=== PATIENT | male | born 1985 | race Two or more races ===

== ENCOUNTER → 2020-03-22 14:13 | Outpatient (BNVA) | payer MEDICAID, SELFPAY | PROVIDERS: PCP Internal Medicine; Referring Provider Internal Medicine; Visit Provider Internal Medicine Cardiovascular Disease | DX: I11.9 Hypertensive heart disease without heart failure (principal); I42.1 Obstructive hypertrophic cardiomyopathy; Z79.899 Other long term (current) drug therapy | CPT/HCPCS: 99212 ==

== ENCOUNTER → 2020-05-08 10:03 | Outpatient (BNVA) | payer MEDICAID, SELFPAY | PROVIDERS: PCP Internal Medicine; Referring Provider Internal Medicine; Visit Provider Nurse Practitioner Family | DX: Z76.89 Persons encountering health services in other specified circumstances (principal) ==

== ENCOUNTER 2020-05-30 12:11 | Outpatient (REF) | payer MEDICAID, SELFPAY ==
[2020-05-30 13:26] LABS: MANUAL DIFF FLAG NO
[2020-05-30 13:30] LABS: Basophils Absolute Auto 0.1 X10*3/uL (0.0-0.2); Basophils Percent Auto 0.8 % (0-2); Eosinophils Absolute Auto 0.2 X10*3/uL (0.0-0.4); Eosinophils Percent Auto 1.8 % (0-4); Hematocrit 49.5 % (42-52); Hemoglobin 16.4 g/dl (14.0-18.0); Imm Gran Abs Auto 0.19 X10*3/uL (0.00-0.03); Imm Gran Pct Auto 1.7 % (0.0-0.4); Lymphocytes Absolute Auto 3.6 X10*3/uL (1.2-4.9); Lymphocytes Percent Auto 31.4 % (20-40); Mean Corpuscular HGB Conc 33.1 g/dl (31.0-36.0); Mean Corpuscular Hemoglobin 29.9 pg (27.0-33.0); Mean Corpuscular Volume 90.2 fL (80-98); Mean Platelet Volume 10.7 fL (9.4-12.4); Monocytes Absolute Auto 0.9 X10*3/uL (0.1-1.2); Monocytes Percent Auto 7.8 % (2-11); Neutrophils Absolute Auto 6.4 X10*3/uL (2.0-8.3); Neutrophils Percent Auto 56.5 % (45-73); Platelet Count 257 X10*3/uL (160-400); Red Blood Count 5.49 X10*6/uL (4.60-5.80); Red Cell Distribution Width 12.1 % (11.0-16.0); White Blood Count 11.3 X10*3/uL (4.8-10.8)
[2020-05-30 13:56] LABS: Estimated Average Glucose 131 mg/dL; Hemoglobin A1c % 6.2 %
[2020-05-30 13:58] LABS: Alanine Aminotransferase 77 U/L (0-40); Albumin Level 4.9 g/dL (3.5-5.0); Alkaline Phosphatase 91 U/L (39-117); Anion Gap 14 (12-20); Aspartate Amino Transferase 39 U/L (5-37); Bilirubin Total 0.8 mg/dL (0.0-1.0); Blood Urea Nitrogen 18 mg/dL (9-16); Calcium 9.8 mg/dL (8.4-10.2); Carbon Dioxide 26 mmol/L (22-29); Chloride 104 mmol/L (96-108); Cholesterol 166 mg/dL; Estimated Glomerular Filt Rate > 60; Glucose Random 111 mg/dL (60-115); HDL Cholesterol 49 mg/dL; LDL Cholesterol Calculated 90 mg/dl; Potassium 4.4 mmol/l (3.3-5.1); Sodium 140 mmol/L (135-145); Total Protein 7.5 g/dL (6.5-8.0); Triglycerides 138 mg/dL
[2020-05-30 14:20] LABS: Thyroid Stimulating Hormone 1.89 uIU/mL (0.32-4.0)
[2020-05-30 14:21] LABS: Glucose Urine UA NEG (NEG); Leukocyte Esterase Urine NEG (NEG); Nitrite Urine NEG (NEG); PH 5.5 (5.0-8.0); Specific Gravity - Urine >= 1.030 (1.005-1.025); Urine Blood TRACE (NEG); Urine Ketones NEG (NEG); Urine Protein NEG (NEG-TRACE)
[2020-05-30 14:23] LABS: Appearance Urine CLEAR; Color Urine YELLOW
[2020-05-30 14:43] LABS: Bacteria Urine TRACE /LPF; Mucus Urine TRACE /LPF; RBC Urine 0-2 /HPF (0); Squamous Epithelial Cell Urine 1+ /LPF; WBC Urine 0-2 /HPF (0-4)
[2020-05-30 14:53] LABS: Creatinine Urine 248.37 mg/dL; Microalbum/Creatinine Ratio Ur 7.2 ug/mg cr
== END 2020-05-30 12:12 | disposition home or self-care (01) ==
LOC: HO.LAB 12:11
PROVIDERS: PCP Internal Medicine; Visit Provider Internal Medicine
DX: E11.9 Type 2 diabetes mellitus without complications (principal); I10 Essential (primary) hypertension; Z72.0 Tobacco use
CPT/HCPCS: 36415; 80053; 80061; 81001; 81003; 82043; 83036; 84443; 85025

== ENCOUNTER → 2020-08-07 10:24 | Outpatient (BNVA) | payer MEDICAID, SELFPAY | PROVIDERS: PCP Internal Medicine; Visit Provider Nurse Practitioner Family ==

== ENCOUNTER → 2020-08-09 14:16 | Outpatient (BNVA) | payer MEDICAID, SELFPAY | PROVIDERS: PCP Internal Medicine; Visit Provider Student in an Organized Health Care Education/Training Program | DX: M25.521 Pain in right elbow (principal) | CPT/HCPCS: 99212 ==

== ENCOUNTER 2020-09-11 07:38 | Outpatient (REF) | payer MEDICAID, SELFPAY ==
[2020-09-11 09:06] LABS: Alanine Aminotransferase 76 U/L (0-40); Albumin Level 4.8 g/dL (3.5-5.0); Alkaline Phosphatase 107 U/L (39-117); Anion Gap 14 (12-20); Aspartate Amino Transferase 34 U/L (5-37); Bilirubin Total 0.4 mg/dL (0.0-1.0); Blood Urea Nitrogen 17 mg/dL (9-16); Calcium 9.8 mg/dL (8.4-10.2); Carbon Dioxide 27 mmol/L (22-29); Chloride 104 mmol/L (96-108); Cholesterol 210 mg/dL; Estimated Glomerular Filt Rate > 60; Glucose Fasting 171 mg/dL (60-99); HDL Cholesterol 36 mg/dL; LDL Cholesterol Calculated 120 mg/dl; Potassium 4.6 mmol/L (3.3-5.1); Sodium 140 mmol/L (135-145); Total Protein 7.2 g/dL (6.5-8.0); Triglycerides 270 mg/dL
[2020-09-11 09:20] LABS: Estimated Average Glucose 146 mg/dL; Hemoglobin A1c % 6.7 %
== END 2020-09-11 07:39 | disposition home or self-care (01) ==
LOC: HO.LAB 07:38
PROVIDERS: PCP Internal Medicine; Visit Provider Internal Medicine
DX: E11.9 Type 2 diabetes mellitus without complications (principal); E78.00 Pure hypercholesterolemia, unspecified; G47.33 Obstructive sleep apnea (adult) (pediatric); I10 Essential (primary) hypertension; M25.521 Pain in right elbow
CPT/HCPCS: 36415; 80053; 80061; 83036

== ENCOUNTER → 2020-10-23 08:26 | Outpatient (BNVA) | payer MEDICAID, SELFPAY | PROVIDERS: PCP Internal Medicine; Visit Provider Nurse Practitioner Family ==

== ENCOUNTER → 2021-01-22 10:54 | Outpatient (BNVA) | payer MEDICAID, SELFPAY | PROVIDERS: PCP Internal Medicine; Visit Provider Nurse Practitioner Family ==

== ENCOUNTER 2021-03-13 10:55 | Outpatient (REF) | payer OTHER, SELFPAY ==
[2021-03-13 14:52] LABS: Anion Gap 18 (12-20); Blood Urea Nitrogen 15 mg/dL (9-16); Carbon Dioxide 26 mmol/L (22-29); Chloride 96 mmol/L (96-108); Estimated Glomerular Filt Rate > 60; Glucose Fasting 424 mg/dL (60-99); Potassium 4.6 mmol/L (3.3-5.1); Sodium 135 mmol/L (135-145)
== END 2021-03-13 10:56 | disposition home or self-care (01) ==
LOC: HO.WFDLDS 10:55
PROVIDERS: PCP Hospitalist; Visit Provider Hospitalist
DX: M54.41 Lumbago with sciatica, right side (principal); M54.42 Lumbago with sciatica, left side
CPT/HCPCS: 36415; 80048

== ENCOUNTER 2021-03-26 11:23 | Outpatient (REF) | payer OTHER, SELFPAY ==
[2021-03-26 14:35] LABS: Estimated Average Glucose 275 mg/dL; Hemoglobin A1c % 11.2 %
== END 2021-03-26 11:24 | disposition home or self-care (01) ==
LOC: HO.WFDLDS 11:23
PROVIDERS: Visit Provider Hospitalist
DX: R73.9 Hyperglycemia, unspecified (principal)
CPT/HCPCS: 36415; 83036

== ENCOUNTER → 2021-04-02 13:51 | Outpatient (BNVA) | payer OTHER, SELFPAY | PROVIDERS: PCP Hospitalist; Referring Provider Hospitalist; Visit Provider Internal Medicine ==

== ENCOUNTER 2021-05-07 12:50 | Outpatient (REF) | payer OTHER, SELFPAY ==
[2021-05-07 14:28] LABS: Estimated Average Glucose 189 mg/dL; Hemoglobin A1c % 8.2 %
== END 2021-05-07 12:51 | disposition home or self-care (01) ==
LOC: HO.WFDLDS 12:50
PROVIDERS: Visit Provider Hospitalist
DX: E11.65 Type 2 diabetes mellitus with hyperglycemia (principal)
CPT/HCPCS: 36415; 83036

== ENCOUNTER → 2021-05-20 09:12 | Outpatient (REF) | payer OTHER, SELFPAY ==
--- NOTE | 2021-05-20 09:17 | CA_ITS ---
Transthoracic Echocardiogram Patient (Last, First, Middle): Tej Proctor, Gender: Male Date of : 1985 Age: 35 Procedure Date: 05/20/2021 Procedure Type: Transthoracic Echocardiogram Location: OP Height: 182.88 cm Weight: 112.49 kg BSA: 2.33 m2 Heart Rate: bpm BP: 130 / 85 mmHg Investment Broker: JAQUELIN Referring MD: Tip Crow MD Health Aide: Tip Crow MD Symptoms: I11.9 - Hypertensive heart disease without heart failure Study Quality: Fair ECG Rhythm: Sinus Conclusions: - 1. Normal LV systolic function with severe LVH with pseudonormal filling pattern 2. Mild left atrial enlargement 3. Normal cardial valvular Dopplers 4. Normal RVSP 5. No gross pericardial effusion Findings Left Ventricle Normal left ventricular size and systolic function. There is severely increased left ventricular wall thickness. The visually estimated ejection fraction is between 60-65%. Spectral Doppler is indicative of a pseudonormal filling pattern. E/E prime ratio is between 8 and 15 consistent with indeterminate filling pressures. Right Ventricle Normal right ventricular cavity size and systolic function. Atria The left atrium is mildly dilated. There is no evidence of interatrial shunt. The right atrium is normal in size. Aortic Valve Normal aortic valve structure and function. There is no aortic valve stenosis. There is no aortic valve regurgitation. Mitral Valve There is mild anterior and posterior mitral leaflet thickening. There is trace mitral valve regurgitation. There is no mitral valve stenosis. Pulmonic Valve The pulmonic valve was not well visualized. Tricuspid Valve Likely normal tricuspid valve structure and function. There is trace tricuspid valve regurgitation. The right ventricular systolic pressure is normal. There is no evidence of pulmonary hypertension. Great Vessels All visible segments of the aorta are normal in size. The pulmonary artery was not well visualized. Venous The inferior vena cava is normal in size and collapses greater than 50% with inspiration. Pericardium/Pleural There is no evidence of pericardial effusion. Prior Study Comparison Changes noted compared to prior study dated: 11/21/2019. Obstructive physiology at LVOT is not noted on this study Measurements 2D Linear Measurements IVSd: 2.66 0.6-0.9/0.6-1.0 cm LVIDd: 3.84 3.9-5.3/4.2-5.9 cm LVIDd Index: 1.65 2.4-3.2/2.2-3.1 cm/m2 LVIDs: 2.30 2.0-3.6 cm LVPWd: 2.21 0.7-1.1 cm Ao Root: 3.40 2.1-3.5 cm LA Diam: 4.20 2.7-3.8/3.0-4.0 cm LAIDs Index: 1.80 1.5-2.3 cm/m2 LV Mass: 628.32 67-162/88-224 g LV Mass Index: 269.66 43-95/49-115 g/m2 LVOT Diam: 2.70 3.0+(-)1.3 cm Mitral Valve MV Pk E: 0.80 MV PK A: 0.68 MV Decel Time: 252.00 E/A: 1.20 E'Lateral: 5.98 E'Medial: 6.09 E/E' Med: 13.20 E/E' Lat: 13.40 PHT: 74.00 MVA PHT: 2.97 Decel Bradley: 3.18 Aortic Valve AoV Pk Emerson: 1.40 AoV Mn Emerson: 1.03 AoV VTI: 0.30 AoV Pk Grad: 8.00 Aov Mn Grad: 5.00 LEVI Cont.VTI: 5.60 LVOT LVOT Pk Emerson: 1.34 LVOT Mn Emerson: 0.92 LVOT VTI: 0.30 LVOT Pk Grad: 7.00 LVOT Mn Grad: 4.00 LVOT Diam: 2.70 LVOT Area: 5.73 Diastolic Function MV Pk E: 0.80 MV Pk A: 0.68 E/A: 1.20 E'Medial: 6.09 E/E' Med: 13.20 E' Laterial: 5.98 E/E' Lat: 13.40 Right Ventricle TAPSE (mm): 18.90 TVS' Emerson: 12.20 Tricuspid Valve TR Pk Emerson: 1.51 TR Pk Grad: 9.00 RA Press: 3.00 RVSP: 12.00 Great Vessels Aorta Ao Root-2D: 3.40 2.0-3.7 cm Ao Asc: 2.90 2.1-3.4 cm Ao Arch: 2.90 Updated in Other Vendor System with Status of Final Tip Crow MD electronically signed on 05/20/2021 6:06:21 PM with status of Final
== END ==
LOC: HO.CARD 09:12
PROVIDERS: PCP Hospitalist; Visit Provider Internal Medicine Cardiovascular Disease
DX: I11.9 Hypertensive heart disease without heart failure (principal)
CPT/HCPCS: 93306

== ENCOUNTER → 2021-06-28 09:09 | Outpatient (BNVA) | payer OTHER, SELFPAY | PROVIDERS: PCP Hospitalist; Referring Provider Hospitalist; Visit Provider Internal Medicine Cardiovascular Disease | DX: Z01.810 Encounter for preprocedural cardiovascular examination (principal); I11.9 Hypertensive heart disease without heart failure; R07.2 Precordial pain | CPT/HCPCS: 99212 ==

== ENCOUNTER 2021-08-06 11:49 | Outpatient (REF) | payer OTHER, SELFPAY ==
--- NOTE | ~2021-08-06 | XR_ITS ---
EXAMINATION: XR LUMBOSACRAL SPINE CLINICAL INFORMATION: Low back pain with radiculopathy. COMPARISON: None TECHNIQUE: Three views of the lumbosacral spine. FINDINGS: There is mild straightening of the lumbar lordosis. The vertebral heights, alignment and disc heights are normal. No visible acute fracture or dislocation seen. No lytic process. There is minimal ventral spondylosis at the L3-L4, L4-L5 and L5-S1 disc levels. No lytic or sclerotic process seen. The SI joints are symmetrical. The soft tissues are normal. XR/XR lumbar spine 2-3V IMPRESSION: Minimal ventral spondylosis L3-L4, L4-L5 and L5-S1 disc levels. Otherwise unremarkable lumbar spine exam.
== END 2021-08-06 11:50 | disposition home or self-care (01) ==
LOC: HO.XRAY 11:49
PROVIDERS: PCP Hospitalist; Visit Provider Chiropractor
DX: M54.16 Radiculopathy, lumbar region (principal); M99.13 Subluxation complex (vertebral) of lumbar region
CPT/HCPCS: 72100

== ENCOUNTER 2021-08-19 12:10 | Outpatient (REF) | payer OTHER, SELFPAY ==
--- NOTE | ~2021-08-19 | XR_ITS ---
EXAMINATION: XR KNEE, RIGHT CLINICAL INFORMATION: Right knee pain COMPARISON: 12/22/2019 TECHNIQUE: Four views of the right knee. FINDINGS: No fracture or subluxation. Compartmental joint spaces are maintained. Mild marginal osteophytes of the lateral compartment. Small osteophytes of the patellofemoral compartment. No joint effusion. Mild anterior soft tissue swelling. XR/XR knee RT 4V IMPRESSION: Mild degenerative change at the lateral and patellofemoral compartments with small osteophytes present.
[2021-08-19 14:06] LABS: Anion Gap 14 (12-20); Blood Urea Nitrogen 19 mg/dL (9-16); Calcium 10.4 mg/dL (8.4-10.2); Carbon Dioxide 28 mmol/L (22-29); Chloride 100 mmol/L (96-108); Estimated Glomerular Filt Rate > 60; Glucose Random 245 mg/dL (60-115); Potassium 4.2 mmol/L (3.3-5.1); Sodium 138 mmol/L (135-145)
[2021-08-19 14:16] LABS: Erythrocyte Sedimentation Rate 16 MM/HR (0-15)
[2021-08-22 19:38] LABS: CRP High Sensitivity >10.0 mg/L
== END 2021-08-19 12:11 | disposition home or self-care (01) ==
LOC: HO.XRAY 12:10
PROVIDERS: Absent Provider Hospitalist; PCP Hospitalist; Visit Provider Internal Medicine Cardiovascular Disease
DX: M25.561 Pain in right knee (principal); I11.9 Hypertensive heart disease without heart failure; I42.1 Obstructive hypertrophic cardiomyopathy; M06.9 Rheumatoid arthritis, unspecified; M25.521 Pain in right elbow; M77.8 Other enthesopathies, not elsewhere classified; M25.571 Pain in right ankle and joints of right foot; M54.41 Lumbago with sciatica, right side; M54.42 Lumbago with sciatica, left side
CPT/HCPCS: 36415; 73564; 80048; 85652; 86141

== ENCOUNTER 2021-10-24 11:27 | Outpatient (REF) | payer OTHER, SELFPAY ==
[2021-10-24 12:25] LABS: C Reactive Protein 0.46 mg/dL (< or = 0.50)
[2021-10-24 13:00] LABS: Erythrocyte Sedimentation Rate 3 MM/HR (0-15)
== END 2021-10-24 11:28 | disposition home or self-care (01) ==
LOC: HO.LAB 11:27
PROVIDERS: PCP Hospitalist; Visit Provider Internal Medicine Rheumatology
DX: M25.50 Pain in unspecified joint (principal); R70.0 Elevated erythrocyte sedimentation rate; M47.816 Spondylosis without myelopathy or radiculopathy, lumbar region; M17.11 Unilateral primary osteoarthritis, right knee
CPT/HCPCS: 36415; 85652; 86140; 99202

== ENCOUNTER 2021-11-28 09:52 | Outpatient (REF) | payer OTHER, SELFPAY ==
--- NOTE | ~2021-11-28 | XR_ITS ---
EXAMINATION: XR lumbar spine 6V w bending CLINICAL INFORMATION: Reason for Exam M54.16 - Radiculopathy, lumbar region COMPARISON: Lumbar spine radiographs 08/06/2021 TECHNIQUE: 6 views of the lumbar spine FINDINGS: 5 nonrib-bearing lumbar-type vertebral bodies. Vertebral body heights are maintained. Grade retrolisthesis of L3 on L4 and L4 on L5 not significant changed in flexion extension views. No pars defects. Mild degenerative disc disease at L4-L5 and L5-S1 with degenerative endplate spurring and facet arthropathy. Paravertebral soft tissues are unremarkable. XR/XR lumbar spine 6V w bending IMPRESSION: * Mild spondylosis of the lumbar spine, as above detailed. * Grade 1 retrolisthesis of L3 on L4 and L4 on L5 not significantly changed in flexion extension views.
[2021-11-28 10:33] LABS: Estimated Average Glucose 206 mg/dL; Hemoglobin A1c % 8.8 %
== END 2021-11-28 09:53 | disposition home or self-care (01) ==
LOC: HO.XRAY 09:52
PROVIDERS: PCP Hospitalist; Visit Provider Nurse Practitioner Family
DX: M47.816 Spondylosis without myelopathy or radiculopathy, lumbar region (principal); M54.16 Radiculopathy, lumbar region; M17.11 Unilateral primary osteoarthritis, right knee; M62.830 Muscle spasm of back; E11.65 Type 2 diabetes mellitus with hyperglycemia
CPT/HCPCS: 36415; 72114; 83036; 99202

== ENCOUNTER 2021-12-09 14:50 | Inpatient (IN) | payer OTHER, SELFPAY ==
--- NOTE | ~2021-12-09 | XR_ITS ---
EXAMINATION: XR FOOT, RIGHT CLINICAL INFORMATION: Right foot swelling and pain COMPARISON: MRI 01/24/2020 TECHNIQUE: AP, lateral, and oblique views of the right foot. FINDINGS: Normal alignment with no fracture. Tibiotalar arthrosis. Posterior calcaneal enthesophyte. Dorsal soft tissue swelling. XR/XR foot RT min 3V IMPRESSION: Dorsal soft tissue swelling. No acute osseous abnormality.
--- NOTE | ~2021-12-09 | CT_ITS ---
EXAMINATION: CT FOOT WITH CONTRAST, RIGHT CLINICAL INFORMATION: Puncture wound, rule out drainable collection COMPARISON: None TECHNIQUE: Axial imaging. Sagittal and coronal reconstructions. Intravenous contrast used. 85 mL Omnipaque 350. This CT examination was performed using dose optimization techniques as appropriate, variously including the following: *Automated exposure control *Adjustment of mA and/or kV according to patient size (this includes techniques or standardized protocols for targeted exams where dose is matched to indication/reason for exam; i.e. extremities or head) *Use of iterative reconstruction technique DLP: 196 mGy-cm FINDINGS: There is a hypodense collection in the plantar subcutaneous tissues of the medial aspect of the forefoot, underlying the distal first metatarsal. This measures 1.7 x 1.8 x 1.6 cm (AP, transverse, length). Internal Hounsfield measurements 38-43, greater than simple fluid. Inferiorly, this extends to the skin. Findings are concerning for a complex collection, differential consideration include abscess. No radiodense foreign bodies or air is identified in this region. There is haziness in the plantar subcutaneous soft tissue overlying in the region of the distal fifth metatarsal, and the distal first toe, nonspecific. There is otherwise scattered areas as subcutaneous stranding present. No additional organized fluid collections identified. Postsurgical changes in the distal fibula with metallic anchors. Talocrural joint arthritis. There is an area of sclerosis with irregular margins in the talus, the talar body/neck, with irregular margins. This of indeterminate etiology, could be related to an area of bone infarction. No acute fractures identified. CT/CT foot RT w con IMPRESSION: Complex fluid collection in the plantar soft tissues/subcutaneous tissues in the region of the distal first metatarsal measuring 1.7 x 1.8 x 1.6 cm. No radiodense foreign bodies or air is identified in this region. Differential consideration include infectious etiology/abscess, inflammatory etiologies. Clinically correlate. Areas of haziness in the plantar subcutaneous soft tissues tissue in the region of the distal fifth metatarsal and the distal first toe, nonspecific. This clinically correlate. Prominent area of sclerosis with irregular margins in the talar body/neck, of indeterminate etiology. Differential consideration include sequela of trauma, bone infarction. Clinically correlate. Additional findings and details as above.
[2021-12-09 15:08] VITALS: BP 159/82; PULSE 85; RESP 18; TEMP 36.1; O2SAT 98; BMI 33.0
[2021-12-09 15:48] LABS: Basophils Absolute Auto 0.1 X10*3/uL (0.0-0.2); Basophils Percent Auto 0.4 % (0-2); Eosinophils Absolute Auto 0.1 X10*3/uL (0.0-0.4); Eosinophils Percent Auto 0.7 % (0-4); Hematocrit 47.8 % (42.0-52.0); Hemoglobin 16.3 g/dl (14.0-18.0); Imm Gran Abs Auto 0.16 X10*3/uL (0.00-0.03); Imm Gran Pct Auto 0.9 % (0.0-0.4); Lymphocytes Absolute Auto 3.3 X10*3/uL (1.2-4.9); Lymphocytes Percent Auto 17.5 % (20-40); MANUAL DIFF FLAG SCAN; Mean Corpuscular HGB Conc 34.1 g/dl (31.0-36.0); Mean Corpuscular Volume 87.9 fL (80.0-98.0); Mean Platelet Volume 10.6 fL (9.4-12.4); Monocytes Absolute Auto 1.8 X10*3/uL (0.1-1.2); Monocytes Percent Auto 9.8 % (2-11); Neutrophils Absolute Auto 13.2 x10*3/uL (2.0-8.3); Neutrophils Percent Auto 70.7 % (45-73); Platelet Count 242 X10*3/uL (160-400); Red Blood Count 5.44 X10*6/uL (4.60-5.80); Red Cell Distribution Width 11.9 % (11.0-16.0); SCAN SMEAR FLAG 1; White Blood Count 18.6 X10*3/uL (4.8-10.8)
[2021-12-09 16:00] LABS: C Reactive Protein 8.34 mg/dL (< or = 0.50)
[2021-12-09 16:02] LABS: Alanine Aminotransferase 91 U/L (0-40); Alkaline Phosphatase 123 U/L (39-117); Anion Gap 15 (12-20); Aspartate Amino Transferase 22 U/L (5-37); Bilirubin Total 1.1 mg/dL (0.0-1.0); Blood Urea Nitrogen 14 mg/dL (9-16); Carbon Dioxide 24 mmol/L (22-29); Chloride 101 mmol/L (96-108); Creatinine Clr Calc Pharmacy 141.4; Estimated Glomerular Filt Rate > 60; Glucose Random 309 mg/dL (60-115); Potassium 3.9 mmol/L (3.3-5.1); Sodium 136 mmol/L (135-145); Total Protein 7.8 g/dL (6.5-8.0)
[2021-12-09 16:04] LABS: Lactic Acid 2.9 mmol/L (0.5-2.0)
[2021-12-09 16:09] LABS: SLIDE REVIEW VERIFIED
[2021-12-09 16:33] LABS: Erythrocyte Sedimentation Rate 11 MM/HR (0-15)
[2021-12-09] MEDS: 0.9 % Sodium Chloride 1,000 ML 999 ML IV ×2 (17:11→18:46)
[2021-12-09] MEDS: Ketorolac Tromethamine 15 MG/ML VIAL IVPUSH ×2 (17:12→23:18)
--- NOTE | 2021-12-09 17:16 | ED.SKABFB ---
HPI - Skin/Abscess/Foreign Bdy General Chief complaint: Skin/Abscess/Foreign Body Stated complaint: swollen foot Time Seen by Provider: 12/09/21 16:55 Source: patient Mode of arrival: ambulatory History of Present Illness HPI narrative: 36-year-old male with past medical history of hypertension, MARA, diabetes, presenting to the ED complaining of puncture wound to right foot s/p stepping on dirty marie nail in [place] 2-3 weeks ago. Reports nail went through shoe into foot. Reports increasing right foot pain, swelling, erythema and warmth. Denies drainage from area, fever, chills. Tetanus is up-to-date MD complaint: abscess/boil Onset (ago): week(s) Related Data Previous Rx's Medication Instructions Recorded albuterol sulfate 90 mcg/actuation 2 puff inhalation Q4-6H PRN 03/06/21 aerosol inhaler (ProAir HFA) shortness of breath or wheezing 1 month #8.5 grams fluticasone propionate 110 1 puff inhalation BID 1 month #12 03/06/21 mcg/actuation HFA aerosol inhaler grams (Flovent HFA) blood-glucose meter (FreeStyle #1 ea 04/16/21 Lite Meter kit) Januvia 25 mg tablet (sitagliptin) 25 mg PO DAILY #90 tabs 05/07/21 back brace #1 ea 05/07/21 blood sugar diagnostic (FreeStyle #100 strips 09/02/21 Lite Strips) gabapentin 600 mg tablet 600 mg PO QID 1 month #120 tabs 09/18/21 amlodipine 5 mg tablet 5 mg PO DAILY #90 tabs 10/17/21 atorvastatin 40 mg tablet 40 mg PO BEDTIME 3 months #90 tabs 10/17/21 hydrochlorothiazide 25 mg tablet 25 mg PO DAILY #90 tabs 10/17/21 metoprolol tartrate 50 mg tablet 50 mg PO BID 3 months #180 tabs 10/17/21 sulindac 200 mg tablet 200 mg PO BID PRN pain 30 days #60 11/28/21 tabs tizanidine 4 mg tablet 4 mg PO Q8H PRN muscle spasticity 11/28/21 30 days #90 tabs irbesartan 300 mg tablet 300 mg PO DAILY #90 tabs 12/04/21 glipizide 5 mg tablet 5 mg PO TID #270 tabs 12/05/21 Allergies Allergy/AdvReac Type Severity Reaction Status Date / Time Penicillins [PENICILLINS] Allergy Intermediate RASH Verified 12/09/21 16:03 metformin AdvReac Intermediate Diarrhea Verified 12/09/21 16:03 Review of Systems Review of Systems: Constitutional: No Fever, No Chills ENT/Mouth: No Ear Pain, No Nasal Congestion, No sore throat, No Rhinorrhea, No Swallowing Difficulty Cardiovascular: No Chest Pain, No SOB Respiratory: No Cough, No Sputum, No Wheezing Gastrointestinal: No Nausea, No Vomiting, No Diarrhea, No Constipation, No Abdominal pain Genitourinary: No Dysuria, No Urinary Frequency, No Flank Pain Musculoskeletal: + joint pain, No Myalgias, No Joint Swelling Skin: + Skin Lesions, No rash Neuro: No Weakness, No Numbness, No Paresthesias Yes all other systems are reviewed and are negative Constitutional: Constitutional: Reports as per [facility] Past Medical History Attestation statement: The following information was validated with the patient. Medical History HTN (hypertension) Hypertensive heart disease Hypertrophic obstructive cardiomyopathy MARA (obstructive sleep apnea) Osteoarthritis of lumbar spine Osteoarthritis of right knee Surgical History History of ankle surgery History of elbow surgery History of hand surgery Family History Family History Father PVD (peripheral vascular disease) Mother No problems noted. Social History Social History Housing: Apartment Alcohol intake: current Patient Tobacco Use Status: Current everyday Tobacco user Tobacco use type: Cigarette Cigarettes Per Day: 7 Years Smoked: 20 e-Cigarette/Vaping Use: Never Used Current occupational status: unemployed Cognitive needs: No Hearing needs: No Vision needs: Yes (Glasses) Physical Exam Vital Signs: Vital Signs: Last Vital Signs Temp 96.9 F 12/09/21 15:08 Pulse 85 12/09/21 15:08 Resp 18 12/09/21 15:08 BP 159/82 H 12/09/21 15:08 Pulse Ox 98 12/09/21 15:08 BMI result Body Mass Index 33.0 Const: General: cooperative, healthy appearing and no acute distress Orientation/consciousness: patient oriented x3 Limitations: no limitations HEENT: Head: Yes normal to inspection and Yes atraumatic Ears: hearing grossly normal bilaterally General nose exam: Normal external nose present Face and sinus: Yes normal facial exam Eyes: General: appearance normal, both eyes and all related structures EOM: EOMs intact bilaterally Neck: Neck: Yes normal visual inspection and Yes no meningeal signs Resp: Effort & Inspection: normal respiratory effort and no respiratory distress Auscultation: clear to auscultation bilaterally Cardio: Rate: regular rate Heart sounds: S1 normal heart sound present and S2 normal heart sound present Peripheral pulses: dorsalis pedis present Skin: Rashes: no rashes Neuro: General: patient oriented x3, tone normal and no meningeal signs Gait exam (Neuro): Normal gait present Extrem: Other: please refer to images above of right foot, puncture wound noted to plantar aspect with surrounding swelling / erythema and warmth. Pointing appreciated with fluctuance. No drainage. Very tender to palpation. Neurovascular intact. Course Course Course Narrative: -1720-- noted leukocytosis of 18.6. Lactic acid elevated to 2.9 >> 2 L IVF ordered as well as empiric IV cefepime and vancomycin. patient does not meet severe sepsis criteria - ESR WNL, CRP mildly elevated to 8.34 - ALT chronically elevated XR foot RT min 3V IMPRESSION: Dorsal soft tissue swelling. No acute osseous abnormality. > case discussed with general surgery, Dr. Kennedy who evaluated patient in the ED and recommended CT scan with IV contrast. Recommended admission to hospitalist & will consult. If patient needs I & D will happen in the OR > patient admitted to hospitalist service for further management MDM - Skin/Abscess/Foreign Bdy MDM Narrative Medical decision making narrative: 36-year-old male with past medical history of hypertension, MARA, diabetes, presenting to the ED complaining of puncture wound to right foot s/p stepping on dirty marie nail in [place] 2-3 weeks ago. on exam vital signs stable, NAD, physical exam as above. Please refer to images. Concern for cellulitis vs abscess/drainable collection vs osteomyelitis. low concern for septic joint plan: Labs, lactic/ blood cultures, x-ray all ordered in triage Differential Diagnosis Differential diagnosis: Likely abscess of skin or subcutaneous tissue and cellulitis Medical Records Attestation: I reviewed the patient's medical records. Lab Data Attestation: I reviewed the patient's lab results. Result diagrams: 12/09/21 15:35 12/09/21 15:35 Labs: Lab Results 12/09/21 12/09/21 12/09/21 Range/Units 15:35 15:35 15:35 WBC 18.6 H (4.8-10.8) X10*3/uL RBC 5.44 (4.60-5.80) X10*6/uL Hgb 16.3 (14.0-18.0) g/dl Hct 47.8 (42.0-52.0) % MCV 87.9 (80.0-98.0) fL MCH 30.0 (27.0-33.0) pg MCHC 34.1 (31.0-36.0) g/dl RDW 11.9 (11.0-16.0) % Plt Count 242 (160-400) X10*3/uL MPV 10.6 (9.4-12.4) fL Immature Gran % (Auto) 0.9 H (0.0-0.4) % Neut % (Auto) 70.7 (45-73) % Lymph % (Auto) 17.5 L (20-40) % [place] % (Auto) 9.8 (2-11) % Eos % (Auto) 0.7 (0-4) % Baso % (Auto) 0.4 (0-2) % Lymph # (Auto) 3.3 (1.2-4.9) X10*3/uL [place] # (Auto) 1.8 H (0.1-1.2) X10*3/uL Eos # (Auto) 0.1 (0.0-0.4) X10*3/uL Baso # (Auto) 0.1 (0.0-0.2) X10*3/uL Abs Immat Gran (auto) 0.16 H (0.00-0.03) X10*3/uL Absolute Neuts (auto) 13.2 H (2.0-8.3) x10*3/uL Absolute Nucleated RBC 0.000 (0.0-0.012) X10*3/uL Nucleated RBC % (auto) 0.0 (0.0-0.2) /100WBC Smear Tech's Comments VERIFIED ESR 11 (0-15) MM/HR Sodium 136 (135-145) mmol/L Potassium 3.9 (3.3-5.1) mmol/L Chloride 101 (96-108) mmol/L Carbon Dioxide 24 (22-29) mmol/L Anion Gap 15 (12-20) BUN 14 (9-16) mg/dL Creatinine 0.91 (0.5-1.4) mg/dL Estim Creat Clear Calc 141.4 Estimated GFR > 60 Random Glucose 309 H (60-115) mg/dL Lactic Acid (0.5-2.0) mmol/L Calcium 10.0 (8.4-10.2) mg/dL Total Bilirubin 1.1 H (0.0-1.0) mg/dL AST 22 (5-37) U/L ALT 91 H (0-40) U/L Alkaline Phosphatase 123 H (39-117) U/L C-Reactive Protein (< or = 0.50) mg/dL Total Protein 7.8 (6.5-8.0) g/dL Albumin 5.0 (3.5-5.0) g/dL 12/09/21 12/09/21 Range/Units 15:35 15:35 WBC (4.8-10.8) X10*3/uL RBC (4.60-5.80) X10*6/uL Hgb (14.0-18.0) g/dl Hct (42.0-52.0) % MCV (80.0-98.0) fL MCH (27.0-33.0) pg MCHC (31.0-36.0) g/dl RDW (11.0-16.0) % Plt Count (160-400) X10*3/uL MPV (9.4-12.4) fL Immature Gran % (Auto) (0.0-0.4) % Neut % (Auto) (45-73) % Lymph % (Auto) (20-40) % [place] % (Auto) (2-11) % Eos % (Auto) (0-4) % Baso % (Auto) (0-2) % Lymph # (Auto) (1.2-4.9) X10*3/uL [place] # (Auto) (0.1-1.2) X10*3/uL Eos # (Auto) (0.0-0.4) X10*3/uL Baso # (Auto) (0.0-0.2) X10*3/uL Abs Immat Gran (auto) (0.00-0.03) X10*3/uL Absolute Neuts (auto) (2.0-8.3) x10*3/uL Absolute Nucleated RBC (0.0-0.012) X10*3/uL Nucleated RBC % (auto) (0.0-0.2) /100WBC Smear Tech's Comments ESR (0-15) MM/HR Sodium (135-145) mmol/L Potassium (3.3-5.1) mmol/L Chloride (96-108) mmol/L Carbon Dioxide (22-29) mmol/L Anion Gap (12-20) BUN (9-16) mg/dL Creatinine (0.5-1.4) mg/dL Estim Creat Clear Calc Estimated GFR Random Glucose (60-115) mg/dL Lactic Acid 2.9 H* (0.5-2.0) mmol/L Calcium (8.4-10.2) mg/dL Total Bilirubin (0.0-1.0) mg/dL AST (5-37) U/L ALT (0-40) U/L Alkaline Phosphatase (39-117) U/L C-Reactive Protein 8.34 H (< or = 0.50) mg/dL Total Protein (6.5-8.0) g/dL Albumin (3.5-5.0) g/dL Discharge Plan Discharge Clinical Impression: Infected puncture wound of plantar aspect of foot Patient Disposition: Admitted As Inpatient Prescriptions: No Action (DME) FreeStyle Lite Strips Strip See Rx Instructions .ROUTE .COMPLEX Qty: 100 7RF Dose Instruction: USE TO TEST BLOOD SUGAR 2-3 TIMES DAILY Rx Instructions: USE TO TEST BLOOD SUGAR 2-3 TIMES DAILY amlodipine 5 mg tablet 5 mg PO DAILY Qty: 90 3RF atorvastatin 40 mg tablet 40 mg PO BEDTIME 90 Days Qty: 90 3RF hydrochlorothiazide 25 mg tablet 25 mg PO DAILY Qty: 90 3RF metoprolol tartrate 50 mg tablet 50 mg PO BID 90 Days Qty: 180 3RF glipizide 5 mg tablet 5 mg PO TID Qty: 270 1RF albuterol sulfate [ProAir HFA] 90 mcg/actuation HFA aerosol inhaler 2 puff inhalation Q4-6H PRN (Reason: shortness of breath or wheezing) 30 Days Qty: 8.5 3RF Flovent HFA 110 mcg/actuation HFA aerosol inhaler 1 puff inhalation BID 30 Days Qty: 12 2RF gabapentin 600 mg tablet 600 mg PO QID 30 Days Qty: 120 1RF Rx Instructions: after one week may increase to one twice a day irbesartan 300 mg tablet 300 mg PO DAILY Qty: 90 3RF (DME) blood-glucose meter [FreeStyle Lite Meter] Kit See Rx Instructions .Route Qty: 1 0RF Rx Instructions: monitor glucose 1-2 times per day Januvia 25 mg tablet 25 mg PO DAILY Qty: 90 1RF (DME) back brace Misc See Rx Instructions .Route Qty: 1 0RF Rx Instructions: As directed sulindac 200 mg tablet 200 mg PO BID PRN (Reason: pain) 30 Days Qty: 60 0RF Rx Instructions: Take it with food. Avoid other NSAIDs. tizanidine 4 mg tablet 4 mg PO Q8H PRN (Reason: muscle spasticity) 30 Days Qty: 90 0RF
--- NOTE | 2021-12-09 17:20 | PM.CNGS ---
History of Present Illness Consult details Consult date: 12/09/21 Narrative: 36M here in the ED for pain and swelling of his right foot. He is a known diabetic. He says he was in [place] when he stepped on a nail 3 weeks ago. He says he had a small open wound on the right foot then but he says this did not really give him problems and seemed to have healed. However, about 3 days ago, he had noticed swelling and worsening pain. He says he went to [facility] ED then but was waiting for hours in the ED so he decided to leave. The pain and swelling persisted so he went to the ED here today. He denies fever or chills. Review of Systems Constitutional: Constitutional: Denies chills and Denies fever(s) Cardiovascular: Cardiovascular: Denies chest pain, Denies dyspnea and Denies dyspnea on exertion Respiratory: Respiratory: Denies cough, Denies dyspnea and Denies dyspnea on exertion Gastrointestinal: Gastrointestinal: Denies hematochezia and Denies change in bowel habits Genitourinary: Genitourinary: Denies hematuria and Denies difficulty urinating Musculoskeletal: Musculoskeletal: Denies back pain and Denies limited range of motion Neurologic: Denies focal weakness and Denies convulsions Psychiatric: Psychiatric: Denies depression and Denies mood swings PMFSH Past Medical History Medical History Diabetes HTN (hypertension) Hypertensive heart disease Hypertrophic obstructive cardiomyopathy MARA (obstructive sleep apnea) Osteoarthritis of lumbar spine Osteoarthritis of right knee Family History Family History Father PVD (peripheral vascular disease) Mother No problems noted. Surgical History Surgical History History of ankle surgery History of elbow surgery History of hand surgery Social History Social History Household Members: Family Housing: Apartment Do you presently have visiting nurse or other home services: No Alcohol intake: current Patient Tobacco Use Status: Current everyday Tobacco user Tobacco use type: Cigarette Cigarette Packs Per Day: 0.25 Cigarettes Per Day: 5.0 Years Smoked: 20 e-Cigarette/Vaping Use: Never Used Second Hand Smoke Exposure: No service: No Current occupational status: unemployed Cognitive needs: No Hearing needs: No Vision needs: Yes (Glasses) Meds Allergies Allergy/AdvReac Type Severity Reaction Status Date / Time Penicillins [PENICILLINS] Allergy Intermediate RASH Verified 12/09/21 16:03 metformin AdvReac Intermediate Diarrhea Verified 12/09/21 16:03 Active Medications: Current Medications Sodium Chloride (Ns) 1,000 mls @ 999 mls/hr IV .Q1H1M POLINA Stop: 12/09/21 18:00 Last Admin: 12/09/21 17:11 Dose: 999 mls/hr Sodium Chloride (Ns) 1,000 mls @ 999 mls/hr IV .Q1H1M POLINA Stop: 12/09/21 18:15 Levofloxacin (Levaquin) 750 mg in 150 mls @ 100 mls/hr IV ONCE ONE Stop: 12/09/21 18:40 Pharmacy Consult (Consult Rx Perform Med Rec) 1 each MISCELLANE ONCE PRN PRN Reason: Consult order Physical Exam Vital Signs: Vital Signs: Last Vital Signs Temp 96.9 F 12/09/21 15:08 Pulse 85 12/09/21 15:08 Resp 18 12/09/21 15:08 BP 159/82 H 12/09/21 15:08 Pulse Ox 98 12/09/21 15:08 BMI result Body Mass Index 33.0 Const: Other: not septic looking General: comfortable and no acute distress Orientation/consciousness: patient oriented x3 Neck: Neck: Yes no lymphadenopathy Resp: Auscultation: clear to auscultation bilaterally Cardio: Rhythm: regular rhythm GI: Palpation (GI): Soft to palpation, nontender and no guarding Neuro: General: patient oriented x3 Extrem: Other: right foot plantar aspect near base of big toe - pucnture wound with redness, swelling, tenderness Results Labs Result diagrams: 12/12/21 05:10 12/12/21 05:10 Labs: Abnormal lab results 12/09/21 12/09/21 12/09/21 Range/Units 15:35 15:35 15:35 WBC 18.6 H (4.8-10.8) X10*3/uL Immature Gran % (Auto) 0.9 H (0.0-0.4) % Lymph % (Auto) 17.5 L (20-40) % [place] # (Auto) 1.8 H (0.1-1.2) X10*3/uL Abs Immat Gran (auto) 0.16 H (0.00-0.03) X10*3/uL Absolute Neuts (auto) 13.2 H (2.0-8.3) x10*3/uL Random Glucose 309 H (60-115) mg/dL Lactic Acid 2.9 H* (0.5-2.0) mmol/L Total Bilirubin 1.1 H (0.0-1.0) mg/dL ALT 91 H (0-40) U/L Alkaline Phosphatase 123 H (39-117) U/L C-Reactive Protein (< or = 0.50) mg/dL 12/09/21 Range/Units 15:35 WBC (4.8-10.8) X10*3/uL Immature Gran % (Auto) (0.0-0.4) % Lymph % (Auto) (20-40) % [place] # (Auto) (0.1-1.2) X10*3/uL Abs Immat Gran (auto) (0.00-0.03) X10*3/uL Absolute Neuts (auto) (2.0-8.3) x10*3/uL Random Glucose (60-115) mg/dL Lactic Acid (0.5-2.0) mmol/L Total Bilirubin (0.0-1.0) mg/dL ALT (0-40) U/L Alkaline Phosphatase (39-117) U/L C-Reactive Protein 8.34 H (< or = 0.50) mg/dL Short CBC 12/09/21 Range/Units 15:35 WBC 18.6 H (4.8-10.8) X10*3/uL Hgb 16.3 (14.0-18.0) g/dl Hct 47.8 (42.0-52.0) % Plt Count 242 (160-400) X10*3/uL BMP 12/09/21 15:35 Sodium 136 Potassium 3.9 Chloride 101 Carbon Dioxide 24 BUN 14 Creatinine 0.91 Calcium 10.0 Liver Function 12/09/21 Range/Units 15:35 Total Bilirubin 1.1 H (0.0-1.0) mg/dL AST 22 (5-37) U/L ALT 91 H (0-40) U/L Alkaline Phosphatase 123 H (39-117) U/L Albumin 5.0 (3.5-5.0) g/dL All other labs normal. Assessment and Plan (1) Puncture wound of foot: Status: Acute It appears that he may have a delayed infection of the puncture wound on his right foot. I would recommend admission for IV abx. A CT scan will be good to rule out any abscess collection. He will benefit from I and D, this may be done in the OR under anesthesia in view of his pain. His foot should be elevated for now. He seems to be updated with his tetanus shots. Procedures Date of Service Date of Service: 12/09/21
[2021-12-09] MEDS: cefEPime HCl 2 GM in 0.9 % Sodium Chloride 50 ML IV (17:38)
[2021-12-09 17:42] LABS: Reflex Lactate? Lactic Acid Added
--- NOTE | 2021-12-09 17:50 | PHA.MEDREC ---
Pharmacy Consult ? Medication Reconciliation Pharmacy has completed the medication reconciliation. Learning Support Services Director was in the room with me. Patient has scripts for sulindac and tizanidine, both he has not been able to pick remover from pharmacy so they have not been started yet.
[2021-12-09 18:39] LABS: COVID-19 Test Negative (Negative)
[2021-12-09 18:42] VITALS: BP 144/76; PULSE 76; RESP 16; O2SAT 96
--- NOTE | 2021-12-09 19:01 | PC.NURSE ---
Pt pending admit for R foot infection. Report to BRYAN mcneil. Pt has abx hanging, CT scan and surgical consult. Pt has DM. Pt VS WNL at this time, pt aox4
[2021-12-09] MEDS: iohexoL 350 MG/ML 100 ML INFUS..BTL IV (19:30)
[2021-12-09 20:27] VITALS: BP 158/84; PULSE 86; RESP 24; TEMP 36.6; O2SAT 98
--- NOTE | 2021-12-09 20:29 | PM.IMHP ---
History of Present Illness Date of Service: 12/09/21 Chief Complaint: foot wound This is a 36-year-old Wallisian-speaking male with past medical history of hypertension, hypertrophic obstructive cardiomyopathy, hypertensive heart disease, MARA, diabetes presents to the hospital with complaints of a puncture wound on his right foot. Patient's at bedside gives me the history. She reports that about 2 weeks ago he stepped on a nail, about 3 days ago the wound site became swollen, and started causing him significant pain. They went to [facility] [place] multiple times but the wait was too long therefore they went home. They went to PCP today, after examination the PCP asked the patient to go to the ED for further evaluation. Patient reports pain 10/10, no drainage. Patient denies any fever or chills, no chest pain, no shortness of breath, no abdominal pain nausea or vomiting, no diarrhea constipation, no urinary symptoms and no lower extremity edema. On arrival to the ED patient hemodynamically stable with no significant abnormal vitals Labs are significant for WBC count of 18.6, lactic acid of 2.9, CRP of 8.34, ESR of 11, Foot CT showed complex fluid collection in the plantar soft tissue/subcutaneous tissue in the region of the distal 1st metatarsal measuring 1.7 x 1.8 x 1.6 possible differentials include infectious versus abscess. Patient started on IV antibiotics and will be admitted for further management Review of Systems Review of Systems: Yes all other systems are reviewed and are negative [facility] Medical History HTN (hypertension) Hypertensive heart disease Hypertrophic obstructive cardiomyopathy MARA (obstructive sleep apnea) Osteoarthritis of lumbar spine Osteoarthritis of right knee Family History Father PVD (peripheral vascular disease) Mother No problems noted. Surgical History History of ankle surgery History of elbow surgery History of hand surgery Social History Housing: Apartment Alcohol intake: current Patient Tobacco Use Status: Never used Tobacco Tobacco use type: Cigarette Cigarettes Per Day: 7 Years Smoked: 20 e-Cigarette/Vaping Use: Never Used Use of substances other than those prescribed or required for medical reasons: No Advance Directives: No Advance Directives Information Provided: Yes Current occupational status: unemployed Cognitive needs: No Hearing needs: No Vision needs: Yes (Glasses) Meds Allergies Allergy/AdvReac Type Severity Reaction Status Date / Time Penicillins [PENICILLINS] Allergy Intermediate RASH Verified 12/09/21 16:03 metformin AdvReac Intermediate Diarrhea Verified 12/09/21 16:03 Active Medications: Current Medications Pharmacy Consult (Consult Rx Perform Med Rec) 1 each MISCELLANE ONCE PRN PRN Reason: Consult order Physical Exam Vital Signs and Narrative: Vital Signs: Last Vital Signs Temp 97.9 F 12/09/21 20:27 Pulse 86 12/09/21 20:27 Resp 24 H 12/09/21 20:27 BP 158/84 H 12/09/21 20:27 Pulse Ox 98 12/09/21 20:27 O2 Del Method 12/09/21 20:27 BMI result Body Mass Index 33.0 Const: General: cooperative and no acute distress Orientation/consciousness: patient oriented x3 Eyes: General: appearance normal, both eyes and all related structures Resp: Effort & Inspection: normal respiratory effort Auscultation: clear to auscultation bilaterally Cardio: Rate: regular rate Rhythm: regular rhythm GI: Palpation (GI): Soft to palpation Auscultation: normal bowel sounds Neuro: General: patient oriented x3 Cognition (Neuro): normal cognition Extrem: Other: Of right foot ulcer, with clear margins, no erythema. tender to palpation Results Labs CBC and Chem 7: 12/09/21 15:35 12/09/21 15:35 Labs: Laboratory Results - last 24 hr 12/09/21 12/09/21 12/09/21 15:35 15:35 15:35 MCV 87.9 MCH 30.0 MCHC 34.1 RDW 11.9 Plt Count 242 MPV 10.6 Immature Gran % (Auto) 0.9 H Neut % (Auto) 70.7 Lymph % (Auto) 17.5 L [place] % (Auto) 9.8 Eos % (Auto) 0.7 Baso % (Auto) 0.4 Lymph # (Auto) 3.3 [place] # (Auto) 1.8 H Eos # (Auto) 0.1 Baso # (Auto) 0.1 Abs Immat Gran (auto) 0.16 H Absolute Neuts (auto) 13.2 H Absolute Nucleated RBC 0.000 Nucleated RBC % (auto) 0.0 Smear Tech's Comments VERIFIED ESR 11 Anion Gap 15 Estim Creat Clear Calc 141.4 Estimated GFR > 60 Random Glucose 309 H Lactic Acid Calcium 10.0 Total Bilirubin 1.1 H AST 22 ALT 91 H Alkaline Phosphatase 123 H C-Reactive Protein Total Protein 7.8 Albumin 5.0 COVID-19 (EVELIO) COVID-19 Clin Com 12/09/21 12/09/21 12/09/21 15:35 15:35 18:13 MCV MCH MCHC RDW Plt Count MPV Immature Gran % (Auto) Neut % (Auto) Lymph % (Auto) [place] % (Auto) Eos % (Auto) Baso % (Auto) Lymph # (Auto) [place] # (Auto) Eos # (Auto) Baso # (Auto) Abs Immat Gran (auto) Absolute Neuts (auto) Absolute Nucleated RBC Nucleated RBC % (auto) Smear Tech's Comments ESR Anion Gap Estim Creat Clear Calc Estimated GFR Random Glucose Lactic Acid 2.9 H* Calcium Total Bilirubin AST ALT Alkaline Phosphatase C-Reactive Protein 8.34 H Total Protein Albumin COVID-19 (EVELIO) Negative COVID-19 Clin Com See Note Imaging Radiologist's Impressions: Impressions Foot X-Ray 12/09/21 15:20 IMPRESSION: Dorsal soft tissue swelling. No acute osseous abnormality. Foot CT 12/09/21 19:28 IMPRESSION: Complex fluid collection in the plantar soft tissues/subcutaneous tissues in the region of the distal first metatarsal measuring 1.7 x 1.8 x 1.6 cm. No radiodense foreign bodies or air is identified in this region. Differential consideration include infectious etiology/abscess, inflammatory etiologies. Clinically correlate. Areas of haziness in the plantar subcutaneous soft tissues tissue in the region of the distal fifth metatarsal and the distal first toe, nonspecific. This clinically correlate. Prominent area of sclerosis with irregular margins in the talar body/neck, of indeterminate etiology. Differential consideration include sequela of trauma, bone infarction. Clinically correlate. Additional findings and details as above. Assessment and Plan (1) Infected puncture wound of plantar aspect of foot: Status: Acute Plan 36-year-old male with past medical history of diabetes presents with a wound puncture after stepping on a nail of his right foot with evidence of infection # right foot infected puncture wound - elevated CRP, has leukocytosis, evidence of abscess/infection and CT of the foot - started on broad-spectrum IV antibiotics given his history of diabetes - general surgery consulted - no evidence of osteomyelitis at this time, but will consult Infectious Disease for further recommendation in regards to MRI - follow cultures # diabetes - low-dose sliding scale insulin - diabetic diet # hypertension - continue home medication DVT prophylaxis: Lovenox Given his history of diabetes, infected right foot infected puncture wound/abscess a need for further surgical intervention patient will require minimal 2 night hospital stay for further management and evaluation. This cannot be done in any other acute setting Quality Stroke Does the patient have a stroke diagnosis?: No VTE Prior VTE?: No VTE Risk Level:: Medical - moderate - high VTE Device Contraindication: Treatment Not Indicated VTE Drug Contraindication: N/A - Med Ordered
--- NOTE | 2021-12-09 20:47 | PHA.PROG ---
Admission Date/Time: December 09, 2021 20:25 Indication: SKIN /SKIN STRUCTURE INF Weight in k.677 kg Adjusted body weight in K.6 KG [place] body weight in K.6 Obesity Dosing Indication % IBW: Serum Creatinine - Last 168 Hours 12/09/21 15:35 Creatinine 0.91 Estimated CrCl and GFR - Last 168 Hours 12/09/21 15:35 Estim Creat Clear Calc 141.4 Estimated GFR > 60 Vancomycin Loading Dose: 2000 MG Current Vancomycin Dosing Regimen: 1250 Q12H Vancomycin Monitoring using AUC goal of 400 - 600 range with trough as surrogate marker: PREDICTED AUC 555 Date and Time for next Vancomycin Level to be drawn: 12/11/21 @0500 Pharmacist Comments on Vancomycin Plan: OBESE MODEL USED Vancomycin dosing will take advantage of Sentiment as a clinical decision support tool that uses Bayesian modeling to calculate individual patient's pharmacokinetic parameters and forecast the patient's drug concentration time course with the target goal AUC 24 range of 400 - 600 mg/L/hr.
[2021-12-09] MEDS: Enoxaparin Sodium 40 MG/0.4 ML SYRINGE SUBCUT (21:35)
[2021-12-09] MEDS: Morphine Sulfate 4 MG/ML CARTRIDGE IVPUSH (21:35)
[2021-12-09] MEDS: oxyCODONE HCl Immed Release 5 MG TABLET PO (23:14)
[2021-12-09] MEDS: Lactated Ringers 1,000 ML 80 ML IVCONT (23:15)
[2021-12-10] VITALS (15 sets, daily range): BP systolic 125–207; BP diastolic 66–108; PULSE 63–85; RESP 16–30; TEMP 36–36.7; O2SAT 90–98
[2021-12-10] MEDS: cefEPime HCl 2 GM in 0.9 % Sodium Chloride 50 ML IV ×2 (02:42→17:15)
[2021-12-10] MEDS: Acetaminophen 325 MG TABLET 650 MG PO ×2 (04:00→17:41)
[2021-12-10] MEDS: HYDROmorphone HCl 0.5 MG/0.5 ML SYRINGE IVPUSH ×2 (04:01→07:43)
[2021-12-10 04:17] LABS: Basophils Absolute Auto 0.1 X10*3/uL (0.0-0.2); Basophils Percent Auto 0.5 % (0-2); Eosinophils Absolute Auto 0.2 X10*3/uL (0.0-0.4); Eosinophils Percent Auto 1.3 % (0-4); Hematocrit 42.1 % (42.0-52.0); Hemoglobin 14.4 g/dl (14.0-18.0); Imm Gran Abs Auto 0.11 X10*3/uL (0.00-0.03); Imm Gran Pct Auto 0.7 % (0.0-0.4); Lymphocytes Absolute Auto 4.5 X10*3/uL (1.2-4.9); MANUAL DIFF FLAG SCAN; Mean Corpuscular HGB Conc 34.2 g/dl (31.0-36.0); Mean Corpuscular Hemoglobin 30.3 pg (27.0-33.0); Mean Corpuscular Volume 88.4 fL (80.0-98.0); Mean Platelet Volume 10.5 fL (9.4-12.4); Monocytes Absolute Auto 1.7 X10*3/uL (0.1-1.2); Monocytes Percent Auto 10.9 % (2-11); Neutrophils Percent Auto 57.6 % (45-73); Platelet Count 181 X10*3/uL (160-400); Red Blood Count 4.76 X10*6/uL (4.60-5.80); Red Cell Distribution Width 11.9 % (11.0-16.0); SCAN SMEAR FLAG 1; White Blood Count 15.6 X10*3/uL (4.8-10.8)
[2021-12-10 04:37] LABS: SLIDE REVIEW VERIFIED
[2021-12-10 04:38] LABS: Anion Gap 12 (12-20); Blood Urea Nitrogen 12 mg/dL (9-16); Calcium 8.5 mg/dL (8.4-10.2); Carbon Dioxide 21 mmol/L (22-29); Chloride 107 mmol/L (96-108); Creatinine Clr Calc Pharmacy 176.2; Estimated Glomerular Filt Rate > 60; Glucose Random 214 mg/dL (60-115); Potassium 3.9 mmol/L (3.3-5.1); Sodium 136 mmol/L (135-145)
--- NOTE | 2021-12-10 06:09 | PC.NURSE ---
I assumed nursing care of Alysa at 1900. Alysa is being admitted for a puncture wound to the bottom of his R foot. Alysa is alert, oriented x 3, calm and cooperative. he is primarily romansh speaking but his girlfriend has been at the bedside throughout to assist with translation. he has slept a lot of the night but wakes to verbal stimuli. He makes eye contact with staff and is able to adequately verbalize his needs. Respirations are spontaneous and non-labored, RR WNL, room air sat's WNL, he speaks in full sentences. Alysa has periodically complaind of moderate as well as severe pain to his R foot, primarily after he gets OOB and ambulates to bathroom (despite being encouraged not to). Initially I administered Morphine per PRN order (4mg IVp) but the pt did not like the way the Morphine felt. He informed me that the Toradol he was administered worked really well, therefore I notified Noah LEIGH and she ordered additional Toradol. This was given with good effect, until he got OOB and ambulated to the bathroom again. At that time, upon returning from bathroom, his pain was 10/10. I spoke with Noah LEIGH and she ordered PRN Dilaudid (for which I gave 0.5mg) and PO Tylenol. pt is now asleep, presumably with good pain relief. We will continue to monitor Alysa.
--- NOTE | 2021-12-10 07:17 | HE.PHANOTE ---
LUKASZ PAULA CONTINUE CURRENT DOSE, NEXT TROUGH DUE 12/11 @0500 Thanks Dread
[2021-12-10 07:39] LABS: Glucose, Whole Blood 211 mg/dL (60-115)
[2021-12-10] MEDS: vancomycin HCL 1,250 MG in 0.9 % Sodium Chloride 250 ML 166.67 MG IV ×2 (07:41→18:46)
[2021-12-10] MEDS: Ketorolac Tromethamine 15 MG/ML VIAL IVPUSH (08:17)
[2021-12-10] MEDS: amLODIPine Besylate 5 MG TABLET PO (09:13)
[2021-12-10] MEDS: hydroCHLOROthiazide 25 MG TABLET PO (09:14)
[2021-12-10] MEDS: Valsartan 160 MG TABLET PO (09:14)
[2021-12-10] MEDS: Metoprolol Tartrate 50 MG TABLET PO ×2 (09:14→21:03)
[2021-12-10 10:29] LABS: Glucose, Whole Blood 225 mg/dL (60-115)
--- NOTE | 2021-12-10 10:43 | P.CONAN_ITS ---
HPI - Anesthesia Eval Consult details Narrative: Abscess of right foot PMFSH Active Problems Active Problems: All Active Problems (Updated 12/10/21 @ 10:13 by Christin Swain RN) Smoker (Acute) Low back pain with bilateral sciatica (Acute) Poorly controlled type 2 diabetes mellitus (Acute) Arthralgia of multiple joints (Acute) Elevated C-reactive protein (Acute) Elevated sed rate (Acute) Lumbar spondylosis (Acute) Lumbar radiculopathy (Acute) Muscle spasm of back (Acute) Puncture wound of foot (Acute) Infected puncture wound of plantar aspect of foot (Acute) Osteoarthritis of right knee (Acute) Osteoarthritis of lumbar spine (Acute) MARA (obstructive sleep apnea) (Acute) Hypertensive heart disease (Acute) HTN (hypertension) (Acute) Past Medical History Medical History Diabetes HTN (hypertension) Hypertensive heart disease Hypertrophic obstructive cardiomyopathy MARA (obstructive sleep apnea) Osteoarthritis of lumbar spine Osteoarthritis of right knee Family History Family History Father PVD (peripheral vascular disease) Mother No problems noted. Family history of problems with anesthesia: No Surgical History Surgical History History of ankle surgery History of elbow surgery History of hand surgery History of Problems with Anesthesia: No Social History Social History Housing: Apartment Alcohol intake: current Patient Tobacco Use Status: Current everyday Tobacco user Tobacco use type: Cigarette Cigarettes Per Day: 8 Years Smoked: 20 e-Cigarette/Vaping Use: Never Used Current occupational status: unemployed Cognitive needs: No Hearing needs: No Vision needs: Yes (Glasses) Meds Allergies Allergy/AdvReac Type Severity Reaction Status Date / Time Penicillins [PENICILLINS] Allergy Intermediate RASH Verified 12/09/21 16:03 metformin AdvReac Intermediate Diarrhea Verified 12/09/21 16:03 Active Medications: Current Medications Acetaminophen (Acetaminophen 325 Mg Tablet) 650 mg PO Q6H PRN PRN Reason: Pain, Mild (Pain Scale 1-3) Last Admin: 12/10/21 04:00 Dose: 650 mg Albuterol Sulfate (Albuterol Sulfate 90 Mcg 8 Gm Inhaler) 2 puff INHALE Q4H PRN PRN Reason: shortness of breath or wheezing Amlodipine Besylate (Amlodipine Besylate 5 Mg Tablet) 5 mg PO DAILY [facility]; Protocol Last Admin: 12/10/21 09:13 Dose: 5 mg Atorvastatin Calcium (Atorvastatin Calcium 40 Mg Tablet) 40 mg PO BEDTIME [place] Dextrose (Dextrose 50 % 25 Gm/50 Ml Syringe) 25 gm IVPUSH Q15M PRN; Protocol PRN Reason: per Hypoglycemia Standing Ord. Docusate Sodium (Docusate Sodium 100 Mg Capsule) 100 mg PO DAILY PRN PRN Reason: Constipation Enoxaparin Sodium (Enoxaparin Sodium 40 Mg/0.4 Ml Syringe) 40 mg SUBCUT Q24H [facility] Last Admin: 12/09/21 21:35 Dose: 40 mg Fentanyl (Fentanyl Citrate/Pf 100 Mcg/2 Ml Vial) 25 mcg IVPUSH Q5M PRN; Protocol PRN Reason: Pain, Moderate (Pain Scale 4-6 Glucose (Glucose Gel 15 Gm Gel..Gram.) 15 gm PO Q15M PRN; Protocol PRN Reason: per Hypoglycemia Standing Ord. Hydrochlorothiazide (Hydrochlorothiazide 25 Mg Tablet) 25 mg PO DAILY [facility]; Protocol Last Admin: 12/10/21 09:14 Dose: 25 mg Hydromorphone HCl (Hydromorphone Hcl 0.5 Mg/0.5 Ml Syringe) 0.5 mg IVPUSH Q4H PRN; Protocol PRN Reason: Pain, Severe (Pain Scale 7-10) Last Admin: 12/10/21 07:43 Dose: 0.5 mg Vancomycin HCl 1,250 mg/ (Sodium Chloride) 250 mls @ 166.667 mls/hr IV Q12H [facility] Last Admin: 12/10/21 07:41 Dose: 166.67 mls/hr Cefepime HCl 2 gm/ Sodium (Chloride) 50 mls @ 100 mls/hr IV Q8H [facility] Last Infusion: 12/10/21 04:12 Dose: Infused Lactated Ringer's (Lr) 1,000 mls @ 80 mls/hr IVCONT .[id number] [facility] Last Admin: 12/09/21 23:15 Dose: 80 mls/hr Insulin Human Lispro (Insulin Lispro 100 Unit/Ml 3 Ml Vial) 0 unit SUBCUT QIDACHS [facility]; Protocol Last Admin: 12/10/21 09:12 Dose: Not Given Ketorolac Tromethamine (Ketorolac Tromethamine 15 Mg/Ml Vial) 15 mg IVPUSH Q6H PRN PRN Reason: Pain, Severe (Pain Scale 7-10) Last Admin: 12/10/21 08:17 Dose: 15 mg Metoprolol Tartrate (Metoprolol Tartrate 50 Mg Tablet) 50 mg PO BID [facility]; Protocol Last Admin: 12/10/21 09:14 Dose: 50 mg Ondansetron HCl (Ondansetron Hcl 4 Mg/2 Ml Vial) 4 mg IVPUSH Q8H PRN PRN Reason: Nausea and Vomiting Ondansetron HCl (Ondansetron Hcl 4 Mg/2 Ml Vial) 4 mg IVPUSH ONCE PRN PRN Reason: Nausea and Vomiting Oxycodone HCl (Oxycodone Hcl Immed Release 5 Mg Tablet) 5 mg PO Q6H PRN PRN Reason: Pain, Severe (Pain Scale 7-10) Last Admin: 12/09/21 23:14 Dose: 5 mg Oxycodone HCl (Oxycodone Hcl Immed Release 5 Mg Tablet) 5 mg PO ONCE PRN PRN Reason: Pain, Severe (Pain Scale 7-10) Pharmacy Consult (Consult Rx Perform Med Rec) 1 each MISCELLANE ONCE PRN PRN Reason: Consult order Pharmacy Consult (Consult Rx Vancomycin Dosing) 1 each MISCELLANE DAILY PRN PRN Reason: Consult order Sodium Chloride (0.9 % Sodium Chloride Flush 3 Ml Syringe) [facility] Last Admin: 12/10/21 00:28 Dose: Not Given Tizanidine HCl (Tizanidine Hcl 4 Mg Tablet) 4 mg PO Q8H PRN PRN Reason: muscle spasticity Valsartan (Valsartan 160 Mg Tablet) 160 mg PO DAILY [facility] Last Admin: 12/10/21 09:14 Dose: 160 mg Exam Exam Date and Time: December 10, 2021 1043 Height,Weight and Vital Signs: Height 6 ft Weight 110.677 kg Last Vital Signs Temp 98.0 F 12/10/21 10:20 Pulse 67 12/10/21 10:20 Resp 16 12/10/21 10:20 BP 154/86 H 12/10/21 10:20 Pulse Ox 97 12/10/21 10:20 O2 Del Method 12/10/21 08:00 Pertinent Lab Results Pertinent Lab Results: Laboratory Tests 12/09/21 12/09/21 12/09/21 15:35 15:35 15:35 WBC 18.6 H RBC 5.44 Hgb 16.3 Hct 47.8 MCV 87.9 MCH 30.0 MCHC 34.1 RDW 11.9 Plt Count 242 MPV 10.6 Immature Gran % (Auto) 0.9 H Neut % (Auto) 70.7 Lymph % (Auto) 17.5 L [place] % (Auto) 9.8 Eos % (Auto) 0.7 Baso % (Auto) 0.4 Lymph # (Auto) 3.3 [place] # (Auto) 1.8 H Eos # (Auto) 0.1 Baso # (Auto) 0.1 Abs Immat Gran (auto) 0.16 H Absolute Neuts (auto) 13.2 H Absolute Nucleated RBC 0.000 Nucleated RBC % (auto) 0.0 Smear Tech's Comments VERIFIED ESR 11 Sodium 136 Potassium 3.9 Chloride 101 Carbon Dioxide 24 Anion Gap 15 BUN 14 Creatinine 0.91 Estim Creat Clear Calc 141.4 Estimated GFR > 60 POC Glucose Random Glucose 309 H Lactic Acid Lactic Acid F/U @ 2Hr Calcium 10.0 Total Bilirubin 1.1 H AST 22 ALT 91 H Alkaline Phosphatase 123 H C-Reactive Protein Total Protein 7.8 Albumin 5.0 COVID-19 (EVELIO) COVID-[employer] 12/09/21 12/09/21 12/09/21 15:35 15:35 18:13 WBC RBC Hgb Hct MCV MCH MCHC RDW Plt Count MPV Immature Gran % (Auto) Neut % (Auto) Lymph % (Auto) [place] % (Auto) Eos % (Auto) Baso % (Auto) Lymph # (Auto) [place] # (Auto) Eos # (Auto) Baso # (Auto) Abs Immat Gran (auto) Absolute Neuts (auto) Absolute Nucleated RBC Nucleated RBC % (auto) Smear Tech's Comments ESR Sodium Potassium Chloride Carbon Dioxide Anion Gap BUN Creatinine Estim Creat Clear Calc Estimated GFR POC Glucose Random Glucose Lactic Acid 2.9 H* Lactic Acid F/U @ 2Hr Calcium Total Bilirubin AST ALT Alkaline Phosphatase C-Reactive Protein 8.34 H Total Protein Albumin COVID-19 (EVELIO) Negative COVID-Client24 Clin Com See Note 12/09/21 12/10/21 12/10/21 21:30 04:08 04:08 WBC 15.6 H RBC 4.76 Hgb 14.4 Hct 42.1 MCV 88.4 MCH 30.3 MCHC 34.2 RDW 11.9 Plt Count 181 D MPV 10.5 Immature Gran % (Auto) 0.7 H Neut % (Auto) 57.6 Lymph % (Auto) 29.0 [place] % (Auto) 10.9 Eos % (Auto) 1.3 Baso % (Auto) 0.5 Lymph # (Auto) 4.5 [place] # (Auto) 1.7 H Eos # (Auto) 0.2 Baso # (Auto) 0.1 Abs Immat Gran (auto) 0.11 H Absolute Neuts (auto) 9.0 H Absolute Nucleated RBC 0.000 Nucleated RBC % (auto) 0.0 Smear Tech's Comments VERIFIED ESR Sodium 136 Potassium 3.9 Chloride 107 Carbon Dioxide 21 L Anion Gap 12 BUN 12 Creatinine 0.73 Estim Creat Clear Calc 176.2 Estimated GFR > 60 POC Glucose Random Glucose 214 H Lactic Acid Lactic Acid F/U @ 2Hr 2.0 Calcium 8.5 D Total Bilirubin AST ALT Alkaline Phosphatase C-Reactive Protein Total Protein Albumin COVID-19 (EVELIO) [employer] 12/10/21 12/10/21 07:34 10:23 WBC RBC Hgb Hct MCV MCH MCHC RDW Plt Count MPV Immature Gran % (Auto) Neut % (Auto) Lymph % (Auto) [place] % (Auto) Eos % (Auto) Baso % (Auto) Lymph # (Auto) [place] # (Auto) Eos # (Auto) Baso # (Auto) Abs Immat Gran (auto) Absolute Neuts (auto) Absolute Nucleated RBC Nucleated RBC % (auto) Smear Tech's Comments ESR Sodium Potassium Chloride Carbon Dioxide Anion Gap BUN Creatinine Estim Creat Clear Calc Estimated GFR POC Glucose 211 H 225 H Random Glucose Lactic Acid Lactic Acid F/U @ 2Hr Calcium Total Bilirubin AST ALT Alkaline Phosphatase C-Reactive Protein Total Protein Albumin COVID-19 (EVELIO) COVIDMecox Lane Com Airway Mallampati Class: II TM Dist: >3cm Neck ROM: Full Loose/Missing/Broken Teeth: Yes (no loose, missing multiple upper aand lower back teeth on both sides) Heart: [id number] Lungs: cta b/l Assessment and Plan Assessment Anesthesia Assessment: Anesthesia Plan Discussed and Chart Reviewed Final Anesthetic Review Family History of Problems with Anesthesia: No History of Problems with Anesthesia: No NPO: Yes ASA Class: III Final Preanesthetic Review: No Changes in Pt Med Stat, Meds/Allgs Chart Reviewed, Consent Obtained/Reviewed and Anes Risks/Benef Reviewed Patient Risk: Intermediate Procedure Risk: Intermediate Assessment/Block/Sedation in SS: Assess/Block/Sedation-SS Anesthetic Plan Anesthetic Plan: GA, MAC: and Agree w/ Assess. and Plan Disposition: Standard PACU
--- NOTE | 2021-12-10 11:32 | W.PM.OPN ---
Operative Note Operative Note Date of Service: 12/10/21 Narrative: Preop diagnosis: Right foot abscess, plantar area Postop diagnosis: The same Procedure: Incision and drainage, sharp debridement of right foot plantar abscess Surgeon: Vidal Kennedy MD The the patient is a 36-year-old male who has an abscess on the plantar aspect of right foot near the base of the big toe. He understood the technique of I and D under anesthesia. He did not want this done under local anesthesia because of severe pain and tenderness. He was aware of the risks, benefits, and alternatives . He was brought to the operating room. Was placed supine. He was receiving scheduled antibiotics . The right foot was prepped and draped in the usual sterile fashion. A surgical time-out had been done. I made a cruciate incision on the skin overlying the abscess using blade 15. immediately, large amounts of pus were evacuated. Cultures were taken. I sharply debrided the abscess cavity because of the presence of hypergranulation tissue. I copies irrigated the cavity. I examined for any signs of any foreign body. I repeated irrigation. Once hemostasis was ensured, applied a light packing. Dressings were applied and the foot was wrapped in Kerlix roll. The procedure was completed . The patient tolerated well. There were no complication noted. Estimated blood loss about 5 cc The patient was extubated without difficulty and transferred to the recovery room with stable vital signs.
--- NOTE | 2021-12-10 11:47 | HO.PM.IMPN ---
Subjective Subjective Date of Service: 12/10/21 Interval History: Complaining of right foot pain 6/ denies fever chills, no nausea, no vomiting is NPO for I&D, at bedside provided history. Review of Systems Review of Systems: Yes all other systems are reviewed and are negative Physical Exam Vital Signs: Vital Signs: Last Vital Signs Temp 98.0 F 12/10/21 10:20 Pulse 67 12/10/21 10:20 Resp 16 12/10/21 10:20 BP 154/86 H 12/10/21 10:20 Pulse Ox 97 12/10/21 10:20 O2 Del Method 12/10/21 08:00 BMI result Body Mass Index 33.0 Const: Other: General awake alert, no acute distress. Neck supple no JVD. CVS regular rate rhythm, Respiratory lungs clear to auscultation, no respiratory distress, no wheeze, no rhonchi. Gastrointestinal abdomen soft, nontender, bowel sounds audible, no guarding , no rigidity. Extremities . Right foot plantar surface at base of right big toe significant swelling redness tenderness to palpation Neuro nonfocal Skin no rash Psych appropriate affect Objective Data Active Medications Acetaminophen (Acetaminophen 325 Mg Tablet) 650 mg PO Q6H PRN PRN Reason: Pain, Mild (Pain Scale 1-3) Last Admin: 12/10/21 04:00 Dose: 650 mg Documented By: MARJAN Albuterol Sulfate (Albuterol Sulfate 90 Mcg 8 Gm Inhaler) 2 puff INHALE Q4H PRN PRN Reason: shortness of breath or wheezing Amlodipine Besylate (Amlodipine Besylate 5 Mg Tablet) 5 mg PO DAILY [facility]; Protocol Last Admin: 12/10/21 09:13 Dose: 5 mg Documented By: ELYSE Atorvastatin Calcium (Atorvastatin Calcium 40 Mg Tablet) 40 mg PO BEDTIME [facility] Dextrose (Dextrose 50 % 25 Gm/50 Ml Syringe) 25 gm IVPUSH Q15M PRN; Protocol PRN Reason: per Hypoglycemia Standing Ord. Docusate Sodium (Docusate Sodium 100 Mg Capsule) 100 mg PO DAILY PRN PRN Reason: Constipation Enoxaparin Sodium (Enoxaparin Sodium 40 Mg/0.4 Ml Syringe) 40 mg SUBCUT Q24H [place] Last Admin: 12/09/21 21:35 Dose: 40 mg Documented By: MARJAN Fentanyl (Fentanyl Citrate/Pf 100 Mcg/2 Ml Vial) 25 mcg IVPUSH Q5M PRN; Protocol PRN Reason: Pain, Moderate (Pain Scale 4-6 Fentanyl (Fentanyl Citrate/Pf 100 Mcg/2 Ml Vial) 25 mcg IVPUSH Q5M PRN; Protocol PRN Reason: Pain, Moderate (Pain Scale 4-6 Glucose (Glucose Gel 15 Gm Gel..Gram.) 15 gm PO Q15M PRN; Protocol PRN Reason: per Hypoglycemia Standing Ord. Hydrochlorothiazide (Hydrochlorothiazide 25 Mg Tablet) 25 mg PO DAILY [facility]; Protocol Last Admin: 12/10/21 09:14 Dose: 25 mg Documented By: ELYSE Hydromorphone HCl (Hydromorphone Hcl 0.5 Mg/0.5 Ml Syringe) 0.5 mg IVPUSH Q4H PRN; Protocol PRN Reason: Pain, Severe (Pain Scale 7-10) Last Admin: 12/10/21 07:43 Dose: 0.5 mg Documented By: ELYSE Vancomycin HCl 1,250 mg/ (Sodium Chloride) 250 mls @ 166.667 mls/hr IV Q12H [facility] Last Admin: 12/10/21 07:41 Dose: 166.67 mls/hr Documented By: ELYSE Cefepime HCl 2 gm/ Sodium (Chloride) 50 mls @ 100 mls/hr IV Q8H [facility] Last Infusion: 12/10/21 04:12 Dose: 0 mls/hr Documented By: MARJAN Lactated Ringer's (Lr) 1,000 mls @ 80 mls/hr IVCONT .[id number] [facility] Last Admin: 12/09/21 23:15 Dose: 80 mls/hr Documented By: MARJAN Insulin Human Lispro (Insulin Lispro 100 Unit/Ml 3 Ml Vial) 0 unit SUBCUT QIDACHS [facility]; Protocol Last Admin: 12/10/21 09:12 Dose: Not Given Documented By: ELYSE Non-Admin Reason: NPO Ketorolac Tromethamine (Ketorolac Tromethamine 15 Mg/Ml Vial) 15 mg IVPUSH Q6H PRN PRN Reason: Pain, Severe (Pain Scale 7-10) Last Admin: 12/10/21 08:17 Dose: 15 mg Documented By: ELYSE Metoprolol Tartrate (Metoprolol Tartrate 50 Mg Tablet) 50 mg PO BID [facility]; Protocol Last Admin: 12/10/21 09:14 Dose: 50 mg Documented By: ELYSE Ondansetron HCl (Ondansetron Hcl 4 Mg/2 Ml Vial) 4 mg IVPUSH Q8H PRN PRN Reason: Nausea and Vomiting Ondansetron HCl (Ondansetron Hcl 4 Mg/2 Ml Vial) 4 mg IVPUSH ONCE PRN PRN Reason: Nausea and Vomiting Ondansetron HCl (Ondansetron Hcl 4 Mg/2 Ml Vial) 4 mg IVPUSH ONCE PRN PRN Reason: Nausea and Vomiting Oxycodone HCl (Oxycodone Hcl Immed Release 5 Mg Tablet) 5 mg PO Q6H PRN PRN Reason: Pain, Severe (Pain Scale 7-10) Last Admin: 12/09/21 23:14 Dose: 5 mg Documented By: MARJAN Oxycodone HCl (Oxycodone Hcl Immed Release 5 Mg Tablet) 5 mg PO ONCE PRN PRN Reason: Pain, Severe (Pain Scale 7-10) Oxycodone HCl (Oxycodone Hcl Immed Release 5 Mg Tablet) 10 mg PO ONCE PRN PRN Reason: Pain, Mild (Pain Scale 1-3) Pharmacy Consult (Consult Rx Perform Med Rec) 1 each MISCELLANE ONCE PRN PRN Reason: Consult order Pharmacy Consult (Consult Rx Vancomycin Dosing) 1 each MISCELLANE DAILY PRN PRN Reason: Consult order Sodium Chloride (0.9 % Sodium Chloride Flush 3 Ml Syringe) 3 ml IVFLUSH [facility] Last Admin: 12/10/21 00:28 Dose: Not Given Documented By: MARJAN Non-Admin Reason: Previously Administered Tizanidine HCl (Tizanidine Hcl 4 Mg Tablet) 4 mg PO Q8H PRN PRN Reason: muscle spasticity Valsartan (Valsartan 160 Mg Tablet) 160 mg PO DAILY [facility] Last Admin: 12/10/21 09:14 Dose: 160 mg Documented By: ELYSE Labs CBC & Chem 7: 12/10/21 04:08 12/10/21 04:08 Labs: Laboratory Results - last 24 hr 12/09/21 12/09/21 12/09/21 15:35 15:35 15:35 MCV 87.9 MCH 30.0 MCHC 34.1 RDW 11.9 Plt Count 242 MPV 10.6 Immature Gran % (Auto) 0.9 H Neut % (Auto) 70.7 Lymph % (Auto) 17.5 L [place] % (Auto) 9.8 Eos % (Auto) 0.7 Baso % (Auto) 0.4 Lymph # (Auto) 3.3 [place] # (Auto) 1.8 H Eos # (Auto) 0.1 Baso # (Auto) 0.1 Abs Immat Gran (auto) 0.16 H Absolute Neuts (auto) 13.2 H Absolute Nucleated RBC 0.000 Nucleated RBC % (auto) 0.0 Smear Tech's Comments VERIFIED ESR 11 Anion Gap 15 Estim Creat Clear Calc 141.4 Estimated GFR > 60 POC Glucose Random Glucose 309 H Lactic Acid Lactic Acid F/U @ 2Hr Calcium 10.0 Total Bilirubin 1.1 H AST 22 ALT 91 H Alkaline Phosphatase 123 H C-Reactive Protein Total Protein 7.8 Albumin 5.0 COVID-19 ([facility]) [facility] 12/09/21 12/09/21 12/09/21 15:35 15:35 18:13 MCV MCH MCHC RDW Plt Count MPV Immature Gran % (Auto) Neut % (Auto) Lymph % (Auto) [place] % (Auto) Eos % (Auto) Baso % (Auto) Lymph # (Auto) [place] # (Auto) Eos # (Auto) Baso # (Auto) Abs Immat Gran (auto) Absolute Neuts (auto) Absolute Nucleated RBC Nucleated RBC % (auto) Smear Tech's Comments ESR Anion Gap Estim Creat Clear Calc Estimated GFR POC Glucose Random Glucose Lactic Acid 2.9 H* Lactic Acid F/U @ 2Hr Calcium Total Bilirubin AST ALT Alkaline Phosphatase C-Reactive Protein 8.34 H Total Protein Albumin COVID-19 ([facility]IO) Negative [facility] See Note 12/09/21 12/10/21 12/10/21 21:30 04:08 04:08 MCV 88.4 MCH 30.3 MCHC 34.2 RDW 11.9 Plt Count 181 D MPV 10.5 Immature Gran % (Auto) 0.7 H Neut % (Auto) 57.6 Lymph % (Auto) 29.0 [place] % (Auto) 10.9 Eos % (Auto) 1.3 Baso % (Auto) 0.5 Lymph # (Auto) 4.5 [place] # (Auto) 1.7 H Eos # (Auto) 0.2 Baso # (Auto) 0.1 Abs Immat Gran (auto) 0.11 H Absolute Neuts (auto) 9.0 H Absolute Nucleated RBC 0.000 Nucleated RBC % (auto) 0.0 Smear Tech's Comments VERIFIED ESR Anion Gap 12 Estim Creat Clear Calc 176.2 Estimated GFR > 60 POC Glucose Random Glucose 214 H Lactic Acid Lactic Acid F/U @ 2Hr 2.0 Calcium 8.5 D Total Bilirubin AST ALT Alkaline Phosphatase C-Reactive Protein Total Protein Albumin COVID-19 ([facility]) COVID-19 Clin Com 12/10/21 12/10/21 07:34 10:23 MCV MCH MCHC RDW Plt Count MPV Immature Gran % (Auto) Neut % (Auto) Lymph % (Auto) [place] % (Auto) Eos % (Auto) Baso % (Auto) Lymph # (Auto) [place] # (Auto) Eos # (Auto) Baso # (Auto) Abs Immat Gran (auto) Absolute Neuts (auto) Absolute Nucleated RBC Nucleated RBC % (auto) Smear Tech's Comments ESR Anion Gap Estim Creat Clear Calc Estimated GFR POC Glucose 211 H 225 H Random Glucose Lactic Acid Lactic Acid F/U @ 2Hr Calcium Total Bilirubin AST ALT Alkaline Phosphatase C-Reactive Protein Total Protein Albumin COVID-19 ([facility]) COVID-19 Clin Com Assessment and Plan (1) HTN (hypertension): Status: Acute (2) Foot abscess, right: Status: Acute (3) Puncture wound of foot: Status: Acute Plan 36-year-old male with past medical history of diabetes presents with a wound puncture after stepping on a nail of his right foot with evidence of infection # Right foot infected puncture wound/abscess - right foot pain no fevers no chills, status post I&D this a.m. large amount of pus was evacuated cultures are sent WBC trending down, continue IV cefepime and vancomycin day 1 follow elevated CRP - follow blood and foot cultures # diabetes type 2 poorly controlled hemoglobin A1c 8.8 - elevated blood sugars in 200s, likely related to IV fluid, infection, continue sliding scale insulin and diabetic diet, take glipizide and Januvia at home # hypertension - elevated blood pressure likely due to pain continue home medication and follow BP # obstructive sleep apnea not using CPAP at home # obesity recommended low-calorie diet and exercise DVT prophylaxis:? Lovenox Patient need continued inpatient hospitalization giving history of diabetes, infected right foot puncture wound/abscess status post I&D need continued IV antibiotic and monitoring and follow-up on blood cultures. Quality Stroke Does the patient have a stroke diagnosis?: No VTE Prior VTE?: No VTE Risk Level:: Medical - moderate - high VTE Device Contraindication: Treatment Not Indicated VTE Drug Contraindication: N/A - Med Ordered
[2021-12-10] MEDS: oxyCODONE HCl Immed Release 5 MG TABLET 10 MG PO (11:50)
--- NOTE | 2021-12-10 11:50 | MHC.CM.PN ---
Pt primarily [place] speaking Patient lives with spouse. He is independent at home/community, uses crutches as needed, no home services, no HCP, PCP: Elie Toney'brigido x2 (pfizer), spouse will transport home. D/C plan: Home (self-care) vs Home New [facility]NA
[2021-12-10] MEDS: fentaNYL citrate/PF 100 MCG/2 ML VIAL 25 MCG IVPUSH ×3 (11:55→12:05)
[2021-12-10] MEDS: Lactated Ringers 1,000 ML 80 ML IVCONT (12:43)
[2021-12-10 12:48] LABS: Glucose, Whole Blood 232 mg/dL (60-115)
[2021-12-10 16:16] LABS: Glucose, Whole Blood 312 mg/dL (60-115)
[2021-12-10] MEDS: Insulin Lispro 100 UNIT/ML 3 ML VIAL SUBCUT ×2 (16:22→21:03)
[2021-12-10] MEDS: 0.9 % Sodium Chloride Flush 3 ML SYRINGE IVFLUSH (16:24)
[2021-12-10 20:45] LABS: Glucose, Whole Blood 351 mg/dL (60-115)
[2021-12-10] MEDS: Atorvastatin Calcium 40 MG TABLET PO (21:03)
[2021-12-10] MEDS: Enoxaparin Sodium 40 MG/0.4 ML SYRINGE SUBCUT (21:03)
[2021-12-11] MEDS: Lactated Ringers 1,000 ML 80 ML IVCONT (01:12)
[2021-12-11] MEDS: cefEPime HCl 2 GM in 0.9 % Sodium Chloride 50 ML IV ×3 (01:12→18:55)
[2021-12-11 03:44] VITALS: BP 128/68; PULSE 61; RESP 18; TEMP 36.3; O2SAT 96
[2021-12-11 07:07] LABS: Vancomycin Trough 4.4 mcg/mL (10.0-20.0)
[2021-12-11 07:17] VITALS: BP 146/73; PULSE 66; RESP 16; TEMP 36.8; O2SAT 95
--- NOTE | 2021-12-11 07:18 | HE.PHANOTE ---
RE VANCO TROUGH RETURNED AT 4.4; BASED ON AUC/JESSICA VANCO DOSING MODEL, PATIENT IS AT GOAL WITH AN AUC OF 464. WILL INCREASE THE DOSE TO 1250MG Q8H; SUSPECTED TROUGH 8.9, AUC 502. WILL EVALUATE TROUGH TOMORROW (DUE @0500 ON 12/12)
[2021-12-11 07:34] LABS: Glucose, Whole Blood 254 mg/dL (60-115)
[2021-12-11] MEDS: Metoprolol Tartrate 50 MG TABLET PO ×2 (07:57→21:16)
[2021-12-11] MEDS: amLODIPine Besylate 5 MG TABLET PO (07:58)
[2021-12-11] MEDS: oxyCODONE HCl Immed Release 5 MG TABLET PO ×2 (07:58→21:16)
[2021-12-11] MEDS: Valsartan 160 MG TABLET PO (07:58)
[2021-12-11] MEDS: hydroCHLOROthiazide 25 MG TABLET PO (07:58)
[2021-12-11] MEDS: vancomycin HCL 1,250 MG in 0.9 % Sodium Chloride 250 ML 166.67 MG IV ×3 (07:59→23:22)
[2021-12-11] MEDS: Insulin Lispro 100 UNIT/ML 3 ML VIAL SUBCUT ×4 (07:59→21:15)
[2021-12-11] MEDS: 0.9 % Sodium Chloride Flush 3 ML SYRINGE IVFLUSH ×2 (07:59→23:29)
[2021-12-11 08:11] LABS: Anion Gap 14 (12-20); Blood Urea Nitrogen 13 mg/dL (9-16); Calcium 9.3 mg/dL (8.4-10.2); Carbon Dioxide 27 mmol/L (22-29); Chloride 101 mmol/L (96-108); Creatinine Clr Calc Pharmacy 156.9; Estimated Glomerular Filt Rate > 60; Glucose Random 247 mg/dL (60-115); Potassium 4.2 mmol/L (3.3-5.1); Sodium 138 mmol/L (135-145)
--- NOTE | 2021-12-11 09:11 | P.CDIC_ITS ---
CDI Concurrent Query Documentation Clarification: PHYSICIAN'S DOCUMENTATION REQUEST Date of Query: 12/11/21911 Patient Name: Tej Back Admit Date: 12/09/21 Dear Doctor, A review of the medical record indicates additional documentation may be needed. Please review below and update the documentation accordingly. Clinical Indicators: Risk Factors/Clinical Indicators/Treatments Puncture wound from stepping on a nail two weeks ago, swollen, right foot infected/puncture wound, right foot/abscess. WBC 18.6 LA 2.9 RR 24/30 BP 158/84 H IV antibiotics, Vancomycin/Cefepime. Differentials include infection vs. abscess. Please clarify which of the following most accurately describes the above abnormalities: * Sepsis * Systemic manifestations of infection, with 2 or more SIRS criteria which include: -Fever > 100.4F or hypothermia < 96.8 F -Leukocytosis - WBC > 12,000 or leukopenia, WBC < 4,000 or > 10% bands -Tachycardia > 90 beats/minute -Tachypnea - RR > 20 breaths/minute or PaCO2 < 32mmHg * Indicate the knows or suspected organism * Indicate the known or suspected underlying infection, such as UTI, pneumonia, or cellulitis * Indicate if a suspected bacteria infection of unknown source * Indicate if there is associated organ dysfunction, such as renal or respiratory failure * SIRS due to a non-infectious source * SIRS due to infectious source * Indicate the known or suspected etiology * Other * Unable to determine Use of terms such as suspected, likely, concern for, or probable (associated with a specific diagnosis that is being evaluated, monitored, or treated as if it exists) are acceptable and can be coded in the inpatient setting, when documented at the time of discharge. Thank you, Danitza Omalley [facility], CDIS Extension: [phone] Please use your independent medical judgment in providing your response. THIS QUERY IS PART OF THE PERMANENT MEDICAL RECORD Provider Response: Other Other Diagnosis: Sepsis due to foot infection
--- NOTE | 2021-12-11 10:00 | HO.POSTANES ---
Post Anesthesia Evaluation Post Anesthesia Evaluation Vital Signs: Vital Signs Temp Pulse Resp BP Pulse Ox O2 Del Method 12/11/21 07:17 98.3 F 66 16 146/73 H 95 Room Air 12/11/21 03:44 97.4 F 61 18 128/68 96 Room Air 12/10/21 23:48 97.5 F 72 18 125/66 94 Room Air Anesthesia: General Mental Status: Awake Pain Control: Satisfactory Nausea/Vomiting: None Hydration: Adequate Anesthesia-Related Issues: No Anes. Related Issues
--- NOTE | 2021-12-11 10:33 | PM.PNGS ---
Subjective Subjective Date of Service: 12/11/21 Interval history: Complaints of pain on the I&D site on the right foot No fever overnight Physical Exam Vital Signs: Vital Signs: Last Vital Signs Temp 98.3 F 12/11/21 07:17 Pulse 66 12/11/21 07:17 Resp 16 12/11/21 07:17 BP 146/73 H 12/11/21 07:17 Pulse Ox 95 12/11/21 07:17 O2 Del Method 12/11/21 07:17 O2 Flow Rate 4.0 12/10/21 19:24 BMI result Body Mass Index 33.0 Const: General: comfortable and no acute distress Resp: Effort & Inspection: normal respiratory effort Extrem: Other: Right foot I&D site clean, still with some residual swelling and redness, no new induration Objective Data Active Medications Acetaminophen (Acetaminophen 325 Mg Tablet) 650 mg PO Q6H PRN PRN Reason: Pain, Mild (Pain Scale 1-3) Last Admin: 12/10/21 17:41 Dose: 650 mg Documented By: CORBIN Albuterol Sulfate (Albuterol Sulfate 90 Mcg 8 Gm Inhaler) 2 puff INHALE Q4H PRN PRN Reason: shortness of breath or wheezing Amlodipine Besylate (Amlodipine Besylate 5 Mg Tablet) 5 mg PO DAILY [facility]; Protocol Last Admin: 12/11/21 07:58 Dose: 5 mg Documented By: DEEPALI Atorvastatin Calcium (Atorvastatin Calcium 40 Mg Tablet) 40 mg PO BEDTIME [facility] Last Admin: 12/10/21 21:03 Dose: 40 mg Documented By: ISAEBL Dextrose (Dextrose 50 % 25 Gm/50 Ml Syringe) 25 gm IVPUSH Q15M PRN; Protocol PRN Reason: per Hypoglycemia Standing Ord. Docusate Sodium (Docusate Sodium 100 Mg Capsule) 100 mg PO DAILY PRN PRN Reason: Constipation Enoxaparin Sodium (Enoxaparin Sodium 40 Mg/0.4 Ml Syringe) 40 mg SUBCUT Q24H [facility] Last Admin: 12/10/21 21:03 Dose: 40 mg Documented By: ISABEL Fentanyl (Fentanyl Citrate/Pf 100 Mcg/2 Ml Vial) 25 mcg IVPUSH Q5M PRN; Protocol PRN Reason: Pain, Moderate (Pain Scale 4-6 Fentanyl (Fentanyl Citrate/Pf 100 Mcg/2 Ml Vial) 25 mcg IVPUSH Q5M PRN; Protocol PRN Reason: Pain, Moderate (Pain Scale 4-6 Last Admin: 12/10/21 12:05 Dose: 25 mcg Documented By: ESTHER Glucose (Glucose Gel 15 Gm Gel..Gram.) 15 gm PO Q15M PRN; Protocol PRN Reason: per Hypoglycemia Standing Ord. Hydrochlorothiazide (Hydrochlorothiazide 25 Mg Tablet) 25 mg PO DAILY [facility]; Protocol Last Admin: 12/11/21 07:58 Dose: 25 mg Documented By: DEEPALI Hydromorphone HCl (Hydromorphone Hcl 0.5 Mg/0.5 Ml Syringe) 0.5 mg IVPUSH Q4H PRN; Protocol PRN Reason: Pain, Severe (Pain Scale 7-10) Last Admin: 12/10/21 07:43 Dose: 0.5 mg Documented By: ELYSE Cefepime HCl 2 gm/ Sodium (Chloride) 50 mls @ 100 mls/hr IV Q8H [facility] Last Infusion: 12/11/21 01:46 Dose: 0 mls/hr Documented By: ISABEL Vancomycin HCl 1,250 mg/ (Sodium Chloride) 250 mls @ 166.667 mls/hr IV Q8H [facility] Last Infusion: 12/11/21 09:40 Dose: 0 mls/hr Documented By: DEEPALI Insulin Human Lispro (Insulin Lispro 100 Unit/Ml 3 Ml Vial) 0 unit SUBCUT QIDACHS [facility]; Protocol Last Admin: 12/11/21 07:59 Dose: 6 unit Documented By: DEEPALI Ketorolac Tromethamine (Ketorolac Tromethamine 15 Mg/Ml Vial) 15 mg IVPUSH Q6H PRN PRN Reason: Pain, Severe (Pain Scale 7-10) Last Admin: 12/10/21 08:17 Dose: 15 mg Documented By: ELYSE Metoprolol Tartrate (Metoprolol Tartrate 50 Mg Tablet) 50 mg PO BID [facility]; Protocol Last Admin: 12/11/21 07:57 Dose: 50 mg Documented By: DEEPALI Ondansetron HCl (Ondansetron Hcl 4 Mg/2 Ml Vial) 4 mg IVPUSH Q8H PRN PRN Reason: Nausea and Vomiting Ondansetron HCl (Ondansetron Hcl 4 Mg/2 Ml Vial) 4 mg IVPUSH ONCE PRN PRN Reason: Nausea and Vomiting Ondansetron HCl (Ondansetron Hcl 4 Mg/2 Ml Vial) 4 mg IVPUSH ONCE PRN PRN Reason: Nausea and Vomiting Oxycodone HCl (Oxycodone Hcl Immed Release 5 Mg Tablet) 5 mg PO Q6H PRN PRN Reason: Pain, Severe (Pain Scale 7-10) Last Admin: 12/11/21 07:58 Dose: 5 mg Documented By: DEEPALI Oxycodone HCl (Oxycodone Hcl Immed Release 5 Mg Tablet) 5 mg PO ONCE PRN PRN Reason: Pain, Severe (Pain Scale 7-10) Pharmacy Consult (Consult Rx Perform Med Rec) 1 each MISCELLANE ONCE PRN PRN Reason: Consult order Pharmacy Consult (Consult Rx Vancomycin Dosing) 1 each MISCELLANE DAILY PRN PRN Reason: Consult order Sodium Chloride (0.9 % Sodium Chloride Flush 3 Ml Syringe) 3 ml IVFLUSH [facility] Last Admin: 12/11/21 07:59 Dose: 3 ml Documented By: DEEPALI Tizanidine HCl (Tizanidine Hcl 4 Mg Tablet) 4 mg PO Q8H PRN PRN Reason: muscle spasticity Valsartan (Valsartan 160 Mg Tablet) 160 mg PO DAILY [facility] Last Admin: 12/11/21 07:58 Dose: 160 mg Documented By: DEEPALI Labs CBC & Chem 7: 12/10/21 04:08 12/11/21 07:47 Labs: Laboratory Results - last 24 hr 12/10/21 12/10/21 12/10/21 12:43 16:00 20:41 Anion Gap Estim Creat Clear Calc Estimated GFR POC Glucose 232 H 312 H 351 H* Random Glucose Calcium Vancomycin Trough 12/11/21 12/11/21 12/11/21 05:34 07:20 07:47 Anion Gap 14 Estim Creat Clear Calc 156.9 Estimated GFR > 60 POC Glucose 254 H Random Glucose 247 H Calcium 9.3 D Vancomycin Trough 4.4 L Microbiology Microbiology Results: Microbiology 12/10/21 Unknown Gram Stain - Final Foot Right Routine Culture - Preliminary Culture in progress. 12/09/21 15:35 Blood Culture - Preliminary Blood - Venous No growth after 24 hours. 12/09/21 15:35 Blood Culture - Preliminary Blood - Venous No growth after 24 hours. Procedures Date of Service Date of Service: 12/11/21 Progress Note: A&P Assessment and plan (1) Foot abscess, right: Status: Acute Assessment and Plan: I and D done in the OR yesterday I changed his dressings Removed all the packing, applied light packing and fresh dressings including Reina roll Continue antibiotics Follow up on cultures Okay to [place] home surgical standpoint with good wound care - dry dressings daily Time Spent With Patient Time: Total time spent is greater than 50% in coordination of care (as documented) at patient's floor/unit and/or counseling patient: Quality Stroke Does the patient have a stroke diagnosis?: No VTE Prior VTE?: No VTE Risk Level:: Medical - moderate - high VTE Device Contraindication: Treatment Not Indicated VTE Drug Contraindication: N/A - Med Ordered
[2021-12-11 11:44] VITALS: BP 124/66; PULSE 63; RESP 18; TEMP 36.4; O2SAT 96
[2021-12-11 11:55] LABS: Glucose, Whole Blood 236 mg/dL (60-115)
--- NOTE | 2021-12-11 14:37 | HO.PM.IMPN ---
Subjective Subjective Date of Service: 12/11/21 Interval History: resting comfortably offers no acute complaints of fever chills, no nausea vomiting tolerating diet, good pain control right foot , dressing change this morning by General surgery. Review of Systems Review of Systems: Yes all other systems are reviewed and are negative Physical Exam Vital Signs: Vital Signs: Last Vital Signs Temp 97.5 F 12/11/21 11:44 Pulse 63 12/11/21 11:44 Resp 18 12/11/21 11:44 BP 124/66 12/11/21 11:44 Pulse Ox 96 12/11/21 11:44 O2 Del Method 12/11/21 11:44 O2 Flow Rate 4.0 12/10/21 19:24 BMI result Body Mass Index 33.0 Const: Other: General awake alert, no acute distress.? Neck? supple no JVD. CVS? regular rate rhythm, Respiratory lungs clear to auscultation, no respiratory distress, no wheeze, no rhonchi. Gastrointestinal abdomen soft, nontender, bowel sounds audible, no guarding , no rigidity. Extremities .? Right foot Dressing in place (as per surgery right foot I&D site clean with some residual swelling and redness no new injury) Neuro nonfocal Skin no rash Psych appropriate affect Objective Data Active Medications Acetaminophen (Acetaminophen 325 Mg Tablet) 650 mg PO Q6H PRN PRN Reason: Pain, Mild (Pain Scale 1-3) Last Admin: 12/10/21 17:41 Dose: 650 mg Documented By: CORBIN Albuterol Sulfate (Albuterol Sulfate 90 Mcg 8 Gm Inhaler) 2 puff INHALE Q4H PRN PRN Reason: shortness of breath or wheezing Amlodipine Besylate (Amlodipine Besylate 5 Mg Tablet) 5 mg PO DAILY [facility]; Protocol Last Admin: 12/11/21 07:58 Dose: 5 mg Documented By: DEEPALI Atorvastatin Calcium (Atorvastatin Calcium 40 Mg Tablet) 40 mg PO BEDTIME [facility] Last Admin: 12/10/21 21:03 Dose: 40 mg Documented By: ISABEL Dextrose (Dextrose 50 % 25 Gm/50 Ml Syringe) 25 gm IVPUSH Q15M PRN; Protocol PRN Reason: per Hypoglycemia Standing Ord. Docusate Sodium (Docusate Sodium 100 Mg Capsule) 100 mg PO DAILY PRN PRN Reason: Constipation Enoxaparin Sodium (Enoxaparin Sodium 40 Mg/0.4 Ml Syringe) 40 mg SUBCUT Q24H [facility] Last Admin: 12/10/21 21:03 Dose: 40 mg Documented By: ISABEL Fentanyl (Fentanyl Citrate/Pf 100 Mcg/2 Ml Vial) 25 mcg IVPUSH Q5M PRN; Protocol PRN Reason: Pain, Moderate (Pain Scale 4-6 Fentanyl (Fentanyl Citrate/Pf 100 Mcg/2 Ml Vial) 25 mcg IVPUSH Q5M PRN; Protocol PRN Reason: Pain, Moderate (Pain Scale 4-6 Last Admin: 12/10/21 12:05 Dose: 25 mcg Documented By: ESTHER Glucose (Glucose Gel 15 Gm Gel..Gram.) 15 gm PO Q15M PRN; Protocol PRN Reason: per Hypoglycemia Standing Ord. Hydrochlorothiazide (Hydrochlorothiazide 25 Mg Tablet) 25 mg PO DAILY [facility]; Protocol Last Admin: 12/11/21 07:58 Dose: 25 mg Documented By: DEEPALI Hydromorphone HCl (Hydromorphone Hcl 0.5 Mg/0.5 Ml Syringe) 0.5 mg IVPUSH Q4H PRN; Protocol PRN Reason: Pain, Severe (Pain Scale 7-10) Last Admin: 12/10/21 07:43 Dose: 0.5 mg Documented By: ELYSE Cefepime HCl 2 gm/ Sodium (Chloride) 50 mls @ 100 mls/hr IV Q8H [facility] Last Infusion: 12/11/21 11:35 Dose: 0 mls/hr Documented By: DEEPALI Vancomycin HCl 1,250 mg/ (Sodium Chloride) 250 mls @ 166.667 mls/hr IV Q8H [facility] Last Infusion: 12/11/21 09:40 Dose: 0 mls/hr Documented By: DEEPALI Insulin Human Lispro (Insulin Lispro 100 Unit/Ml 3 Ml Vial) 0 unit SUBCUT QIDACHS [facility]; Protocol Last Admin: 12/11/21 12:14 Dose: 4 unit Documented By: DEEPALI Ketorolac Tromethamine (Ketorolac Tromethamine 15 Mg/Ml Vial) 15 mg IVPUSH Q6H PRN PRN Reason: Pain, Severe (Pain Scale 7-10) Last Admin: 12/10/21 08:17 Dose: 15 mg Documented By: ELYSE Metoprolol Tartrate (Metoprolol Tartrate 50 Mg Tablet) 50 mg PO BID [facility]; Protocol Last Admin: 12/11/21 07:57 Dose: 50 mg Documented By: DEEPALI Ondansetron HCl (Ondansetron Hcl 4 Mg/2 Ml Vial) 4 mg IVPUSH Q8H PRN PRN Reason: Nausea and Vomiting Ondansetron HCl (Ondansetron Hcl 4 Mg/2 Ml Vial) 4 mg IVPUSH ONCE PRN PRN Reason: Nausea and Vomiting Ondansetron HCl (Ondansetron Hcl 4 Mg/2 Ml Vial) 4 mg IVPUSH ONCE PRN PRN Reason: Nausea and Vomiting Oxycodone HCl (Oxycodone Hcl Immed Release 5 Mg Tablet) 5 mg PO Q6H PRN PRN Reason: Pain, Severe (Pain Scale 7-10) Last Admin: 12/11/21 07:58 Dose: 5 mg Documented By: DEEPALI Oxycodone HCl (Oxycodone Hcl Immed Release 5 Mg Tablet) 5 mg PO ONCE PRN PRN Reason: Pain, Severe (Pain Scale 7-10) Pharmacy Consult (Consult Rx Perform Med Rec) 1 each MISCELLANE ONCE PRN PRN Reason: Consult order Pharmacy Consult (Consult Rx Vancomycin Dosing) 1 each MISCELLANE DAILY PRN PRN Reason: Consult order Sodium Chloride (0.9 % Sodium Chloride Flush 3 Ml Syringe) [facility] Last Admin: 12/11/21 07:59 Dose: 3 ml Documented By: DEEPALI Tizanidine HCl (Tizanidine Hcl 4 Mg Tablet) 4 mg PO Q8H PRN PRN Reason: muscle spasticity Valsartan (Valsartan 160 Mg Tablet) 160 mg PO DAILY [facility] Last Admin: 12/11/21 07:58 Dose: 160 mg Documented By: DEEPALI Labs CBC & Chem 7: 12/10/21 04:08 12/11/21 07:47 Labs: Laboratory Results - last 24 hr 12/10/21 12/10/21 12/11/21 16:00 20:41 05:34 Anion Gap Estim Creat Clear Calc Estimated GFR POC Glucose 312 H 351 H* Random Glucose Calcium Vancomycin Trough 4.4 L 12/11/21 12/11/2122 07:20 07:47 11:45 Anion Gap 14 Estim Creat Clear Calc 156.9 Estimated GFR > 60 POC Glucose 254 H 236 H Random Glucose 247 H Calcium 9.3 D Vancomycin Trough Microbiology Microbiology Results: Microbiology 12/10/21 Unknown Gram Stain - Final Foot Right Routine Culture - Preliminary Strep agalactiae (Grp B) 12/09/21 15:35 Blood Culture - Preliminary Blood - Venous No growth after 24 hours. 12/09/21 15:35 Blood Culture - Preliminary Blood - Venous No growth after 24 hours. Assessment and Plan (1) HTN (hypertension): Status: Acute (2) Foot abscess, right: Status: Acute (3) Puncture wound of foot: Status: Acute Plan 36-year-old male with past medical history of diabetes presents with a wound puncture after stepping on a nail of his right foot with evidence of infection # Sepsis due to Right foot infection/abscess due to puncture wound met sepsis criteria due to leukocytosis and tachypnea - no fevers no chills, status post I&D in OR. large amount of pus was evacuated wound cultures growing strep agielactie, blood cultures x2 negative times 24 WBC trending down, continue IV cefepime and vancomycin day 2, follow elevated CRP seen by General surgery they recommend dry dressing daily with good wound care. will discharge home on by mouth antibiotic Keflex/doxy x total 7 days , if blood cultures remain negative, and WBC improves. # diabetes type 2 poorly controlled hemoglobin A1c 8.8 - elevated blood sugars in 200s, likely due to infection, noncompliance with diet ,continue sliding scale insulin and diabetic diet, take glipizide and Januvia at home, resume home meds # hypertension - blood pressure stable continue home medication and follow BP # obstructive sleep apnea not using CPAP at home # obesity recommended low-calorie diet and exercise DVT prophylaxis:? Lovenox Patient need continued inpatient hospitalization giving history of diabetes, infected right foot puncture wound/abscess status post I&D need continued IV antibiotic and monitoring and follow-up on blood cultures. Quality Stroke Does the patient have a stroke diagnosis?: No VTE Prior VTE?: No VTE Risk Level:: Medical - moderate - high VTE Device Contraindication: Treatment Not Indicated VTE Drug Contraindication: N/A - Med Ordered
[2021-12-11 15:14] VITALS: BP 137/70; PULSE 71; RESP 20; TEMP 36.6; O2SAT 93
[2021-12-11 15:44] LABS: Glucose, Whole Blood 288 mg/dL (60-115)
[2021-12-11] MEDS: glipiZIDE 5 MG TABLET PO (16:43)
[2021-12-11 19:13] VITALS: BP 147/76; PULSE 67; RESP 20; TEMP 36.4; O2SAT 94
[2021-12-11 21:11] LABS: Glucose, Whole Blood 309 mg/dL (60-115)
[2021-12-11] MEDS: Atorvastatin Calcium 40 MG TABLET PO (21:15)
[2021-12-11] MEDS: Enoxaparin Sodium 40 MG/0.4 ML SYRINGE SUBCUT (21:17)
[2021-12-12] VITALS: BP 158/78; PULSE 52; RESP 17; TEMP 36; O2SAT 94
[2021-12-12] MEDS: cefEPime HCl 2 GM in 0.9 % Sodium Chloride 50 ML IV ×2 (02:04→11:05)
[2021-12-12 03:52] VITALS: BP 148/85; PULSE 55; RESP 17; TEMP 35.9; O2SAT 95
[2021-12-12 05:38] LABS: Hemoglobin 15.3 g/dl (14.0-18.0); Mean Corpuscular HGB Conc 33.3 g/dl (31.0-36.0); Mean Corpuscular Hemoglobin 30.6 pg (27.0-33.0); Mean Platelet Volume 11.6 fL (9.4-12.4); Platelet Count 184 X10*3/uL (160-400); Red Cell Distribution Width 11.9 % (11.0-16.0); White Blood Count 11.5 X10*3/uL (4.8-10.8)
[2021-12-12 06:05] LABS: Anion Gap 12 (12-20); Blood Urea Nitrogen 18 mg/dL (9-16); Calcium 9.3 mg/dL (8.4-10.2); Carbon Dioxide 29 mmol/L (22-29); Chloride 101 mmol/L (96-108); Creatinine Clr Calc Pharmacy 141.4; Estimated Glomerular Filt Rate > 60; Glucose Random 208 mg/dL (60-115); Potassium 4.2 mmol/L (3.3-5.1); Sodium 138 mmol/L (135-145)
[2021-12-12 06:08] LABS: Vancomycin Trough 12.5 mcg/mL (10.0-20.0)
--- NOTE | 2021-12-12 06:45 | HE.PHANOTE ---
Patient trough 12.5 this morning, predicted auc 429, trough 8.3, will add lab for another trough tomorrow, if low or drops increase dose to 1500 mg q8h
[2021-12-12 07:03] VITALS: BP 145/84; PULSE 60; RESP 18; TEMP 36.4; O2SAT 96
[2021-12-12 07:12] LABS: Glucose, Whole Blood 193 mg/dL (60-115)
--- NOTE | 2021-12-12 08:19 | P.PNGS_ITS ---
Subjective Subjective Date of Service: 12/12/21 Interval history: Has pain on I and D site No other events reported Physical Exam Vital Signs: Vital Signs: Last Vital Signs Temp 97.6 F 12/12/21 07:03 Pulse 60 12/12/21 07:03 Resp 18 12/12/21 07:03 BP 145/84 H 12/12/21 07:03 Pulse Ox 96 12/12/21 07:03 O2 Del Method 12/12/21 07:03 O2 Flow Rate 4.0 12/10/21 19:24 BMI result Body Mass Index 33.0 Const: General: comfortable and no acute distress Resp: Effort & Inspection: normal respiratory effort Extrem: Other: Right foot I&D site - much less induration, some scanty residual drainage, foot edema and cellulitis much improved Objective Data Active Medications Acetaminophen (Acetaminophen 325 Mg Tablet) 650 mg PO Q6H PRN PRN Reason: Pain, Mild (Pain Scale 1-3) Last Admin: 12/10/21 17:41 Dose: 650 mg Documented By: CORBIN Albuterol Sulfate (Albuterol Sulfate 90 Mcg 8 Gm Inhaler) 2 puff INHALE Q4H PRN PRN Reason: shortness of breath or wheezing Amlodipine Besylate (Amlodipine Besylate 5 Mg Tablet) 5 mg PO DAILY [facility]; Protocol Last Admin: 12/11/21 07:58 Dose: 5 mg Documented By: DEEPALI Atorvastatin Calcium (Atorvastatin Calcium 40 Mg Tablet) 40 mg PO BEDTIME [facility] Last Admin: 12/11/21 21:15 Dose: 40 mg Documented By: MAK Dextrose (Dextrose 50 % 25 Gm/50 Ml Syringe) 25 gm IVPUSH Q15M PRN; Protocol PRN Reason: per Hypoglycemia Standing Ord. Docusate Sodium (Docusate Sodium 100 Mg Capsule) 100 mg PO DAILY PRN PRN Reason: Constipation Enoxaparin Sodium (Enoxaparin Sodium 40 Mg/0.4 Ml Syringe) 40 mg SUBCUT Q24H [facility] Last Admin: 12/11/21 21:17 Dose: 40 mg Documented By: MAK Fentanyl (Fentanyl Citrate/Pf 100 Mcg/2 Ml Vial) 25 mcg IVPUSH Q5M PRN; Protocol PRN Reason: Pain, Moderate (Pain Scale 4-6 Fentanyl (Fentanyl Citrate/Pf 100 Mcg/2 Ml Vial) 25 mcg IVPUSH Q5M PRN; Protocol PRN Reason: Pain, Moderate (Pain Scale 4-6 Last Admin: 12/10/21 12:05 Dose: 25 mcg Documented By: ESTHER Glipizide (Glipizide 5 Mg Tablet) 5 mg PO BIDWM [facility] Last Admin: 12/11/21 16:43 Dose: 5 mg Documented By: DEEPALI Glucose (Glucose Gel 15 Gm Gel..Gram.) 15 gm PO Q15M PRN; Protocol PRN Reason: per Hypoglycemia Standing Ord. Hydrochlorothiazide (Hydrochlorothiazide 25 Mg Tablet) 25 mg PO DAILY [facility]; Protocol Last Admin: 12/11/21 07:58 Dose: 25 mg Documented By: DEEPALI Hydromorphone HCl (Hydromorphone Hcl 0.5 Mg/0.5 Ml Syringe) 0.5 mg IVPUSH Q4H PRN; Protocol PRN Reason: Pain, Severe (Pain Scale 7-10) Last Admin: 12/10/21 07:43 Dose: 0.5 mg Documented By: ELYSE Cefepime HCl 2 gm/ Sodium (Chloride) 50 mls @ 100 mls/hr IV Q8H [facility] Last Infusion: 12/12/21 02:45 Dose: 0 mls/hr Documented By: MAK Vancomycin HCl 1,250 mg/ (Sodium Chloride) 250 mls @ 166.667 mls/hr IV Q8H [facility] Last Infusion: 12/12/21 01:01 Dose: 0 mls/hr Documented By: MAK Insulin Human Lispro (Insulin Lispro 100 Unit/Ml 3 Ml Vial) 0 unit SUBCUT QIDACHS [facility]; Protocol Last Admin: 12/11/21 21:15 Dose: 8 unit Documented By: MAK Ketorolac Tromethamine (Ketorolac Tromethamine 15 Mg/Ml Vial) 15 mg IVPUSH Q6H PRN PRN Reason: Pain, Severe (Pain Scale 7-10) Last Admin: 12/10/21 08:17 Dose: 15 mg Documented By: ELYSE Metoprolol Tartrate (Metoprolol Tartrate 50 Mg Tablet) 50 mg PO BID [facility]; Protocol Last Admin: 12/11/21 21:16 Dose: 50 mg Documented By: MAK Ondansetron HCl (Ondansetron Hcl 4 Mg/2 Ml Vial) 4 mg IVPUSH Q8H PRN PRN Reason: Nausea and Vomiting Ondansetron HCl (Ondansetron Hcl 4 Mg/2 Ml Vial) 4 mg IVPUSH ONCE PRN PRN Reason: Nausea and Vomiting Ondansetron HCl (Ondansetron Hcl 4 Mg/2 Ml Vial) 4 mg IVPUSH ONCE PRN PRN Reason: Nausea and Vomiting Oxycodone HCl (Oxycodone Hcl Immed Release 5 Mg Tablet) 5 mg PO Q6H PRN PRN Reason: Pain, Severe (Pain Scale 7-10) Last Admin: 12/11/21 21:16 Dose: 5 mg Documented By: MAK Oxycodone HCl (Oxycodone Hcl Immed Release 5 Mg Tablet) 5 mg PO ONCE PRN PRN Reason: Pain, Severe (Pain Scale 7-10) Pharmacy Consult (Consult Rx Perform Med Rec) 1 each MISCELLANE ONCE PRN PRN Reason: Consult order Pharmacy Consult (Consult Rx Vancomycin Dosing) 1 each MISCELLANE DAILY PRN PRN Reason: Consult order Sitagliptin Phosphate (Sitagliptin Phosphate 25 Mg Tablet) 25 mg PO DAILY [facility] Sodium Chloride (0.9 % Sodium Chloride Flush 3 Ml Syringe) 3 ml IVFLUSH QSHIFT [facility] Last Admin: 12/11/21 23:29 Dose: 3 ml Documented By: MAK Tizanidine HCl (Tizanidine Hcl 4 Mg Tablet) 4 mg PO Q8H PRN PRN Reason: muscle spasticity Valsartan (Valsartan 160 Mg Tablet) 160 mg PO DAILY [facility] Last Admin: 12/11/21 07:58 Dose: 160 mg Documented By: DEEPALI Labs CBC & Chem 7: 12/12/21 05:10 12/12/21 05:10 Labs: Laboratory Results - last 24 hr 12/11/21 12/11/21 12/11/21 11:45 15:40 19:18 MCV MCH MCHC RDW Plt Count MPV Absolute Nucleated RBC Nucleated RBC % (auto) Anion Gap Estim Creat Clear Calc Estimated GFR POC Glucose 236 H 288 H 309 H Random Glucose Calcium Vancomycin Trough 12/12/21 12/12/21 12/12/21 05:10 05:10 05:10 MCV 92.0 MCH 30.6 MCHC 33.3 RDW 11.9 Plt Count 184 MPV 11.6 Absolute Nucleated RBC 0.000 Nucleated RBC % (auto) 0.0 Anion Gap 12 Estim Creat Clear Calc 141.4 Estimated GFR > 60 POC Glucose Random Glucose 208 H Calcium 9.3 Vancomycin Trough 12.5 12/12/21 07:07 MCV MCH MCHC RDW Plt Count MPV Absolute Nucleated RBC Nucleated RBC % (auto) Anion Gap Estim Creat Clear Calc Estimated GFR POC Glucose 193 H Random Glucose Calcium Vancomycin Trough Microbiology Microbiology Results: Microbiology 12/09/21 15:35 Blood Culture - Preliminary Blood - Venous No growth after 48 hours. 12/09/21 15:35 Blood Culture - Preliminary Blood - Venous No growth after 48 hours. 12/10/21 Unknown Gram Stain - Final Foot Right Routine Culture - Preliminary Strep agalactiae (Grp B) Procedures Date of Service Date of Service: 12/12/21 Progress Note: A&P Assessment and plan (1) Foot abscess, right: Status: Acute Assessment and Plan: Status post I&D Much improved Dressings changed Abscess culture shows strep agalactiae Wound care at home Okay to follow up with me in the office after discharge Time Spent With Patient Time: Total time spent is greater than 50% in coordination of care (as documented) at patient's floor/unit and/or counseling patient: Quality Stroke Does the patient have a stroke diagnosis?: No VTE Prior VTE?: No VTE Risk Level:: Medical - moderate - high VTE Device Contraindication: Treatment Not Indicated VTE Drug Contraindication: N/A - Med Ordered
[2021-12-12] MEDS: vancomycin HCL 1,250 MG in 0.9 % Sodium Chloride 250 ML 166.67 MG IV (09:04)
[2021-12-12] MEDS: Insulin Lispro 100 UNIT/ML 3 ML VIAL SUBCUT ×2 (09:08→11:50)
[2021-12-12] MEDS: SITagliptin Phosphate 25 MG TABLET PO (09:09)
[2021-12-12] MEDS: glipiZIDE 5 MG TABLET PO (09:09)
[2021-12-12] MEDS: 0.9 % Sodium Chloride Flush 3 ML SYRINGE IVFLUSH (09:10)
[2021-12-12] MEDS: Valsartan 160 MG TABLET PO (09:10)
[2021-12-12] MEDS: hydroCHLOROthiazide 25 MG TABLET PO (09:10)
[2021-12-12] MEDS: amLODIPine Besylate 5 MG TABLET PO (09:10)
--- NOTE | 2021-12-12 11:00 | P.DS_ITS ---
DS: Providers Provider Date of Service: 12/12/21 Date of admission: 12/09/21 20:25 Date of discharge: 12/12/21 Primary care physician: [facility] Consults: 12/09/21 20:27 Consult to General Surgery Routine Consulting Provider: Vidal Kennedy Reason for consultation: Foot wound/abscess Has provider been notified: Yes Attending physician on discharge: Gilmar Wright Discharging clinician: Yin Reis DS: Diagnosis Discharge Diagnosis (1) Foot abscess, right: Status: Acute DS: Summary Hospital Course Hospital Course: From H&P on day of admission This is a 36-year-old Italian-speaking male with past medical history of hypertension, hypertrophic obstructive cardiomyopathy, hypertensive heart disease, MARA, diabetes presents to the hospital with complaints of a puncture wound on his right foot.? Patient's at bedside gives me the history.? She reports that about 2 weeks ago he stepped on a nail, about 3 days ago the wound site became swollen, and started causing him significant pain.? They went to [facility] multiple times but the wait was too long therefore they went home.? They went to PCP today, after examination the PCP asked the patient to go to the ED for further evaluation.? Patient reports pain 10/10, no drainage. Patient denies any fever or chills, no chest pain, no shortness of breath, no abdominal pain nausea or vomiting, no diarrhea constipation, no urinary symptoms and no lower extremity edema.? On arrival to the ED patient hemodynamically stable with no significant abnormal vitals Labs are significant for WBC count of 18.6, lactic acid of 2.9, CRP of 8.34, ESR of 11, Foot CT showed complex fluid collection in the plantar soft tissue/subcutaneous tissue in the region of the distal 1st metatarsal measuring 1.7 x 1.8 x 1.6 possible differentials include infectious versus abscess. Patient started on IV antibiotics and will be admitted for further management right foot cellulitis/ abscess. He was started on IV cefepime, vancomycin. He was seen in consultation by surgery and underwent I&D on 12/10. his erythema and edema have improved. Leukocytosis has trended down, he has remained afebrile. Blood cultures have remained negative for 48 hours. Right foot culture growing strep agalactiae and staph species. He will be discharged home to complete course of Keflex and doxycycline. He should change dressings daily. He can call to schedule follow-up appointment with Dr. Kennedy. Time Spent with Patient Time attestation: Total time spent providing and/or coordinating discharge services: Discharge coordination time: Greater than 30 minutes Quality: Safe Use of Opioids Does Pt have an Active Cancer Diagnosis on the Problem List?: No Quality: Stroke Does the patient have a stroke diagnosis?: No Physical Exam Vital Signs: Vital Signs: Last Vital Signs Temp 97.6 F 12/12/21 07:03 Pulse 60 12/12/21 07:03 Resp 18 12/12/21 07:03 BP 145/84 H 12/12/21 07:03 Pulse Ox 96 12/12/21 07:03 O2 Del Method 12/12/21 07:03 O2 Flow Rate 4.0 12/10/21 19:24 BMI result Body Mass Index 33.0 DS: Data Data Completed and Pending Labs on day of discharge: Laboratory Results - last 24 hr 12/11/21 12/11/21 12/11/21 11:45 15:40 19:18 WBC RBC Hgb Hct MCV MCH MCHC RDW Plt Count MPV Absolute Nucleated RBC Nucleated RBC % (auto) Sodium Potassium Chloride Carbon Dioxide Anion Gap BUN Creatinine Estim Creat Clear Calc Estimated GFR POC Glucose 236 H 288 H 309 H Random Glucose Calcium Vancomycin Trough 12/12/21 12/12/21 12/12/21 05:10 05:10 05:10 WBC 11.5 H RBC 5.00 Hgb 15.3 Hct 46.0 MCV 92.0 MCH 30.6 MCHC 33.3 RDW 11.9 Plt Count 184 MPV 11.6 Absolute Nucleated RBC 0.000 Nucleated RBC % (auto) 0.0 Sodium 138 Potassium 4.2 Chloride 101 Carbon Dioxide 29 Anion Gap 12 BUN 18 H Creatinine 0.91 Estim Creat Clear Calc 141.4 Estimated GFR > 60 POC Glucose Random Glucose 208 H Calcium 9.3 Vancomycin Trough 12.5 12/12/21 07:07 WBC RBC Hgb Hct MCV MCH MCHC RDW Plt Count MPV Absolute Nucleated RBC Nucleated RBC % (auto) Sodium Potassium Chloride Carbon Dioxide Anion Gap BUN Creatinine Estim Creat Clear Calc Estimated GFR POC Glucose 193 H Random Glucose Calcium Vancomycin Trough Preliminary micro results at discharge 12/10/21 Unknown Routine Culture - Preliminary Foot Right Strep agalactiae (Grp B) Staphylococcus species 12/09/21 15:35 Blood Culture - Preliminary Blood - Venous No growth after 48 hours. 12/09/21 15:35 Blood Culture - Preliminary Blood - Venous No growth after 48 hours. Discharge Plan Discharge Patient Disposition: Home, Self-Care Discharge Diagnosis: Puncture wound/abscess of right foot Referrals: [facility] [Primary Care Provider] - 1 Week Vidal Kennedy MD [Physician] - 1 Week Discharge Medications: New doxycycline hyclate 100 mg tablet 100 mg PO BID 10 Days Qty: 20 0RF cephalexin 500 mg capsule 500 mg PO QID 10 Days Qty: 40 0RF Continued (DME) FreeStyle Lite Strips Strip See Rx Instructions .ROUTE .COMPLEX Qty: 100 7RF Dose Instruction: USE TO TEST BLOOD SUGAR 2-3 TIMES DAILY Rx Instructions: USE TO TEST BLOOD SUGAR 2-3 TIMES DAILY amlodipine 5 mg tablet 5 mg PO DAILY Qty: 90 3RF atorvastatin 40 mg tablet 40 mg PO BEDTIME 90 Days Qty: 90 3RF hydrochlorothiazide 25 mg tablet 25 mg PO DAILY Qty: 90 3RF metoprolol tartrate 50 mg tablet 50 mg PO BID 90 Days Qty: 180 3RF glipizide 5 mg tablet 5 mg PO TID Qty: 270 1RF albuterol sulfate [ProAir HFA] 90 mcg/actuation HFA aerosol inhaler 2 puff inhalation Q4-6H PRN (Reason: shortness of breath or wheezing) 30 Days Qty: 8.5 3RF irbesartan 300 mg tablet 300 mg PO DAILY Qty: 90 3RF (DME) blood-glucose meter [FreeStyle Lite Meter] Kit See Rx Instructions .Route Qty: 1 0RF Rx Instructions: monitor glucose 1-2 times per day Januvia 25 mg tablet 25 mg PO DAILY Qty: 90 1RF (DME) back brace Misc See Rx Instructions .Route Qty: 1 0RF Rx Instructions: As directed sulindac 200 mg tablet 200 mg PO BID PRN (Reason: pain) 30 Days Qty: 60 0RF Rx Instructions: Take it with food. Avoid other NSAIDs. tizanidine 4 mg tablet 4 mg PO Q8H PRN (Reason: muscle spasticity) 30 Days Qty: 90 0RF Discharge Orders: Discharge Order (Routine); Ordered 12/12/21 Ordered By: Yin Reis Activity on Discharge: As tolerated Stand Alone Forms: Patient Portal Discharge page Care Plan Goals: see below Health Concerns: Right foot abscess/cellulitis Diabetes Plan of Treatment: take entire course of antibiotics as prescribed call to schedule follow-up appointment with Dr. Kennedy of surgery call to schedule follow-up appointment with PCP as needed daily dressing changes Assessment: see discharge summary Discharge Date/Time: 12/12/21 15:50
--- NOTE | 2021-12-12 11:16 | MHC.CM.PN ---
PATIENT IS DC HOME - SELF CARE RN AWARE OF PLAN.
[2021-12-12 11:27] VITALS: BP 142/76; PULSE 60; RESP 18; TEMP 36.4; O2SAT 95
[2021-12-12 11:34] LABS: Glucose, Whole Blood 271 mg/dL (60-115)
== END 2021-12-12 15:50 | disposition home or self-care (01) | DRG 710 ==
LOC: HO.ED 17:43 → HO.EDOVER 20:34 → HO.S3 12-10 07:31
PROVIDERS: Emergency Medicine; Hospitalist; Physician Assistant; Surgery; Admitting Provider Internal Medicine; Emergency Provider Emergency Medicine; Visit Provider Physician Assistant Medical
PROC: 0J9Q0ZZ Drainage of Right Foot Subcutaneous Tissue and Fascia, Open Approach (ICD-10-PCS; CPT 10061; principal; 2021-12-10 11:30)
DX: A41.9 Sepsis, unspecified organism (principal); S91.331A Puncture wound without foreign body, right foot, initial encounter; L02.611 Cutaneous abscess of right foot; E11.65 Type 2 diabetes mellitus with hyperglycemia; E66.9 Obesity, unspecified; F17.210 Nicotine dependence, cigarettes, uncomplicated; W45.0XXA Nail entering through skin, initial encounter; I10 Essential (primary) hypertension; Z71.3 Dietary counseling and surveillance; Z68.33 Body mass index [BMI] 33.0-33.9, adult; G47.33 Obstructive sleep apnea (adult) (pediatric); Z20.822 Contact with and (suspected) exposure to COVID-19; Z71.6 Tobacco abuse counseling; Z88.0 Allergy status to penicillin; Z88.8 Allergy status to other drugs, medicaments and biological substances; Z79.84 Long term (current) use of oral hypoglycemic drugs; Z79.899 Other long term (current) drug therapy
CPT/HCPCS: 10061; 36415; 73630; 73701; 80048; 80053; 80202; 82947; 83605; 85025; 85027; 85652; 86140; 87040; 87071; 87147; 87186; 87205; 87635; 96361; 96365; 96375; 99218; 99285; J0692; J1100; J1170; J1650; J1885; J2250; J2270; J2795; J3010; J3370; Q9967

== ENCOUNTER → 2022-01-30 14:10 | Outpatient (BNVA) | payer OTHER, SELFPAY | PROVIDERS: PCP Hospitalist; Visit Provider Internal Medicine Cardiovascular Disease | DX: R07.9 Chest pain, unspecified (principal); I10 Essential (primary) hypertension; Z79.899 Other long term (current) drug therapy | CPT/HCPCS: 93005; 99212 ==

== ENCOUNTER → 2022-02-07 10:20 | Outpatient (REF) | payer OTHER, SELFPAY ==
--- NOTE | 2022-02-07 10:23 | CA_ITS ---
Transthoracic Echocardiogram Patient (Last, First, Middle): Tej Proctor, Gender: Male Date of : 1985 Age: 36 Procedure Date: 02/07/2022 Procedure Type: Transthoracic Echocardiogram Location: OP Height: 182. 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 The visually estimated ejection fraction is between 60-65%. - There is severely increased left ventricular wall thickness. - Peak gradient across the LVOT-rest- 15 mm Hg; during Valsalva 30 mmHg. - E/E prime ratio is >15, consistent with elevated filling pressures. Evidence suggests grade I (mild) diastolic dysfunction. - No obvious valvular pathology seen on this study. Findings Left Ventricle Normal left ventricular cavity size. There is severely increased left ventricular wall thickness. The left ventricular systolic function is normal. The visually estimated ejection fraction is between 60-65%. E/E prime ratio is >15, consistent with elevated filling pressures. Evidence suggests grade I (mild) diastolic dysfunction. Peak gradient across the LVOT rest- 15 mm Hg; during Valsalva -30 mmHg. Right Ventricle Normal right ventricular cavity size and systolic function. Atria Both atria are normal in size. Aortic Valve The aortic valve was not well visualized. The aortic valve structure and function is likely normal. There is no aortic valve stenosis. There is no aortic valve regurgitation. Mitral Valve The mitral valve appears normal. There is no mitral valve regurgitation. There is no mitral valve stenosis. Pulmonic Valve The pulmonic valve is likely normal. Tricuspid Valve Normal tricuspid valve structure. There is trace tricuspid valve regurgitation. There is no evidence of pulmonary hypertension. Great Vessels The aortic annulus, sinuses of valsalva, and asc aorta are normal in size. Venous The inferior vena cava is normal in size and collapses greater than 50% with inspiration. Pericardium/Pleural There is no evidence of pericardial effusion. Prior Study Comparison No significant change compared to prior study dated: 05/20/2021. Recommendations, Care & Conclusions No obvious valvular pathology seen on this study. Measurements 2D Linear Measurements IVSd: 2.11 0.6-0.9/0.6-1.0 cm LVIDd: 3.84 3.9-5.3/4.2-5.9 cm LVIDd Index: 1.66 2.4-3.2/2.2-3.1 cm/m2 LVIDs: 2.41 2.0-3.6 cm LVPWd: 2.48 0.7-1.1 cm LA Diam: 4.00 2.7-3.8/3.0-4.0 cm LAIDs Index: 1.73 1.5-2.3 cm/m2 LV Mass: 564.15 67-162/88-224 g LV Mass Index: 244.22 43-95/49-115 g/m2 LVOT Diam: 2.50 3.0+(-)1.3 cm 2D Systolic Function EF 4C: 64.70 >55% EF 2C: 56.10 >55% EF BiP: 60.50 >55% Mitral Valve MV Pk E: 0.74 MV PK A: 0.78 MV Decel Time: 289.00 E/A: 0.90 E'Lateral: 4.24 E'Medial: 3.37 E/E' Med: 21.80 E/E' Lat: 17.30 PHT: 85.00 MVA PHT: 2.59 Decel [place]: 2.54 Aortic Valve AoV Pk Emerson: 2.05 AoV Mn Emerson: 1.40 AoV VTI: 0.34 AoV Pk Grad: 17.00 Aov Mn Grad: 9.00 LEVI Cont.VTI: 5.20 LVOT LVOT Pk Emerson: 1.96 LVOT Mn Emerson: 1.40 LVOT VTI: 0.36 LVOT Pk Grad: 15.00 LVOT Mn Grad: 9.00 LVOT Diam: 2.50 LVOT Area: 4.91 Diastolic Function MV Pk E: 0.74 MV Pk A: 0.78 E/A: 0.90 E'Medial: 3.37 E/E' Med: 21.80 E' Laterial: 4.24 E/E' Lat: 17.30 Right Ventricle TAPSE (mm): 21.40 TVS' Emerson: 15.60 Tricuspid Valve RA Press: 3.00 Great Vessels Aorta Sinus of Valsalva: 3.30 2.0-3.5 cm Ao Asc: 3.00 2.1-3.4 cm Pulmonary Valve PV Pk Emerson: 1.10 Peak PV Grad: 5.00 Updated in Other Vendor System with Status of Final Garry Prajapati MD electronically signed on 02/08/2022 1:03:32 PM with status of Final
== END ==
LOC: HO.CARD 10:20
PROVIDERS: PCP Hospitalist; Visit Provider Internal Medicine Cardiovascular Disease
DX: R07.9 Chest pain, unspecified (principal)
CPT/HCPCS: 93306

== ENCOUNTER → 2022-02-27 11:00 | Outpatient (BNVA) | payer OTHER, SELFPAY | PROVIDERS: PCP Hospitalist; Visit Provider Nurse Practitioner Family | DX: M54.42 Lumbago with sciatica, left side (principal); M54.41 Lumbago with sciatica, right side; M62.830 Muscle spasm of back; M47.816 Spondylosis without myelopathy or radiculopathy, lumbar region; M43.16 Spondylolisthesis, lumbar region | CPT/HCPCS: 99212 ==

== ENCOUNTER → 2022-03-12 13:14 | Outpatient (BNVA) | payer OTHER, SELFPAY | PROVIDERS: PCP Hospitalist; Referring Provider Hospitalist; Visit Provider Internal Medicine Cardiovascular Disease | DX: I42.1 Obstructive hypertrophic cardiomyopathy (principal); Z79.899 Other long term (current) drug therapy | CPT/HCPCS: 99212 ==

== ENCOUNTER 2022-03-25 19:32 | Outpatient (REF) | payer OTHER, SELFPAY ==
--- NOTE | ~2022-03-25 | MR_ITS ---
EXAMINATION: MR LUMBAR SPINE WITHOUT CONTRAST CLINICAL INFORMATION: Spondylosis without myelopathy or radiculopathy. COMPARISON: Plain films of the lumbar spine 11/28/2021. TECHNIQUE: MRI of the lumbar spine was obtained using routine sequences without contrast. FINDINGS: VERTEBRAL BODIES AND PARASPINAL STRUCTURES: There is slight reversal of the normal lumbar lordosis. There is loss of signal from the discs at L2-L3 through L5-S1 consistent with disc desiccation. There is mild narrowing of intervertebral disc height at L3-L4. There are degenerative endplate contour changes at L4-L5 with Schmorl's nodes and fatty endplate signal changes. There are mild edematous endplate signal changes at L3-L4 and L5-S1. Vertebral body heights are maintained and no fractures are demonstrated. Overall, marrow signal is homogenous. The visualized retroperitoneal and pelvic structures are unremarkable. There are degenerative changes at the right sacroiliac joint with sclerosis. CONUS MEDULLARIS AND CAUDA EQUINA: Normal, terminating at the level of L1-L2. The lower thoracic spinal cord appears normal. The cauda equina nerve roots appear normal. There is a minimal amount of fat in the non-thickened filum terminale at the level of L4-L5. SPINAL LEVELS: L1-L2: The facet joints appear normal bilaterally. Disc contour is normal. There is no central stenosis or foraminal narrowing. L2-L3: There is mild bilateral facet arthropathy with ligamenta flava hypertrophy. There is a central and left-sided posterior disc protrusion with an annular fissure which mildly distorts the ventral thecal sac but there is no central stenosis. The neural foramina are patent bilaterally. L3-L4: There is mild bilateral facet arthropathy. There is a diffuse disc bulge with a small annular fissure posteriorly with minimal flattening of the ventral thecal sac. There is no central stenosis. The neural foramina are patent bilaterally. L4-L5: There is mild bilateral facet arthropathy. There is a posterior disc protrusion with an annular fissure which is most prominent just to the left of midline and there is distortion of the ventral thecal sac. There is no central stenosis, and the neural foramina are patent bilaterally. L5-S1: There is moderate bilateral facet arthropathy with facet joint effusions. There is a posterior disc protrusion which is most prominent in the midline with distortion of the ventral thecal sac but there is no central stenosis. There are bilateral foraminal disc protrusions with mild impingement on the exiting L5 nerve roots. MR/MR lumbar spine wo con IMPRESSION: 1. At L5-S1 there is a posterior disc protrusion, extending into the neural foramina bilaterally with impingement on the exiting L5 nerve roots. There is no central stenosis. 2. There is spondylosis with facet arthropathic changes at other levels as described above, without central stenosis or foraminal nerve root impingement.
== END 2022-03-25 19:33 | disposition home or self-care (01) ==
LOC: HO.MRI 19:32
PROVIDERS: Visit Provider Nurse Practitioner Family
DX: M47.816 Spondylosis without myelopathy or radiculopathy, lumbar region (principal)
CPT/HCPCS: 72148

== ENCOUNTER 2022-04-22 13:25 | Outpatient (REF) | payer OTHER, SELFPAY ==
[2022-04-22 14:53] LABS: Cholesterol 228 mg/dL; HDL Cholesterol 39 mg/dL; Triglycerides 434 mg/dL
[2022-04-22 16:28] LABS: Creatinine Urine 104.29 mg/dL; Microalbum/Creatinine Ratio Ur 14.3 ug/mg cr
== END 2022-04-22 13:26 | disposition home or self-care (01) ==
LOC: HO.LAB 13:25
PROVIDERS: PCP Hospitalist; Visit Provider Internal Medicine Endocrinology, Diabetes & Metabolism
DX: E11.65 Type 2 diabetes mellitus with hyperglycemia (principal)
CPT/HCPCS: 36415; 80061; 82043

== ENCOUNTER → 2022-04-23 09:48 | Outpatient (BNVA) | payer OTHER, SELFPAY | PROVIDERS: PCP Hospitalist; Visit Provider Internal Medicine Endocrinology, Diabetes & Metabolism | DX: E11.65 Type 2 diabetes mellitus with hyperglycemia (principal) | CPT/HCPCS: 82947; 99202 ==

== ENCOUNTER → 2022-04-28 08:25 | Outpatient (BNVA) | payer OTHER, SELFPAY | PROVIDERS: PCP Hospitalist; Visit Provider Nurse Practitioner Family | DX: M62.830 Muscle spasm of back (principal); M47.26 Other spondylosis with radiculopathy, lumbar region; M51.36 Other intervertebral disc degeneration, lumbar region | CPT/HCPCS: 99212 ==

== ENCOUNTER 2022-06-17 06:12 | Outpatient (REF) | payer OTHER, SELFPAY ==
--- NOTE | ~2022-06-17 | FL_ITS ---
EXAMINATION: XR FLUOROSCOPY WITH IMAGES CLINICAL INFORMATION: Bilateral lumbar injections. COMPARISON: None. TECHNIQUE: Fluoroscopy Supervised By: Tammy. Fluoroscopy Time: 0.6 minutes. Cumulative Dose: 31.5 mGy. DAP: 8.6 Gycm2. Images: 7. FINDINGS: There are needles positioned adjacent to the bilateral pedicles of L5, L4 and L3 vertebra for pain management. Visualized bones are grossly unremarkable. There is loss of L5-S1 disc height with periarticular spurring. No aggressive lytic or sclerotic process seen. FL/FL guidance in treatment room IMPRESSION: 1. Fluoroscopy was provided to referring physician for pain management. 2. Degenerative disc changes L5-S1 disc level with periarticular spurring.
== END 2022-06-17 06:13 | disposition home or self-care (01) ==
LOC: CF 06:12
PROVIDERS: Visit Provider Anesthesiology
DX: M47.816 Spondylosis without myelopathy or radiculopathy, lumbar region (principal); M62.830 Muscle spasm of back; M54.16 Radiculopathy, lumbar region; M51.36 Other intervertebral disc degeneration, lumbar region
CPT/HCPCS: 64493

== ENCOUNTER → 2022-06-24 08:52 | Outpatient (BNVA) | payer OTHER, SELFPAY | PROVIDERS: PCP Hospitalist; Visit Provider Nurse Practitioner Family | DX: Z13.89 Encounter for screening for other disorder (principal) ==

== ENCOUNTER 2022-08-12 06:15 | Outpatient (REF) | payer OTHER, SELFPAY ==
--- NOTE | ~2022-08-12 | FL_ITS ---
EXAMINATION: XR FLUOROSCOPY WITH IMAGES CLINICAL INFORMATION: M54.16 - Radiculopathy, lumbar region COMPARISON: MR lumbar spine 03/25/2022 TECHNIQUE: Fluoroscopy Supervised By: Dr. Bakari Moseley. Fluoroscopy Time: 0.3 minutes. Cumulative Dose: 18.5 mGy. DAP: 5.06 Gycm2. Images: 1. FINDINGS: There there is a spinal needle overlying the outer left L5 neural foramen. There is contrast seen in the respective nerve sheaths along with transforaminal epidural extension. No visible vascular communication. FL/FL guidance in treatment room IMPRESSION: Fluoroscopy for pain management procedure.
== END 2022-08-12 06:16 | disposition home or self-care (01) ==
LOC: CF 06:15
PROVIDERS: Visit Provider Anesthesiology
DX: M47.26 Other spondylosis with radiculopathy, lumbar region (principal); M51.36 Other intervertebral disc degeneration, lumbar region; M62.830 Muscle spasm of back; Z79.899 Other long term (current) drug therapy
CPT/HCPCS: 64483; J3301

== ENCOUNTER → 2022-09-09 13:32 | Outpatient (BNVA) | payer OTHER, SELFPAY | PROVIDERS: PCP Hospitalist; Visit Provider Nurse Practitioner Family | DX: M51.36 Other intervertebral disc degeneration, lumbar region (principal); M43.16 Spondylolisthesis, lumbar region; M47.816 Spondylosis without myelopathy or radiculopathy, lumbar region; M54.16 Radiculopathy, lumbar region; M62.830 Muscle spasm of back | CPT/HCPCS: 99212 ==

== ENCOUNTER → 2022-09-16 14:17 | Outpatient (BNVA) | payer OTHER, SELFPAY | PROVIDERS: PCP Hospitalist; Visit Provider Internal Medicine Endocrinology, Diabetes & Metabolism | DX: E11.65 Type 2 diabetes mellitus with hyperglycemia (principal); Z83.3 Family history of diabetes mellitus; Z79.84 Long term (current) use of oral hypoglycemic drugs | CPT/HCPCS: 82947; 99212 ==

== ENCOUNTER → 2022-10-07 10:05 | Outpatient (BNVA) | payer OTHER, SELFPAY | PROVIDERS: PCP Hospitalist; Visit Provider Physician Assistant | DX: M51.36 Other intervertebral disc degeneration, lumbar region (principal) | CPT/HCPCS: 99202 ==

== ENCOUNTER 2022-11-25 14:01 | Outpatient (AMB) | payer OTHER, SELFPAY ==
--- NOTE | 2022-11-25 14:39 | A.OFFVIS_ITS ---
Intake Intake Visit Reasons: Type 2 DM Mortgage Field Inspector Required: Yes Mortgage Field Inspector Language: Groundskeeping Maintenance Name: Pt's Information Interpreted: non-clinical & clinical Accompanied by: Spouse Allergies Penicillins [PENICILLINS] Allergy (Intermediate, Verified 09/09/22 13:41) RASH metformin Adverse Reaction (Intermediate, Verified 09/09/22 13:41) Diarrhea HPI Comprehensive Diabetes Asmnt Most Recent Diabetes Results: No Data to Display [facility] Medical History Diabetes HTN (hypertension) Hypertensive heart disease Hypertrophic obstructive cardiomyopathy MARA (obstructive sleep apnea) Osteoarthritis of lumbar spine Osteoarthritis of right knee Surgical History History of ankle surgery History of elbow surgery History of hand surgery Family History Father PVD (peripheral vascular disease) Mother No problems noted. Social History Household Members: Family Housing: Apartment Do you presently have visiting nurse or other home services: No Alcohol intake: current Patient Tobacco Use Status: Current everyday Tobacco user Tobacco use type: Cigarette Cigarette Packs Per Day: 0.25 Cigarettes Per Day: 5.0 Years Smoked: 20 e-Cigarette/Vaping Use: Never Used Second Hand Smoke Exposure: No service: No Current occupational status: unemployed Cognitive needs: No Hearing needs: No Vision needs: Yes (Glasses) Assessment & Plan Assessment & Plan (1) Poorly controlled type 2 diabetes mellitus: Code(s): E11.65 - Type 2 diabetes mellitus with hyperglycemia Plan: Learning objectives: The patient was provided with verbal and written education on the following topics as outlined below. The patient met all learning objectives and was able to verbalize understanding and provide teach back of education topics discussed . The patient was provided with the opportunity to ask questions and all questions were answered. 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 Reviewed patient's Jai information although there is limited to 5 days worth of data patient is having multiple low blood sugars daily. Discussed with patient the importance of checking fingerstick when getting the low alert. Reviewed target goals of glucose Patient is taking Trulicity 0.75 mg weekly What is Diabetes? Pathophysiology How the body produces and uses insulin Identify type of DM Risk factors Signs of Diabetes Brief overview of Diabetes Management Monitoring blood sugar Following a meal plan Regular exercise Maintaining a healthy weight Taking medication as needed Members of the care team (PCP, RN, MA, RD, CDE, athletic trainer) Blood glucose monitoring When/how often to test Target blood sugar ranges Patient using freestyle Jai 2 Above target 4% At target 93% Below target 3 % Average glucose for the past 2 weeks 104 mg/dL Patient only has 5 days worth of glucose data on today's report Introduction to Nutrition Importance of healthy diet in managing DM Diet is personalized to individual preference Review patient?s regular diet/food preferences Who prepares meals/does food shopping/ Dining out?/ Barriers? How diet effects glucose Eating 3 balanced meals a day with small, healthy snacks between meals Review food groups Carbohydrates: What is a carbohydrate/Which food/food groups are considered carbohydrates Effect of carbohydrates on blood glucose Portion sizes Reading food labels Basic carb counting (if applicable per nursing assessment) Plate method Meal planning Recommendations: Follow plate method, consistent carbs and read nutritional labels. Smart Goal: Patient will test glucose when he receives low alert on freestyle Jai 2 Educational Materials: The patient was provided with the following written educational materials: Planning Healthy Meals Handout Patient Response to instructions: Comprehension of Instructions: Fair Readiness to make changes: Contemplation How confident they feel about making changes: Positive Patient Instructions: Incluir actividad diaria regular. ADA recomienda 30 minutos de ejercicio 5 d?as a la semana. P?rdida de peso, hable con el PCP o el cardi?logo antes de comenzar un nuevo plan. Mida el nivel de az?car en la candida seg?n las indicaciones; Ayuno y comida m?s madelin de 2hpp. Observe las tendencias en los resultados. Utilice los resultados y eval?e c?mo los alimentos, la actividad f?brian y los medicamentos afectan los resultados de az?car en la candida. Lleve el gluc?metro o CGM a la pr?xima visita. Conocer los medicamentos para la diabetes, malik acci?n, los efectos secundarios, la eficacia, la toxicidad, la dosis prescrita, el momento y la frecuencia de administraci?n apropiados, el efecto de las dosis olvidadas y retrasadas y las instrucciones de almacenamiento, viaje y seguridad. Coding Level of Care Code Est Pt Level 1 (57071) Diagnoses Poorly controlled type 2 diabetes mellitus E11.65
== END 2022-11-25 14:40 | disposition home or self-care (01) ==
PROVIDERS: PCP Hospitalist; Visit Provider Registered Nurse Diabetes Educator
DX: E11.65 Type 2 diabetes mellitus with hyperglycemia (principal)

== ENCOUNTER → 2022-11-25 14:01 | Outpatient (BNVA) | payer OTHER, SELFPAY | PROVIDERS: Visit Provider Registered Nurse Diabetes Educator | DX: E11.65 Type 2 diabetes mellitus with hyperglycemia (principal); I10 Essential (primary) hypertension | CPT/HCPCS: 99211 ==

== ENCOUNTER 2023-01-27 13:11 | Outpatient (AMB) | payer OTHER, SELFPAY ==
--- NOTE | 2023-01-27 13:43 | MHC.AMNUTRGE ---
Intake VS Expanded 01/27/23 13:44 Height 6 ft Weight 232 lb 5.875 oz BMI 31.5 Intake Visit Reasons: T2DM Allergies Penicillins [PENICILLINS] Allergy (Intermediate, Verified 02/03/23 08:22) RASH metformin Adverse Reaction (Intermediate, Verified 02/03/23 08:22) Diarrhea HPI Nutrition Presentation Details Pt presents for MNT for T2DM. Pt was referred by Dr. Cary, bagger and stock handler helper Food frequency questionnaire fruits: 0-1/d vegetables : 0-2/serving/wk dairy 2-3 serving/d protein foods : 12 oz/d starches > 20 serving/d ETOH/smoking denies physical activity active at work ETOH/Smoking denies MGZ-Emdpfml-Yo.Jeor Equation Height 6 ft Weight 232 lb Resting Metabolic Rate 2007.40 Calculated Activity Level Mild Activity Calories Needed to Maintain Weight 2760.18 Diagnosis Nutrition problem #1 food nutri know defi As related to (etiology) #1 diagnosis As evidenced by (sign/symptom) #1 knowledge deficit of diet Most Recent Diabetes Results: No Data to Display [facility] Medical History Diabetes Osteoarthritis of right knee 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 Social History Household Members: Family Housing: Apartment Do you presently have visiting nurse or other home services: No Alcohol intake: current Patient Tobacco Use Status: Current everyday Tobacco user Tobacco use type: Cigarette Cigarette Packs Per Day: 0.25 Cigarettes Per Day: 5.0 Years Smoked: 20 e-Cigarette/Vaping Use: Never Used Second Hand Smoke Exposure: No service: No Current occupational status: unemployed Cognitive needs: No Hearing needs: No Vision needs: Yes (Glasses) Assessment & Plan Assessment & Plan (1) Poorly controlled type 2 diabetes mellitus: Code(s): E11.65 - Type 2 diabetes mellitus with hyperglycemia Plan: wt: 105 kg Est kcal needs as per MSJ: 2700 (40% carb, 30% protein/fat) Est fluid needs as per 25-30 ml/d: 2600 Est prot per day as per 1 g/kg bw: 105 Recommend fiber intake : 8-10 g per day and gradually increase to 25-28 g per day for women and 35-38 g for men or as tolerated Recommend sodium intake per day : less than 2000 mg Educated patient on: ( R = reviewed V = verbalizes understanding N/R = needs review N/A = not applicable Food sources of carbohydrate, adequate serving sizes and its role in various health conditions: R,V Differences between complex carbohydrates a simple carbohydrates, role of fiber in diet: R ,V Differences between types of fats and role in diet (mono on saturated fat fatty acids, saturated fatty acids, trans fats): R V Food sources of sodium in salt and healthy modifications for heart health in kidney health: R V Healthy plate method concept: R V Physical activity: Benefits a precaution: R V Hypoglycemia protocol (rule of 15): R V Dietary prevention of Hyperglycemia: R V Patient Instructions: Follow healthy plate method Choose foods with fiber in your meals and snacks keep hydrated by having water, diluted juices with water take DM meds as prescribed by your your doctor Coding Level of Care Code Nutr Indiv Intake (04675) Diagnoses Poorly controlled type 2 diabetes mellitus E11.65 Time Spent (min) 30
[2023-01-27 13:44] VITALS: BMI 31.5
[2023-02-03 23:13] VITALS: BMI 31.5
== END 2023-01-27 14:19 | disposition home or self-care (01) ==
PROVIDERS: PCP Hospitalist; Visit Provider Dietitian, Registered
DX: E11.65 Type 2 diabetes mellitus with hyperglycemia (principal)

== ENCOUNTER → 2023-01-27 13:11 | Outpatient (BNVA) | payer OTHER, SELFPAY | PROVIDERS: Visit Provider Dietitian, Registered | DX: E11.65 Type 2 diabetes mellitus with hyperglycemia (principal); Z71.3 Dietary counseling and surveillance | CPT/HCPCS: 97802 ==

== ENCOUNTER 2023-02-02 09:59 | Outpatient (AMB) | payer OTHER, SELFPAY ==
--- NOTE | 2023-02-02 10:01 | MHC.OFFVIS ---
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 He completed neurosurgical evaluation by Dr. Crystal' office back in September 2022 and was deemed non surgical at that time and recommended for neuromodulation with SCS trial. Patient reports his back pain is axial and also radiates into left buttock and left lateral hip without groin pain. Patient also reports his low back pain also radiates upward into his lower thoracic region with muscle spasms and throbbing. Luis's test reproduces back pain and hip pain. He presents with localized tenderness in the projection of left sacroiliac joint. Bending and lumbar extension reproduces his mid to low back pain as well as daily general activities. Patient is interested to undergo diagnostic left SIJ injection prior to proceeding with Behavioral Evaluation for SCS trial. Denies any fever, weight loss, bladder or bowel dysfunction or saddle anesthesia. PRIOR: Patient presents today for follow up and to assess response to Left L5-S1 TFESI injection on 08/12/[address] Moseley. Patient reports 0% pain relief and significant aggravation of his lower back pain with sciatica after procedure. He reports not able to go to work last week due to pain exacerbation but did seek medical evaluation in ER, Urgent clinic, PCP or our office. Patient previously has partial pain relief with diagnostic lumbar medical branch blocks as well. Patient continues to report significant and debilitating left sided radicular pain that radiates from his low back into his left buttock and hip posteriorly and below knee level pain is presented as posterior and anterior including in his left sole of the foot and toes with numbness and tingling. Pain increased with walking, bending, standing, prolonged sitting or weather changes. Patient denies any groin pain, bladder or bowel incontinence or saddle anesthesia. Past Procedures: 08/12/22: Left L5-S1 TFESI -0% pain relief, reports worsening of pain after injection 06/17/22: Diagnostic Bilateral L3-L4 DR L5 MBB-50% pain relief for 6 hours PRIOR: Patient is a pleasant 36 years old Syriac speaking male who presents for evaluation of worsening of chronic lower back pain with radiculopathy to left lower extremity and right knee pain. He is being treated at [facility] for right knee pain, had previously done cortisone injections, fluid aspiration, x rays and recently had obtained right knee MRI with pending results. He believes he might need surgery. His last imaging showed mild degenerative change at the lateral and patellofemoral compartments with small osteophytes present. [place] [facility] [place] for multiple arthralgias and has mildly elevated ESR. Patient reports his back pain originates in his lower back and spreads across his left side into his left thigh anteriorly and laterally and into left lower leg anteriorly and medially in the projection of L4/L5 dermatome with significant pain in his left big toe and numbness and tingling in the whole left foot. 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 Patient also noticed worsening of back pain about 1.5 years ago while he was standing bending forward to wash dishes and felt exacerbation of pain. Pain is described as constant aching, hot, burning, tingling, pins and needles and numbness sensations. He states the pain is interfering with sleep, daily activities, mood, quality of life and he cannot function normally. Patient denies any fever, chills, abdominal or groin pain, weakness, weight loss, bowel/bladder incontinence or saddle anesthesia. He has poorly controlled diabetes with recent random glucose 245 on 08/19/21, his recent A1C-8.2 on 05/07/21 and A1C-11.2 on 03/26/21. We rechecked his A1C today and it was 8.8 with average blood sugars 206. Patient reports he has not been checking his blood sugars at home for a few weeks due to traveling for a family emergency in [place]. Patient has previously tried chiropractic manipulation (Dr. Dodge, [facility]), TENS unit, ice and heat therapy and massages with no improvement in his symptoms. He is starting formal PT on 12/11/21. Patient has been taking Tylenol, gabapentin, meloxicam, and also tried Ibuprofen and Naproxen in the past without pain relief. We discussed the importance of getting his blood sugars under better control as high A1C levels will limit treatment modalities that we can offer him as well long-term complications from diabetes that can affects multiple systems of his body. We briefly discussed neuromodulation for his right knee pain after his clearance with [facility]. For his back pain, we will start with PT and will proceed with MRI if no improvement in his symptoms. 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 Social History Household Members: Family Housing: Apartment Do you presently have visiting nurse or other home services: No Alcohol intake: current Patient Tobacco Use Status: Current everyday Tobacco user Tobacco use type: Cigarette Cigarette Packs Per Day: 0.25 Cigarettes Per Day: 5.0 Years Smoked: 20 e-Cigarette/Vaping Use: Never Used Second Hand Smoke Exposure: No service: No Current occupational status: unemployed Cognitive needs: No Hearing needs: No Vision needs: Yes (Glasses) Review of Systems Const All systems reviewed & are unremarkable except as noted in HPI and below Physical Exam Vital Signs: Last Vital Signs Pulse 74 02/02/23 10:06 BP 170/104 H 02/02/23 10:06 Pulse Ox 97 02/02/23 10:06 Oxygen Delivery Method Room Air 02/02/23 10:06 BMI result Body Mass Index 31.9 General: Appears afebrile. Alert and oriented. Mood and affect appropriate. Follows and participates in conversation appropriately. Respiratory effort is unlabored. No cough. Able to transition from sit to stand unassisted. Ambulates with bilaterally normal heel strike and toe off. Back/Spine/Pelvis Other: Patient is able to walk and stand on heels and tip toes with mild difficulty on the left, otherwise demonstrates good motor tone. Can flex forward to 75-80 degrees and extend to 10-15 degrees before experiencing lumbar pain, worse pain with lumbar extension. Demonstrates 5/5 strength of quadriceps bilaterally as well as flexion/dorsiflexion of bilateral feet against resistance. 2+ pedal pulses bilaterally. Straight leg rise with dorsiflexion negative bilaterally. +2 patellar and achilles reflexes bilaterally. Facet loading test positive bilaterally. Yajaira sign positive bilaterally, Luis?s, Gaenslen, Pelvic compression and Stinchfield tests are positive on the left. No groin pain with I/E hip rotations. Valsalva maneuver negative. Back: back tenderness Cervical Spine: cervical ROM normal and No Cervical spine tenderness Thoracic/Lumbar Spine: thoracic and lumbar spine normal to inspection, No Thoracic/lumbar spine scar(s), Lasegue's sign negative, straight leg raise negative bilaterally, pain with thoraco-lumbar ROM, paraspinal muscle tenderness, No thoracic spinal tenderness and lumbar spinal tenderness Pelvis: buttock tenderness on the left and no sciatic notch tenderness Sacroiliac joints: bilaterally tender to palpation Results Reviewed Results Reviewed: MR LUMBAR SPINE WITHOUT CONTRAST 03/25/22 FINDINGS: VERTEBRAL BODIES AND PARASPINAL STRUCTURES: There is slight reversal of the normal lumbar lordosis. There is loss of signal from the discs at L2-L3 through L5-S1 consistent with disc desiccation. There is mild narrowing of intervertebral disc height at L3-L4. There are degenerative endplate contour changes at L4-L5 with Schmorl's nodes and fatty endplate signal changes. There are mild edematous endplate signal changes at L3-L4 and L5-S1. Vertebral body heights are maintained and no fractures are demonstrated. Overall, marrow signal is homogenous. The visualized retroperitoneal and pelvic structures are unremarkable. There are degenerative changes at the right sacroiliac joint with sclerosis. CONUS MEDULLARIS AND CAUDA EQUINA: Normal, terminating at the level of L1-L2. The lower thoracic spinal cord appears normal. The cauda equina nerve roots appear normal. There is a minimal amount of fat in the non-thickened filum terminale at the level of L4-L5. SPINAL LEVELS: L1-L2: The facet joints appear normal bilaterally. Disc contour is normal. There is no central stenosis or foraminal narrowing. L2-L3: There is mild bilateral facet arthropathy with ligamenta flava hypertrophy. There is a central and left-sided posterior disc protrusion with an annular fissure which mildly distorts the ventral thecal sac but there is no central stenosis. The neural foramina are patent bilaterally. L3-L4: There is mild bilateral facet arthropathy. There is a diffuse disc bulge with a small annular fissure posteriorly with minimal flattening of the ventral thecal sac. There is no central stenosis. The neural foramina are patent bilaterally. L4-L5: There is mild bilateral facet arthropathy. There is a posterior disc protrusion with an annular fissure which is most prominent just to the left of midline and there is distortion of the ventral thecal sac. There is no central stenosis, and the neural foramina are patent bilaterally. L5-S1: There is moderate bilateral facet arthropathy with facet joint effusions. There is a posterior disc protrusion which is most prominent in the midline with distortion of the ventral thecal sac but there is no central stenosis. There are bilateral foraminal disc protrusions with mild impingement on the exiting L5 nerve roots. IMPRESSION: 1. At L5-S1 there is a posterior disc protrusion, extending into the neural foramina bilaterally with impingement on the exiting L5 nerve roots. There is no central stenosis. 2. There is spondylosis with facet arthropathic changes at other levels as described above, without central stenosis or foraminal nerve root impingement. Assessment & Plan Assessment & Plan (1) Lumbar degenerative disc disease: Code(s): M51.36 - Other intervertebral disc degeneration, lumbar region (2) Sacroiliac joint dysfunction of left side: Code(s): M53.3 - Sacrococcygeal disorders, not elsewhere classified (3) Lumbar spondylosis: Code(s): M47.816 - Spondylosis without myelopathy or radiculopathy, lumbar region (4) Lumbar radiculopathy: Code(s): M54.16 - Radiculopathy, lumbar region Plan 1. Sacroiliac joint imaging to review degree of arthritis. 2. Schedule for Diagnostic Left SIJ injection with local and fluoroscopy. Discussed therapeutic SIJ injection, RFA and Curonix PNS trial if positive response. Most recent A1C=6.9. If no relief, will proceed with Behavioral evaluation for potential SCS trial. Patient underwent neurosurgical evaluation in September and was deemed non surgical at that time. Expectations, risks and benefits were reviewed. Patient is aware he will be contacted to schedule this procedure. All questions were answered and the patient is in agreement of plan. Follow-up after injections and sooner as needed. Orders: Orders XR sacroiliac joint min 3V Today M51.36 - Other intervertebral disc degeneration, lumbar region, M53.3 - Sacrococcygeal disorders, not elsewhere classified Coding Level of Care Code Est Pt Level 4 (04928) Diagnoses Lumbar degenerative disc disease M51.36 Sacroiliac joint dysfunction of left side M53.3 Lumbar spondylosis M47.816 Lumbar radiculopathy M54.16
[2023-02-02 10:06] VITALS: BP 170/104; PULSE 74; O2SAT 97; BMI 31.9
== END 2023-02-02 10:38 | disposition home or self-care (01) ==
PROVIDERS: PCP Hospitalist; Visit Provider Nurse Practitioner Family
DX: M51.36 Other intervertebral disc degeneration, lumbar region (principal); M53.3 Sacrococcygeal disorders, not elsewhere classified; M47.26 Other spondylosis with radiculopathy, lumbar region
CPT/HCPCS: 99214

== ENCOUNTER 2023-02-02 09:59 | Outpatient (REF) | payer OTHER, SELFPAY ==
--- NOTE | ~2023-02-02 | XR_ITS ---
EXAMINATION: XR SACROILIAC JOINTS CLINICAL INFORMATION: Interval vertebral disc degeneration lumbar region, pain COMPARISON: MR lumbar spine 03/25/2022, x-ray lumbar spine 11/28/2021 TECHNIQUE: 3 views of the sacroiliac joints FINDINGS: Degenerative changes on limited views of the lower lumbar spine. Moderate degenerative changes in the bilateral sacroiliac joints with sclerosis and narrowing. XR/XR sacroiliac joint min 3V IMPRESSION: Moderate degenerative changes in the bilateral sacroiliac joints.
[2023-02-02 11:17] LABS: Estimated Average Glucose 111 mg/dL; Hemoglobin A1c % 5.5 % (<6.0)
== END 2023-02-02 10:00 | disposition home or self-care (01) ==
LOC: HO.XRAY 09:59
PROVIDERS: PCP Hospitalist; Visit Provider Nurse Practitioner Family
DX: M51.36 Other intervertebral disc degeneration, lumbar region (principal); M53.3 Sacrococcygeal disorders, not elsewhere classified; M47.816 Spondylosis without myelopathy or radiculopathy, lumbar region; M54.16 Radiculopathy, lumbar region; E11.65 Type 2 diabetes mellitus with hyperglycemia
CPT/HCPCS: 36415; 72202; 83036; 99212

== ENCOUNTER 2023-02-03 08:05 | Outpatient (AMB) | payer OTHER, SELFPAY ==
[2023-02-03 08:17] VITALS: BP 162/104; PULSE 80; BMI 31.3
--- NOTE | 2023-02-03 08:17 | A.OFFVIS_ITS ---
Intake Vital Signs 02/03/23 08:17 Height 6 ft Weight 231 lb 0.711 oz BMI 31.3 BP 162/104 H Blood Pressure Location Lt brachial Position Sitting Pulse 80 Intake Visit Reasons: Overdue follow-up Intake Note: overdue f/u Testing And Regulating Chief Required: Yes Testing And Regulating Chief Name: sheldon escobar [id number] Allergies Penicillins [PENICILLINS] Allergy (Intermediate, Verified 02/03/23 08:22) RASH metformin Adverse Reaction (Intermediate, Verified 02/03/23 08:22) Diarrhea HPI Overdue follow-up HPI Details Tej is a 37-year-old male past medical history diabetes, hypertension, hypertensive heart disease, HOCM, obstructive sleep apnea with CPAP use who presents for follow-up. Today he reports that he has not taken any medications in use day and just returned to [place] 1 week ago. He does not have any medications or refills that he is aware of. He says he had an argument with his sister over a month ago. Since that time he has noticed some intermittent tightness in his chest. He denies any exertional symptoms of chest tightness, discomfort. He denies presyncope, syncope, falls. He has some shortness of breath with physical activity like climbing stairs. No PND, orthopnea or edema. 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 Social History Household Members: Family Housing: Apartment Do you presently have visiting nurse or other home services: No Alcohol intake: current Patient Tobacco Use Status: Current everyday Tobacco user Tobacco use type: Cigarette Cigarette Packs Per Day: 0.25 Cigarettes Per Day: 5.0 Years Smoked: 20 e-Cigarette/Vaping Use: Never Used Second Hand Smoke Exposure: No service: No Current occupational status: unemployed Cognitive needs: No Hearing needs: No Vision needs: Yes (Glasses) Review of Systems ENT Denies dizziness Card Details: tight in chest Denies chest pain, Denies chest pain at rest, Denies chest pain with activity, Denies rapid heart rate, Denies pedal edema, Denies edema, Denies leg edema, Denies lightheadedness, Denies palpitations, Denies dyspnea, Reports dyspnea on exertion and Denies orthopnea Resp Denies cough, Denies dyspnea and Reports dyspnea on exertion GI Denies hematochezia and Denies change in stool character Musc Denies abnormal gait, Reports limited range of motion, Reports muscle cramps, Denies muscle weakness, Denies numbness, Denies radiating pain into limb, Denies stiffness and Denies tingling Neuro Denies abnormal gait, Denies dizziness, Denies numbness and Denies tingling Endo Denies palpitations Physical Exam Vital Signs: Last Vital Signs Pulse 80 02/03/23 08:17 BP 162/104 H 02/03/23 08:17 BMI result Body Mass Index 31.3 Const General: cooperative, healthy appearing, comfortable and no acute distress Orientation/consciousness: patient oriented x3 Neck Neck: Yes normal visual inspection Chest Chest palpation & inspection: normal inspection of the chest Resp Effort & Inspection: normal respiratory effort Auscultation: clear to auscultation bilaterally, no crackles, no rales, no rhonchi and no wheezes Cardio Jugular venous distension: no JVD Rate: regular rate Rhythm: regular rhythm Heart sounds: S1 normal heart sound present, S2 normal heart sound present and no rubs Neuro General: patient oriented x3 Extrem General: Yes normal to inspection Psych Appearance: grossly normal Mental Status: mental status grossly normal Speech and movement: Normal speech and movement present Office Procedures EKG Details: Today, read by me, normal sinus rhythm, right axis, LVH with repolarization abnormality, QTC 496 milliseconds, rate 80, ST and T-waves no significant change compared to last EKG 01/30/2022 [id number], Complete Assessment & Plan Assessment & Plan (1) Hypertrophic obstructive cardiomyopathy: Code(s): I42.1 - Obstructive hypertrophic cardiomyopathy Plan: History of hypertrophic obstructive cardiomyopathy. Last echocardiogram done 02/07/2022 showing EF 60-65%, severe increase in the LV wall thickness, LVOT gradient 15 mmHg, with valsalva 30 mmHg, grade 1 diastolic dysfunction. He had been on metoprolol 100 mg b.i.d. and verapamil 120 mg b.i.d.. His pulse rate goal was 50-60. Today he presents for follow-up stating he has not taken any medications since 11/01/2022. He has been experiencing some tightness in his chest and shortness of breath with exertion. He denies presyncope, syncope, falls. His blood pressure is elevated today at 162/104, EKG is showing sinus rhythm, right axis, LVH with repolarization abnormality, no significant change from prior EKG, heart rate 80. At this time will need to restart his medications however at a lower dose initially. Will start metoprolol tartrate 50 mg b.i.d. as well as verapamil 40 mg b.i.d.. Will have him return to the office in 6 days for a blood pressure and pulse check. The strict importance of medication compliance reviewed with him. Discussed his diagnosis and that it can lead to arrhythmia and potentially sudden . He states understanding. Will plan to further titrate medications as able. Will update echocardiogram after a few weeks and cardiology follow-up in 1 month, sooner if needed (2) Hypertensive heart disease: Code(s): I11.9 - Hypertensive heart disease without heart failure Qualifiers: Heart failure presence: without heart failure Qualified Code(s): I11.9 - Hypertensive heart disease without heart failure (3) HTN (hypertension): Code(s): I10 - Essential (primary) hypertension Qualifiers: Hypertension type: primary hypertension Qualified Code(s): I10 - Essential (primary) hypertension Plan: Uncontrolled at present. Not taking his medications. Restarting meds as above (4) MARA (obstructive sleep apnea): Code(s): G47.33 - Obstructive sleep apnea (adult) (pediatric) Plan: He tells me he is not wearing CPAP mask. (5) Noncompliance: Code(s): Z91.199 - Patient's noncompliance with other medical treatment and regimen due to unspecified reason Orders: Orders CA echo transthoracic complete 2 Weeks I11.9 - Hypertensive heart disease without heart failure, I42.1 - Obstructive hypertrophic cardiomyopathy Medications: New metoprolol tartrate 50 mg PO BID 60 tabs 1RF verapamil 40 mg PO BID 60 tabs 1RF Coding Level of Care Code Est Pt Level 4 (71448) Diagnoses Hypertrophic obstructive cardiomyopathy I42.1 Hypertensive heart disease without heart failure I11.9 Heart failure presence: without heart failure Primary hypertension I10 Hypertension type: primary hypertension MARA (obstructive sleep apnea) G47.33 Noncompliance Z91.199 CPT Codes EKG - CPT: 79858-[id number], Complete ([id number])
== END 2023-02-03 09:17 | disposition home or self-care (01) ==
PROVIDERS: PCP Hospitalist; Visit Provider Nurse Practitioner Family
DX: I42.1 Obstructive hypertrophic cardiomyopathy (principal); I11.9 Hypertensive heart disease without heart failure; I10 Essential (primary) hypertension; G47.33 Obstructive sleep apnea (adult) (pediatric); Z91.199 Patient's noncompliance with other medical treatment and regimen due to unspecified reason
CPT/HCPCS: 93010; 99214

== ENCOUNTER → 2023-02-03 08:05 | Outpatient (BNVA) | payer OTHER, SELFPAY | PROVIDERS: PCP Hospitalist; Visit Provider Nurse Practitioner Family | DX: I11.9 Hypertensive heart disease without heart failure (principal); I42.1 Obstructive hypertrophic cardiomyopathy; G47.33 Obstructive sleep apnea (adult) (pediatric); Z91.199 Patient's noncompliance with other medical treatment and regimen due to unspecified reason | CPT/HCPCS: 93005; 99212 ==

== ENCOUNTER → 2023-02-09 09:08 | Outpatient (BNVA) | payer OTHER, SELFPAY | PROVIDERS: PCP Hospitalist; Visit Provider Nurse Practitioner Family ==

== ENCOUNTER 2023-02-17 06:19 | Outpatient (REF) | payer OTHER, SELFPAY | END 2023-02-17 06:20 | disposition home or self-care (01) | LOC: CF 06:19 | PROVIDERS: Visit Provider Anesthesiology | DX: Z13.89 Encounter for screening for other disorder (principal) ==

== ENCOUNTER → 2023-03-03 13:04 | Outpatient (REF) | payer OTHER, SELFPAY ==
--- NOTE | 2023-03-03 13:07 | CA_ITS ---
Transthoracic Echocardiogram Patient (Last, First, Middle): Tej Proctor, Gender: Male Date of : 1985 Age: 37 Procedure Date: 03/03/2023 Procedure Type: Transthoracic Echocardiogram Location: OP Height: 182.88 cm Weight: 104.33 kg BSA: 2.26 m2 Heart Rate: bpm BP: 140 / 78 mmHg Fabricator Special Items: JAQUELIN Referring MD: Dory Breaux PRACTICE NURSEClaudia Symptoms: I42.1 - Obstructive hypertrophic cardiomyopathy Study Quality: Adequate with contrast Conclusions: - The left ventricular systolic function is normal. The calculated ejection fraction is 69% by biplane method. - There is severely increased left ventricular wall thickness (septal thickness 2.3cm; posterior wall 2.2cm). - No obvious valvular pathology seen on this study. Findings Procedure Information Contrast agent, definity, is being given per protocol without apparent complications. Left Ventricle Normal left ventricular cavity size. There is severely increased left ventricular wall thickness. The left ventricular systolic function is normal. The calculated ejection fraction is 69% by biplane method. There is no evidence of regional wall motion abnormalities. Evidence suggests grade I (mild) diastolic dysfunction. Small resting gradients noted in LV cavity/LVOT; peak LVOT gradient during valsalva 40mmHg. Right Ventricle Normal right ventricular cavity size and systolic function. Atria Both atria are normal in size. Aortic Valve There is a normal trileaflet aortic valve. There is no aortic valve stenosis. There is no aortic valve regurgitation. Mitral Valve There is mild mitral annular calcification. There is trace mitral valve regurgitation. There is no mitral valve stenosis. Pulmonic Valve The pulmonic valve is likely normal. Tricuspid Valve There is trace tricuspid valve regurgitation. There is no evidence of pulmonary hypertension. Great Vessels The asc aorta is normal in size. Venous The inferior vena cava is normal in size and collapses greater than 50% with inspiration. Pericardium/Pleural There is no evidence of pericardial effusion. Prior Study Comparison No significant change compared to prior study dated: 02/07/2022. Recommendations, Care & Conclusions No obvious valvular pathology seen on this study. Measurements 2D Linear Measurements IVSd: 2.34 0.6-0.9/0.6-1.0 cm LVIDd: 3.60 3.9-5.3/4.2-5.9 cm LVIDd Index: 1.59 2.4-3.2/2.2-3.1 cm/m2 LVIDs: 2.07 2.0-3.6 cm LVPWd: 2.23 0.7-1.1 cm LA Diam: 4.10 2.7-3.8/3.0-4.0 cm LAIDs Index: 1.81 1.5-2.3 cm/m2 LV Mass: 518.63 67-162/88-224 g LV Mass Index: 229.48 43-95/49-115 g/m2 LVOT Diam: 2.60 3.0+(-)1.3 cm 2D Systolic Function EF 4C: 67.20 >55% EF 2C: 70.30 >55% EF BiP: 69.00 >55% Mitral Valve MV Pk E: 0.94 MV PK A: 0.87 MV Decel Time: 193.00 E/A: 1.10 E'Lateral: 5.98 E'Medial: 4.46 E/E' Med: 21.00 E/E' Lat: 15.70 PHT: 56.00 MVA PHT: 3.93 Decel Saline: 4.87 Aortic Valve AoV Pk Emerson: 1.97 AoV Mn Emerson: 1.41 AoV VTI: 0.37 AoV Pk Grad: 16.00 Aov Mn Grad: 9.00 LEVI Cont.VTI: 4.69 LVOT LVOT Pk Emerson: 1.76 LVOT Mn Emerson: 1.30 LVOT VTI: 0.33 LVOT Pk Grad: 12.00 LVOT Mn Grad: 8.00 LVOT Diam: 2.60 LVOT Area: 5.31 Diastolic Function MV Pk E: 0.94 MV Pk A: 0.87 E/A: 1.10 E'Medial: 4.46 E/E' Med: 21.00 E' Laterial: 5.98 E/E' Lat: 15.70 Right Ventricle TAPSE (mm): 18.30 TVS' Emerson: 13.10 Tricuspid Valve RA Press: 3.00 Great Vessels Aorta Sinus of Valsalva: 3.67 2.0-3.[address] Ridge: 2.60 1.7-3.4 cm Ao Asc: 3.00 2.1-3.4 cm Updated in Other Vendor System with Status of Final Garry Prajapati MD electronically signed on 03/04/2023 4:12:39 PM with status of Final
== END ==
LOC: HO.CARD 13:04
PROVIDERS: PCP Hospitalist; Visit Provider Nurse Practitioner Family
DX: I42.1 Obstructive hypertrophic cardiomyopathy (principal); I11.9 Hypertensive heart disease without heart failure
CPT/HCPCS: 93306; Q9957

== ENCOUNTER → 2023-03-03 13:07 | Outpatient (BNV) | payer OTHER, SELFPAY | PROVIDERS: PCP Hospitalist; Visit Provider Internal Medicine | DX: I42.1 Obstructive hypertrophic cardiomyopathy (principal); I34.81 Nonrheumatic mitral (valve) annulus calcification | CPT/HCPCS: 93306 ==

== ENCOUNTER 2023-03-09 08:49 | Outpatient (AMB) | payer OTHER, SELFPAY ==
[2023-03-09 09:01] VITALS: BP 140/82; PULSE 88; BMI 31.3
--- NOTE | 2023-03-09 09:01 | A.OFFVIS_ITS ---
Intake Vital Signs 03/09/23 09:01 Height 6 ft Weight 231 lb 0.711 oz BMI 31.3 BP 140/82 H Blood Pressure Location Lt brachial Position Sitting Pulse 88 Pulse Source Pulse Oximeter Intake Visit Reasons: 1 month follow-up after echo Intake Note: 1 month f/u Digital Camera Technician Required: Yes Digital Camera Technician Language: Browning Processor Name: sheldon girard [id number] Allergies Penicillins [PENICILLINS] Allergy (Intermediate, Verified 03/09/23 09:02) RASH metformin Adverse Reaction (Intermediate, Verified 03/09/23 09:02) Diarrhea Medication List - Last Reconciled 03/09/23 by Dory Breaux NP-C dulaglutide (Trulicity) 0.75 mg subcut QWEEK metoprolol tartrate 50 mg PO BID verapamil 40 mg PO BID HPI 1 month follow-up after echo HPI Details Tej is a 37-year-old male past medical history diabetes, hypertension, hypertensive heart disease, HOCM, obstructive sleep apnea with CPAP use who presents for follow-up. Today he reports that he has been feeling better in the last month. He says he has been taking his medications as directed. He will get some tightness in his chest if he over exerts himself. 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 He tells me he lifts boxes but they are less than 50 lb each. No shortness of breath, presyncope, syncope, falls. He will notice some heart palpitations at night however not during the daytime. No PND, orthopnea or edema. [facility] Medical History Diabetes Osteoarthritis of right knee 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 Social History Household Members: Family Housing: Apartment Do you presently have visiting nurse or other home services: No Alcohol intake: current Patient Tobacco Use Status: Current everyday Tobacco user Tobacco use type: Cigarette Cigarette Packs Per Day: 0.25 Cigarettes Per Day: 5.0 Years Smoked: 20 e-Cigarette/Vaping Use: Never Used Second Hand Smoke Exposure: No service: No Current occupational status: unemployed Cognitive needs: No Hearing needs: No Vision needs: Yes (Glasses) Review of Systems Const All systems reviewed & are unremarkable except as noted in HPI and below ENT Denies dizziness Card Denies chest pain, Denies chest pain at rest, Reports chest pain with activity, Denies rapid heart rate, Denies pedal edema, Denies edema, Denies leg edema, Denies lightheadedness, Denies palpitations, Denies dyspnea, Denies dyspnea on exertion and Denies orthopnea Resp Denies cough, Denies dyspnea and Denies dyspnea on exertion GI Denies hematochezia and Denies change in stool character Musc Denies abnormal gait, Denies limited range of motion, Denies muscle cramps, Denies muscle weakness, Denies numbness, Denies radiating pain into limb, Denies stiffness and Denies tingling Neuro Denies abnormal gait, Denies dizziness, Denies numbness and Denies tingling Endo Denies palpitations Physical Exam Vital Signs: Last Vital Signs Pulse 88 03/09/23 09:01 BP 140/82 H 03/09/23 09:01 BMI result Body Mass Index 31.3 Const General: cooperative, healthy appearing, comfortable and no acute distress Orientation/consciousness: patient oriented x3 Neck Neck: Yes normal visual inspection Chest Chest palpation & inspection: normal inspection of the chest Resp Effort & Inspection: normal respiratory effort Auscultation: clear to auscultation bilaterally, no crackles, no rales, no rhonchi and no wheezes Cardio Jugular venous distension: no JVD Rate: regular rate Rhythm: regular rhythm Heart sounds: S1 normal heart sound present, S2 normal heart sound present and no rubs Neuro General: patient oriented x3 Extrem General: Yes normal to inspection Psych Appearance: grossly normal Mental Status: mental status grossly normal Speech and movement: Normal speech and movement present Assessment & Plan Assessment & Plan (1) Hypertrophic obstructive cardiomyopathy: Code(s): I42.1 - Obstructive hypertrophic cardiomyopathy Plan: History of hypertrophic obstructive cardiomyopathy. Echocardiogram done 02/07/2022 showing EF 60-65%, severe increase in the LV wall thickness, LVOT gradient 15 mmHg, with valsalva 30 mmHg, grade 1 diastolic dysfunction. He had been on metoprolol 100 mg b.i.d. and verapamil 120 mg b.i.d.. His pulse rate goal was 50-60. On last visit, 02/03/2023, he stated he had not taken any medications since 11/01/2022. He has been experiencing some tightness in his chest and shortness of breath with exertion. EKG showed sinus rhythm, right axis, LVH with repolarization abnormality, no significant change from prior EKG, heart rate 80. Restarted metoprolol tartrate 50 mg b.i.d. as well as verapamil 40 mg b.i.d. He was supposed to return to the office after 6 days for blood pressure check and further med titration and he did not. Echocardiogram was done on 03/03/2023 showing EF 69%, severe LVH, septum 2.3 cm, small resting gradient, peak gradient 40 mmHg, no regional wall motion abnormalities. Today he reports he has been feeling better overall and has been taking the meds that I prescribed. He will get some chest tightness if he over exerts himself. Will continue to titrate his medications by increasing metoprolol back to 100 mg b.i.d.. Continue verapamil at same dose presently. Will arrange for office blood pressure check in 2 weeks. Plan to further titrate verapamil at that time if able. Cardiology office visit in 4 weeks. The strict importance of medication compliance reviewed with him. Discussed his diagnosis and that it can lead to arrhythmia and potentially sudden . He states understanding. (2) Hypertensive heart disease: Code(s): I11.9 - Hypertensive heart disease without heart failure Qualifiers: Heart failure presence: without heart failure Qualified Code(s): I11.9 - Hypertensive heart disease without heart failure (3) HTN (hypertension): Code(s): I10 - Essential (primary) hypertension Qualifiers: Hypertension type: primary hypertension Qualified Code(s): I10 - Essential (primary) hypertension Plan: Mild elevation. Increasing metoprolol (4) MARA (obstructive sleep apnea): Code(s): G47.33 - Obstructive sleep apnea (adult) (pediatric) Plan: He tells me he is not wearing CPAP mask. (5) Noncompliance: Code(s): Z91.199 - Patient's noncompliance with other medical treatment and regimen due to unspecified reason Medications: New metoprolol tartrate 100 mg PO BID 180 tabs 3RF 90 days Discontinued metoprolol tartrate Discontinued Reason: Doctor's Order 50 mg PO BID 60 tabs 1RF Coding Level of Care Code Est Pt Level 4 (27275) Diagnoses Hypertrophic obstructive cardiomyopathy I42.1 Hypertensive heart disease without heart failure I11.9 Heart failure presence: without heart failure Primary hypertension I10 Hypertension type: primary hypertension MARA (obstructive sleep apnea) G47.33 Noncompliance Z91.199 Time Spent (min) 28
== END 2023-03-09 09:28 | disposition home or self-care (01) ==
PROVIDERS: PCP Hospitalist; Visit Provider Nurse Practitioner Family
DX: I42.1 Obstructive hypertrophic cardiomyopathy (principal); I11.9 Hypertensive heart disease without heart failure; I10 Essential (primary) hypertension; G47.33 Obstructive sleep apnea (adult) (pediatric); Z91.199 Patient's noncompliance with other medical treatment and regimen due to unspecified reason
CPT/HCPCS: 99214

== ENCOUNTER → 2023-03-09 08:49 | Outpatient (BNVA) | payer OTHER, SELFPAY | PROVIDERS: PCP Hospitalist; Visit Provider Nurse Practitioner Family | DX: I42.1 Obstructive hypertrophic cardiomyopathy (principal); I11.9 Hypertensive heart disease without heart failure; G47.33 Obstructive sleep apnea (adult) (pediatric); Z91.199 Patient's noncompliance with other medical treatment and regimen due to unspecified reason | CPT/HCPCS: 99212 ==

== ENCOUNTER 2023-03-10 06:11 | Outpatient (REF) | payer OTHER, SELFPAY | END 2023-03-10 06:12 | disposition home or self-care (01) | LOC: CF 06:11 | PROVIDERS: Visit Provider Anesthesiology | DX: Z13.89 Encounter for screening for other disorder (principal) ==

== ENCOUNTER → 2023-03-23 09:05 | Outpatient (BNVA) | payer OTHER, SELFPAY | PROVIDERS: PCP Hospitalist; Visit Provider Nurse Practitioner Family | DX: Z01.89 Encounter for other specified special examinations (principal) | CPT/HCPCS: 99211 ==

== ENCOUNTER → 2023-06-16 11:20 | Outpatient (BNVA) | payer OTHER, SELFPAY | PROVIDERS: PCP Hospitalist; Visit Provider Dietitian, Registered ==

== ENCOUNTER 2023-07-20 14:11 | Outpatient (AMB) | payer OTHER, SELFPAY ==
--- NOTE | 2023-07-20 14:22 | A.OFFVIS_ITS ---
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 He was scheduled to undergo left sacroiliac joint injection last Fall 2022 but had to hold off on injections due to take care of his father in [place] due to significant father's illness. Patient presents today with bilateral sacroiliac joint pain with positive provocative testing for both sides, left worse than right. His imaging on 02/02/23 showed moderate degenerative changes in the bilateral sacroiliac joints. He requests to proceed with SIJ injections for both sides. Denies any recent cough, cold, infection, fever, bladder or bowel dysfunction, saddle anesthesia any significant changes in her medical history, medications or recent hospitalizations. Past Procedures: 08/12/22: Left L5-S1 TFESI -0% pain reli ef, reports worsening of pain after injection 06/17/22: Diagnostic Bilateral L3-L4 DR L5 MBB-50% pain relief for 6 hours PRIOR: Patient is a pleasant 36 years old Vietnamese speaking male who presents for evaluation of worsening of chronic lower back pain with radiculopathy to left lower extremity and right knee pain. He is being treated at [facility] for right knee pain, had previously done cortisone injections, fluid aspiration, x rays and rec ently had obtained right knee MRI with pending results. He believes he might need surgery. His last imaging showed mild degenerative change at the lateral and patellofemoral compartments with small osteophytes present. Patient also follows [facility] rheumatology services for multiple arthralgias and has mildly elevated ESR. Patient reports his back pain originates in his lower back and spreads across his left side into his left thigh anteriorly and laterally and into left lower leg anteriorly and medially in the projection of L4/L5 dermatome with significant pain in his left big toe and numbness and tingling in the whole left foot. 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 Patient also noticed worsening of back pain about 1.5 years ago while he was standing bending forward to wash dishes and felt exacerbation of pain. Pain is described as constant aching, hot, burning, tingling, pins and needles and numbness sensations. He states the pain is interfering with sleep, daily activities, mood, quality of life and he cannot function normally. Patient denies any fever, chills, abdominal or groin pain, weakness, weight loss, bowel/bladder incontinence or saddle anesthesia. He has poorly controlled diabetes with recent random glucose 245 on 08/19/21, his recent A1C-8.2 on 05/07/21 and A1C-11.2 on 03/26/21. We rechecked his A1C today and it was 8.8 with average blood sugars 206. Patient reports he has not been checking his blood sugars at home for a few weeks due to traveling for a family emergency in [place]. Patient has previously tried chiropractic manipulation (Dr. Dodge, [facility]), TENS unit, ice and heat therapy and massages with no improvement in his symptoms. He is starting formal PT on 12/11/21. Patient has been taking Tylenol, gabapentin, meloxicam, and also tried Ibuprofen and Naproxen in the past without pain relief. We discussed the importance of getting his blood sugars under better control as high A1C levels will limit treatment modalities that we can offer him as well shelter complications from diabetes that can affects multiple systems of his body. We briefly discussed neuromodulation for his right knee pain after his clearance with [facility]. For his back pain, we will start with PT and will proceed with MRI if no improvement in his symptoms. [facility] Medical History Diabetes Osteoarthritis of right knee 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 Social History Household Members: Family Housing: Apartment Do you presently have visiting nurse or other home services: No Alcohol intake: current Patient Tobacco Use Status: Current everyday Tobacco user Tobacco use type: Cigarette Cigarette Packs Per Day: 0.25 Cigarettes Per Day: 5.0 Years Smoked: 20 e-Cigarette/Vaping Use: Never Used Second Hand Smoke Exposure: No service: No Current occupational status: unemployed Cognitive needs: No Hearing needs: No Vision needs: Yes (Glasses) Review of Systems Const All systems reviewed & are unremarkable except as noted in HPI and below Physical Exam Vital Signs: Last Vital Signs Pulse 104 H 07/20/23 14:25 BP 122/79 07/20/23 14:25 Pulse Ox 100 07/20/23 14:25 Oxygen Delivery Method Room Air 07/20/23 14:25 BMI result Body Mass Index 31.1 General: Appears afebrile. Alert and oriented. Mood and affect appropriate. Follows and participates in conversation appropriately. Respiratory effort is unlabored. No cough. Able to transition from sit to stand unassisted. Ambulates with bilaterally normal heel strike and toe off. General: Yes no CVA tenderness Back/Spine/Pelvis Other: Limited lumbar ROM with extension reproducing mild to moderate pain. Lumbar flexion does not reproduce pain. Demonstrates 5/5 strength of quadriceps bilaterally as well as flexion/dorsiflexion of bilateral feet against resistance. 2+ pedal pulses bilaterally. Straight leg rise with dorsiflexion negative bilaterally. +2 patellar and achilles reflexes bilaterally. Facet loading test positive bilaterally. Yajaira sign positive bilaterally, Luis?s, Gaenslen, Pelvic compression and Stinchfield tests are positive bilaterally, worse on the left. No groin pain with I/E hip rotations. Valsalva maneuver negative. Back: no CVA tenderness Cervical Spine: cervical ROM normal and No Cervical spine tenderness Thoracic/Lumbar Spine: thoracic and lumbar spine normal to inspection, No Thoracic/lumbar spine scar(s), Lasegue's sign negative, straight leg raise negative bilaterally, pain with thoraco-lumbar ROM, paraspinal muscle tenderness, No thoracic spinal tenderness and lumbar spinal tenderness Pelvis: buttock tenderness bilaterally and no sciatic notch tenderness Sacroiliac joints: bilaterally tender to palpation Results Reviewed Results Reviewed: MR LUMBAR SPINE WITHOUT CONTRAST 03/25/22 FINDINGS: VERTEBRAL BODIES AND PARASPINAL STRUCTURES: There is slight reversal of the normal lumbar lordosis. There is loss of signal from the discs at L2-L3 through L5-S1 consistent with disc desiccation. There is mild narrowing of intervertebral disc height at L3-L4. There are degenerative endplate contour changes at L4-L5 with Schmorl's nodes and fatty endplate signal changes. There are mild edematous endplate signal changes at L3-L4 and L5-S1. Vertebral body heights are maintained and no fractures are demonstrated. Overall, marrow signal is homogenous. The visualized retroperitoneal and pelvic structures are unremarkable. There are degenerative changes at the right sacroiliac joint with sclerosis. CONUS MEDULLARIS AND CAUDA EQUINA: Normal, terminating at the level of L1-L2. The lower thoracic spinal cord appears normal. The cauda equina nerve roots appear normal. There is a minimal amount of fat in the non-thickened filum terminale at the level of L4-L5. SPINAL LEVELS: L1-L2: The facet joints appear normal bilaterally. Disc contour is normal. There is no central stenosis or foraminal narrowing. L2-L3: There is mild bilateral facet arthropathy with ligamenta flava hypertrophy. There is a central and left-sided posterior disc protrusion with an annular fissure which mildly distorts the ventral thecal sac but there is no central stenosis. The neural foramina are patent bilaterally. L3-L4: There is mild bilateral facet arthropathy. There is a diffuse disc bulge with a small annular fissure posteriorly with minimal flattening of the ventral thecal sac. There is no central stenosis. The neural foramina are patent bilaterally. L4-L5: There is mild bilateral facet arthropathy. There is a posterior disc protrusion with an annular fissure which is most prominent just to the left of midline and there is distortion of the ventral thecal sac. There is no central stenosis, and the neural foramina are patent bilaterally. L5-S1: There is moderate bilateral facet arthropathy with facet joint effusions. There is a posterior disc protrusion which is most prominent in the midline with distortion of the ventral thecal sac but there is no central stenosis. There are bilateral foraminal disc protrusions with mild impingement on the exiting L5 nerve roots. IMPRESSION: 1. At L5-S1 there is a posterior disc protrusion, extending into the neural foramina bilaterally with impingement on the exiting L5 nerve roots. There is no central stenosis. 2. There is spondylosis with facet arthropathic changes at other levels as described above, without central stenosis or foraminal nerve root impingement. XR SACROILIAC JOINTS 02/02/23 CLINICAL INFORMATION: Interval vertebral disc degeneration lumbar region, pain COMPARISON: MR lumbar spine 03/25/2022, x-ray lumbar spine 11/28/2021 FINDINGS: Degenerative changes on limited views of the lower lumbar spine. Moderate degenerative changes in the bilateral sacroiliac joints with sclerosis and narrowing. IMPRESSION: Moderate degenerative changes in the bilateral sacroiliac joints. Assessment & Plan Assessment & Plan (1) Sacroiliac joint pain: Code(s): M53.3 - Sacrococcygeal disorders, not elsewhere classified (2) Lumbar spondylosis: Code(s): M47.816 - Spondylosis without myelopathy or radiculopathy, lumbar region (3) Lumbar degenerative disc disease: Code(s): M51.36 - Other intervertebral disc degeneration, lumbar region Plan Schedule for Diagnostic Bilateral SIJ injections with local and fluoroscopy. Discussed therapeutic SIJ injection, RFA, SI joint fusion and Curonix PNS trial if positive responses. Most recent A1C=5.5. If no relief, will proceed with Behavioral evaluation for potential SCS trial. Patient underwent neurosurgical evaluation in September 2022 and was deemed non surgical at that time. Expectations, risks and benefits were reviewed. Patient is aware he will be contacted to schedule this procedure. Patient will stop Ibuprofen and trial diclofenac potassium for bilateral SIJ and low back pain. Side effects, precautions and administration reviewed with patient and his family. All questions were answered and the patient is in agreement of plan. Follow-up after injections and sooner as needed. Justification for interventional therapy: ? Patient with average pain > 6/10 ? Patient has exhausted conservative therapy, HEP, PT, NSAIDs, heat/ice therapy The risks, consequences, alternatives, and benefits of various treatment options were discussed with the patient in great detail, including conservative management, injections and procedures. Medications: New diclofenac potassium Take it with food and full glass of water. 50 mg PO BID PRN 60 tabs 0RF pain (scale score 7-10) M47.816 - Spondylosis without myelopathy or radiculopathy, lumbar region, M53.3 - Sacrococcygeal disorders, not elsewhere classified Coding Level of Care Code Est Pt Level 4 (19556) Diagnoses Sacroiliac joint pain M53.3 Lumbar spondylosis M47.816 Lumbar degenerative disc disease M51.36
[2023-07-20 14:25] VITALS: BP 122/79; PULSE 104; O2SAT 100; BMI 31.1
== END 2023-07-20 14:38 | disposition home or self-care (01) ==
PROVIDERS: PCP Hospitalist; Visit Provider Nurse Practitioner Family
DX: M53.3 Sacrococcygeal disorders, not elsewhere classified (principal); M47.816 Spondylosis without myelopathy or radiculopathy, lumbar region; M51.36 Other intervertebral disc degeneration, lumbar region
CPT/HCPCS: 99214

== ENCOUNTER → 2023-07-20 14:11 | Outpatient (BNVA) | payer OTHER, SELFPAY | PROVIDERS: PCP Hospitalist; Visit Provider Nurse Practitioner Family | DX: M53.3 Sacrococcygeal disorders, not elsewhere classified (principal); M47.816 Spondylosis without myelopathy or radiculopathy, lumbar region; M51.36 Other intervertebral disc degeneration, lumbar region | CPT/HCPCS: 99212 ==

== ENCOUNTER 2023-08-03 08:54 | Outpatient (AMB) | payer OTHER, SELFPAY ==
[2023-08-03 09:06] VITALS: BP 142/90; PULSE 73; BMI 31.6
--- NOTE | 2023-08-03 09:06 | A.OFFVIS_ITS ---
Intake Vital Signs 08/03/23 09:06 Height 6 ft Weight 233 lb 3.985 oz BMI 31.6 BP 142/90 H Blood Pressure Location Lt brachial Position Sitting Pulse 73 Pulse Source Pulse Oximeter Intake Visit Reasons: r/s 1 mo followup [employer] Superintendent Required: No Treasury Analyst: Treasury Analyst Present Allergies Penicillins [PENICILLINS] Allergy (Intermediate, Verified 08/03/23 09:08) RASH metformin Adverse Reaction (Intermediate, Verified 08/03/23 09:08) Diarrhea Medication List - Last Reconciled 08/03/23 by Dory Breaux NP-C dulaglutide (Trulicity) 0.75 mg (0.5 mL) subcut QWEEK metoprolol tartrate 100 mg PO BID 90 days verapamil 40 mg PO BID 90 days HPI r/s 1 mo followup HPI Details Tej is a 37-year-old male past medical history diabetes, hypertension, hypertensive heart disease, HOCM, obstructive sleep apnea, hx noncompliance who presents for follow-up. Today he reports that he has been taking his medications as directed. He says he has not been wearing his CPAP mask as he can not sleep with it. He sleeps on his stomach and it falls off. 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 Does not lift greater than 50 lb. No chest discomfort, shortness of breath, lightheadedness, palpitations. Tells me he feels normal. Significant other is present and assisting with Macedonian translation at their request. [facility] Medical History Diabetes Osteoarthritis of right knee 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 Social History Household Members: Family Housing: Apartment Do you presently have visiting nurse or other home services: No Alcohol intake: current Patient Tobacco Use Status: Current everyday Tobacco user Tobacco use type: Cigarette Cigarette Packs Per Day: 0.25 Cigarettes Per Day: 5.0 Years Smoked: 20 e-Cigarette/Vaping Use: Never Used Second Hand Smoke Exposure: No service: No Current occupational status: unemployed Cognitive needs: No Hearing needs: No Vision needs: Yes (Glasses) Review of Systems Const All systems reviewed & are unremarkable except as noted in HPI and below ENT Denies dizziness Card Denies chest pain, Denies chest pain at rest, Denies chest pain with activity, Denies rapid heart rate, Denies pedal edema, Denies edema, Denies leg edema, Denies lightheadedness, Denies palpitations, Denies dyspnea, Denies dyspnea on exertion and Denies orthopnea Resp Denies cough, Denies dyspnea and Denies dyspnea on exertion GI Denies hematochezia and Denies change in stool character Musc Denies abnormal gait, Denies limited range of motion, Denies muscle cramps, Denies muscle weakness, Denies numbness, Denies radiating pain into limb, Denies stiffness and Denies tingling Neuro Denies abnormal gait, Denies dizziness, Denies numbness and Denies tingling Endo Denies palpitations Physical Exam Vital Signs: Last Vital Signs Pulse 73 08/03/23 09:06 BP 142/90 H 08/03/23 09:06 BMI result Body Mass Index 31.6 Const General: cooperative, healthy appearing, comfortable and no acute distress Orientation/consciousness: patient oriented x3 Neck Neck: Yes normal visual inspection and Yes no JVD Resp Effort & Inspection: normal respiratory effort Auscultation: clear to auscultation bilaterally, no rales, no rhonchi and no wheezes Cardio Jugular venous distension: no JVD Rate: regular rate Rhythm: regular rhythm Heart sounds: S1 normal heart sound present, S2 normal heart sound present, no murmurs and no rubs Neuro General: patient oriented x3 Extrem General: Yes normal to inspection, No no pedal edema and No calf tenderness Psych Appearance: grossly normal Mental Status: mental status grossly normal Speech and movement: Normal speech and movement present Assessment & Plan Assessment & Plan (1) Hypertrophic obstructive cardiomyopathy: Code(s): I42.1 - Obstructive hypertrophic cardiomyopathy Plan: History of hypertrophic obstructive cardiomyopathy. Echocardiogram done 02/07/2022 showing EF 60-65%, severe increase in the LV wall thickness, LVOT gradient 15 mmHg, with valsalva 30 mmHg, grade 1 diastolic dysfunction. He had been on metoprolol 100 mg b.i.d. and verapamil 120 mg b.i.d.. His pulse rate goal was 50-60. On last visit, 02/03/2023, he stated he had not taken any medications since 11/01/2022. He had been experiencing some tightness in his chest and shortness of breath with exertion. At that time in January he was restarted on metoprolol, 1st at 50 mg b.i.d. then titrated up to 100 mg b.i.d.. His verapamil was also restarted, initially at 40 mg b.i.d. then he was suppo sed to come for a blood pressure check after last visit for further titration and he did not. At this time his blood pressure is 142/90, pulse 73. I will further titrate nifedipine up to 80 mg b.i.d.. Will arrange for office blood pressure and pulse check in 1-2 weeks. Plan to then increase verapamil up to 160 mg b.i.d. if vital signs allow. He currently has no concerning symptoms. His last echo was on 03/03/2023 showing EF 69%, severe LVH, septum 2.3 cm, small resting gradient, peak gradient 40 mmHg, no regional wall motion abnormalities. Will check a Holter monitor to assess for any arrhythmias. He needs treatment for his sleep apnea. Says he is not able to wear the mask that he has. Will refer to sleep Medicine to see if there are other options to help correct his condition. Instructed on no lifting greater than 40-50 lb. Cardiology office visit in 3 months. The strict importance of medication compliance reviewed with him. Discussed his diagnosis and that it can lead to arrhythmia and potentially sudden . He states understanding. (2) Hypertensive heart disease: Code(s): I11.9 - Hypertensive heart disease without heart failure Qualifiers: Heart failure presence: without heart failure Qualified Code(s): I11.9 - Hypertensive heart disease without heart failure Plan: As above (3) HTN (hypertension): Code(s): I10 - Essential (primary) hypertension Qualifiers: Hypertension type: primary hypertension Qualified Code(s): I10 - Essential (primary) hypertension Plan: Mild elevation. Increasing verapamil (4) MARA (obstructive sleep apnea): Code(s): G47.33 - Obstructive sleep apnea (adult) (pediatric) Plan: He tells me he is not wearing CPAP mask. Referring to sleep medicine for mask options and to help ensure treatment (5) Noncompliance: Code(s): Z91.199 - Patient's noncompliance with other medical treatment and regimen due to unspecified reason Plan: He has had intermittent noncompliance with medications and currently is noncompliant with CPAP Plan Time spent on chart review, documentation, interview and assessment Orders: Orders ECG 3 day holter monitor Today I42.1 - Obstructive hypertrophic cardiomyopathy Referrals Sleep Medicine Referral G47.33 - Obstructive sleep apnea (adult) (pediatric), I42.1 - Obstructive hypertrophic cardiomyopathy Medications: New verapamil 80 mg PO BID 60 tabs 5RF Discontinued verapamil Discontinued Reason: Doctor's Order 40 mg PO BID 90 days 180 tabs 3RF Coding Level of Care Code Est Pt Level 4 (62296) Diagnoses Hypertrophic obstructive cardiomyopathy I42.1 Hypertensive heart disease without heart failure I11.9 Heart failure presence: without heart failure Primary hypertension I10 Hypertension type: primary hypertension MARA (obstructive sleep apnea) G47.33 Noncompliance Z91.199 Time Spent (min) 30
== END 2023-08-03 09:42 | disposition home or self-care (01) ==
PROVIDERS: PCP Hospitalist; Visit Provider Nurse Practitioner Family
DX: I42.1 Obstructive hypertrophic cardiomyopathy (principal); I11.9 Hypertensive heart disease without heart failure; I10 Essential (primary) hypertension; G47.33 Obstructive sleep apnea (adult) (pediatric); Z91.199 Patient's noncompliance with other medical treatment and regimen due to unspecified reason
CPT/HCPCS: 99214

== ENCOUNTER → 2023-08-03 08:54 | Outpatient (BNVA) | payer OTHER, SELFPAY | PROVIDERS: PCP Hospitalist; Visit Provider Nurse Practitioner Family | DX: I42.1 Obstructive hypertrophic cardiomyopathy (principal); I10 Essential (primary) hypertension | CPT/HCPCS: 99212 ==

== ENCOUNTER 2023-08-04 11:03 | Outpatient (AMB) | payer OTHER, SELFPAY ==
[2023-08-04 11:13] VITALS: BMI 32.0
--- NOTE | 2023-08-04 11:13 | A.OFFVIS_ITS ---
Intake VS Expanded 08/04/23 11:13 Height 6 ft Weight 236 lb 1.841 oz BMI 32.0 Intake Visit Reasons: DM Allergies Penicillins [PENICILLINS] Allergy (Intermediate, Verified 08/03/23 09:08) RASH metformin Adverse Reaction (Intermediate, Verified 08/03/23 09:08) Diarrhea HPI Nutrition Presentation Details Pt presents for MNT f/u for T2DM. last visit in 01/2023 Pt did not bring sensor reader/phone to appt Pt reports he is very picky with foods (fruits/veg in particular) Reports typically having 2 meals per day and snacking on chips and similar food in between smokes +++ since age 11, smokes more when stressed Most Recent Diabetes Results: No Data to Display [facility] Medical History Diabetes Osteoarthritis of right knee 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 Social History Household Members: Family Housing: Apartment Do you presently have visiting nurse or other home services: No Alcohol intake: current Patient Tobacco Use Status: Current everyday Tobacco user Tobacco use type: Cigarette Cigarette Packs Per Day: 0.25 Cigarettes Per Day: 5.0 Years Smoked: 20 e-Cigarette/Vaping Use: Never Used Second Hand Smoke Exposure: No service: No Current occupational status: unemployed Cognitive needs: No Hearing needs: No Vision needs: Yes (Glasses) Assessment & Plan Assessment & Plan (1) Poorly controlled type 2 diabetes mellitus: Code(s): E11.65 - Type 2 diabetes mellitus with hyperglycemia Plan: wt: 105 kg (01/2023), 107 kg (07/2023) Est kcal needs as per MSJ: 2700 (40% carb, 30% protein/fat) Est fluid needs as per 25-30 ml/d: 2600 Est prot per day as per 1 g/kg bw: 105 Recommend fiber intake : 8-10 g per day and gradually increase to 25-28 g per day for women and 35-38 g for men or as tolerated Recommend sodium intake per day : less than 2000 mg Educated patient on: ( R = reviewed V = verbalizes understanding N/R = needs review N/A = not applicable * Healthy plate method concept: R V * Dietary prevention of Hyperglycemia: R V * Foods and its antiinflammatories properties: R * Acute and chronic complications of elevated blood glucose level: R Patient Instructions: Include 1-2 fruits a day in your diet - replacing pastries - try in shakes - see ideas to try Choose nuts and fruit or 1/2 peanut butter sandwich or glucerna shake instead of skipping lunch monitor your blood sugar for self assessment, communicate with your doctor if blood sugar are above 180 , 2 hours after the meals or below 70 at any given time for further assessment follow rule of 15 if blood sugar below 70 (have 3-4 glucose tables = 15 g of carb, wait 15 minutes and recheck your blood sugar, repeat treatment if blood s ugar continue below 70 Coding Level of Care Code Nutr Indiv Subseq (74139) Diagnoses Poorly controlled type 2 diabetes mellitus E11.65 Time Spent (min) 30
== END 2023-08-04 11:41 | disposition home or self-care (01) ==
PROVIDERS: PCP Hospitalist; Visit Provider Dietitian, Registered
DX: E11.65 Type 2 diabetes mellitus with hyperglycemia (principal)

== ENCOUNTER → 2023-08-04 11:03 | Outpatient (BNVA) | payer OTHER, SELFPAY | PROVIDERS: PCP Hospitalist; Visit Provider Dietitian, Registered | DX: E11.65 Type 2 diabetes mellitus with hyperglycemia (principal) | CPT/HCPCS: 97803 ==

== ENCOUNTER 2023-08-11 06:09 | Outpatient (REF) | payer OTHER, SELFPAY ==
--- NOTE | ~2023-08-11 | FL_ITS ---
EXAMINATION: XR FLUOROSCOPY WITH IMAGES CLINICAL INFORMATION: Bilateral sacroiliac pain COMPARISON: None available. TECHNIQUE: Fluoroscopy Supervised By: Dr. Bakari Moseley. Fluoroscopy Time: 0.4 minutes. Cumulative Dose: 15.0 mGy. DAP: 0.26 Gycm2. Images: 2. FINDINGS: Spinal needle cyst seen in the spinal needles within the bilateral sacroiliac joints with contrast injection FL/FL guidance in treatment room IMPRESSION: Bilateral sacroiliac joint injection
== END 2023-08-11 06:10 | disposition home or self-care (01) ==
LOC: CF 06:09
PROVIDERS: Visit Provider Anesthesiology
DX: M53.3 Sacrococcygeal disorders, not elsewhere classified (principal); M47.816 Spondylosis without myelopathy or radiculopathy, lumbar region; M51.36 Other intervertebral disc degeneration, lumbar region
CPT/HCPCS: 27096; J2795; Q9967

== ENCOUNTER 2023-08-11 08:57 | Outpatient (AMB) | payer OTHER, SELFPAY ==
[2023-08-11 09:10] VITALS: BP 154/80; PULSE 86; RESP 16; O2SAT 100; BMI 32.0
--- NOTE | 2023-08-11 09:10 | A.OFFVIS_ITS ---
Intake Vital Signs 08/11/23 09:10 08/11/23 10:01 Height 6 ft Weight 236 lb BMI 32.0 BP 154/80 H 160/84 H Blood Pressure Location Lt brachial Lt brachial Position Sitting Sitting Respiration 16 20 Pulse 86 88 Pulse Source Pulse Oximeter Pulse Oximeter Pulse Oximetry (%) 100 97 Oxygen Delivery Method Room Air Room Air Comment Pre-Op Post-Op Intake Visit Reasons: BILATERAL DIAGNOSTIC SIJ INJECTIONS Allergies Penicillins [PENICILLINS] Allergy (Intermediate, Verified 08/03/23 09:08) RASH metformin Adverse Reaction (Intermediate, Verified 08/03/23 09:08) Diarrhea [facility] Medical History Diabetes Osteoarthritis of right knee 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 Social History Household Members: Family Housing: Apartment Do you presently have visiting nurse or other home services: No Alcohol intake: current Patient Tobacco Use Status: Current everyday Tobacco user Tobacco use type: Cigarette Cigarette Packs Per Day: 0.25 Cigarettes Per Day: 5.0 Years Smoked: 20 e-Cigarette/Vaping Use: Never Used Second Hand Smoke Exposure: No service: No Current occupational status: unemployed Cognitive needs: No Hearing needs: No Vision needs: Yes (Glasses) Physical Exam Vital Signs: Last Vital Signs Pulse 88 08/11/23 10:01 Resp 20 08/11/23 10:01 BP 160/84 H 08/11/23 10:01 Pulse Ox 97 08/11/23 10:01 Oxygen Delivery Method Room Air 08/11/23 10:01 BMI result Body Mass Index 32.0 Assessment & Plan Assessment & Plan (1) Sacroiliac joint pain: Code(s): M53.3 - Sacrococcygeal disorders, not elsewhere classified (2) Lumbar spondylosis: Code(s): M47.816 - Spondylosis without myelopathy or radiculopathy, lumbar region (3) Lumbar degenerative disc disease: Code(s): M51.36 - Other intervertebral disc degeneration, lumbar region Plan: Bilateral diagnostic sacroiliac joint injection. Informed consent was explained thoroughly to the patient. All questions about benefits and risks for the procedure were answered. Patient came to the operating room and was positioned prone on the operating table with the pillow under the pelvis. Time out was performed delineating name and of the patient, allergies and the nature of the procedure. The lower back and buttocks of the patient were prepped with ChloraPrep prepped and draped with sterile utility towels. C-arm was brought over the operating field and sq picture of patient's pelvis was demonstrated on the screen. Silhouette of the bilateral joints appear to be very narrow. The access to the bilateral joints was very difficult. For the right and the left joint tilting C-arm contralateral to the site of the joint the most posterior portion of the joints was superimposed with anterior silhouette of the joint. Skin was injected in the projection of the joint slightly medial to the location of the joint with 25 gauge 1/2 inch needle using local lidocaine 2% .After that 22 gauge 3 and 1/2 inch needle was driven to the bilateral joints in tunnel vision fashion. When needle entered the joint capsule injection of the contrast was performed demonstrating partially intra-articular and minimally periarticular spread of the contrast. After that 4 cc. of ropivacaine 0.5% was injected into the joint. Upon completion of the injections the needle was removed Sterile dressing was applied. Upon completion of the injection patient was taken outside of the operating room to the recovery room where he recovered uneventfully. Plan Schedule for Diagnostic Bilateral SIJ injections with local and fluoroscopy. Discussed therapeutic SIJ injection, RFA, SI joint fusion and Curonix PNS trial if positive responses. Most recent A1C=5.5. If no relief, will proceed with Behavioral evaluation for potential SCS trial. Patient underwent neurosurgical evaluation in September 2022 and was deemed non surgical at that time. Expectations, risks and benefits were reviewed. Patient is aware he will be contacted to schedule this procedure. Patient will stop Ibuprofen and trial diclofenac potassium for bilateral SIJ and low back pain. Side effects, precautions and administration reviewed with patient and his family. All questions were answered and the patient is in agreement of plan. Follow-up after injections and sooner as needed. Justification for interventional therapy: ? Patient with average pain > 6/10 ? Patient has exhausted conservative therapy, HEP, PT, NSAIDs, heat/ice therapy The risks, consequences, alternatives, and benefits of various treatment options were discussed with the patient in great detail, including conservative management, injections and procedures. Orders: Orders FL guidance in treatment room Today M53.3 - Sacrococcygeal disorders, not elsewhere classified Coding Level of Care Code Procedure Only Diagnoses Sacroiliac joint pain M53.3 Lumbar spondylosis M47.816 Lumbar degenerative disc disease M51.36
[2023-08-11 10:01] VITALS: BP 160/84; PULSE 88; RESP 20; O2SAT 97
== END 2023-08-11 10:03 | disposition home or self-care (01) ==
LOC: HO.PMCPRC 08:57
PROVIDERS: PCP Hospitalist; Visit Provider Anesthesiology
DX: M53.3 Sacrococcygeal disorders, not elsewhere classified (principal); M47.816 Spondylosis without myelopathy or radiculopathy, lumbar region; M51.36 Other intervertebral disc degeneration, lumbar region
CPT/HCPCS: 27096

== ENCOUNTER 2023-08-13 07:16 | Outpatient (AMB) | payer OTHER, SELFPAY ==
[2023-08-13 07:35] VITALS: BP 130/90; BMI 31.5
--- NOTE | 2023-08-13 07:35 | A.OFFPC_ITS ---
Vital Signs 08/13/23 07:35 Height 6 ft Weight 232 lb BMI 31.5 BP 130/90 H Blood Pressure Location Lt brachial Position Sitting Intake Visit Reasons: Transfer of care Brandi Wilhelm Intake Note: Patient here transferring of care Petrography Teacher Required: No Accompanied by: Spouse Allergies Penicillins [PENICILLINS] Allergy (Intermediate, Verified 08/13/23 07:59) RASH metformin Adverse Reaction (Intermediate, Verified 08/13/23 07:59) Diarrhea Medication List - Last Reconciled 08/13/23 by Ninoska Meeks MD dulaglutide (Trulicity) 0.75 mg (0.5 mL) subcut QWEEK metoprolol tartrate 100 mg PO BID 90 days verapamil 80 mg PO BID Tobacco use date assessed: 08/13/23 Dental Screening Dental Screen Date: 08/13/23 Did you have a dental visit in the last 12 months?: No Did you have a dental problem in the last 6 months where you did not have access to dental care?: No Was dental information given to patient?: Patient has dentist HPI HPI Comments History of Present Illness Details This is a 37-year-old male with diabetes mellitus type 2 without long- term current use of insulin, hypertension, hypertrophic obstructive cardiomyopathy and lumbar degenerative disc disease that comes accompanied by to establish care. A1c within goal. Blood pressure borderline normal to elevated and he has not take medications yet today. Last echocardiogram was February 2023 showing ejection fraction of 69% with severe LVH. The goal is to not gain 5 lb in a week. He follows with Cardiology for his cardiomyopathy. Has lumbar degenerative disc disease with chronic low back pain radiating to both legs. MRI of lumbar spine was done. He follows with pain management which did a local injection recently but he still have pain. No fever, bowel or bladder incontinence. [facility] Medical History (Updated 08/13/23 @ 09:17 by Ninoska Meeks MD) Poorly controlled type 2 diabetes mellitus Diabetes Osteoarthritis of right knee Osteoarthritis of lumbar spine Hypertrophic obstructive cardiomyopathy MARA (obstructive sleep apnea) Hypertensive heart disease HTN (hypertension) Surgical History History of hand surgery History of elbow surgery History of ankle surgery Family History (Updated 08/13/23 @ 08:04 by Ninoska Meeks MD) Father PVD (peripheral vascular disease) Mother No problems noted. Social History Household Members: Family Housing: Apartment Do you presently have visiting nurse or other home services: No Alcohol intake: current Alcohol intake frequency: a few times a month Alcohol type: beer Patient Tobacco Use Status: Current everyday Tobacco user Tobacco use type: Cigarette Cigarettes Per Day: 10 Years Smoked: 20 e-Cigarette/Vaping Use: Never Used Second Hand Smoke Exposure: No service: No Current occupational status: employed Current occupational exposures/hazards: No Cognitive needs: No Hearing needs: No Vision needs: Yes (Glasses) Questionnaire Thrive Questionnaire Date Thrive assessed: 07/21/22 MARTIN-7 AMB Questionnaire MARTIN-7 Date MARTIN - 7 assessed: 08/13/23 Feeling nervous, anxious, or on edge: 1 = Several days Not being able to stop or control worryin = Not at all Worrying too much about different things: 1 = Several days Trouble relaxin = Not at all Being so restless that it is hard to sit still: 0 = Not at all Becoming easily annoyed or irritable: 1 = Several days Feeling afraid as if something awful might happen: 0 = Not at all Total MARTIN-7 score (0-4 normal; 5-9 mild; 10-14 moderate; 15-21 severe): 3 Source: Developed by Drs. Sinan Ledesma, Ruth Ann Verdugo, Ej Hamilton and colleagues, with an educational am[place] from [employer]. MARTIN-7 Assessment Billing MARTIN-7 Assessment Tool: MARTIN-7 Assessment 84294 Review of Systems Const All systems reviewed & are unremarkable except as noted in HPI and below Eyes Reports no additional complaints, Denies change in vision and Denies other visual disturbances Card Denies chest pain at rest, Denies chest pain with activity, Denies edema, Denies irregular heart rhythm, Denies claudication, Denies dyspnea, Denies dyspnea on exertion, Denies orthopnea, Denies paroxysmal nocturnal dyspnea and Denies slow heart rate Resp Denies cough, Denies dyspnea and Denies dyspnea on exertion GI Denies abdominal pain, Denies change in bowel habits, Denies excessive flatus, Denies nausea and Denies vomiting Denies urinary hesitancy, Denies urinary incontinence and Denies urinary urgency Physical exam (Primary Care) Vital Signs: Last Vital Signs BP 130/90 H 08/13/23 07:35 BMI result Body Mass Index 31.5 Tobacco/Smoking Status: Tobacco use Status Tobacco use date assessed 08/13/23 08/13/23 07:46 Patient Tobacco Use Status Current everyday Tobacco 08/13/23 07:43 Tobacco use type Cigarette 08/13/23 07:43 e-Cigarette/Vaping Use Never Used 08/13/23 07:43 Thrive Assessment: Date of Thrive Assessment Date Thrive assessed 07/21/22 08/13/23 07:39 Resp Effort & Inspection: normal respiratory effort Auscultation: clear to auscultation bilaterally Cardio Jugular venous distension: no JVD Rate: regular rate Rhythm: regular rhythm Heart sounds: S1 normal heart sound present and S2 normal heart sound present Extrem General: Yes full ROM Results AMB Hemoglobin A1c AMB Hemoglobin A1c 5.8 % Last Edit by MOOKIE Goldsmith on 08/13/23 07:5 4 Results Reviewed Results Reviewed: Laboratory Last Values Hgb A1c (Clinic) 5.8 % (4.0-6.0) 08/13/23 07:48 Assessment and Plan Assessment & Plan (1) Hypertrophic obstructive cardiomyopathy: Code(s): I42.1 - Obstructive hypertrophic cardiomyopathy Plan: Continue verapamil. The goal is to not gain 5 lb in a week. Follow-up with Cardiology. (2) Diabetes mellitus without complication, with long-term current use of insulin: Code(s): E11.9 - Type 2 diabetes mellitus without complications; Z79.4 - long term care administrator (current) use of insulin Qualifiers: Diabetes mellitus type: type 2 Qualified Code(s): E11.9 - Type 2 diabetes mellitus without complications; Z79.4 - long term care administrator (current) use of insulin Plan: Continue Trulicity. A1c goal is equal or less than 7%. (3) Lumbar degenerative disc disease: Code(s): M51.36 - Other intervertebral disc degeneration, lumbar region Plan: Follow-up with pain management. (4) HTN (hypertension): Code(s): I10 - Essential (primary) hypertension Qualifiers: Hypertension type: primary hypertension Qualified Code(s): I10 - Essential (primary) hypertension Plan: Continue verapamil and metoprolol. Blood pressure goal is equal or less than 130/80. Orders: Orders NT-proBNP Today I42.1 - Obstructive hypertrophic cardiomyopathy AMB Hemoglobin A1c Today E11.65 - Type 2 diabetes mellitus with hyperglycemia Lipid Panel Today E78.5 - Hyperlipidemia, unspecified Microalbumin, Random (w Creat) Today E11.9 - Type 2 diabetes mellitus without complications Comprehensive Garrett. Panel Fast Today I42.1 - Obstructive hypertrophic cardiomyopathy Coding Level of Care Code Est Pt Level 4 (77247) Diagnoses Hypertrophic obstructive cardiomyopathy I42.1 Type 2 diabetes mellitus without complication, with long-term current use of insulin E11.9; Z79.4 Diabetes mellitus type: type 2 Lumbar degenerative disc disease M51.36 Primary hypertension I10 Hypertension type: primary hypertension Additional Codes MARTIN-7 Assessment Billing - MARTIN-7 Assessment Tool: MARTIN-7 Assessment 30733 ([id number]) Time Spent (min) 24
== END 2023-08-13 08:10 | disposition home or self-care (01) ==
PROVIDERS: PCP Hospitalist; Visit Provider Internal Medicine
DX: I42.1 Obstructive hypertrophic cardiomyopathy (principal); Z79.4 Long term (current) use of insulin; E11.65 Type 2 diabetes mellitus with hyperglycemia; M51.36 Other intervertebral disc degeneration, lumbar region; I10 Essential (primary) hypertension
CPT/HCPCS: 83036; 99214

== ENCOUNTER 2023-08-13 08:18 | Outpatient (REF) | payer OTHER, SELFPAY ==
[2023-08-13 09:12] LABS: Alanine Aminotransferase 45 U/L (0-40); Albumin Level 4.8 g/dL (3.5-5.0); Alkaline Phosphatase 87 U/L (39-117); Anion Gap 15 (12-20); Aspartate Amino Transferase 29 U/L (5-37); Bilirubin Total 0.6 mg/dL (0.0-1.0); Blood Urea Nitrogen 19 mg/dL (9-16); Calcium 9.7 mg/dL (8.4-10.2); Carbon Dioxide 25 mmol/L (22-29); Chloride 106 mmol/L (96-108); Cholesterol 165 mg/dL (<200); Estimated Glomerular Filt Rate > 60; Glucose Fasting 118 mg/dL (60-99); HDL Cholesterol 44 mg/dL (>40); LDL Cholesterol Calculated 105 mg/dL (<100); Potassium 4.2 mmol/L (3.3-5.1); Sodium 142 mmol/L (135-145); Total Protein 7.7 g/dL (6.5-8.0); Triglycerides 82 mg/dL (<150)
[2023-08-13 09:56] LABS: Creatinine Urine 194.14 mg/dL; Microalbum/Creatinine Ratio Ur 8.2 ug/mg cr (<30)
[2023-08-18 21:29] LABS: NT-proBNP 1014 pg/mL (<125)
== END 2023-08-13 08:19 | disposition home or self-care (01) ==
LOC: HO.LAB 08:18
PROVIDERS: PCP Internal Medicine; Visit Provider Internal Medicine
DX: E78.5 Hyperlipidemia, unspecified (principal); E11.9 Type 2 diabetes mellitus without complications; I42.1 Obstructive hypertrophic cardiomyopathy
CPT/HCPCS: 36415; 80053; 80061; 82043; 82570; 83880

== ENCOUNTER 2023-08-18 08:30 | Outpatient (AMB) | payer OTHER, SELFPAY ==
[2023-08-18 08:35] VITALS: BP 154/98; PULSE 85; O2SAT 96; BMI 31.6
--- NOTE | 2023-08-18 08:35 | MHC.OFFVIS ---
Intake Vital Signs 08/18/23 08:35 Height 6 ft Weight 233 lb BMI 31.6 BP 154/98 H Blood Pressure Location Rt brachial Position Sitting Pulse 85 Pulse Source Pulse Oximeter Pulse Oximetry (%) 96 Oxygen Delivery Method Room Air Intake Visit Reasons: INP-MARA - COn[place] w/ [place] address Intake Note: Patient presents for MARA. Patient has a machine but doesn't use it. Allergies Penicillins [PENICILLINS] Allergy (Intermediate, Verified 08/18/23 10:02) RASH metformin Adverse Reaction (Intermediate, Verified 08/18/23 10:02) Diarrhea HPI HPI Comments History of Present Illness Details 37 y/o male patient presents for new in-person visit for sleep consultation. Pt reports he was diagnosed with MARA 3-4 years ago. He tried CPAP, but he stopped using it. He sleeps on his stomach, and it is very uncomfortable to use CPAP, and he stopped using it. He tried different mask, but not worked. He lost 20 lb since the last sleep study. He continues to endorse snoring, witnessed apnea spells, and daytime sleepiness. Sleep questionnaire: Have you ever been diagnosed with a sleep disorder? Yes, MARA, Have you ever had a sleep study in the past? Yes. Have you ever been treated for a sleep disorder? Yes, CPAP. Do you take medications for a sleep disorder? No. Do you snore? Yes. Do you wake up gasping at night? No. Do you have episodes of apneas? Yes. If yes, are they witnessed? Yes. Do you have episodes of nocturnal chest pain or dyspnea? Yes, chest pain. Do you have difficulty initiating sleep? No. Do you have difficulty maintaining sleep? Yes. Do you wake up tired? Yes. Do you have headaches upon awakening? No. Do you wake up with dry mouth or throat? Yes. Do you have GERD? Yes. Do you have nocturia? Yes. Do you have nocturnal leg cramps? No. Do you have symptoms of restless legs? No. Do you act out your dreams? No. Sleep hygiene questionnaire: What is your usual sleep routine? Usual bedtime is at 10-11 pm; Usual wake up time is at 8 am. Do you take naps? No. Is your sleep environment cool, dark, and quiet? Yes. Do you exercise? No. Do you take caffeine or other stimulants? Yes, sometimes. Do you use electronics in bed? Yes. What is your work schedule? 9 am to 7:30 pm. Hypersomnolence questionnaire: Do you have daytime tiredness or fatigue? Yes. Do you easily fall asleep when inactive? Yes. Have you ever had episodes of sudden weakness? No. Have you ever had episodes of sudden weakness associated with strong emotions? No. [facility] Medical History (Updated 08/13/23 @ 09:17 by Ninoska Meeks MD) Poorly controlled type 2 diabetes mellitus Diabetes Osteoarthritis of right knee 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 Social History Household Members: Family Housing: Apartment Do you presently have visiting nurse or other home services: No Alcohol intake: current Alcohol intake frequency: a few times a month Alcohol type: beer Patient Tobacco Use Status: Current everyday Tobacco user Tobacco use type: Cigarette Cigarettes Per Day: 10 Years Smoked: 20 e-Cigarette/Vaping Use: Never Used Second Hand Smoke Exposure: No service: No Current occupational status: employed Current occupational exposures/hazards: No Cognitive needs: No Hearing needs: No Vision needs: Yes (Glasses) Review of Systems Const All systems reviewed & are unremarkable except as noted in HPI and below Physical Exam Vital Signs: Last Vital Signs Pulse 85 08/18/23 08:35 BP 154/98 H 08/18/23 08:35 Pulse Ox 96 08/18/23 08:35 Oxygen Delivery Method Room Air 08/18/23 08:35 BMI result Body Mass Index 31.6 Const General: cooperative and tired appearing Nutritional Appearance: obese Orientation/consciousness: patient oriented x3 Limitations: language barrier Neuro General: patient oriented x3, gait normal and moves all extremities Cranial nerves: Yes CN's II-XII intact bilaterally Cognition (Neuro): normal cognition Gait exam (Neuro): Normal gait present Motor exam (neuro): 5/5 motor strength present throughout Psych Appearance: grossly normal Mental Status: mental status grossly normal Speech and movement: Normal speech and movement present Affect: normal affect Attitude: cooperative Assessment & Plan Assessment & Plan (1) MARA (obstructive sleep apnea): Code(s): G47.33 - Obstructive sleep apnea (adult) (pediatric) Plan Pt is advised to undergo home sleep study to assess for sleep apnea. Will f/u with pt after study to discuss results and appropriate treatment options. Will consider mandibular device or Inpire after sleep study. Sleep hygiene education provided. Pt to call with any worsening concerns or questions. Coding Level of Care Code New Pt Level 3 (62690) Diagnoses MARA (obstructive sleep apnea) G47.33
== END 2023-08-18 08:55 | disposition home or self-care (01) ==
PROVIDERS: PCP Hospitalist; Visit Provider Nurse Practitioner Family
DX: G47.33 Obstructive sleep apnea (adult) (pediatric) (principal)
CPT/HCPCS: 99203

== ENCOUNTER → 2023-08-18 08:30 | Outpatient (BNVA) | payer OTHER, SELFPAY | PROVIDERS: PCP Hospitalist; Visit Provider Nurse Practitioner Family | DX: M53.3 Sacrococcygeal disorders, not elsewhere classified (principal); M51.36 Other intervertebral disc degeneration, lumbar region; M25.50 Pain in unspecified joint; M47.816 Spondylosis without myelopathy or radiculopathy, lumbar region; M46.1 Sacroiliitis, not elsewhere classified; G47.33 Obstructive sleep apnea (adult) (pediatric) | CPT/HCPCS: 99202; 99212 ==

== ENCOUNTER 2023-08-18 09:55 | Outpatient (AMB) | payer OTHER, SELFPAY ==
--- NOTE | 2023-08-18 09:58 | A.OFFVIS_ITS ---
Intake Vital Signs 08/18/23 10:02 Height 6 ft Weight 233 lb BMI 31.6 BP 152/79 H Blood Pressure Location Lt brachial Position Sitting Pulse 83 Pulse Source Pulse Oximeter Pulse Oximetry (%) 97 Oxygen Delivery Method Room Air Intake Visit Reasons: BILATERAL DIAGNOSTIC SIJ INJECTIONS Intake Note: Pain today 11/24 Executive Assistant To President Required: No Accompanied by: Spouse Allergies Penicillins [PENICILLINS] Allergy (Intermediate, Verified 08/18/23 10:02) RASH metformin Adverse Reaction (Intermediate, Verified 08/18/23 10:02) Diarrhea HPI HPI Comments History of Present Illness Details Patient presents today to assess response to Bilateral Diagnostic SIJ injections on 08/12/[address] Moseley. Patient reports 50% pain relief for 5 hours since procedure with minimal improvement in his daily activities, functioning, sleep and social interactions. He is interested in undergoing diagnostic sacroiliac joint innervation in order to establish reproducible response to the treatment for potential Curonix PNS trial. His imaging on 02/02/23 showed moderate degenerative changes in the bilateral sacroiliac joints. Patient also reports arthralgia in multiple joints and last followed by Rheumatology in [id number]. Denies any recent cough, cold, infection, fever, bladder or bowel dysfunction, saddle anesthesia any significant changes in her medical history, medications or recent hospitalizations. Past Procedures: 08/12/23: Bilateral Diagnostic SIJ injec tions-50% pain relief for 5 hours 08/12/22: Left L5-S1 TFESI -0% pain reli ef, reports worsening of pain after injection 06/17/22: Diagnostic Bilateral L3-L4 DR L5 MBB-50% pain relief for 6 hours PRIOR: Patient is a pleasant 36 years old Nepali speaking male who presents for evaluation of worsening of chronic lower back pain with radiculopathy to left lower extremity and right knee pain. He is being treated at [facility] for right knee pain, had previously done cortisone injections, fluid aspiration, x rays and recently had obtained right knee MRI with pending results. He believes he might need surgery. His last imaging showed mild degenerative change at the lateral and patellofemoral compartments with small osteophytes present. Patient also follows [facility] [place] for multiple arthralgias and has mildly elevated ESR. Patient reports his back pain originates in his lower back and spreads across his left side into his left thigh anteriorly and laterally and into left lower leg anteriorly and medially in the projection of L4/L5 dermatome with significant pain in his left big toe and numbness and tingling in the whole left foot. 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 Patient also noticed worsening of back pain about 1.5 years ago while he was standing bending forward to wash dishes and felt exacerbation of pain. Pain is described as constant aching, hot, burning, tingling, pins and needles and numbness sensations. He states the pain is interfering with sleep, daily activities, mood, quality of life and he cannot function normally. Patient denies any fever, chills, abdominal or groin pain, weakness, weight loss, bowel/bladder incontinence or saddle anesthesia. He has poorly controlled diabetes with recent random glucose 245 on 08/19/21, his recent A1C-8.2 on 05/07/21 and A1C-11.2 on 03/26/21. We rechecked his A1C today and it was 8.8 with average blood sugars 206. Patient reports he has not been checking his blood sugars at home for a few weeks due to traveling for a family emergency in [place]. Patient has previously tried chiropractic manipulation (Dr. Dodge, [facility]), TENS unit, ice and heat therapy and massages with no improvement in his symptoms. He is starting formal PT on 12/11/21. Patient has been taking Tylenol, gabapentin, meloxicam, and also tried Ibuprofen and Naproxen in the past without pain relief. We discussed the importance of getting his blood sugars under better control as high A1C levels will limit treatment modalities that we can offer him as well correction complications from diabetes that can affects multiple systems of his body. We briefly discussed neuromodulation for his right knee pain after his clearance with [facility]. For his back pain, we will start with PT and will proceed with MRI if no improvement in his symptoms. [facility] Medical History Poorly controlled type 2 diabetes mellitus Diabetes Osteoarthritis of right knee 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 Social History Household Members: Family Housing: Apartment Do you presently have visiting nurse or other home services: No Alcohol intake: current Alcohol intake frequency: a few times a month Alcohol type: beer Patient Tobacco Use Status: Current everyday Tobacco user Tobacco use type: Cigarette Cigarettes Per Day: 10 Years Smoked: 20 e-Cigarette/Vaping Use: Never Used Second Hand Smoke Exposure: No service: No Current occupational status: employed Current occupational exposures/hazards: No Cognitive needs: No Hearing needs: No Vision needs: Yes (Glasses) Review of Systems Const All systems reviewed & are unremarkable except as noted in HPI and below Physical Exam Vital Signs: Last Vital Signs Pulse 83 08/18/23 10:02 BP 152/79 H 08/18/23 10:02 Pulse Ox 97 08/18/23 10:02 Oxygen Delivery Method Room Air 08/18/23 10:02 BMI result Body Mass Index 31.6 General: Appears afebrile. Alert and oriented. Mood and affect appropriate. Follows and participates in conversation appropriately. Respiratory effort is unlabored. No cough. Able to transition from sit to stand unassisted. Ambulates with bilaterally normal heel strike and toe off. General: Yes no CVA tenderness Back/Spine/Pelvis Other: Limited lumbar ROM with extension reproducing mild to moderate pain. Lumbar flexion reproduces minimal pain. Demonstrates 5/5 strength of quadriceps bilaterally as well as flexion/dorsiflexion of bilateral feet against resistance. 2+ pedal pulses bilaterally. Straight leg rise with dorsiflexion negative bilaterally. +2 patellar and achilles reflexes bilaterally. Facet loading test positive bilaterally. Yajaira sign, Luis?s, Gaenslen, Pelvic compression and Stinchfield tests are positive bilaterally, worse on the left. N o groin pain with I/E hip rotations. Minimal TTP to bilateral GTB. Valsalva maneuver negative. Back: no CVA tenderness Cervical Spine: cervical ROM normal, cervical muscular tenderness, pain with cervical ROM and No Cervical spine tenderness Thoracic/Lumbar Spine: thoracic and lumbar spine normal to inspection, No Thoracic/lumbar spine scar(s), Lasegue's sign negative, straight leg raise negative bilaterally, pain with thoraco-lumbar ROM, paraspinal muscle tenderness, thoraco-lumbar ROM limited, No thoracic spinal tenderness and lumbar spinal tenderness at L4 and at L5 Sacroiliac joints: bilaterally tender to palpation Results Reviewed Results Reviewed: MR LUMBAR SPINE WITHOUT CONTRAST 03/25/22 FINDINGS: VERTEBRAL BODIES AND PARASPINAL STRUCTURES: There is slight reversal of the normal lumbar lordosis. There is loss of signal from the discs at L2-L3 through L5-S1 consistent with disc desiccation. There is mild narrowing of intervertebral disc height at L3-L4. There are degenerative endplate contour changes at L4-L5 with Schmorl's nodes and fatty endplate signal changes. There are mild edematous endplate signal changes at L3-L4 and L5-S1. Vertebral body heights are maintained and no fractures are demonstrated. Overall, marrow signal is homogenous. The visualized retroperitoneal and pelvic structures are unremarkable. There are degenerative changes at the right sacroiliac joint with sclerosis. CONUS MEDULLARIS AND CAUDA EQUINA: Normal, terminating at the level of L1-L2. The lower thoracic spinal cord appears normal. The cauda equina nerve roots appear normal. There is a minimal amount of fat in the non-thickened filum terminale at the level of L4-L5. SPINAL LEVELS: L1-L2: The facet joints appear normal bilaterally. Disc contour is normal. There is no central stenosis or foraminal narrowing. L2-L3: There is mild bilateral facet arthropathy with ligamenta flava hypertrophy. There is a central and left-sided posterior disc protrusion with an annular fissure which mildly distorts the ventral thecal sac but there is no central stenosis. The neural foramina are patent bilaterally. L3-L4: There is mild bilateral facet arthropathy. There is a diffuse disc bulge with a small annular fissure posteriorly with minimal flattening of the ventral thecal sac. There is no central stenosis. The neural foramina are patent bilaterally. L4-L5: There is mild bilateral facet arthropathy. There is a posterior disc protrusion with an annular fissure which is most prominent just to the left of midline and there is distortion of the ventral thecal sac. There is no central stenosis, and the neural foramina are patent bilaterally. L5-S1: There is moderate bilateral facet arthropathy with facet joint effusions. There is a posterior disc protrusion which is most prominent in the midline with distortion of the ventral thecal sac but there is no central stenosis. There are bilateral foraminal disc protrusions with mild impingement on the exiting L5 nerve roots. IMPRESSION: 1. At L5-S1 there is a posterior disc protrusion, extending into the neural foramina bilaterally with impingement on the exiting L5 nerve roots. There is no central stenosis. 2. There is spondylosis with facet arthropathic changes at other levels as described above, without central stenosis or foraminal nerve root impingement. XR SACROILIAC JOINTS 02/02/23 CLINICAL INFORMATION: Interval vertebral disc degeneration lumbar region, pain COMPARISON: MR lumbar spine 03/25/2022, x-ray lumbar spine 11/28/2021 FINDINGS: Degenerative changes on limited views of the lower lumbar spine. Moderate degenerative changes in the bilateral sacroiliac joints with sclerosis and narrowing. IMPRESSION: Moderate degenerative changes in the bilateral sacroiliac joints. Assessment & Plan Assessment & Plan (1) Sacroiliac joint pain: Code(s): M53.3 - Sacrococcygeal disorders, not elsewhere classified (2) Lumbar degenerative disc disease: Code(s): M51.36 - Other intervertebral disc degeneration, lumbar region (3) Arthralgia of multiple joints: Code(s): M25.50 - Pain in unspecified joint (4) Lumbar spondylosis: Code(s): M47.816 - Spondylosis without myelopathy or radiculopathy, lumbar region (5) Sacroiliitis: Code(s): M46.1 - Sacroiliitis, not elsewhere classified Plan Patient is status post bilateral diagnostic SIJ injections with partial pain relief. He is interested in undergoing diagnostic sacroiliac joint innervation in order to establish reproducible response to the treatment for potential Curonix PNS trial. His imaging on 02/02/23 showed moderate degenerative changes in the bilateral sacroiliac joints. Schedule Bilateral Diagnostic Sacroiliac Joint Innervation injections with sedation and fluoroscopy. Expectations, risks and benefits were reviewed. Patient is aware he will be contacted to schedule this procedure. Short script provided for Tramadol for moderate to severe pain only. Side effects, medication safety and precautions discussed with patient and his family. Labs ordered for Rheumatology testing, encouraged patient to follow up with [facility] to further evaluate chronic polyarthralgia symptoms. All questions were answered and the patient is in agreement of plan. Follow-up after injections and sooner as needed. Orders: Orders CRP High Sensitivity Today M25.50 - Pain in unspecified joint, M51.36 - Other intervertebral disc degeneration, lumbar region, M53.3 - Sacrococcygeal disorders, not elsewhere classified DALTON Reflex Titer and Pattern Today M25.50 - Pain in unspecified joint, M51.36 - Other intervertebral disc degeneration, lumbar region Erythrocyte Sedimentation Rate Today M25.50 - Pain in unspecified joint, M51.36 - Other intervertebral disc degeneration, lumbar region, M53.3 - Sacrococcygeal disorders, not elsewhere classified Cyclic Citrullinated Peptide Today M25.50 - Pain in unspecified joint, M51.36 - Other intervertebral disc degeneration, lumbar region, M53.3 - Sacrococcygeal disorders, not elsewhere classified Rheumatoid Factor Today M25.50 - Pain in unspecified joint, M51.36 - Other intervertebral disc degeneration, lumbar region, M53.3 - Sacrococcygeal disorders, not elsewhere classified Medications: New tramadol Partial Fill upon patient request. 50 mg PO BID 15 days PRN 30 tabs 0RF pain (scale score 7-10) M25.50 - Pain in unspecified joint, M51.36 - Other intervertebral disc degeneration, lumbar region, M53.3 - Sacrococcygeal disorders, not elsewhere classified tramadol 50 mg PO BID 15 days PRN 30 tabs 0RF pain M25.50 - Pain in unspecified joint, M51.36 - Other intervertebral disc degeneration, lumbar region, M53.3 - Sacrococcygeal disorders, not elsewhere classified Coding Level of Care Code Est Pt Level 4 (65147) Diagnoses Sacroiliac joint pain M53.3 Lumbar degenerative disc disease M51.36 Arthralgia of multiple joints M25.50 Lumbar spondylosis M47.816 Sacroiliitis M46.1
[2023-08-18 10:02] VITALS: BP 152/79; PULSE 83; O2SAT 97; BMI 31.6
== END 2023-08-18 10:41 | disposition home or self-care (01) ==
PROVIDERS: PCP Hospitalist; Visit Provider Nurse Practitioner Family
DX: M53.3 Sacrococcygeal disorders, not elsewhere classified (principal); M51.36 Other intervertebral disc degeneration, lumbar region; M25.50 Pain in unspecified joint; M47.816 Spondylosis without myelopathy or radiculopathy, lumbar region; M46.1 Sacroiliitis, not elsewhere classified
CPT/HCPCS: 99214

== ENCOUNTER 2023-10-19 10:22 | Outpatient (AMB) | payer OTHER, SELFPAY ==
[2023-10-19 10:25] VITALS: BP 170/90; BMI 31.5
--- NOTE | 2023-10-19 10:25 | MHC.PC.OV ---
Vital Signs 10/19/23 10:25 10/19/23 12:07 Height 6 ft Weight 232 lb BMI 31.5 BP 170/90 H 160/90 H Blood Pressure Location Lt brachial Lt brachial Position Sitting Sitting Intake Visit Reasons: Has a mass under his feet Intake Note: Patient here for lumps under right foot/pain, would like to start chantix, seen at [facility] 10/05/23 Program Host Required: No Accompanied by: Self / Same As Patient Allergies Penicillins [PENICILLINS] Allergy (Intermediate, Verified 10/19/23 10:41) RASH metformin Adverse Reaction (Intermediate, Verified 10/19/23 10:41) Diarrhea Medication List - Last Reconciled 10/19/23 by Ninoska Meeks MD atorvastatin 20 mg PO BEDTIME 90 days diclofenac potassium 50 mg PO BID PRN dulaglutide (Trulicity) 0.75 mg (0.5 mL) subcut QWEEK metoprolol tartrate 100 mg PO BID 90 days tramadol 50 mg PO BID PRN 15 days verapamil 80 mg PO BID Tobacco use date assessed: 08/13/23 Dental Screening Dental Screen Date: 08/13/23 HPI HPI Comments History of Present Illness Details This is a 38-year-old male with hypertrophic obstructive cardiomyopathy, diabetes mellitus type 2, sacroiliitis, hypertension and pure hypercholesterolemia that comes today accompanied by complaining of right foot lump that is painful that he noticed. Has history of right foot abscess in the past. CT scan of the foot was ordered. Denies any fever or any redness around the lump. Cardiomyopathy is follow by cardiology and has not gain 5 lb in a week. A1c within goal. LDL not on goal and this will be repeated. Sacroiliitis is follow by pain management and still complains of back pain. Blood pressure elevated but has not take his verapamil yet. Blood pressure will be recheck in 3 weeks by nurse navigator. [facility] Medical History (Updated 10/19/23 @ 12:10 by Ninoska Meeks MD) Poorly controlled type 2 diabetes mellitus Diabetes Osteoarthritis of right knee 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 Social History Household Members: Family Housing: Apartment Do you presently have visiting nurse or other home services: No Alcohol intake: current Alcohol intake frequency: a few times a month Alcohol type: beer Patient Tobacco Use Status: Current everyday Tobacco user Tobacco use type: Cigarette Cigarettes Per Day: 10 Years Smoked: 20 e-Cigarette/Vaping Use: Never Used Second Hand Smoke Exposure: No service: No Current occupational status: employed Current occupational exposures/hazards: No Cognitive needs: No Hearing needs: No Vision needs: Yes (Glasses) Questionnaire Thrive Questionnaire Date Thrive assessed: 07/21/22 MARTIN-7 AMB Questionnaire MARTIN-7 Date MARTIN - 7 assessed: 08/13/23 Source: Developed by Drs. Sinan Ledesma, Ruth Ann Verdugo, Ej Hamilton and colleagues, with an educational america from [employer]. Review of Systems Const All systems reviewed & are unremarkable except as noted in HPI and below Card Denies chest pain at rest, Denies chest pain with activity, Denies edema, Denies irregular heart rhythm, Denies claudication, Denies dyspnea, Denies dyspnea on exertion, Denies orthopnea, Denies paroxysmal nocturnal dyspnea and Denies slow heart rate Resp Denies cough, Denies dyspnea and Denies dyspnea on exertion Skin/Breast Reports lesions Neuro Denies lack of coordination Physical exam (Primary Care) Vital Signs: Last Vital Signs BP 170/90 H 10/19/23 10:25 Care Plan Goal for BP management: Recheck blood pressure with nurse navigator in 3 weeks. Next steps: Encouraged to be compliant with verapamil. BMI result Body Mass Index 31.5 Tobacco/Smoking Status: Tobacco use Status Tobacco use date assessed 08/13/23 10/19/23 10:25 Patient Tobacco Use Status Current everyday Tobacco 10/19/23 10:25 Tobacco use type Cigarette 10/19/23 10:25 e-Cigarette/Vaping Use Never Used 10/19/23 10:25 Thrive Assessment: Date of Thrive Assessment Date Thrive assessed 07/21/22 10/19/23 10:25 Const General: cooperative Neck Neck: Yes normal visual inspection and Yes supple Resp Effort & Inspection: normal respiratory effort Auscultation: clear to auscultation bilaterally Cardio Jugular venous distension: no JVD Rate: regular rate Rhythm: regular rhythm Heart sounds: Murmur heart sound present Extrem General: Yes full ROM Assessment and Plan Assessment & Plan (1) Hypertrophic obstructive cardiomyopathy: Code(s): I42.1 - Obstructive hypertrophic cardiomyopathy Plan: Continue verapamil. Follow-up with Cardiology. The goal is not gaining 5 lb in a week. (2) Diabetes mellitus, without long-term current use of insulin: Code(s): E11.9 - Type 2 diabetes mellitus without complications Plan: Continue Trulicity. A1c goal is equal or less than 7%. (3) Sacroiliitis: Code(s): M46.1 - Sacroiliitis, not elsewhere classified Plan: Continue diclofenac as needed. Follow-up with pain management. (4) HTN (hypertension): Code(s): I10 - Essential (primary) hypertension Qualifiers: Hypertension type: primary hypertension Qualified Code(s): I10 - Essential (primary) hypertension Plan: Continue verapamil. Blood pressure goal is equal or less than 130/80. Recheck blood pressure with nurse navigator in 3 weeks. (5) Pure hypercholesterolemia: Code(s): E78.00 - Pure hypercholesterolemia, unspecified Plan: Continue statins. LDL goal is less than 70. Orders: Orders CT foot RT wo IV con Today L02.611 - Cutaneous abscess of right foot Coding Level of Care Code Est Pt Level 4 (90603) Complex EM visit Add On G2211 Diagnoses Hypertrophic obstructive cardiomyopathy I42.1 Diabetes mellitus, without long-term current use of insulin E11.9 Sacroiliitis M46.1 Primary hypertension I10 Hypertension type: primary hypertension Pure hypercholesterolemia E78.00 Time Spent (min) 24
[2023-10-19 12:07] VITALS: BP 160/90
== END 2023-10-19 10:50 | disposition home or self-care (01) ==
PROVIDERS: PCP Internal Medicine; Visit Provider Internal Medicine
DX: I42.1 Obstructive hypertrophic cardiomyopathy (principal); E11.9 Type 2 diabetes mellitus without complications; M46.1 Sacroiliitis, not elsewhere classified; I10 Essential (primary) hypertension; E78.00 Pure hypercholesterolemia, unspecified
CPT/HCPCS: 99214; G2211

== ENCOUNTER 2023-11-04 08:38 | Outpatient (AMB) | payer OTHER, SELFPAY ==
--- NOTE | 2023-11-04 08:43 | MHC.PC.OV ---
Vital Signs 11/04/23 08:46 Height 6 ft Weight 232 lb BMI 31.5 BP 154/102 H Blood Pressure Location Lt brachial Position Sitting Pulse 85 Pulse Source Pulse Oximeter Pulse Oximetry (%) 97 Oxygen Delivery Method Room Air Intake Visit Reasons: Lump in neck Pharmaceutical Assistant Required: No Accompanied by: Spouse Allergies Penicillins [PENICILLINS] Allergy (Intermediate, Verified 11/04/23 09:15) RASH metformin Adverse Reaction (Intermediate, Verified 11/04/23 09:15) Diarrhea Medication List - Last Reconciled 11/04/23 by Ninoska Meeks MD atorvastatin 20 mg PO BEDTIME 90 days diclofenac potassium 50 mg PO BID PRN dulaglutide (Trulicity) 0.75 mg (0.5 mL) subcut QWEEK metoprolol tartrate 100 mg PO BID 90 days oxycodone mg PO tramadol 50 mg PO BID PRN 15 days verapamil 80 mg PO BID Tobacco use date assessed: 08/13/23 Dental Screening Dental Screen Date: 08/13/23 HPI HPI Comments History of Present Illness Details This is a 38-year-old male with diabetes mellitus type 2, hypertension, pure hypercholesterolemia and hypertrophic obstructive cardiomyopathy that comes today accompanied by complaining of right submandibular lymphadenopathy that he noticed yesterday. Denies any fever, night sweats or weight loss. No sore throat. Has a smoker's cough that has been chronic. Last A1c was within goal. LDL not on goal and was advised to be compliant with atorvastatin and low-cholesterol diet. Hypertrophic obstructive cardiomyopathy is follow by cardiology and has not gain 5 lb in a week. Blood pressure elevated today because he has not taken his medications yet and will be recheck for next office visit. [facility] Medical History (Updated 11/04/23 @ 09:23 by Ninoska Meeks MD) Sacroiliitis Diabetes mellitus, without long-term current use of insulin Diabetes mellitus without complication, with long-term current use of insulin Foot abscess, right Poorly controlled type 2 diabetes mellitus Diabetes Osteoarthritis of right knee 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 Social History Household Members: Family Housing: Apartment Do you presently have visiting nurse or other home services: No Alcohol intake: current Alcohol intake frequency: a few times a month Alcohol type: beer Patient Tobacco Use Status: Current everyday Tobacco user Tobacco use type: Cigarette Cigarettes Per Day: 10 Years Smoked: 20 e-Cigarette/Vaping Use: Never Used Second Hand Smoke Exposure: No service: No Current occupational status: employed Current occupational exposures/hazards: No Cognitive needs: No Hearing needs: No Vision needs: Yes (Glasses) Questionnaire PHQ-9 Over the last 2 weeks, how often have you been bothered by any of the following problems? 1. Little interest or pleasure in doing things: not at all 2. Feeling down, depressed, or hopeless: not at all 3. Trouble falling or staying asleep, or sleeping too much: not at all 4. Feeling tired or having little energy: not at all 5. Poor appetite or overeating: not at all 6. Feeling bad about yourself - or that you are a failure or have let yourself or your family down: not at all 7. Trouble concentrating on things, such as reading the newspaper or watching television: not at all 8. Moving or speaking so slowly that other people could have noticed. Or the opposite - being so fidgety or restless that you have been moving around a lot more than usual: not at all 9. Thoughts that you would be better off or of hurting yourself in some way: not at all Total score: 0 Depression Screening Interpretation: Negative Depression Screening Done: Yes 52350 - PHQ-9 Billing: Yes Source: Developed by Drs. Sinan Ledesma, Ruth Ann Verdugo, Ej Hamilton and colleagues, with an educational america from [employer]. Thrive Questionnaire Date Thrive assessed: 11/04/23 I am a: Patient What is your living situation today?: I have a steady place to live Within the past 12 months, did the food you bought not last and you didn't have the money to get more?: Never true Within the past 12 months, did you worry whether your food would run out before you got money to buy more?: Never true Do you have trouble paying for medicines?: No Do you have trouble getting transportation to medical appointments?: No Do you have trouble paying your heating and electricity bill?: No Do you have trouble taking care of your child, family member or friend?: No Do you have trouble with day-to-day activities such as bathing, preparing meals, shopping, managing finances, etc.?: No Are you currently unemployed and looking for a job?: No Are you interested in more education?: No Please select the resources that you would like help with: None Currently or been in a relationship where the following occur: no concerns reported THRIVE Score: 0 AUDIT C Alcohol Use Questionnaire (AUDIT-C) 1. How often do you have a drink containing alcohol?: 2-4 times a month 2. How many drinks containing alcohol do you have on a typical day when you are drinking?: 1 or 2 3. How often do you have six or more drinks on one occasion?: Never Total Score: 2 Score Reviewed/Action Taken: No MARTIN-7 AMB Questionnaire MARTIN-7 Date MARTIN - 7 assessed: 11/04/23 Feeling nervous, anxious, or on edge: 1 = Several days Not being able to stop or control worryin = Not at all Worrying too much about different things: 1 = Several days Trouble relaxin = Not at all Being so restless that it is hard to sit still: 0 = Not at all Becoming easily annoyed or irritable: 1 = Several days Feeling afraid as if something awful might happen: 0 = Not at all Total MARTIN-7 score (0-4 normal; 5-9 mild; 10-14 moderate; 15-21 severe): 3 Source: Developed by Drs. Sinan Ledesma, Ruth Ann Verdugo, Ej Hamilton and colleagues, with an educational america from [employer]. MARTIN-7 Assessment Billing MARTIN-7 Assessment Tool: MARTIN-7 Assessment 72834 Review of Systems Const All systems reviewed & are unremarkable except as noted in HPI and below ENT Reports neck mass Card Denies chest pain at rest, Denies chest pain with activity, Denies edema, Denies irregular heart rhythm, Denies claudication, Denies dyspnea, Denies dyspnea on exertion, Denies orthopnea, Denies paroxysmal nocturnal dyspnea and Denies slow heart rate Resp Denies cough, Denies dyspnea and Denies dyspnea on exertion Physical exam (Primary Care) Vital Signs: Last Vital Signs Pulse 85 11/04/23 08:46 BP 154/102 H 11/04/23 08:46 Pulse Ox 97 11/04/23 08:46 Oxygen Delivery Method Room Air 11/04/23 08:46 Care Plan Goal for BP management: Be compliant with your medications. Next steps: Blood pressure will be recheck next month BMI result Body Mass Index 31.5 BMI Assessment/Plan discussion: High BMI High, discussed plan: lifestyle, weight reduction, dietary, physical activity and alcohol moderation Tobacco/Smoking Status: Tobacco use Status Tobacco use date assessed 08/13/23 11/04/23 08:46 Patient Tobacco Use Status Current everyday Tobacco 11/04/23 08:46 Tobacco use type Cigarette 11/04/23 08:46 e-Cigarette/Vaping Use Never Used 11/04/23 08:46 Are you ready to quit: Yes Tobacco cessation counseling provided: Yes Items discussed: [employer] and Other (Chantix) Relapse Prevention: discussed the importance of a supportive environment, discussed negative mood or depression after quitting, weight gain after smoking is common and discussed dietary, exercise and/or lifestyle changes Number of minutes spent counselin CPT code: 20952 - 4-10 Minutes PHQ-9: PHQ-9 Score PHQ-9: Total score 0 11/04/23 08:46 Depression Screening Interpretation: Negative Thrive Assessment: Date of Thrive Assessment Date Thrive assessed 11/04/23 11/04/23 08:46 Currently or been in a relationship where the following occur: no concerns reported Neck Neck: Yes full ROM and Yes trachea midline Lymphatic: lymphadenopathy (right submandibular lymphadenopathy 2 x 2 cm) Resp Effort & Inspection: normal respiratory effort Auscultation: clear to auscultation bilaterally Cardio Jugular venous distension: no JVD Rate: regular rate Rhythm: regular rhythm Heart sounds: S1 normal heart sound present and S2 normal heart sound present Assessment and Plan Assessment & Plan (1) Type 2 diabetes mellitus without complication, without long-term current use of insulin: Code(s): E11.9 - Type 2 diabetes mellitus without complications Plan: Continue Trulicity. A1c goal is equal or less than 7%. (2) Pure hypercholesterolemia: Code(s): E78.00 - Pure hypercholesterolemia, unspecified Plan: Continue statins. LDL goal is less than 70. Advised to follow a low-cholesterol diet. (3) Hypertrophic obstructive cardiomyopathy: Code(s): I42.1 - Obstructive hypertrophic cardiomyopathy Plan: Continue verapamil. The goal is to not gain 5 lb in a week. Follow-up with Cardiology. (4) Essential hypertension: Code(s): I10 - Essential (primary) hypertension Plan: Continue verapamil. Blood pressure goal is equal or less than 130/80. Continue a low-salt diet. (5) Submandibular lymphadenopathy: Code(s): R59.0 - Localized enlarged lymph nodes Plan: Start antibiotics. Coding Level of Care Code Est Pt Level 4 (93755) Complex EM visit Add On G2211 Diagnoses Type 2 diabetes mellitus without complication, without long-term current use of insulin E11.9 Pure hypercholesterolemia E78.00 Hypertrophic obstructive cardiomyopathy I42.1 Essential hypertension I10 Submandibular lymphadenopathy R59.0 Additional Codes MARTIN-7 Assessment Billing - MARTIN-7 Assessment Tool: MARTIN-7 Assessment 80777 ([id number]) Vital Signs *Quality* - CPT code: 54953 - 4-10 Minutes ([id number]) Time Spent (min) 25
[2023-11-04 08:46] VITALS: BP 154/102; PULSE 85; O2SAT 97; BMI 31.5
== END 2023-11-04 10:29 | disposition home or self-care (01) ==
LOC: HO.HMGH 08:38
PROVIDERS: PCP Internal Medicine; Visit Provider Internal Medicine
DX: E11.9 Type 2 diabetes mellitus without complications (principal); I42.1 Obstructive hypertrophic cardiomyopathy; F17.210 Nicotine dependence, cigarettes, uncomplicated; E78.00 Pure hypercholesterolemia, unspecified; I10 Essential (primary) hypertension; R59.0 Localized enlarged lymph nodes
CPT/HCPCS: 99214; 99406; G2211

== ENCOUNTER 2023-11-09 11:00 | Outpatient (AMB) | payer OTHER, SELFPAY ==
--- NOTE | 2023-11-09 11:03 | A.OFFVIS_ITS ---
Vital Signs 11/09/23 11:05 Height 6 ft Weight 238 lb 8.642 oz BMI 32.3 BP 150/76 H Blood Pressure Location Lt brachial Position Sitting Pulse 92 Pulse Source Pulse Oximeter Intake Visit Reasons: T2DM/CONFIRMED Intake Note: Patient present today to follow up on Type Diabetes Mellitus. Last seen by Dr. Cary on 09/16/2022. Last Diabetic Eye exam: November 2022 Last Podiatry Visit: Doesn't have one. Random Glucose: 108 mg/dl HgA1C: 6.4% Natural Resources Manager Required: Yes Natural Resources Manager Language: Butcher Apprentice Name: Jesenia Information Interpreted: non-clinical & clinical Accompanied by: Self / Same As Patient Allergies Penicillins [PENICILLINS] Allergy (Intermediate, Verified 11/09/23 11:08) RASH metformin Adverse Reaction (Intermediate, Verified 11/09/23 11:08) Diarrhea HPI HPI T2DM/CONFIRMED: Details: Patient is a 38-year-old male with a significant past medical history hypertension, hypertrophic cardiomyopathy, hyperlipidemia, type 2 diabetes, MARA and arthritis presenting today for a follow-up regarding his diabetes. Endo: He was seen last year by Dr. Cary and started on Trulicity 0.75 mg. He is no longer taking glipizide. Did not tolerate metformin. His A1c today is 6.4. He does not have any testing supplies at home. States in the past he used the [employer] Jai and would like to use this again because it is hard for him to check his blood sugars due to his peripheral neuropathy from his carpal tunnel. He has an eye exam coming up. Not on an ANTONETTE-inhibitor. Cholesterol controlled with a statin. -he does not see a circus roustabout at baseline but would like to see someone because for the last few months he has had pain in the plantar aspect of his right foot. He states that he went to the ER for this and they told him that his tendon was inflamed. There was no trauma. He states he had a normal x-ray. The pain is worse when he 1st gets up in the morning, palpation and after walking. He denies any swelling or bruising. No numbness, tingling or weakness. CV: Blood pressure is usually controlled with verapamil 80 mg, metoprolol 100 mg twice a day. Blood pressure today in the office is elevated at 150/76. He is currently up 6 lb from his last office visit. He denies any lower leg edema. He states that he did not take his verapamil and metoprolol yet today. It was elevated and his PCPs office last week. Lipids controlled with atorvastatin 20 mg. No myalgias. [facility] Medical History (Updated 11/09/23 @ 11:37 by Manda Chino PA-C) Sacroiliitis Diabetes mellitus, without long-term current use of insulin Diabetes mellitus without complication, with long-term current use of insulin Foot abscess, right Poorly controlled type 2 diabetes mellitus Diabetes Osteoarthritis of right knee 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 Social History Household Members: Family Housing: Apartment Do you presently have visiting nurse or other home services: No Alcohol intake: current Alcohol intake frequency: a few times a month Alcohol type: beer Patient Tobacco Use Status: Current everyday Tobacco user Tobacco use type: Cigarette Cigarettes Per Day: 10 Years Smoked: 20 e-Cigarette/Vaping Use: Never Used Second Hand Smoke Exposure: No service: No Current occupational status: employed Current occupational exposures/hazards: No Cognitive needs: No Hearing needs: No Vision needs: Yes (Glasses) Physical Exam Vital Signs: Last Vital Signs Pulse 92 11/09/23 11:05 BP 150/76 H 11/09/23 11:05 BMI result Body Mass Index 32.3 Const Orientation/consciousness: patient oriented x3 Neck Neck: Yes no lymphadenopathy Thyroid: Thyroid normal Carotids: no bruits Resp Auscultation: clear to auscultation bilaterally Cardio Rate: regular rate Rhythm: regular rhythm Heart sounds: S1 normal heart sound present and S2 normal heart sound present Peripheral pulses: dorsalis pedis present Neuro General: patient oriented x3, gait normal and no focal motor deficits Extrem Other: Monofilament sensation intact bilaterally. Vibratory sensation intact bilaterally. Skin intact. General: Yes normal to inspection Results AMB Hemoglobin A1c AMB Hemoglobin A1c 6.4 % Last Edit by MOOKIE Gonzalez on 11/09/23 11:23 Results Reviewed Results Reviewed: Laboratory Last Values Glucose (Clinic) 108 mg/dL (60-115) 11/09/23 11:12 Hgb A1c (Clinic) 6.4 % (4.0-6.0) H 11/09/23 11:20 Laboratory Tests 08/13/23 08/13/23 08/13/23 07:48 08:27 08:33 Sodium 142 Potassium 4.2 Chloride 106 Carbon Dioxide 25 Anion Gap 15 BUN 19 H Creatinine 0.77 Estimated GFR > 60 Fasting Glucose 118 H Hgb A1c (Clinic) 5.8 Calcium 9.7 Total Bilirubin 0.6 AST 29 ALT 45 H Alkaline Phosphatase 87 NT-Pro-B Natriuret Pep 1014 H Total Protein 7.7 Albumin 4.8 Triglycerides 82 Cholesterol 165 LDL Cholesterol, Calc 105 H HDL Cholesterol 44 Urine Creatinine 194.14 Urine Microalbumin 16.0 Microalb/Creat Ratio 8.2 Assessment & Plan Assessment & Plan (1) Type 2 diabetes mellitus without complication, without long-term current use of insulin: Code(s): E11.9 - Type 2 diabetes mellitus without complications Category: Medical Plan: Continue current regimen. Testing supplies ordered. Will follow up in 3 months. Sooner if needed. (2) HTN (hypertension): Code(s): I10 - Essential (primary) hypertension Category: Medical Qualifiers: Hypertension type: primary hypertension Qualified Code(s): I10 - Essential (primary) hypertension Plan: Reminded him the importance of compliance with this medication. He does not appear to be fluid overloaded. He is asymptomatic. Continue current regimen and short-term follow-up with PCP. (3) Pure hypercholesterolemia: Code(s): E78.00 - Pure hypercholesterolemia, unspecified Category: Medical Plan: Continue current regimen (4) Right foot pain: Code(s): M79.671 - Pain in right foot Category: Medical Plan: referral to podiatry Orders: Orders AMB Hemoglobin A1c Today E11.9 - Type 2 diabetes mellitus without complications, Z13.9 - Encounter for screening, unspecified Hemoglobin A1c 2 Months E11.9 - Type 2 diabetes mellitus without complications Referrals Podiatry Referral E11.9 - Type 2 diabetes mellitus without complications, M79.671 - Pain in right foot Medications: New blood-glucose sensor ([employer] Jai 3 Sensor device) Apply every 14 days As d irected 2 ea 11RF E11.9 - Type 2 diabetes mellitus without complications, G62.9 - Polyneuropathy, unspecified blood sugar diagnostic (FreeStyle Lite Strips) Use daily As directed to check blood glucose 100 ea 3RF E11.9 - Type 2 diabetes mellitus without complications lancets (FreeStyle Lancets) Use daily As directed to check blood glucose 100 ea 3RF E11.9 - Type 2 diabetes mellitus without complications blood-glucose meter (FreeStyle Lite Meter kit) Use daily As directed to check blood glucose 1 ea 0RF E11.9 - Type 2 diabetes mellitus without complications Coding Level of Care Code Est Pt Level 4 (98559) Complex EM visit Add On G2211 Diagnoses Type 2 diabetes mellitus without complication, without long-term current use of insulin E11.9 Primary hypertension I10 Hypertension type: primary hypertension Pure hypercholesterolemia E78.00 Right foot pain M79.671
[2023-11-09 11:05] VITALS: BP 150/76; PULSE 92; BMI 32.3
[2023-11-09 11:16] LABS: Glucose, Whole Blood 108 mg/dL (60-115)
== END 2023-11-09 11:35 | disposition home or self-care (01) ==
PROVIDERS: PCP Internal Medicine; Visit Provider Physician Assistant
DX: E11.9 Type 2 diabetes mellitus without complications (principal); I10 Essential (primary) hypertension; E78.00 Pure hypercholesterolemia, unspecified; M79.671 Pain in right foot; Z13.9 Encounter for screening, unspecified
CPT/HCPCS: 99214; G2211

== ENCOUNTER → 2023-11-09 11:00 | Outpatient (BNVA) | payer OTHER, SELFPAY | PROVIDERS: PCP Internal Medicine; Visit Provider Physician Assistant | DX: E11.9 Type 2 diabetes mellitus without complications (principal); I10 Essential (primary) hypertension; E78.00 Pure hypercholesterolemia, unspecified; M79.671 Pain in right foot | CPT/HCPCS: 82947; 83036; 99212 ==

== ENCOUNTER 2024-01-11 15:09 | Outpatient (REF) | payer OTHER, SELFPAY ==
--- NOTE | ~2024-01-11 | MR_ITS ---
EXAMINATION: MR FOOT WITHOUT AND WITH CONTRAST, RIGHT CLINICAL INFORMATION: Plantar surface painful, burning lumps. Puncture wound with subsequent surgery one year ago. COMPARISON: Most recent right foot CT dated 12/09/2021 and MRI dated 01/24/2020. TECHNIQUE: MRI of the right foot was performed before and after the intravenous administration of 10 mL Gadavist on a high-field scanner. FINDINGS: BONE: No marrow edema or evidence of acute osseous injury. No metatarsal stress reaction or fracture. No concerning lytic or blastic osseous lesion. No postcontrast enhancement. MUSCLES/TENDONS: Small amount of fluid within the partially visualized distal posterior tibialis tendon sheath consistent with mild tenosynovitis. No transverse tendon tear or tendon retraction. LIGAMENTS: Intact Lisfranc ligament. The plantar plates are intact. SOFT TISSUES: In the region of the overlying skin marker along the distal aspect of the medial plantar fascial band, there is a lobulated focus of isointense T1 and T2 signal with prominent postcontrast enhancement measuring up to 2.1 cm in ML dimension. Additional, similar-appearing foci more medially within the subcutaneous tissues and adjacent to the additional soft tissue marker measuring up to 1.0 cm. More distally along the plantar aspect of the flexor hallucis longus tendon, there is a similar soft tissue focus measuring up to 2.3 cm. Distal and medial subcutaneous focus measuring up to 0.5 cm (series 8 image 33/45). Findings are new when compared to the prior MRI and appear more prominent when compared to the prior CT. These findings likely represent fibromas. MR/MR foot RT wo/w con IMPRESSION: 1. Multiple soft tissue nodules with prominent postcontrast enhancement along the plantar aspect of the distal medial plantar fascial band as well as more distally along the plantar aspect of the flexor hallucis longus tendon. Findings are new when compared to the prior MRI and appear more prominent when compared to the prior CT. These findings likely represent fibromas. 2. No acute osseous abnormality. No metatarsal stress reaction or fracture. 3. Mild posterior tibialis tenosynovitis without a measurable tendon tear. Electronically signed by: Shar Araiza MD 01/13/2024 08:53 AM EDT
[2024-01-11] MEDS: gadobutroL 7.5 ML VIAL IVPUSH ×2 (16:08→16:09)
== END 2024-01-11 15:10 | disposition home or self-care (01) ==
LOC: HO.MRI 15:09
PROVIDERS: PCP Internal Medicine; Visit Provider Internal Medicine
DX: L02.611 Cutaneous abscess of right foot (principal)
CPT/HCPCS: 73720; A9585

== ENCOUNTER 2024-02-08 09:46 | Outpatient (AMB) | payer OTHER, SELFPAY ==
--- NOTE | 2024-02-08 09:49 | MHC.OFFVIS ---
Vital Signs 02/08/24 09:50 Height 6 ft Weight 245 lb 9.519 oz BMI 33.3 BP 138/106 H Blood Pressure Location Lt brachial Position Sitting Pulse 87 Pulse Source Pulse Oximeter Intake Visit Reasons: DM/CONFIRMED Intake Note: Patient presents today for D2MT follow up visit. Last Diabetic Eye exam: 12/2023 Last Podiatry Visit: 01/2024 Random Glucose: 116 mg/dl HgA1c: 7.0% Disaster Recovery Consultant Required: Yes Disaster Recovery Consultant Language: Underwriting Consultant Services: Disaster Recovery Consultant Present Disaster Recovery Consultant Name: Jesenia Information Interpreted: non-clinical & clinical Accompanied by: Self / Same As Patient Allergies Penicillins [PENICILLINS] Allergy (Intermediate, Verified 02/08/24 10:00) RASH metformin Adverse Reaction (Intermediate, Verified 02/08/24 10:00) Diarrhea Medication List - Last Reconciled 02/08/24 by Manda Chino PA-C atorvastatin 20 mg PO BEDTIME 90 days blood sugar diagnostic (FreeStyle Lite Strips) Use daily As directed to check blood glucose blood-glucose meter (FreeStyle Lite Meter kit) Use daily As directed to check blood glucose blood-glucose sensor (FreeStyle Jai 3 Sensor device) Apply every 14 days As directed dulaglutide (Trulicity) 0.75 mg (0.5 mL) subcut QWEEK 90 days lancets (FreeStyle Lancets) Use daily As directed to check blood glucose metoprolol tartrate 100 mg PO BID 90 days verapamil 80 mg PO BID HPI HPI DM/CONFIRMED: Details: Patient is a 38-year-old male with a significant past medical history hypertension, hypertrophic cardiomyopathy, hyperlipidemia, type 2 diabetes, MARA and arthritis presenting today for a follow-up regarding his diabetes. Disaster Recovery Consultant: #[id number] Charan Rodriguez: He was diagnosed with diabetes he thinks about 5 years ago. He states his mother has type 2 diabetes but his father has type 1. His previous A1c was 6.4. Today his A1c is7. He is currently on Trulicity 0.75 mg. He did not tolerate metformin or glipizide. He does not have any testing supplies at home, he never picked them up. He has had diabetic Education. does not wish to go back right now Not on an ANTONETTE-inhibitor. Cholesterol controlled with a statin. CV: Blood pressure is usually controlled with verapamil 80 mg, metoprolol 100 mg twice a day. Blood pressure today in the office is elevated at 138/106. He is currently up 7 lb from his last office visit. He denies any lower leg edema. He states that he did not take his verapamil and metoprolol yet today. Lipids controlled with atorvastatin 20 mg. No myalgias. 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 Social History Household Members: Family Housing: Apartment Do you presently have visiting nurse or other home services: No Alcohol intake: current Alcohol intake frequency: a few times a month Alcohol type: beer Patient Tobacco Use Status: Current everyday Tobacco user Tobacco use type: Cigarette Cigarettes Per Day: 10 Years Smoked: 20 e-Cigarette/Vaping Use: Never Used Second Hand Smoke Exposure: No service: No Current occupational status: employed Current occupational exposures/hazards: No Cognitive needs: No Hearing needs: No Vision needs: Yes (Glasses) Physical Exam Vital Signs: Last Vital Signs Pulse 87 02/08/24 09:50 BP 138/106 H 02/08/24 09:50 BMI result Body Mass Index 33.3 Const Orientation/consciousness: patient oriented x3 Neck Neck: Yes no lymphadenopathy Thyroid: Thyroid normal Carotids: no bruits Resp Auscultation: clear to auscultation bilaterally Cardio Rate: regular rate Rhythm: regular rhythm Heart sounds: S1 normal heart sound present and S2 normal heart sound present Peripheral pulses: dorsalis pedis present Neuro General: patient oriented x3, gait normal and no focal motor deficits Extrem Other: Monofilament sensation intact bilaterally. Vibratory sensation intact bilaterally. Skin intact. General: Yes normal to inspection Results AMB Hemoglobin A1c AMB Hemoglobin A1c 7.0 % Last Edit by MOOKIE Gonzalez on 02/08/24 10:21 Results Reviewed Results Reviewed: Laboratory Last Values Glucose (Clinic) 116 mg/dL (60-115) H 02/08/24 10:03 Hgb A1c (Clinic) 7.0 % (4.0-6.0) H 02/08/24 10:20 Laboratory Tests 08/13/23 11/09/23 08:33 11:20 Creatinine 0.77 Estimated GFR > 60 Fasting Glucose 118 H Hgb A1c (Clinic) 6.4 H Triglycerides 82 Cholesterol 165 LDL Cholesterol, Calc 105 H HDL Cholesterol 44 Assessment & Plan Assessment & Plan (1) Type 2 diabetes, controlled, with peripheral neuropathy: Code(s): E11.42 - Type 2 diabetes mellitus with diabetic polyneuropathy Category: Medical Plan: A1c did increase today from 6.4 to 7. I will increase trulicity. I reordered testing supplies which he states he never picked up. He will let me know if there are any issues with this. I have strongly encouraged diet changes. (2) Essential hypertension: Code(s): I10 - Essential (primary) hypertension Category: Medical Plan: Did not take his medication today. Advised him to go home and take his medicine as directed by Cardiology. We reviewed associated with noncompliance. (3) Pure hypercholesterolemia: Code(s): E78.00 - Pure hypercholesterolemia, unspecified Category: Medical Plan: We did discuss that his cholesterol should be a little lower. He is going to work on some diet changes. He is continue on the atorvastatin. We will recheck in 3 months. Orders: Orders Lipid Panel 3 Months E11.42 - Type 2 diabetes mellitus with diabetic polyneuropathy, E78.00 - Pure hypercholesterolemia, unspecified, I10 - Essential (primary) hypertension Hemoglobin A1c 3 Months E11.42 - Type 2 diabetes mellitus with diabetic polyneuropathy, E78.00 - Pure hypercholesterolemia, unspecified, I10 - Essential (primary) hypertension Microalbumin, Random (w Creat) 3 Months E11.42 - Type 2 diabetes mellitus with diabetic polyneuropathy, E78.00 - Pure hypercholesterolemia, unspecified, I10 - Essential (primary) hypertension Glutamic acid decarboxylase Ab 3 Months E11.42 - Type 2 diabetes mellitus with diabetic polyneuropathy, E78.00 - Pure hypercholesterolemia, unspecified, I10 - Essential (primary) hypertension Islet Cell Antibody Scrn/Titer 3 Months E11.42 - Type 2 diabetes mellitus with diabetic polyneuropathy, E78.00 - Pure hypercholesterolemia, unspecified, I10 - Essential (primary) hypertension C Peptide 3 Months E11.42 - Type 2 diabetes mellitus with diabetic polyneuropathy, E78.00 - Pure hypercholesterolemia, unspecified, I10 - Essential (primary) hypertension AMB Hemoglobin A1c Today E11.42 - Type 2 diabetes mellitus with diabetic polyneuropathy, Z13.9 - Encounter for screening, unspecified Comprehensive [place]. Panel Fast 3 Months E11.42 - Type 2 diabetes mellitus with diabetic polyneuropathy, E78.00 - Pure hypercholesterolemia, unspecified, I10 - Essential (primary) hypertension Medications: New dulaglutide (Trulicity) 1.5 mg (0.5 mL) subcut QWEEK 2 mL 5RF Refilled lancets (FreeStyle Lancets) Use daily As directed to check blood glucose 100 ea 3RF E11.9 - Type 2 diabetes mellitus without complications blood sugar diagnostic (FreeStyle Lite Strips) Use daily As directed to check blood glucose 100 ea 3RF E11.9 - Type 2 diabetes mellitus without complications blood-glucose meter (FreeStyle Lite Meter kit) Use daily As directed to check blood glucose 1 ea 0RF E11.9 - Type 2 diabetes mellitus without complications Discontinued dulaglutide (Trulicity) Discontinued Reason: Doctor's Order 0.75 mg (0.5 mL) subcut QWEEK 90 days 6.5 mL 2RF E11.9 - Type 2 diabetes mellitus without complications Coding Level of Care Code Est Pt Level 4 (95186) Complex EM visit Add On G2211 Diagnoses Type 2 diabetes, controlled, with peripheral neuropathy E11.42 Essential hypertension I10 Pure hypercholesterolemia E78.00
[2024-02-08 09:50] VITALS: BP 138/106; PULSE 87; BMI 33.3
[2024-02-08 10:08] LABS: Glucose, Whole Blood 116 mg/dL (60-115)
== END 2024-02-08 10:30 | disposition home or self-care (01) ==
PROVIDERS: PCP Internal Medicine; Visit Provider Physician Assistant
DX: E11.42 Type 2 diabetes mellitus with diabetic polyneuropathy (principal); I10 Essential (primary) hypertension; E78.00 Pure hypercholesterolemia, unspecified; Z13.9 Encounter for screening, unspecified

== ENCOUNTER → 2024-02-08 09:46 | Outpatient (BNVA) | payer OTHER, SELFPAY | PROVIDERS: PCP Internal Medicine; Visit Provider Physician Assistant | DX: E11.42 Type 2 diabetes mellitus with diabetic polyneuropathy (principal); E78.00 Pure hypercholesterolemia, unspecified; I10 Essential (primary) hypertension | CPT/HCPCS: 82947; 83036; 99212 ==

== ENCOUNTER 2024-02-08 10:56 | Outpatient (REF) | payer OTHER, SELFPAY ==
[2024-02-08 12:29] LABS: Erythrocyte Sedimentation Rate 3 MM/HR (0-15)
[2024-02-08 12:35] LABS: Rheumatoid Factor < 13.0 IU/mL (<15.0)
[2024-02-10 07:33] LABS: Cyclic Citrullinated Peptide <16 UNITS
[2024-02-10 11:57] LABS: Anti Nuclear Antibody Screen NEGATIVE (NEGATIVE)
== END 2024-02-08 10:57 | disposition home or self-care (01) ==
LOC: HO.LAB 10:56
PROVIDERS: PCP Internal Medicine; Visit Provider Nurse Practitioner Family
DX: M53.3 Sacrococcygeal disorders, not elsewhere classified (principal); M51.36 Other intervertebral disc degeneration, lumbar region; M25.50 Pain in unspecified joint
CPT/HCPCS: 36415; 85652; 86038; 86141; 86200; 86431

== ENCOUNTER 2024-02-15 10:51 | Outpatient (AMB) | payer OTHER, SELFPAY ==
--- NOTE | 2024-02-15 10:52 | MHC.OFFVIS ---
Vital Signs 02/15/24 11:03 02/15/24 11:04 Height 6 ft Weight 245 lb BMI 33.2 BP 205/100 H 176/97 H Blood Pressure Location Lt brachial Lt brachial Position Sitting Sitting Pulse 104 H 100 Pulse Source Pulse Oximeter Pulse Oximeter Pulse Oximetry (%) 99 99 Oxygen Delivery Method Room Air Room Air Intake Visit Reasons: Back Pain Intake Note: Pain today 12/25 Monitor And Storage Bin Tender Required: Yes Monitor And Storage Bin Tender Language: Lint Cleaner Name: Jorge L #[id number] Accompanied by: Self / Same As Patient Allergies Penicillins [PENICILLINS] Allergy (Intermediate, Verified 02/15/24 11:04) RASH metformin Adverse Reaction (Intermediate, Verified 02/15/24 11:04) Diarrhea HPI Comments Details: Patient presents today for follow up for chronic low back with radicular symptoms. language interpreter via Video Remote Monitor And Storage Bin Tender on iPad was utilized during today's encounter. Patient was previously seen in August with plans to repeat diagnostic sacroiliac joint innervation in order to establish reproducible response to the treatment for potential Curonix PNS trial. His imaging on 02/02/23 showed moderate degenerative changes in the bilateral sacroiliac joints. Unfortunately, we have not received insurance approval for this yet, will resubmit for PA again. Patient also reports worsening low back pain with forward flexion and bending, indicating discogenic source. He reports left lumbar radiculopathy in L5-S1 distribution and was deemed non-surgical last year [place] [facility]. Denies any recent cough, cold, infection, fever, bladder or bowel dysfunction, saddle anesthesia any significant changes in her medical history, medications or recent hospitalizations except recent right hand surgery on 11/21/23. Patient is wearing right lower arm and hand brace. He also reports chronic right foot and heel pain with recent MRI follow up as noted below. Past Procedures: 08/12/23: Bilateral Diagnostic SIJ injections-50% pain relief for 5 hours 08/12/22: Left L5-S1 TFESI -0% pain relief, reports worsening of pain after injection 06/17/22: Diagnostic Bilateral L3-L4 DR L5 MBB-50% pain relief for 6 hours PRIOR: Patient is a pleasant 36 years old Korean speaking male who presents for evaluation of worsening of chronic lower back pain with radiculopathy to left lower extremity and right knee pain. He is being treated at [facility] for right knee pain, had previously done cortisone injections, fluid aspiration, x rays and recently had obtained right knee MRI with pending results. He believes he might need surgery. His last imaging showed mild degenerative change at the lateral and patellofemoral compartments with small osteophytes present. Patient also [place] [facility] for multiple arthralgias and has mildly elevated ESR. Patient reports his back pain originates in his lower back and spreads across his left side into his left thigh anteriorly and laterally and into left lower leg anteriorly and medially in the projection of L4/L5 dermatome with significant pain in his left big toe and numbness and tingling in the whole left foot. 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 Patient also noticed worsening of back pain about 1.5 years ago while he was standing bending forward to wash dishes and felt exacerbation of pain. Pain is described as constant aching, hot, burning, tingling, pins and needles and numbness sensations. He states the pain is interfering with sleep, daily activities, mood, quality of life and he cannot function normally. Patient denies any fever, chills, abdominal or groin pain, weakness, weight loss, bowel/bladder incontinence or saddle anesthesia. He has poorly controlled diabetes with recent random glucose 245 on 08/19/21, his recent A1C-8.2 on 05/07/21 and A1C-11.2 on 03/26/21. We rechecked his A1C today and it was 8.8 with average blood sugars 206. Patient reports he has not been checking his blood sugars at home for a few weeks due to traveling for a family emergency in [place]. Patient has previously tried chiropractic manipulation (Dr. Dodge, [facility]), TENS unit, ice and heat therapy and massages with no improvement in his symptoms. He is starting formal PT on 12/11/21. Patient has been taking Tylenol, gabapentin, meloxicam, and also tried Ibuprofen and Naproxen in the past without pain relief. 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 We briefly discussed neuromodulation for his right knee pain after his clearance with [facility]. For his back pain, we will start with PT and will proceed with MRI if no improvement in his symptoms. [facility] Medical History (Updated 02/15/24 @ 12:35 by FAWN Pearl) Hypertrophic obstructive cardiomyopathy Sacroiliitis Diabetes mellitus, without long-term current use of insulin Diabetes mellitus without complication, with long-term current use of insulin Foot abscess, right Poorly controlled type 2 diabetes mellitus Diabetes Osteoarthritis of right knee 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 Social History Household Members: Family Housing: Apartment Do you presently have visiting nurse or other home services: No Alcohol intake: current Alcohol intake frequency: a few times a month Alcohol type: beer Patient Tobacco Use Status: Current everyday Tobacco user Tobacco use type: Cigarette Cigarettes Per Day: 10 Years Smoked: 20 e-Cigarette/Vaping Use: Never Used Second Hand Smoke Exposure: No service: No Current occupational status: employed Current occupational exposures/hazards: No Cognitive needs: No Hearing needs: No Vision needs: Yes (Glasses) Review of Systems Const All systems reviewed & are unremarkable except as noted in HPI and below Physical Exam Vital Signs: Last Vital Signs Pulse 100 02/15/24 11:04 BP 176/97 H 02/15/24 11:04 Pulse Ox 99 02/15/24 11:04 Oxygen Delivery Method Room Air 02/15/24 11:04 BMI result Body Mass Index 33.2 General: Appears afebrile. Alert and oriented. Mood and affect appropriate. Follows and participates in conversation appropriately. Respiratory effort is unlabored. No cough. Able to transition from sit to stand unassisted. Ambulates with bilaterally normal heel strike and toe off, reports right heel pain. Patient is wearing right hand brace. Reports recent surgery 11/21/23. General: Yes no CVA tenderness Back/Spine/Pelvis Other: Limited lumbar ROM with extension reproducing mild pain. Lumbar flexion reproduces moderate to severe pain. Demonstrates 5/5 right and 4/5 left strength of quadriceps bilaterally as well as flexion/dorsiflexion of bilateral feet against resistance. 2+ pedal pulses bilaterally. Straight leg rise with dorsiflexion positive on the left. +1 patellar and diminished left achilles reflexes, not checked on the right due to pain. Facet loading test positive bilaterally. Yajaira sign, Luis?s, Gaenslen, Pelvic compression and Stinchfield tests are positive bilaterally, worse on the left. No groin pain with I/E hip rotations. Minimal TTP to bilateral GTB. Valsalva maneuver negative. Back: no CVA tenderness Cervical Spine: cervical muscular tenderness, pain with cervical ROM, No Cervical spine tenderness and No step off deformity Thoracic/Lumbar Spine: thoracic and lumbar spine normal to inspection, No Thoracic/lumbar spine scar(s), Lasegue's sign positive on the left and diffuse, pain with thoraco-lumbar ROM, paraspinal muscle tenderness, thoraco-lumbar ROM limited, No thoracic spinal tenderness, lumbar spinal tenderness at L4 and at L5 and straight leg raise positive left at 50 degrees Pelvis: buttock tenderness bilaterally Sacroiliac joints: bilaterally tender to palpation Extrem General: Yes capillary refill normal, Yes no clubbing, cyanosis or edema and Yes no calf tenderness Right lower extremity: foot (tenderness posterior and medial heel) Details: normal capillary refill, normal to inspection and no edema; no unusual warmth, no abrasion, no laceration, no ecchymosis and no crepitus Results Reviewed Results Reviewed: MR LUMBAR SPINE WITHOUT CONTRAST 03/25/22 FINDINGS: VERTEBRAL BODIES AND PARASPINAL STRUCTURES: There is slight reversal of the normal lumbar lordosis. There is loss of signal from the discs at L2-L3 through L5-S1 consistent with disc desiccation. There is mild narrowing of intervertebral disc height at L3-L4. There are degenerative endplate contour changes at L4-L5 with Schmorl's nodes and fatty endplate signal changes. There are mild edematous endplate signal changes at L3-L4 and L5-S1. Vertebral body heights are maintained and no fractures are demonstrated. Overall, marrow signal is homogenous. The visualized retroperitoneal and pelvic structures are unremarkable. There are degenerative changes at the right sacroiliac joint with sclerosis. CONUS MEDULLARIS AND CAUDA EQUINA: Normal, terminating at the level of L1-L2. The lower thoracic spinal cord appears normal. The cauda equina nerve roots appear normal. There is a minimal amount of fat in the non-thickened filum terminale at the level of L4-L5. SPINAL LEVELS: L1-L2: The facet joints appear normal bilaterally. Disc contour is normal. There is no central stenosis or foraminal narrowing. L2-L3: There is mild bilateral facet arthropathy with ligamenta flava hypertrophy. There is a central and left-sided posterior disc protrusion with an annular fissure which mildly distorts the ventral thecal sac but there is no central stenosis. The neural foramina are patent bilaterally. L3-L4: There is mild bilateral facet arthropathy. There is a diffuse disc bulge with a small annular fissure posteriorly with minimal flattening of the ventral thecal sac. There is no central stenosis. The neural foramina are patent bilaterally. L4-L5: There is mild bilateral facet arthropathy. There is a posterior disc protrusion with an annular fissure which is most prominent just to the left of midline and there is distortion of the ventral thecal sac. There is no central stenosis, and the neural foramina are patent bilaterally. L5-S1: There is moderate bilateral facet arthropathy with facet joint effusions. There is a posterior disc protrusion which is most prominent in the midline with distortion of the ventral thecal sac but there is no central stenosis. There are bilateral foraminal disc protrusions with mild impingement on the exiting L5 nerve roots. IMPRESSION: 1. At L5-S1 there is a posterior disc protrusion, extending into the neural foramina bilaterally with impingement on the exiting L5 nerve roots. There is no central stenosis. 2. There is spondylosis with facet arthropathic changes at other levels as described above, without central stenosis or foraminal nerve root impingement. XR SACROILIAC JOINTS 02/02/23 CLINICAL INFORMATION: Interval vertebral disc degeneration lumbar region, pain COMPARISON: MR lumbar spine 03/25/2022, x-ray lumbar spine 11/28/2021 FINDINGS: Degenerative changes on limited views of the lower lumbar spine. Moderate degenerative changes in the bilateral sacroiliac joints with sclerosis and narrowing. IMPRESSION: Moderate degenerative changes in the bilateral sacroiliac joints. MR foot RT wo/w con 01/11/24 IMPRESSION: 1. Multiple soft tissue nodules with prominent postcontrast enhancement along the plantar aspect of the distal medial plantar fascial band as well as more distally along the plantar aspect of the flexor hallucis longus tendon. Findings are new when compared to the prior MRI and appear more prominent when compared to the prior CT. These findings likely represent fibromas. 2. No acute osseous abnormality. No metatarsal stress reaction or fracture. 3. Mild posterior tibialis tenosynovitis without a measurable tendon tear. Assessment & Plan Assessment & Plan (1) Sacroiliac joint pain: Code(s): M53.3 - Sacrococcygeal disorders, not elsewhere classified Category: Medical (2) Lumbar degenerative disc disease: Code(s): M51.36 - Other intervertebral disc degeneration, lumbar region Category: Medical (3) Lumbar spondylosis: Code(s): M47.816 - Spondylosis without myelopathy or radiculopathy, lumbar region Category: Medical (4) Sacroiliitis: Code(s): M46.1 - Sacroiliitis, not elsewhere classified Category: Medical (5) Lumbar radiculopathy: Code(s): M54.16 - Radiculopathy, lumbar region Category: Medical (6) Spondylolisthesis, lumbar region: Code(s): M43.16 - Spondylolisthesis, lumbar region Category: Medical (7) Vertebrogenic low back pain: Code(s): M54.51 - Vertebrogenic low back pain Category: Medical Plan Pending PA for Bilateral Diagnostic Sacroiliac Joint Innervation injections with sedation and fluoroscopy. Expectations, risks and benefits were reviewed again with patient today. Patient is aware he will be contacted to schedule this procedure once we receive PA approval. Short script provided for oxycodone for moderate to severe pain only. Side effects, medication safety and precautions discussed with patient. MRI of the lumbar spine to assess for neural integrity and compression and follow up on recent MRI findings. All questions were answered and the patient is in agreement of plan. Follow-up MRI results and sooner as needed. Orders: Orders MR lumbar spine wo con Today M43.16 - Spondylolisthesis, lumbar region, M47.816 - Spondylosis without myelopathy or radiculopathy, lumbar region, M51.36 - Other intervertebral disc degeneration, lumbar region, M54.16 - Radiculopathy, lumbar region, M54.51 - Vertebrogenic low back pain Medications: New oxycodone Partial Fill upon patient request. 5 mg PO Q8H 7 days PRN 20 tabs 0RF pain M51.36 - Other intervertebral disc degeneration, lumbar region, M53.3 - Sacrococcygeal disorders, not elsewhere classified, M54.51 - Vertebrogenic low back pain naloxone 4 mg/actuation (Narcan) spray 1 dose into ONE nostril; alternate nostrils w each dose until help arrives 4 mg intranasal Q2M PRN 2 ea 0RF opioid overdose Coding Level of Care Code Est Pt Level 4 (19911) Complex EM visit Add On G2211 Diagnoses Sacroiliac joint pain M53.3 Lumbar degenerative disc disease M51.36 Lumbar spondylosis M47.816 Sacroiliitis M46.1 Lumbar radiculopathy M54.16 Spondylolisthesis, lumbar region M43.16 Vertebrogenic low back pain M54.51
[2024-02-15 11:03] VITALS: BP 205/100; PULSE 104; O2SAT 99; BMI 33.2
[2024-02-15 11:04] VITALS: BP 176/97; PULSE 100; O2SAT 99
== END 2024-02-15 11:26 | disposition home or self-care (01) ==
PROVIDERS: PCP Internal Medicine; Visit Provider Nurse Practitioner Family
DX: M53.3 Sacrococcygeal disorders, not elsewhere classified (principal); M51.36 Other intervertebral disc degeneration, lumbar region; M47.816 Spondylosis without myelopathy or radiculopathy, lumbar region; M46.1 Sacroiliitis, not elsewhere classified; M54.16 Radiculopathy, lumbar region; M43.16 Spondylolisthesis, lumbar region; M54.51 Vertebrogenic low back pain
CPT/HCPCS: 99214; G2211

== ENCOUNTER → 2024-02-15 10:51 | Outpatient (BNVA) | payer OTHER, SELFPAY | PROVIDERS: PCP Internal Medicine; Visit Provider Nurse Practitioner Family | DX: M54.16 Radiculopathy, lumbar region (principal); M51.36 Other intervertebral disc degeneration, lumbar region; M46.1 Sacroiliitis, not elsewhere classified; M47.816 Spondylosis without myelopathy or radiculopathy, lumbar region; M53.3 Sacrococcygeal disorders, not elsewhere classified; M43.16 Spondylolisthesis, lumbar region; M54.51 Vertebrogenic low back pain | CPT/HCPCS: 99212 ==

== ENCOUNTER 2024-04-04 09:50 | Outpatient (AMB) | payer OTHER, SELFPAY ==
--- NOTE | 2024-04-04 09:51 | A.OFFVIS_ITS ---
Vital Signs 04/04/24 09:57 Height 6 ft Weight 250 lb BMI 33.9 BP 140/98 H Blood Pressure Location Lt brachial Position Sitting Respiration 16 Pulse 88 Pulse Source Pulse Oximeter Pulse Oximetry (%) 96 Oxygen Delivery Method Room Air Intake Visit Reasons: FU back pain Intake Note: Patient comes in for follow up. Reports low back pain that radiates down to his legs. Pain 10/10. Patient Financial Services Specialist Required: Yes Patient Financial Services Specialist Language: Director Of Flight Operations Services: Patient Financial Services Specialist Present Patient Financial Services Specialist Name: Siobhan #[id number] Allergies Penicillins [PENICILLINS] Allergy (Intermediate, Verified 04/04/24 09:59) RASH metformin Adverse Reaction (Intermediate, Verified 04/04/24 09:59) Diarrhea HPI Comments Details: Patient presents today for follow for worsening low back pain with bilateral radiculopathy and SIJ pain. Shredded Filler Cutter Operator was incorporated via [employer] program during today's visit. Patient reports recent fall last Thursday when he was trying to bend down to pi ck up something from the floor and felt weakness in his legs and fell. Reports hard time getting up from bent position due to increase in his symptoms. Patient reports weakness and imbalance with walking, standing or bending. Unfortunately, lumbar spine MRI was denied 2 months ago due to no recent formal PT. Patient is willing to pursue PT for balance and gait training and back symptoms but will also be sent for lumbar spine MRI to evaluate progression of spinal stenosis and spondylolisthesis. He also reports chronic right foot pain and has pending Podiatry referral s/p complete MRI right foot. Patient denies any fever, chills, abdominal or groin pain, bowel/bladder incontinence or saddle anesthesia. PRIOR: Patient presents today for follow up for chronic low back with radicular symptoms. tennis court attendant via Video Remote Patient Financial Services Specialist on iPad was utilized during today's encounter. Patient was previously seen in August with plans to repeat diagnostic sacroiliac joint innervation in order to establish reproducible response to the treatment for potential Curonix PNS trial. His imaging on 02/02/23 showed moderate degenerative changes in the bilateral sacroiliac joints. Unfortunately, we have not received insurance approval for this yet, will resubmit for PA again. Patient also reports worsening low back pain with forward flexion and bending, indicating discogenic source. He reports left lumbar radiculopathy in L5-S1 distribution and was deemed non-surgical last year per [facility]. Denies any recent cough, cold, infection, fever, bladder or bowel dysfunction, saddle anesthesia any significant changes in her medical history, medications or recent hospitalizations except recent right hand surgery on 11/21/23. Patient is wearing right lower arm and hand brace. He also reports chronic right foot and heel pain with recent MRI follow up as noted below. Past Procedures: 08/12/23: Bilateral Diagnostic SIJ injections-50% pain relief for 5 hours 08/12/22: Left L5-S1 TFESI -0% pain relief, reports worsening of pain after injection 06/17/22: Diagnostic Bilateral L3-L4 DR L5 MBB-50% pain relief for 6 hours PRIOR: Patient is a pleasant 36 years old Malian speaking male who presents for evaluation of worsening of chronic lower back pain with radiculopathy to left lower extremity and right knee pain. He is being treated at [facility] for right knee pain, had previously done cortisone injections, fluid aspiration, x rays and recently had obtained right knee MRI with pending results. He believes he might need surgery. His last imaging showed mild degenerative change at the lateral and patellofemoral compartments with small osteophytes present. Patient also follows [facility] rheumatology services for multiple arthralgias and has mildly e levated ESR. Patient reports his back pain originates in his lower back and spreads across his left side into his left thigh anteriorly and laterally and into left lower leg anteriorly and medially in the projection of L4/L5 dermatome with significant pain in his left big toe and numbness and tingling in the whole left foot. 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 Patient also noticed worsening of back pain about 1.5 years ago while he was standing bending forward to wash dishes and felt exacerbation of pain. Pain is described as constant aching, hot, burning, tingling, pins and needles and numbness sensations. He states the pain is interfering with sleep, daily activities, mood, quality of life and he cannot function normally. Patient denies any fever, chills, abdominal or groin pain, weakness, weight loss, bowel/bladder incontinence or saddle anesthesia. He has poorly controlled diabetes with recent random glucose 245 on 08/19/21, his recent A1C-8.2 on 05/07/21 and A1C-11.2 on 03/26/21. We rechecked his A1C today and it was 8.8 with average blood sugars 206. Patient reports he has not been checking his blood sugars at home for a few weeks due to traveling for a family emergency in [place]. Patient has previously tried chiropractic manipulation (Dr. Dodge, [facility]), TENS unit, ice and heat therapy and massages with no improvement in his symptoms. He is starting formal PT on 12/11/21. Patient has been taking Tylenol, gabapentin, meloxicam, and also tried Ibuprofen and Naproxen in the past without pain relief. We discussed the importance of getting his blood sugars under better control as high A1C levels will limit treatment modalities that we can offer him as well retirement complications from diabetes that can affects multiple systems of his body. We briefly discussed neuromodulation for his right knee pain after his clearance with [facility]. For his back pain, we will start with PT and will proceed with MRI if no improvement in his symptoms. [facility] Medical History (Updated 04/04/24 @ 10:12 by FAWN Pearl) Hypertrophic obstructive cardiomyopathy Sacroiliitis Diabetes mellitus, without long-term current use of insulin Diabetes mellitus without complication, with long-term current use of insulin Foot abscess, right Poorly controlled type 2 diabetes mellitus Diabetes Osteoarthritis of right knee 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 Social History Household Members: Family Housing: Apartment Do you presently have visiting nurse or other home services: No Alcohol intake: current Alcohol intake frequency: a few times a month Alcohol type: beer Patient Tobacco Use Status: Current everyday Tobacco user Tobacco use type: Cigarette Cigarettes Per Day: 10 Years Smoked: 20 e-Cigarette/Vaping Use: Never Used Second Hand Smoke Exposure: No service: No Current occupational status: employed Current occupational exposures/hazards: No Cognitive needs: No Hearing needs: No Vision needs: Yes (Glasses) Review of Systems Const All systems reviewed & are unremarkable except as noted in HPI and below Physical Exam General: Appears afebrile. Alert and oriented. Mood and affect appropriate. Follows and participates in conversation appropriately. Respiratory effort is unlabored. No cough. Able to transition from sit to stand unassisted. Ambulates with bilaterally normal heel strike and toe off, reports right heel pain. General: Yes no CVA tenderness Back/Spine/Pelvis Other: Limited lumbar ROM with flexion forward reproducing moderate-severe pain. Lumbar extension reproduces mild-moderate pain. Demonstrates 5/5 right and 4/5 left strength of quadriceps bilaterally as well as flexion/dorsiflexion of bilateral feet against resistance. 2+ pedal pulses bilaterally. Straight leg rise with dorsiflexion positive bilaterally, left>right. +1 patellar and diminished left achilles reflexes, not checked on the right due to pain. Facet loading test positive bilaterally. Yajaira sign, Luis?s, Gaenslen, Pelvic compression and Stinchfield tests are positive bilaterally, worse on the left. Mild groin pain with I/E hip rotations. Minimal TTP to bilateral GTB. Valsalva maneuver negative. Back: no CVA tenderness Cervical Spine: cervical muscular tenderness, pain with cervical ROM, No Cervical spine tenderness and No step off deformity Thoracic/Lumbar Spine: thoracic and lumbar spine normal to inspection, No Thoracic/lumbar spine scar(s), Lasegue's sign positive bilateral and diffuse, pain with thoraco-lumbar ROM, paraspinal muscle tenderness, thoraco-lumbar ROM limited, No thoracic spinal tenderness and lumbar spinal tenderness at L4 and at L5 Pelvis: buttock tenderness bilaterally Sacroiliac joints: bilaterally tender to palpation Extrem General: Yes capillary refill normal, Yes no clubbing, cyanosis or edema and Yes no calf tenderness Right lower extremity: foot (tenderness posterior and medial heel) Details: normal capillary refill, normal to inspection and no edema; no unusual warmth, no abrasion, no laceration, no ecchymosis and no crepitus Results Reviewed Results Reviewed: MR LUMBAR SPINE WITHOUT CONTRAST 03/25/22 FINDINGS: VERTEBRAL BODIES AND PARASPINAL STRUCTURES: There is slight reversal of the normal lumbar lordosis. There is loss of signal from the discs at L2-L3 through L5-S1 consistent with disc desiccation. There is mild narrowing of intervertebral disc height at L3-L4. There are degenerative endplate contour changes at L4-L5 with Schmorl's nodes and fatty endplate signal changes. There are mild edematous endplate signal changes at L3-L4 and L5-S1. Vertebral body heights are maintained and no fractures are demonstrated. Overall, marrow signal is homogenous. The visualized retroperitoneal and pelvic structures are unremarkable. There are degenerative changes at the right sacroiliac joint with sclerosis. CONUS MEDULLARIS AND CAUDA EQUINA: Normal, terminating at the level of L1-L2. The lower thoracic spinal cord appears normal. The cauda equina nerve roots appear normal. There is a minimal amount of fat in the non-thickened filum terminale at the level of L4-L5. SPINAL LEVELS: L1-L2: The facet joints appear normal bilaterally. Disc contour is normal. There is no central stenosis or foraminal narrowing. L2-L3: There is mild bilateral facet arthropathy with ligamenta flava hypertrophy. There is a central and left-sided posterior disc protrusion with an annular fissure which mildly distorts the ventral thecal sac but there is no central stenosis. The neural foramina are patent bilaterally. L3-L4: There is mild bilateral facet arthropathy. There is a diffuse disc bulge with a small annular fissure posteriorly with minimal flattening of the ventral thecal sac. There is no central stenosis. The neural foramina are patent bilaterally. L4-L5: There is mild bilateral facet arthropathy. There is a posterior disc protrusion with an annular fissure which is most prominent just to the left of midline and there is distortion of the ventral thecal sac. There is no central stenosis, and the neural foramina are patent bilaterally. L5-S1: There is moderate bilateral facet arthropathy with facet joint effusions. There is a posterior disc protrusion which is most prominent in the midline with distortion of the ventral thecal sac but there is no central stenosis. There are bilateral foraminal disc protrusions with mild impingement on the exiting L5 nerve roots. IMPRESSION: 1. At L5-S1 there is a posterior disc protrusion, extending into the neural foramina bilaterally with impingement on the exiting L5 nerve roots. There is no central stenosis. 2. There is spondylosis with facet arthropathic changes at other levels as described above, without central stenosis or foraminal nerve root impingement. XR SACROILIAC JOINTS 02/02/23 CLINICAL INFORMATION: Interval vertebral disc degeneration lumbar region, pain COMPARISON: MR lumbar spine 03/25/2022, x-ray lumbar spine 11/28/2021 FINDINGS: Degenerative changes on limited views of the lower lumbar spine. Moderate degenerative changes in the bilateral sacroiliac joints with sclerosis and narrowing. IMPRESSION: Moderate degenerative changes in the bilateral sacroiliac joints. MR foot RT wo/w con 01/11/24 IMPRESSION: 1. Multiple soft tissue nodules with prominent postcontrast enhancement along the plantar aspect of the distal medial plantar fascial band as well as more distally along the plantar aspect of the flexor hallucis longus tendon. Findings are new when compared to the prior MRI and appear more prominent when compared to the prior CT. These findings likely represent fibromas. 2. No acute osseous abnormality. No metatarsal stress reaction or fracture. 3. Mild posterior tibialis tenosynovitis without a measurable tendon tear. Assessment & Plan Assessment & Plan (1) Low back pain with bilateral sciatica: Code(s): M54.42 - Lumbago with sciatica, left side; M54.41 - Lumbago with sciatica, right side Category: Medical (2) Lumbar spondylosis: Code(s): M47.816 - Spondylosis without myelopathy or radiculopathy, lumbar region Category: Medical (3) Lumbar radiculopathy: Code(s): M54.16 - Radiculopathy, lumbar region Category: Medical (4) Spondylolisthesis, lumbar region: Code(s): M43.16 - Spondylolisthesis, lumbar region Category: Medical (5) Lumbar degenerative disc disease: Code(s): M51.36 - Other intervertebral disc degeneration, lumbar region Category: Medical (6) Sacroiliac joint pain: Code(s): M53.3 - Sacrococcygeal disorders, not elsewhere classified Category: Medical (7) History of recent fall: Code(s): Z91.81 - History of falling Category: Medical (8) Vertebrogenic low back pain: Code(s): M54.51 - Vertebrogenic low back pain Category: Medical Plan Pending PA for repeat Bilateral Diagnostic Sacroiliac Joint Injections with lo lissette and fluoroscopy. Expectations, risks and benefits were reviewed again with patient today. Patient is aware he will be contacted to schedule this procedure once we receive PA approval. Re-submitted MRI of the lumbar spine to assess for neural integrity and compression, progression of spondylolisthesis with recent fall due to loss of balance and back pain and follow up on recent MRI findings. Script provided for physical therapy for gait and balance training and back pain with bilateral radiculopathy. Follow up with Podiatry provider for further evaluation of right foot pain. Referral was sent by his PCP in October 2023 and MRI completed in December 2023. All questions were answered and the patient is in agreement of plan. Follow-up MRI results and sooner as needed. Orders: Orders PT Evaluation and Treatment Today M43.16 - Spondylolisthesis, lumbar region, M47.816 - Spondylosis without myelopathy or radiculopathy, lumbar region, M51.36 - Other intervertebral disc degeneration, lumbar region, M53.3 - Sacrococcygeal disorders, not elsewhere classified, M54.16 - Radiculopathy, lumbar region, M54.41 - Lumbago with sciatica, right side, M54.42 - Lumbago with sciatica, left side Coding Level of Care Code Est Pt Level 4 (68422) Complex EM visit Add On G2211 Diagnoses Low back pain with bilateral sciatica M54.42; M54.41 Lumbar spondylosis M47.816 Lumbar radiculopathy M54.16 Spondylolisthesis, lumbar region M43.16 Lumbar degenerative disc disease M51.36 Sacroiliac joint pain M53.3 History of recent fall Z91.81 Vertebrogenic low back pain M54.51
[2024-04-04 09:57] VITALS: BP 140/98; PULSE 88; RESP 16; O2SAT 96; BMI 33.9
== END 2024-04-04 10:14 | disposition home or self-care (01) ==
PROVIDERS: PCP Internal Medicine; Visit Provider Nurse Practitioner Family
DX: M54.42 Lumbago with sciatica, left side (principal); M54.41 Lumbago with sciatica, right side; M47.816 Spondylosis without myelopathy or radiculopathy, lumbar region; M54.16 Radiculopathy, lumbar region; M43.16 Spondylolisthesis, lumbar region; M51.369 Other intervertebral disc degeneration, lumbar region without mention of lumbar back pain or lower extremity pain; M53.3 Sacrococcygeal disorders, not elsewhere classified; Z91.81 History of falling; M54.51 Vertebrogenic low back pain
CPT/HCPCS: 99214; G2211

== ENCOUNTER → 2024-04-04 09:50 | Outpatient (BNVA) | payer OTHER, SELFPAY | PROVIDERS: PCP Internal Medicine; Visit Provider Nurse Practitioner Family | DX: M54.42 Lumbago with sciatica, left side (principal); M54.41 Lumbago with sciatica, right side; M47.816 Spondylosis without myelopathy or radiculopathy, lumbar region; M54.16 Radiculopathy, lumbar region; M43.16 Spondylolisthesis, lumbar region; M51.360 Other intervertebral disc degeneration, lumbar region with discogenic back pain only; M53.3 Sacrococcygeal disorders, not elsewhere classified; Z91.81 History of falling; M54.51 Vertebrogenic low back pain | CPT/HCPCS: 99212 ==

== ENCOUNTER 2024-04-26 06:17 | Outpatient (REF) | payer OTHER, SELFPAY | END 2024-04-26 06:18 | disposition home or self-care (01) | LOC: CF 06:17 | PROVIDERS: Visit Provider Anesthesiology | DX: Z13.89 Encounter for screening for other disorder (principal) ==

== ENCOUNTER 2024-05-02 10:58 | Outpatient (REF) | payer OTHER, SELFPAY ==
[2024-05-02 12:53] LABS: Estimated Average Glucose 146 mg/dL; Hemoglobin A1C 199.3967 umol/L; Hemoglobin A1c % 6.7 % (<6.0); Total Hemoglobin (HGBA1C) 4048.3508 umol/L
[2024-05-02 13:12] LABS: Alanine Aminotransferase 169 U/L (0-40); Alkaline Phosphatase 91 U/L (39-117); Anion Gap 9 (12-20); Aspartate Amino Transferase 73 U/L (5-37); Bilirubin Total 0.9 mg/dL (0.0-1.0); Blood Urea Nitrogen 16 mg/dL (9-16); Calcium 9.6 mg/dL (8.4-10.2); Carbon Dioxide 27 mmol/L (22-29); Chloride 106 mmol/L (96-108); Cholesterol 204 mg/dL (<200); Estimated Glomerular Filt Rate > 60; Glucose Fasting 114 mg/dL (60-99); HDL Cholesterol 47 mg/dL (>40); LDL Cholesterol Calculated 129 mg/dL (<100); Potassium 4.3 mmol/L (3.3-5.1); Sodium 138 mmol/L (135-145); Total Protein 8.1 g/dL (6.5-8.0); Triglycerides 144 mg/dL (<150)
[2024-05-02 13:52] LABS: Creatinine Urine 210.83 mg/dL; Microalbum/Creatinine Ratio Ur 10.9 ug/mg cr (<30)
[2024-05-03 08:23] LABS: C Peptide 6.96 ng/mL (0.80-3.85)
[2024-05-04 19:28] LABS: Glutamic acid decarboxylase Ab <5 IU/mL (<5)
[2024-05-05 22:44] LABS: Islet Cell Antibody Screen NEGATIVE (NEGATIVE)
== END 2024-05-02 10:59 | disposition home or self-care (01) ==
LOC: HO.LAB 10:58
PROVIDERS: PCP Internal Medicine; Visit Provider Physician Assistant
DX: E11.42 Type 2 diabetes mellitus with diabetic polyneuropathy (principal); E78.00 Pure hypercholesterolemia, unspecified; I10 Essential (primary) hypertension; Z91.199 Patient's noncompliance with other medical treatment and regimen due to unspecified reason; E66.811 Obesity, class 1
CPT/HCPCS: 36415; 80053; 80061; 82043; 82570; 82947; 83036; 84681; 86341; 99212

== ENCOUNTER 2024-05-02 10:58 | Outpatient (AMB) | payer OTHER, SELFPAY ==
[2024-05-02 10:59] VITALS: BP 150/86; PULSE 82; BMI 34.3
--- NOTE | 2024-05-02 10:59 | MHC.OFFVIS ---
Vital Signs 05/02/24 10:59 Height 6 ft Weight 252 lb 13.923 oz BMI 34.3 BP 150/86 H Blood Pressure Location Lt brachial Position Sitting Pulse 82 Pulse Source Pulse Oximeter Intake Visit Reasons: DM Intake Note: Patient present today for Type 2 Diabetes Mellitus. Last Diabetic eye exam: 12/2023 Last Podiatry Visit: Doesn't have one Random Glucose: 125 mg/dl HgA1C: 7.1% Skiing Instructor Required: Yes Skiing Instructor Language: Field Representatives Director Services: Skiing Instructor Offered & Declined Accompanied by: Spouse Allergies Penicillins [PENICILLINS] Allergy (Intermediate, Verified 05/02/24 11:05) RASH metformin Adverse Reaction (Intermediate, Verified 05/02/24 11:05) Diarrhea Medication List - Last Reconciled 05/02/24 by Manda Chino PA-C atorvastatin 20 mg PO BEDTIME 90 days blood sugar diagnostic (FreeStyle Lite Strips) Use daily As directed to check blood glucose blood-glucose meter (FreeStyle Lite Meter kit) Use daily As directed to check blood glucose blood-glucose sensor (TuizziStyle Jai 3 Sensor device) Apply every 14 days As directed dulaglutide (Trulicity) 1.5 mg (0.5 mL) subcut QWEEK ibuprofen 800 mg PO TID lancets (FreeStyle Lancets) Use daily As directed to check blood glucose metoprolol tartrate 100 mg PO BID 90 days verapamil 80 mg PO BID HPI HPI DM: Details: Patient is a 38-year-old male with a significant past medical history hypertension, hypertrophic cardiomyopathy, hyperlipidemia, type 2 diabetes, MARA and arthritis presenting today for a follow-up regarding his diabetes. Significant other is here today to help with translation. Endo: He was diagnosed with diabetes he thinks around 2019. He states his mother has type 2 diabetes but his father has type 1. His previous A1c was 7. Today his A1c is 7.1. He is currently on Trulicity 0.75 mg. His significant other states that his diet has been poor and he has been more sedentary as he has been out of work. He did not tolerate metformin or glipizide. He does not have any testing supplies at home, he never picked them up. He has had diabetic Education. does not wish to go back right now Not on an ANTONETTE-inhibitor. Cholesterol controlled with a statin. CV: Blood pressure is usually controlled with verapamil 80 mg, metoprolol 100 mg twice a day. Blood pressure today in the office is elevated at 150/86. He is currently up 7 lb from his last office visit. He denies any lower leg edema. He states that he did not take his verapamil and metoprolol yet today. Lipids controlled with atorvastatin 20 mg. No myalgias. [facility] Medical History (Updated 05/02/24 @ 11:58 by Manda Chino PA-C) Hypertrophic obstructive cardiomyopathy Sacroiliitis Diabetes mellitus, without long-term current use of insulin Diabetes mellitus without complication, with long-term current use of insulin Foot abscess, right Poorly controlled type 2 diabetes mellitus Diabetes Osteoarthritis of right knee 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 Social History Household Members: Family Housing: Apartment Do you presently have visiting nurse or other home services: No Alcohol intake: current Alcohol intake frequency: a few times a month Alcohol type: beer Patient Tobacco Use Status: Current everyday Tobacco user Tobacco use type: Cigarette Cigarettes Per Day: 10 Years Smoked: 20 e-Cigarette/Vaping Use: Never Used Second Hand Smoke Exposure: No service: No Current occupational status: employed Current occupational exposures/hazards: No Cognitive needs: No Hearing needs: No Vision needs: Yes (Glasses) Physical Exam Vital Signs: Last Vital Signs Pulse 82 05/02/24 10:59 BP 150/86 H 05/02/24 10:59 BMI result Body Mass Index 34.3 Const Orientation/consciousness: patient oriented x3 Neck Neck: Yes no lymphadenopathy Thyroid: Thyroid normal Carotids: no bruits Resp Auscultation: clear to auscultation bilaterally Cardio Rate: regular rate Rhythm: regular rhythm Heart sounds: S1 normal heart sound present and S2 normal heart sound present Peripheral pulses: dorsalis pedis present Neuro General: patient oriented x3, gait normal and no focal motor deficits Extrem Other: Monofilament sensation intact bilaterally. Vibratory sensation intact bilaterally. Skin intact. General: Yes normal to inspection Results AMB Hemoglobin A1c AMB Hemoglobin A1c 7.1 % Last Edit by MOOKIE Gonzalez on 05/02/24 11:31 Assessment & Plan Assessment & Plan (1) Type 2 diabetes, controlled, with peripheral neuropathy: Code(s): E11.42 - Type 2 diabetes mellitus with diabetic polyneuropathy Category: Medical Plan: Referral to podiatry at [place] as he prefers to see them. Increase Trulicity to 3 mg weekly. Reordered testing supplies. Discussed the importance of monitoring blood sugars and watching his diet. He is going to work on losing weight. (2) Noncompliance: Code(s): Z91.199 - Patient's noncompliance with other medical treatment and regimen due to unspecified reason Category: Medical Plan: Reports he did not take his antihypertensive last night but states he took it this morning. We discussed the importance of medication compliance and discuss that his blood pressure remains elevated every time I have seen him. We discussed that he is at increased risk of heart attack, stroke and early . He reiterates this to me. (3) Essential hypertension: Code(s): I10 - Essential (primary) hypertension Category: Medical Plan: Reviewed note from Cardiology. Discussed with patient that he was supposed to follow up over the summer and advised him to call today. I will increase verapamil as was planned. Again reviewed the importance of compliance. (4) Obesity, Class I, BMI 30-34.9: Code(s): E66.811 - Obesity, class 1 Category: Medical Plan: Discussed that the weight does continue to increase sitting he needs to work on reducing his weight. I have increase Trulicity. His significant other is going to work on a diet. Offered them the right BMI up but declines today. States that this is not something they would do. Orders: Orders AMB Hemoglobin A1c Today E11.42 - Type 2 diabetes mellitus with diabetic polyneuropathy, Z13.9 - Encounter for screening, unspecified Referrals Podiatry Referral E11.42 - Type 2 diabetes mellitus with diabetic polyneuropathy Medications: New dulaglutide (Trulicity) 3 mg (0.5 mL) subcut QWEEK 2 mL 5RF verapamil 120 mg PO BID 90 days 180 tabs 1RF Refilled blood-glucose meter (FreeStyle Lite Meter kit) Use daily As directed to check blood glucose 1 ea 0RF E11.9 - Type 2 diabetes mellitus without complications Discontinued verapamil Discontinued Reason: Doctor's Order 80 mg PO BID 60 tabs 5RF dulaglutide (Trulicity) Discontinued Reason: Doctor's Order 1.5 mg (0.5 mL) subcut QWEEK 2 mL 5RF Coding Level of Care Code Est Pt Level 4 (84629) Complex EM visit Add On G2211 Diagnoses Type 2 diabetes, controlled, with peripheral neuropathy E11.42 Noncompliance Z91.199 Essential hypertension I10 Obesity, Class I, BMI 30-34.9 E66.811
== END 2024-05-02 13:54 | disposition home or self-care (01) ==
PROVIDERS: PCP Internal Medicine; Visit Provider Physician Assistant
DX: E11.42 Type 2 diabetes mellitus with diabetic polyneuropathy (principal); Z91.199 Patient's noncompliance with other medical treatment and regimen due to unspecified reason; I10 Essential (primary) hypertension; E66.811 Obesity, class 1; Z13.9 Encounter for screening, unspecified

== ENCOUNTER 2024-05-24 07:32 | Outpatient (REF) | payer OTHER, SELFPAY ==
--- NOTE | ~2024-05-24 | US_ITS ---
EXAMINATION: US ABDOMEN COMPLETE WITH LIVER ELASTOGRAPHY HISTORY: R79.89 - Other specified abnormal findings of blood chemistry TECHNIQUE: Real-time grayscale ultrasound imaging of the abdomen was performed and images were reviewed. COMPARISON: There are no prior studies for comparison. FINDINGS: Liver: The liver is enlarged and demonstrates increased echotexture, consistent with steatosis. The liver contour is mildly nodular, which can be seen in the setting of cirrhosis. No focal mass or intrahepatic biliary ductal dilatation is identified. There is normal hepatopedal flow in the portal vein. Ultrasound elastography of the liver was performed with 10 separate measurements of the liver parenchyma with the patient in the supine position. Measurements were obtained approximately 2 cm below Lico's capsule and perpendicular to the capsule. Images are of satisfactory quality. The median shear wave velocity is 1.13 m/s. The interquartile range/median (IQR/median) is 0.18. Gallbladder and biliary tree: The gallbladder is unremarkable, without evidence of calculi, wall thickening, or pericholecystic fluid. There is no sonographic Valle sign. The common bile duct is normal in caliber measuring 2 mm. Kidneys: Right kidney measures 14.6 cm in length. Left kidney measures 14.0 cm in length. The kidneys are unremarkable, without evidence of masses, hydronephrosis, or calculi. Pancreas: The pancreatic head, neck, and body are unremarkable. The pancreatic tail is obscured by bowel gas. Spleen: The spleen is normal in size and contour, measuring 11.8 cm in length. Abdominal aorta and inferior vena cava: The visualized portions of the abdominal aorta and inferior vena cava are normal in caliber. There is no free fluid in the abdomen. US/US abdomen comp w elastography IMPRESSION: Hepatomegaly and hepatic steatosis. Nodular liver contour which can be seen in the setting of cirrhosis, although elastography findings are not suggestive of cirrhosis (see below). Liver biopsy may be helpful. The median shear wave velocity is 1.13 m/s, corresponding to a median liver stiffness of 3.9 kPa. The IQR/median value is 0.18. This is unreliable as the value is > 0.15 (15%). Findings are indicative of a normal elastography value with a low likelihood of severe fibrosis or cirrhosis. REFERENCE: Society of Radiologists in Ultrasound Liver Stiffness Thresholds (2020): LIVER STIFFNESS THRESHOLDS: *Shear wave velocity less than 1.3 m/s (Liver Stiffness equal or less than 5 kPa): High probability of being normal. *Shear wave velocity less than 1.7 m/s (Liver Stiffness less than 9 kPa): In the absence of other known clinical signs, rules out compensated advanced chronic liver disease. *Shear wave velocity between 1.7-2.1 m/s (Liver Stiffness 9-13 kPa): Suggestive of compensated advanced chronic liver disease but need further test for confirmation. *Shear wave velocity between 2.1-2.4 m/s (Liver Stiffness 13-17 kPa): Rules in compensated advanced chronic liver disease. *Shear wave velocity greater than 2.4 m/s (Liver Stiffness over 17 kPa): Suggestive of clinically significant portal hypertension. QUALITY OF DATA SET: *IQR/Median value equal or less than 0.15 implies a quality data set. *IQR/Median value over 0.15 implies a poor quality data set. SIGNIFICANT CHANGE FROM PRIOR EXAM: Significant change if liver stiffness measurement is 10% or greater from prior exam. OTHER CONSIDERATIONS: The stage of liver fibrosis may be overestimated in the setting of acute hepatitis, liver inflammation, elevated liver function tests, hepatic vascular congestion, obstructive cholestasis, non-fasting state, and infiltrative diseases such as amyloidosis and lymphoma. In some patients with NAFLD, the liver stiffness thresholds for compensated advanced chronic liver disease may be lower. In causes other than viral hepatitis and NAFLD, liver stiffness thresholds are not well established. Electronically signed by: Sinan [place] MD 05/26/2024 08:18 AM [facility]
[2024-05-24 07:45] LABS: MANUAL DIFF FLAG NO
[2024-05-24 07:52] LABS: Basophils Absolute Auto 0.1 X10*3/uL (0.0-0.2); Basophils Percent Auto 0.8 % (0-2); Eosinophils Absolute Auto 0.2 X10*3/uL (0.0-0.4); Eosinophils Percent Auto 2.1 % (0-4); Hematocrit 45.6 % (42.0-52.0); Hemoglobin 15.5 g/dl (14.0-18.0); Imm Gran Abs Auto 0.09 X10*3/uL (0.00-0.03); Imm Gran Pct Auto 0.8 % (0.0-0.4); Lymphocytes Absolute Auto 3.5 X10*3/uL (1.2-4.9); Lymphocytes Percent Auto 31.2 % (20-40); Mean Corpuscular Hemoglobin 30.2 pg (27.0-33.0); Mean Corpuscular Volume 88.9 fL (80.0-98.0); Mean Platelet Volume 9.7 fL (9.4-12.4); Monocytes Absolute Auto 1.2 X10*3/uL (0.1-1.2); Monocytes Percent Auto 10.3 % (2-11); Neutrophils Absolute Auto 6.2 x10*3/uL (2.0-8.3); Neutrophils Percent Auto 54.8 % (45-73); Platelet Count 249 X10*3/uL (160-400); Red Blood Count 5.13 X10*6/uL (4.60-5.80); Red Cell Distribution Width 12.3 % (11.0-16.0); White Blood Count 11.2 X10*3/uL (4.8-10.8)
[2024-05-24 08:16] LABS: Alanine Aminotransferase 136 U/L (0-40); Albumin Level 4.9 g/dL (3.5-5.0); Alkaline Phosphatase 94 U/L (39-117); Anion Gap 13 (12-20); Aspartate Amino Transferase 60 U/L (5-37); Bilirubin Total 0.8 mg/dL (0.0-1.0); Blood Urea Nitrogen 16 mg/dL (9-16); Calcium 9.7 mg/dL (8.4-10.2); Carbon Dioxide 23 mmol/L (22-29); Chloride 108 mmol/L (96-108); Cholesterol 167 mg/dL (<200); Estimated Glomerular Filt Rate > 60; Glucose Fasting 140 mg/dL (60-99); HDL Cholesterol 35 mg/dL (>40); LDL Cholesterol Calculated 104 mg/dL (<100); Potassium 4.2 mmol/L (3.3-5.1); Sodium 140 mmol/L (135-145); Total Protein 8.1 g/dL (6.5-8.0); Triglycerides 144 mg/dL (<150)
--- NOTE | 2024-05-24 09:15 | HM_ITS ---
* Total monitoring time 3 days. * Underlying rhythm is sinus with an average rate of 84/Min. * Rare supraventricular and ventricular ectopy. * No significant pauses or high-grade AV blocks. * No patient markers or diary events. MTDD
[2024-05-24 09:40] LABS: Creatinine Urine 269.63 mg/dL; Microalbum/Creatinine Ratio Ur 9.2 ug/mg cr (<30)
== END 2024-05-24 07:33 | disposition home or self-care (01) ==
LOC: HO.US 07:32
PROVIDERS: Absent Provider Internal Medicine; PCP Internal Medicine; Visit Provider Physician Assistant
DX: E11.42 Type 2 diabetes mellitus with diabetic polyneuropathy (principal); R80.9 Proteinuria, unspecified; E66.811 Obesity, class 1; E78.5 Hyperlipidemia, unspecified; R79.89 Other specified abnormal findings of blood chemistry; F10.90 Alcohol use, unspecified, uncomplicated; I42.1 Obstructive hypertrophic cardiomyopathy
CPT/HCPCS: 36415; 76700; 76981; 80053; 80061; 82043; 82570; 85025; 93242

== ENCOUNTER → 2024-05-24 07:48 | Outpatient (BNV) | payer OTHER, SELFPAY | PROVIDERS: Absent Provider Internal Medicine; PCP Internal Medicine; Visit Provider Radiology Diagnostic Radiology | DX: R16.0 Hepatomegaly, not elsewhere classified (principal); K76.0 Fatty (change of) liver, not elsewhere classified; R79.89 Other specified abnormal findings of blood chemistry | CPT/HCPCS: 76700 ==

== ENCOUNTER → 2024-05-24 09:15 | Outpatient (BNV) | payer OTHER, SELFPAY | PROVIDERS: Absent Provider Internal Medicine; PCP Internal Medicine; Visit Provider Internal Medicine | DX: I47.10 Supraventricular tachycardia, unspecified (principal) | CPT/HCPCS: 93244 ==

== ENCOUNTER → 2024-05-24 | Outpatient (REF) | payer OTHER, SELFPAY ==
--- NOTE | 2024-05-24 | HM_ITS ---
Duplicate. See previous report. MTDD
== END ==
LOC: HO.CARD
PROVIDERS: PCP Internal Medicine; Visit Provider Nurse Practitioner Family
DX: I42.1 Obstructive hypertrophic cardiomyopathy (principal)
CPT/HCPCS: 93242

== ENCOUNTER 2024-05-25 07:51 | Outpatient (REF) | payer OTHER, SELFPAY ==
[2024-05-25 10:08] LABS: Influenza A PCR NEGATIVE (Negative); Influenza B PCR NEGATIVE (Negative); Resp Syncy Virus RNA Qual PCR NEGATIVE (Negative); SARS COV2 PCR INHOUSE NEGATIVE (Negative)
== END 2024-05-25 07:52 | disposition home or self-care (01) ==
LOC: HO.LAB 07:51
PROVIDERS: PCP Internal Medicine; Visit Provider Internal Medicine
DX: Z00.01 Encounter for general adult medical examination with abnormal findings (principal); E11.42 Type 2 diabetes mellitus with diabetic polyneuropathy; I10 Essential (primary) hypertension; K21.9 Gastro-esophageal reflux disease without esophagitis; F10.90 Alcohol use, unspecified, uncomplicated; F33.0 Major depressive disorder, recurrent, mild; F41.1 Generalized anxiety disorder; I42.1 Obstructive hypertrophic cardiomyopathy; J06.9 Acute upper respiratory infection, unspecified; R09.89 Other specified symptoms and signs involving the circulatory and respiratory systems; Z28.21 Immunization not carried out because of patient refusal
CPT/HCPCS: 0241U; 96127; 99212; 99396

== ENCOUNTER 2024-05-25 07:51 | Outpatient (AMB) | payer OTHER, SELFPAY ==
--- NOTE | 2024-05-25 07:55 | A.OFFPC_ITS ---
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 Accompanied by: Self / Same As Patient Allergies Penicillins [PENICILLINS] Allergy (Intermediate, Verified 05/25/24 08:04) RASH metformin Adverse Reaction (Intermediate, Verified 05/25/24 08:04) Diarrhea Medication List - Last Reconciled 05/25/24 by Ninoska Meeks MD atorvastatin 20 mg PO BEDTIME 90 days blood sugar diagnostic (FreeStyle Lite Strips) Use daily As directed to check blood glucose blood-glucose meter (FreeStyle Lite Meter kit) Use daily As directed to check blood glucose blood-glucose sensor (FreeStyle Jai 3 Sensor device) Apply every 14 days As directed dulaglutide (Trulicity) 3 mg (0.5 mL) subcut QWEEK ibuprofen 800 mg PO TID lancets (FreeStyle Lancets) Use daily As directed to check blood glucose metoprolol tartrate 100 mg PO BID 90 days verapamil 120 mg PO BID 90 days Tobacco use date assessed: 05/25/24 Dental Screening Dental Screen Date: 05/25/24 Did you have a dental visit in the last 12 months?: No Did you have a dental problem in the last 6 months where you did not have access to dental care?: No Was dental information given to patient?: Patient has dentist HPI HPI Comments History of Present Illness Details The patient is a 38-year-old male presenting for his physical exam. He has diabetes mellitus type 2 compli ated by neuropahty, hypertrophic obstructive cardiomyopathy, hypertension and hyperliidemia. Diabetic eye exam done December 2023. Tdap vaccine done 2021 and next one should be 2031. HAs chornic low back pain manage by pain management and is not able to work due to this matter. An allergy to penicillin is noted along with a history of diarrhea when using metformin. The patient has a history of hand, colon, and ankle surgeries. Additionally, he has been diagnosed with an alcohol use disorder, consuming approximately nine beers per occasion. His diabetes management includes Trulicity 3 mg weekly and Atorvastatin 20 mg at night for cholesterol management. 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 The cholesterol level has decreased from 204 to 167. The patient has expressed interest in potentially joining a comprehensive care program aimed at reducing alcohol consumption. Mild major depression with anxiety but said that he is able to control it with relaxation techniques. His LDL goal should be less than 70 and he is not taking atorvastatin due to heartburn. I will start him on PPIs. Also complains of nasal congestion and cough that started about a week ago and I order COVID, flu and RSV test. He had a COVID test at home that was negative. Will have antibiotic due to productive cough of green sputum but no fever. - Received Tetanus vaccine in 2021; due in 2031 - Pending influenza and COVID vaccinatio ns - Discussed comprehensive care program f or alcohol use disorder - Advised on cholesterol and blood press ure control measures - A1c of 6.7 with scheduled re-evaluatio n in three months - Discussed importance of reducing alcoh ol intake for overall health improvement - Influenza and RSV testing recommended [facility] Medical History (Updated 05/25/24 @ 08:29 by Ninoska Meeks MD) Hypertrophic obstructive cardiomyopathy Sacroiliitis Diabetes mellitus, without long-term current use of insulin Diabetes mellitus without complication, with long-term current use of insulin Foot abscess, right Poorly controlled type 2 diabetes mellitus Diabetes Osteoarthritis of right knee Osteoarthritis of lumbar spine Hypertrophic obstructive cardiomyopathy MARA (obstructive sleep apnea) Hypertensive heart disease HTN (hypertension) Surgical History History of hand surgery History of elbow surgery History of ankle surgery Family History (Updated 05/25/24 @ 08:11 by Ninoska Meeks MD) Father PVD (peripheral vascular disease) Essential hypertension Diabetes mellitus Mother Liver transplant failure Social History Household Members: Family Housing: Apartment Do you presently have visiting nurse or other home services: No Alcohol intake: current Alcohol intake frequency: a few times a month Alcohol type: beer Patient Tobacco Use Status: Former Tobacco user Tobacco use type: Cigarette Cigarettes Per Day: 10 Years Smoked: 20 e-Cigarette/Vaping Use: Never Used Second Hand Smoke Exposure: No service: No Current occupational status: unemployed Current occupational exposures/hazards: No Cognitive needs: No Hearing needs: No Vision needs: Yes (Glasses) Questionnaire PHQ-9 Over the last 2 weeks, how often have you been bothered by any of the following problems? 1. Little interest or pleasure in doing things: several days 2. Feeling down, depressed, or hopeless: several days 3. Trouble falling or staying asleep, or sleeping too much: several days 4. Feeling tired or having little energy: several days 5. Poor appetite or overeating: several days 6. Feeling bad about yourself - or that you are a failure or have let yourself or your family down: not at all 7. Trouble concentrating on things, such as reading the newspaper or watching television: not at all 8. Moving or speaking so slowly that other people could have noticed. Or the opposite - being so fidgety or restless that you have been moving around a lot more than usual: not at all 9. Thoughts that you would be better off or of hurting yourself in some way: not at all Total score: 5 Depression Screening Interpretation: Positive Depression Screening Follow-up: Existing condition and Follow-up Visit Requested Depression Screening Done: Yes 23343 - PHQ-9 Billing: Yes Source: Developed by Drs. Sinan Ledesma, Ruth Ann Verdugo, Ej Hamilton and colleagues, with an educational america from [employer]. Thrive Questionnaire Date Thrive assessed: 05/25/24 I am a: Patient What is your living situation today?: I have a steady place to live Within the past 12 months, did the food you bought not last and you didn't have the money to get more?: I choose not to answer this question Within the past 12 months, did you worry whether your food would run out before you got money to buy more?: I choose not to answer this question Do you have trouble paying for medicines?: No Do you have trouble getting transportation to medical appointments?: No Do you have trouble paying your heating and electricity bill?: No Do you have trouble taking care of your child, family member or friend?: No Do you have trouble with day-to-day activities such as bathing, preparing meals, shopping, managing finances, etc.?: I choose not to answer this question Are you currently unemployed and looking for a job?: Yes Are you interested in more education?: No Please select the resources that you would like help with: None Currently or been in a relationship where the following occur: I choose not to answer THRIVE Score: 0 AUDIT C Alcohol Use Questionnaire (AUDIT-C) 1. How often do you have a drink containing alcohol?: 2-4 times a month 2. How many drinks containing alcohol do you have on a typical day when you are drinking?: 7 to 9 3. How often do you have six or more drinks on one occasion?: Weekly Total Score: 8 Score Reviewed/Action Taken: Yes MARTIN-7 AMB Questionnaire MARTIN-7 Date MARTIN - 7 assessed: 05/25/24 Feeling nervous, anxious, or on edge: 1 = Several days Not being able to stop or control worryin = Not at all Worrying too much about different things: 1 = Several days Trouble relaxin = Several days Being so restless that it is hard to sit still: 1 = Several days Becoming easily annoyed or irritable: 1 = Several days Feeling afraid as if something awful might happen: 0 = Not at all Total MARTIN-7 score (0-4 normal; 5-9 mild; 10-14 moderate; 15-21 severe): 5 Source: Developed by Drs. Sinan Ledesma, Ruth Ann Verdugo, Ej Hamilton and colleagues, with an educational america from [employer]. MARTIN-7 Assessment Billing MARTIN-7 Assessment Tool: MARTIN-7 Assessment 66975 Review of Systems Const Details: - Endocrine: Reports blood sugar control issues - Cardiovascular: Denies current chest pain or palpitations - Gastrointestinal: Reports occasional diarrhea with metformin use - Musculoskeletal: Reports lumbar pain and right hand pain with movement restriction - Psychological: Reports mild depressive symptoms Physical exam (Primary Care) Vital Signs: Last Vital Signs BP 138/84 05/25/24 07:57 BMI result Body Mass Index 34.2 BMI Assessment/Plan discussion: High BMI High, discussed plan: lifestyle, weight reduction, dietary and physical activity Tobacco/Smoking Status: Tobacco use Status Tobacco use date assessed 05/25/24 05/25/24 08:01 Patient Tobacco Use Status Former Tobacco user 05/25/24 08:01 Tobacco use type Cigarette 05/25/24 08:01 e-Cigarette/Vaping Use Never Used 05/25/24 08:01 PHQ-9: PHQ-9 Score PHQ-9: Total score 5 05/25/24 08:01 Depression Screening Interpretation: Positive Depression Screening Follow-up: Existing condition and Follow-up Visit Requested Thrive Assessment: Date of Thrive Assessment Date Thrive assessed 05/25/24 05/25/24 08:01 Currently or been in a relationship where the following occur: I choose not to answer Const Other: General: Cooperative, healthy appearing, comfortable, no acute distress and well developed Orientation: Patient oriented x3 Limitations: No limitations Head: Normal to inspection Ears: Hearing grossly normal bilaterally Nose: Normal external nose present Face and sinus: Normal facial exam Eyes: Appearance normal, both eyes and all related structures Neck: Normal visual inspection and Yes full ROM Respiratory: Clear to auscultation bilaterally, but patient to undergo further testing for influenza or RSV Cardiovascular: Regular rate and rhythm. Normal S1 and S2 GI: Normal to inspection. Soft to palpation and nontender Skin: No rashes or lesions noted Neuro: Patient oriented x3 Extremities: Normal to inspection, lumbar tenderness Office Procedures Flu Questionnaire Does the patient have a severe egg allergy?: No Immunizations Fluarix Triv [id number] (PF) 45 mcg (15 mcg x 3)/0.5 mL IM syringe Performing Provider: Ninoska Meeks MD [facility] Documented (not given) by: MOOKIE Goldsmith on 05/25/24 08:04 Reason Not Given: Patient Refused Coding Level of Care Code Est Pt Level 4 (05667) Est Pt Prev Care 40-64y(57397) Diagnoses Physical exam Z00.00 Chronic GERD K21.9 Type 2 diabetes, controlled, with peripheral neuropathy E11.42 Alcohol use F10.90 Mild recurrent major depression F33.0 MARTIN (generalized anxiety disorder) F41.1 Hypertrophic obstructive cardiomyopathy I42.1 URI (upper respiratory infection) J06.9 Additional Codes PHQ-9 - 50240 - PHQ-9 Billing: Yes ([id number]) MARTIN-7 Assessment Billing - MARTIN-7 Assessment Tool: MARTIN-7 Assessment 04120 ([id number]) Time Spent (min) 40 Assessment & Plan Assessment & Plan (1) Physical exam: Code(s): Z00.00 - Encounter for general adult medical examination without abnormal findings Category: Medical (2) Chronic GERD: Code(s): K21.9 - Gastro-esophageal reflux disease without esophagitis Category: Medical (3) Type 2 diabetes, controlled, with peripheral neuropathy: Code(s): E11.42 - Type 2 diabetes mellitus with diabetic polyneuropathy Category: Medical (4) Alcohol use: Code(s): F10.90 - Alcohol use, unspecified, uncomplicated Category: Social Hx (5) Mild recurrent major depression: Code(s): F33.0 - Major depressive disorder, recurrent, mild Category: Medical (6) MARTIN (generalized anxiety disorder): Code(s): F41.1 - Generalized anxiety disorder Category: Medical (7) Hypertrophic obstructive cardiomyopathy: Code(s): I42.1 - Obstructive hypertrophic cardiomyopathy Category: Medical (8) URI (upper respiratory infection): Code(s): J06.9 - Acute upper respiratory infection, unspecified Category: Medical Plan - Recommend ethanol abstinence program due to alcohol use disorder - Adjust atorvastatin administration to the morning to address elevated cho lesterol - Monitor and manage hypertension, as discussed - Continue diabetes management plan with current medication regimen - Refer to comprehensive care program for alcohol use disorder - Follow-up with cardiology for potential arrhythmia - Administer nasal swab for influenza and RSV testing Patient was informed and verbally consented to the use of an ambient scribe for clinic note documentation during this visit. During the visit, we thoroughly discussed the patient's management of type 2 diabetes, hypertension, and elevated cholesterol levels. The importance of medication adherence was highlighted, particularly the timing for atorvastatin, suggesting morning use to potentially enhance efficacy. We explored the available options for managing alcohol use disorder, including a comprehensive care program that could provide medications to reduce alcohol consumption. Risks and benefits of interventions, such as the potential adverse impacts of alcohol on blood sugar and cholesterol levels, were addressed. We discussed follow-up care, including cardiology referral for potential arrhythmia, and the necessity of scheduled lab work to monitor A1c and cholesterol levels. The patient e xpressed understanding and willingness to adhere to the discussed plan. Orders: Orders Influenza [id number] Immunization Today Z23 - Encounter for immunization SARS-CoV2/FLU/RSV Today R09.89 - Other specified symptoms and signs involving the circulatory and respiratory systems Referrals Addiction Medicine Referral F10.90 - Alcohol use, unspecified, uncomplicated Medications: New omeprazole 20 mg PO DAILY 90 days 90 caps 1RF K21.9 - Gastro-esophageal reflux disease without esophagitis Refilled metoprolol tartrate 100 mg PO BID 90 days 180 tabs 3RF Patient Instructions: - Take atorvastatin in the morning - Consider joining the comprehensive care program for help with alcohol consumption - Continue weekly Trulicity injections - Schedule next lab appointment in three months for repeat A1c - Follow up with cardiology as discussed - Reduce alcohol intake; consider health implications - Address any new or worsening symptoms promptly - Get tested for influenza and RSV at laboratory
[2024-05-25 07:57] VITALS: BP 138/84; BMI 34.2
== END 2024-05-25 08:23 | disposition home or self-care (01) ==
PROVIDERS: PCP Internal Medicine; Visit Provider Internal Medicine
DX: Z00.00 Encounter for general adult medical examination without abnormal findings (principal); E11.42 Type 2 diabetes mellitus with diabetic polyneuropathy; F33.0 Major depressive disorder, recurrent, mild; I42.1 Obstructive hypertrophic cardiomyopathy; K21.9 Gastro-esophageal reflux disease without esophagitis; F10.90 Alcohol use, unspecified, uncomplicated; F41.1 Generalized anxiety disorder; J06.9 Acute upper respiratory infection, unspecified

== ENCOUNTER 2024-05-25 10:47 | Outpatient (RCR) | payer OTHER, SELFPAY ==
--- NOTE | 2024-05-12 16:41 | MHC.PT.EP ---
[facility] [place] Office [place] Office [place] Office [address] Asif Mathews [address] [phone] F: [phone] F: [phone] F: [phone] F: [phone] Physical Therapy Plan of Care Date of Evaluation: 05/04/24 Date of Surgery: Diagnosis: LBP with B sciatica. Assessment: Pt is a 38 y/o male referred to PT for eval and treat of LBP with lumbar radiculopathy which his condition is resulting in decreased tolerance and ability for sitting for long duration, performing heavy HH and work tasks, bending and squatting activities as well as disturbed sleep secondary to decreased trunk ROM and strength, as well as degenerative processes and herniations (Pt reports) on imaging studies, increased LE posterior tissue tension, + L LE neural tension, decreased posture, TTP of L lumbar area, and pain. Pt is deemed an appropriate candidate to receive skilled PT services to address their physical impairments in order to improve their functional ability. Frequency and Duration: The patient will be seen 2 x / wk x 5 wks. Short Term Goals: Initiate home program. Improve baseline pain to < 4/10; initial: 6/10. Intermediate Goals: I with home program. Pt will be able to sit with neutral posture > 30 min. Pt will be able to walk long distances with managed Sx. Improve Josefa outcome measure by at least 9 points. Treatment Plan: Modalities to reduce pain, spasms and effusion. Manual therapy to restore motion and function. Therapeutic exercise to improve strength and flexibility. Neuromuscular re-education for posture and balance. Therapeutic activities to return to functional activities of daily living. Electronically signed by: Kun Jauregui PT. Please sign and return to therapist. Thank you for your referral.
--- NOTE | 2024-05-30 12:30 | MHC.PT.DC ---
[facility] [place] Office [place] Office [place] Office [address] Asif Mathews [address] [phone] F: [phone] F: [phone] F: [phone] F: [phone] Physical Therapy Discharge Report Diagnosis: LBP with B sciatica. Date of Surgery: Date of Evaluation: 05/04/24 Date of Discharge: 05/30/24 Treatments to Date: 5 Cancellations to Date: 1 No Shows to Date: 3 Discharge Status: Visit Non-compliance Discharge Summary: Pt had attended 5 visits with some improvement noted however he has logged 3 no show apts and is DC'd per attendance policy. Electronically signed by: Kun Jauregui PT. Please sign and return to therapist. Thank you for your referral.
== END 2024-05-30 12:30 | disposition home or self-care (01) ==
LOC: HO.PT 10:47
PROVIDERS: PCP Internal Medicine; Visit Provider Nurse Practitioner Family
DX: M54.42 Lumbago with sciatica, left side (principal); M54.41 Lumbago with sciatica, right side; M47.816 Spondylosis without myelopathy or radiculopathy, lumbar region
CPT/HCPCS: 97110; 97140; 97161

== ENCOUNTER 2024-06-08 11:21 | Outpatient (AMB) | payer OTHER, SELFPAY ==
--- NOTE | 2024-06-08 11:32 | A.OFFVISCC_ITS ---
Intake Visit Reasons: Intake Allergies Penicillins [PENICILLINS] Allergy (Intermediate, Verified 06/14/24 14:16) RASH metformin Adverse Reaction (Intermediate, Verified 06/14/24 14:16) Diarrhea HPI HPI Intake: Details: Patient presents for evaluation and treatment of alcohol use He states that since age 16, he has been drinking btwn 10-12 beers on Thursday and Thursday nights At time of appt he reports it has been 3 weeks since he last had a drink Says he stopped drinking because they found something on his liver He denies any withdrawal sx, but has noted an increase in anxiety overall since he stopped drinking No issues with sleep Denies issues with appetite Denies any vomiting some abdominal pain denies any tremor He denies any negative impact from alcohol, aside from not feeling well the day after drinking. Denies any issues with relationship or legal issues Denies any other substance use history Patient reports his goal right now is to abstain completely Discussed strategies to maintain this goal Review of Systems Const Reports as per HPI Physical Exam Const General: cooperative, healthy appearing, comfortable and well groomed Nutritional Appearance: average body habitus Orientation/consciousness: patient oriented x3 Limitations: no limitations Neuro General: patient oriented x3 Psych Speech and movement: Normal speech and movement present Affect: normal affect Attitude: cooperative Thought process: Normal thought process present Thought content: Normal thought content present Insight: Good insight present (Psych) Judgement: Good judgement present (Psych) [facility] Medical History Hypertrophic obstructive cardiomyopathy Sacroiliitis Diabetes mellitus, without long-term current use of insulin Diabetes mellitus without complication, with long-term current use of insulin Foot abscess, right Poorly controlled type 2 diabetes mellitus Diabetes Osteoarthritis of right knee Osteoarthritis of lumbar spine Hypertrophic obstructive cardiomyopathy MARA (obstructive sleep apnea) Hypertensive heart disease HTN (hypertension) Surgical History History of hand surgery History of elbow surgery History of ankle surgery Family History (Updated 05/25/24 @ 08:11 by Ninoska Meeks MD) Father PVD (peripheral vascular disease) Essential hypertension Diabetes mellitus Mother Liver transplant failure Social History Household Members: Family Housing: Apartment Do you presently have visiting nurse or other home services: No Alcohol intake: current Alcohol intake frequency: a few times a month Alcohol type: beer Patient Tobacco Use Status: Former Tobacco user Tobacco use type: Cigarette Cigarettes Per Day: 10 Years Smoked: 20 e-Cigarette/Vaping Use: Never Used Second Hand Smoke Exposure: No service: No Current occupational status: unemployed Current occupational exposures/hazards: No Cognitive needs: No Hearing needs: No Vision needs: Yes (Glasses) Assessment & Plan Assessment & Plan (1) Alcohol use: Code(s): F10.90 - Alcohol use, unspecified, uncomplicated Category: Medical Plan: * discussed medications for alcohol use, should desire to drink become challenging * discussed strategies to maintain current abstinence (his goal) * reviewed safer drinking strategies * discussed thiamine and folate as patient acknowledges that when he is drinking PO intake is minimal * follow up 5 weeks Medications: New thiamine HCl (vitamin B1) 100 mg PO DAILY 30 tabs 0RF folic acid 1 mg PO DAILY 30 tabs 0RF
--- OUTSIDE RECORDS SUMMARY | 2024-06-08 13:02 | XMS_ITS | Clinical Summary ---
Author Organization [address] [place] [address] [place] [phone] Phone Care Team Providers Care Financial Planning Consultant Name Role Phone Ninoska Meeks MD Primary Care Provider [phone] Allergies Active Allergy Reactions Criticality Noted Date Comments Metformin Diarrhea,Nausea And Vomiting Low 022 Penicillins Rash 10/19/2020 Medications Medication Sig Dispensed Refills Start Date End Date Status atorvastatin (LIPITOR) 20 mg tablet 1 tablet (20 mg total). 04/01/2024 Active metoprolol succinate (TOPROL-XL) 100 mg 24 hr tablet TOME RON TABLETA TODOS LOS D 09/13/2020 Active calcium carbonate-vitami n D 500 mg-5 mcg (200 unit) per tablet Take 1 tablet by mouth 1 (one) time each day. 30 each 11 05/09/2024 5 Active Trulicity 3 mg/0.5 mL pen injector injection 0.5 mL (3 mg total). 05/21/2024 Acti ve verapamiL (CALAN) 120 mg tablet Take 1 tablet (120 mg total) by mouth 2 (two) times a day. 05/02/2024 Active Trulicity 1.5 mg/0.5 mL pen injector injection INJECT 0.5 ML (1.5 MG) SUBCUTANEOUSLY ONE TIME PER WEEK 5 Discontinue d(Dose adjustment) verapamiL (CALAN) 40 mg tablet Take 1 tablet (40 mg total) by mouth. 5 Discontinue d(Dose adjustment) Encounters Date Type Department Care Team Description 06/07/2024 11:45 AM EST Office Visit Orthopedic Surgery [facility] 175 [facility] [address] [place] [phone] Allegra Coleman MD Post-operative state (Primary Dx); Status post fusion of wrist 04/26/2024 10:30 AM EST Office Visit Orthopedic Surgery [facility] 175 [facility] [address] [place] [address] Allegra Coleman MD Post-operative state (Primary Dx) from Last 3 Months Surgical History Surgery Date Site/Laterality Comments ELBOW SURGERY Right CARPAL TUNNEL RELEASE Right WRIST FUSION 05/18/2023 - 05/17/2024 Right scaphoid excision, 4 corner fusion Medical History Medical History Date Comments Diabetes (CMS/HCC) DX:Diabetes ( HCC) Essential (primary) hypertension DX:Essential (primary) hypertension Hyperlipidemia DX:Hyperlipidemi a Social History Tobacco Use Types Packs/Day Years Used Date Smoking Tobacco: Every Day Smokeless Tobacco: Never Alcohol Use Standard Drinks/Week Comments Yes 2 (1 standard drink = 0.6 oz pur e alcohol) Sex and Gender Information Value Date Recorded Sex Assigned at Not on file Gender Identity Not on file Sexual Orientation Not on file Job Start Date Occupation Industry Not on file Not on file Not on file Obstetrics History Last Filed Vital Signs Vital Sign Reading Time Taken Comments Blood Pressure 152/96 2023 8:26 AM EDT Pulse 77 2023 8:26 AM EDT Temperature - - Respiratory Rate - - Oxygen Saturation - - Inhaled Oxygen Concentration - - Weight 113 kg (250 lb) 06/07/2024 11:51 AM EST Height 182.9 cm (6') 06/07/2024 11:51 AM EST Body Mass Index 33.91 06/07/2024 11:51 AM EST Plan of Treatment Upcoming Encounters Date Type Department Care Team (Late st Contact Info) Description 06/28/2024 2:30 PM EST Office Visit Orthopedic Surgery - [place] 175 [facility] [address] [place] [address] Allegra Coleman MD [address] [place] [phone] Health Maintenance Due Date Last Done Comments Diabetes: Annual GFR (Glomerular Filtration Rate) 1983 Pneumococcal Vaccine: Pediatrics (0 to 5 Years) and At-Risk Patients (6 to 64 Years) (1 of 2 - PCV) 10/15/1989 Diabetes: Annual Foot Exam 10/15/1993 Diabetes: Annual Retina Eye Exam 10/15/1993 Hepatitis B Vaccines (1 of 3 - 19+ 3-dose series) 10/15/2002 Cholesterol Screening (Lipid Panel) 04/26/2022 Depression Screening 04/26/2022 HIV Screening 04/26/2022 Hepatitis C Screening 04/26/2022 Social Influencers of Health Screening 04/26/2022 Diabetes: Annual Urine Albumin-Creatinine Ratio (uACR) 04/30/2022 Diabetes: Blood Sugar Contro l Test (HGBA1C) 04/30/2022 COVID-19 Vaccine ( - 2023-2 5 season) 2024 11/15/2020, 10/25/2020 Influenza Vaccine (#1) 2024 Hypertension/CHF/CAD Annual BMP Blood Test 04/25/2024 DTaP,Tdap,and Td Vaccines (2 - Td or Tdap) 08/09/2031 08/08/2021 HIB Vaccines Aged Out No longer eligi ble based on patient's age to complete this topic HPV Vaccines Aged Out No longer eligi ble based on patient's age to complete this topic Hepatitis A Vaccines Aged Out No long er eligible based on patient's age to complete this topic IPV Vaccines Aged Out No longer eligi ble based on patient's age to complete this topic MMR Vaccines Aged Out No longer eligi ble based on patient's age to complete this topic Meningococcal ACWY Vaccine Aged Out N o longer eligible based on patient's age to complete this topic RSV Immunization Patients Under 20 months Aged Out No longer eligible b ased on patient's age to complete this topic Varicella Vaccines Aged Out No longer eligible based on patient's age to complete this topic Procedures Procedure Name Priority Date/Time Associated Diagnosis Comments XR WRIST 3+ VIEWS RIGHT Routine 04/26/2024 10:19 AM EST Post-operative state from Last 3 Months Results * XR Wrist 3+ Views Right (04/26/2024 10:19 AM EST) Anatomical Region Laterality Modality Upper Extremities, Wrist Right Compute d Radiography Narrative 04/27/2024 7:24 PM EST AP, lateral, oblique of the right wrist was obtained on 04/26/2024. ??There are multiple images of the wrist dating back to September. ??There has been a 4 corner fusion. ??There is no backing out of any of the screws. ??Scaphoid is still in place. ??Capitolunate interval looks to have bone however there is still some joint space evident between the lunate and the triquetrum and the hamate and the triquetrum. ??This is not changed compared to prior visits. Allegra Coleman MD IMG XR PROCEDURES from Last 3 Months Care Teams Financial Planning Consultant Relationship Specialty Start Date End Date Ninoska Meeks MD [address] [place] [address] , [address] [facility] Physician Associ D/B/A: [facility] PCP - General Internal Medicine 04/26/24
--- OUTSIDE RECORDS SUMMARY | 2024-06-08 13:02 | XMS_ITS | Clinical Summary ---
Author Organization [facility] Facility Address [address] [place] [address] Care Team Providers Care Firefighter Name Role Phone Kelly Verma MD Primary Care Provider [phone] Allergies Active Allergy Reactions Criticality Noted Date Comments Penicillins 10/26/2020 Medications metFORMIN (GLUCOPHAGE) 1000 MG tablet TOME RON TABLETA DOS VECES AL D A 1 Active metoprolol tartrate (LOPRESSOR) 50 MG tablet TOME RON TABLETA DOS VECES AL D A 1 Active losartan-hydroC HLOROthiazide (HYZAAR) 100-25 MG per tablet TOME RON TABLETA TODOS LOS D 1 Active Lancets (freestyle) lancets USE TO CHECK SUGARS A DIARIO 1 Active FREESTYLE LITE test strip USE SEG N LO INDICADO CUATRO VECES AL D A 1 Active glipiZIDE (GLUCOTROL XL) 5 MG 24 hr tablet TOME RON TABLETA TODOS LOS D 1 Active cyclobenzaprine (FLEXERIL) 10 MG tablet TOME RON TABLETA POR V A ORAL DONALD VECES AL D A CUANDO SEA NECESARIO FOR SPASMS 1 Active atorvastatin (LIPITOR) 40 MG tablet TOME RON TABLETA TODOS LOS D 1 Active amLODIPine (NORVASC) 10 MG tablet TOME RON TABLETA TODOS LOS D 1 Active metoprolol succinate XL (TOPROL-XL) 100 MG 24 hr tablet TOME RON TABLETA TODOS LOS D 1 Active doxazosin (Cardura) 2 MG tablet Take 1 tablet (2 mg total) by mouth every night 30 tablet 1 06/11/202 1 Active Active Problems Problem Noted Date Diagnosed Date Essential (primary) hypertension 10/26/2020 Type 2 diabetes mellitus with diabetic neuropath y 10/26/2020 Resolved Problems Problem Noted Date Diagnosed Date Resolved Date Sleep apnea 10/26/2020 12/10/2020 Arthritis 10/26/2020 12/10/2020 Essential hypertension 10/26/202012/10 Family History Medical History Relation Comments Diabetes Father Hypertension Father Cancer Mother Diabetes Mother Hypertension Mother Relation Status Comments Father Mother Social History Tobacco Use Types Packs/Day Years Used Date Smoking Tobacco: Never Assessed Sex and Gender Information Value Date Recorded Sex Assigned at Not on file Legal Sex Male 2:02 PM EDT Gender Identity Not on file Sexual Orientation Not on file Last Filed Vital Signs Vital Sign Reading Time Taken Comments Blood Pressure 140/85 10/26/2020 10:08 AM EDT Pulse 92 10/26/2020 10:08 AM EDT Temperature - - Respiratory Rate - - Oxygen Saturation 97% 10/26/2020 10:08 AM EDT Inhaled Oxygen Concentration - - Weight 114 kg (251 lb) 10/26/2020 10:08 AM EDT Height - - Body Mass Index - - Plan of Treatment Health Maintenance Due Date Last Done Comments Hepatitis B Vaccine (1 of 3 - 19+ 3-dose series) 10/15/2002 Diabetes: Hemoglobin A1C 10/26/2020 Diabetes: Ophthalmology Exam 10/26/2020 Diabetes: Pedal Pulse Checked 10/26/2020 Diabetes: Sensory Foot Exam 10/26/2020 Diabetes: Visual Foot Exam 10/26/2020 Influenza Vaccine (#1) 2024 Pneumococcal Vaccine: Pediat rics (0 to 5 Years) and At-Risk Patients (6 to 64 Years) Aged Out No longer eligible b ased on patient's age to complete this topic [place] Care Teams Firefighter Relationship Specialty Start Date End Date Kelly Verma MD [address] [place] [address] PCP - General Internal Medicine 10/19/20
--- OUTSIDE RECORDS SUMMARY | 2024-06-08 13:02 | XMS_ITS | Encounter Summary ---
Author Organization [facility] Address [address] [place] [phone] Care Team Providers Care Greenhouse Superintendent Name Role Phone Ninoska Meeks MD Primary Care Provider [phone] Reason for Visit * Reason Comments Post-op Surgery follow up fo r a fusion Encounter Details Date Type Department Care Team (Late st Contact Info) Description 04/26/2024 10:30 AM EST Office Visit Orthopedic Surgery - [place] 175 [facility] [address] [place] [phone] Courtney Coleman MD 175 [facility] [address] [place] [phone] Post-operative state (Primary Dx) Social History Tobacco Use Types Packs/Day Years [...] file Not on file Not on file documented as of this encounter Last Filed Vital Signs Vital Sign Reading Time Taken Comments Blood Pressure - - Pulse - - Temperature - - Respiratory Rate - - Oxygen Saturation - - Inhaled Oxygen Concentration - - Weight 113 kg (250 lb) 04/26/2024 10:38 AM EST Height 182.9 cm (6') 04/26/2024 10:38 AM EST Body Mass Index 33.91 04/26/2024 10:38 AM EST documented in this encounter Ordered Prescriptions Prescription Sig Dispensed Refills Start Date End Da te calcium carbonate-vitamin D 500 mg-5 mcg (200 unit) per tablet Take 1 tablet by mouth 1 (one) time each day. 30 each 11 05/09/2024 05/09/2025 documented in this encounter Progress Notes * Courtney Coleman MD - 04/26/2024 10:30 AM ESTAddended by: COURTNEY COLEMAN on: 05/09/2024 01:05 PM Modules accepted: Orders * Courtney Coleman MD - 04/26/2024 10:30 AM EST CHIEF COMPLAINT/REASON FOR VISIT: Patient status post 4 corner fusion of the right wrist 11/02/2023 SUBJECTIVE: Patient continues to have pain in the wrist. He is using the bone stimulator. OBJECTIVE: On exam there is no swelling no redness. He still has diminished range of motion. He can gently move it [id number] about 20 to 25 degrees in each direction. He can make a fist. Sensation is intact. He does have some tenderness dorsally but there is no bogginess to palpation over the carpus. He has a negative Tinel's and a negative Durkan's XR Wrist 3+ Views Right AP, lateral, oblique of the right wrist was obtained on 04/26/2024. There are multiple images of the wrist dating back to September. There has been a 4 corner fusion. There is no backing out of any of the screws. Scaphoid is still in place. Capitolunate interval looks to have bone however there is still some joint space evident between the lunate and the triquetrum and the hamate and the triquetrum. This is not changed compared to prior visits. ASSESSMENT: 1. Post-operative state XR Wrist 3+ Views Right Delayed union of a 4 corner fusion PLAN: Patient will use the bone stimulator for several more weeks. I will see him after the holiday and we will get an x-ray at his next visit. I will send in a prescription for some vitamin D on the off chance that he needs some supplementation. Courtney Coleman MD documented in this encounter Plan of Treatment Upcoming Encounters Date Type Department Care Team (Late st Contact Info) Description 06/28/2024 2:30 PM EST Office Visit Orthopedic Surgery - [address] [place] [address] Courtney Coleman MD 175 [facility] [address] [place] [address] documented as of this encounter Results * XR Wrist 3+ Views Right [...] is not changed compared to prior visits. Courtney Coleman MD IMG XR PROCEDURES documented in this encounter Visit Diagnoses Diagnosis Post-operative state- Primary Other postprocedural status documented in this encounter Historical Medications * This list may reflect changes made after this encounter. Medication Sig Dispensed Refills Start Date End Date metoprolol succinate (TOPROL-XL) 100 mg 24 hr tablet TOME RON TABLETA TODOS LOS D 09/13/2020 atorvastatin (LIPITOR) 20 mg tablet 1 tablet (20 mg total). 04/01/2024 verapamiL (CALAN) 40 mg tablet Take 1 tablet (40 mg total) by mouth. 06/07/2024 Trulicity 1.5 mg/0.5 mL pen injector injection INJECT 0.5 ML (1.5 MG) SUBCUTANEOUSLY ONE TIME PER WEEK 06/07/2024 added in this encounter Care Teams Greenhouse Superintendent Relationship Specialty Start Date End Date Ninoska Meeks MD [address] [place] [address] , [address] [facility] Physician Associ D/B/A: [facility] PCP - General Internal Medicine 04/26/24 documented as of this encounter
--- OUTSIDE RECORDS SUMMARY | 2024-06-08 13:02 | XMS_ITS | Encounter Summary ---
Author Organization [facility] Address [address] [place] [phone] Care Team Providers Care Management Department Chair Name Role Phone Ninoska Meeks MD Primary Care Provider [phone] Reason for Referral * Imaging (Routine) - Pending Review Specialty Diagnoses / Procedures Referred By Elin schulte Referred To Contact Radiology Diagnoses Status post fusion of wrist Procedures CT Upper Extremity wo Contrast Right Allegra Coleman MD [address] [phone] [facility] [address] [place] [address] Referral ID Status Reason Start Date Expiration Date V isits Requested Visits Authorized [id number] Pending Review 06/07/2024 06/07/2025 1 1 Reason for Visit * Reason Comments Follow-up Surgery follow up fo r a fusion Encounter Details Date Type Department Care Team ([facility] st Contact Info) Description 06/07/2024 11:45 AM EST Office Visit Orthopedic Surgery - [place] 175 [facility] 140 [place] [address] Allegra Coleman MD [address] [phone] Post-operative state (Primary Dx); Status post fusion of wrist Social History Tobacco Use Types Packs/Day Years [...] Mass Index 33.91 06/07/2024 11:51 AM EST documented in this encounter Plan of Treatment Upcoming Encounters Date Type Department Care Team (Late st Contact Info) Description 06/28/2024 2:30 PM EST Office Visit Orthopedic Surgery - [place] 175 [facility] [address] [place] [address] Allegra Coleman MD 175 [facility] [address] [place] [address] Scheduled Orders Name Type Priority Associated Diagnoses Orde r Schedule CT Upper Extremity wo Contrast Right Imaging Routine Status post fusion of wrist Expected: 06/14/2024, Expires: 06/07/2025 documented as of this encounter Visit Diagnoses Diagnosis Post-operative state- Primary Other postprocedural status Status post fusion of wrist documented in this encounter Discontinued Medications Medication Sig Discontinue Reason Start Date End Da te Trulicity 1.5 mg/0.5 mL pen injector injection INJECT 0.5 ML (1.5 MG) SUBCUTANEOUSLY ONE TIME PER WEEK Dose adjustment 06/07/2024 verapamiL (CALAN) 40 mg tablet Take 1 tablet (40 mg total) by mouth. Dose adjustment 06/07/2024 documented as of this encounter Historical Medications * This list may reflect changes made after this encounter. Medication Sig Dispensed Refills Start Date End Date verapamiL (CALAN) 120 mg tablet Take 1 tablet (120 mg total) by mouth 2 (two) times a day. 05/02/2024 Trulicity 3 mg/0.5 mL pen injector injection 0.5 mL (3 mg total). 05/21/2024 added in this encounter Care Teams Management Department Chair Relationship Specialty Start Date End Date Ninoska Meeks MD [address] [place] [address] , [address] [facility] Physician Associ D/B/A: [facility] PCP - General Internal Medicine 04/26/24 documented as of this encounter
== END 2024-06-08 13:25 | disposition home or self-care (01) ==
PROVIDERS: PCP Internal Medicine; Visit Provider Nurse Practitioner Psychiatric/Mental Health
DX: F10.90 Alcohol use, unspecified, uncomplicated (principal)
CPT/HCPCS: 99204

== ENCOUNTER → 2024-06-08 11:21 | Outpatient (BNVA) | payer OTHER, SELFPAY | PROVIDERS: PCP Internal Medicine; Visit Provider Nurse Practitioner Psychiatric/Mental Health | DX: F10.90 Alcohol use, unspecified, uncomplicated (principal) | CPT/HCPCS: 99202 ==

== ENCOUNTER 2024-06-14 06:36 | Outpatient (REF) | payer OTHER, SELFPAY ==
--- NOTE | ~2024-06-14 | FL_ITS ---
EXAMINATION: FL GUIDANCE ONLY HISTORY: M53.3 - Sacrococcygeal disorders, not elsewhere classified COMPARISON: None available. TECHNIQUE: Fluoroscopy time: 0.3 minutes. Cumulative Dose: 12.1 mGy. DAP: 0.210 uGy-m2 (microgray-meter squared). Images: 2. FINDINGS: Images demonstrate needles and contrast in the regions of the bilateral sacroiliac joints. FL/FL guidance in treatment room IMPRESSION: Fluoroscopy during procedure. Please see procedure report for additional information. Electronically signed by: Sinan Harvey MD 06/15/2024 07:41 AM EST
--- OUTSIDE RECORDS SUMMARY | 2024-06-14 06:39 | XMS_ITS | Clinical Summary ---
Author Organization [address] [place] [address] [place] [phone] Phone Care Team Providers Care Curtain Stretcher Name Role Phone Ninoska Meeks MD Primary Care Provider [phone] Allergies Active Allergy Reactions Criticality Noted Date [...] 11:45 AM EST Office Visit Orthopedic Surgery [facility] [address] [phone] lAlegra Coleman MD Post-operative state (Primary Dx); Status post fusion of wrist 04/26/2024 10:30 AM EST Office Visit Orthopedic Surgery [facility] [address] [phone] Allegra Coleman MD Post-operative state (Primary Dx) [...] 2:30 PM EST Office Visit Orthopedic Surgery [facility] [address] [phone] Allegra Coleman MD [address] [phone] 06/30/2024 9:00 AM EST Appointment [facility] Scan [address] [place] [phone] Health Maintenance Due Date Last Done Comments [...] Contro l Test (HGBA1C) 04/30/2022 COVID-19 Vaccine (2023-2 5 season) 2024 11/15/2020, 10/25/2020 Influenza Vaccine [...] Comments XR WRIST 3+ VIEWS RIGHT Routine 06/07/2024 11:56 AM EST Post-operative state XR WRIST 3+ VIEWS RIGHT Routine 04/26/2024 10:19 AM EST Post-operative state from Last 3 Months Results * XR Wrist 3+ Views Right (06/07/2024 11:56 AM EST) Only the most recent of2 resultswithin the time period is included. Anatomical Region Laterality Modality Upper Extremities, Wrist Right Compute d Radiography Narrative 06/08/2024 9:14 PM EST AP, lateral, oblique of the right wrist were obtained on 06/07/2024. ??There is evidence of 4 corner fusion and hardware on the ulnar carpus. ??There is evidence of bone harvesting from the distal radius. ??Scaphoid is present. ?? Screws are not backed out. ??There is some slight lucency around the midsection of the screws. ??There appears to be bridging bone on 1 section between the scaphoid and lunate but the rest is indeterminate. Allegra Coleman MD IMG XR PROCEDURES from Last 3 Months Care Teams Curtain Stretcher Relationship Specialty Start Date End Date Ninoska Meeks MD 2 [facility] , [address] [facility] Physician Associ D/B/A: [facility] PCP - General Internal Medicine 04/26/24
--- OUTSIDE RECORDS SUMMARY | 2024-06-14 06:39 | XMS_ITS | Clinical Summary ---
Author Organization [facility] Facility Address [address] [place] [address] Care Team Providers Care Road Cutter Name Role Phone Kelly Verma MD Primary Care Provider Allergies Active Allergy Reactions Criticality Noted Date [...] age to complete this topic [place] Care Teams Road Cutter Relationship Specialty Start Date End Date Kelly Verma MD [address] [place] [address] PCP - General Internal Medicine 10/19/20
--- OUTSIDE RECORDS SUMMARY | 2024-06-14 06:39 | XMS_ITS | Encounter Summary ---
Author Organization [facility] Address [address] [place] [phone] Care Team Providers Care Gluer And Wedger Name Role Phone Ninoska Meeks MD Primary Care Provider [phone] Reason for Referral * Imaging (Routine) - Pending Review Specialty Diagnoses / Procedures Referred By Elin schulte Referred To Contact Radiology Diagnoses Status post fusion of wrist Procedures CT Upper Extremity wo Contrast Right Allegra Coleman MD [address] [phone] [facility] [address] [place] [address] Referral ID Status Reason Start Date Expiration Date V isits Requested Visits Authorized [id number] Pending Review 06/07/2024 06/07/2025 1 1 Reason for Visit * Reason Comments Follow-up Surgery follow up fo r a fusion Encounter Details Date Type Department Care Team ([facility] Contact Info) Description 06/07/2024 11:45 AM EST Office Visit Orthopedic Surgery - [place] [address] [address] Allegra Coleman MD [address] [address] Post-operative state (Primary Dx); Status [...] 11:51 AM EST documented in this encounter Progress Notes * Allegra Coleman MD - 06/07/2024 11:45 AM EST CHIEF COMPLAINT/REASON FOR VISIT: Status post 4 corner fusion right wrist on 11/02/2023 SUBJECTIVE: Patient is here today with his . He continues to have pain and aching in the right wrist. He does not have good strength. He has been using the bone stimulator daily. He has been using his splint. OBJECTIVE: No swelling about the wrist. Limited range of motion going to about 25 degrees of flexion and extension. He is neurovascular intact. He can make a fist. He is tender to palpation dorsally and centrally over the wrist at the level of the capitate. He has negative Tinel's negative Durkan's. XR Wrist 3+ Views Right AP, lateral, oblique of the right wrist were obtained on 06/07/2024. There is evidence of 4 corner fusion and hardware on the ulnar carpus. There is evidence of bone harvesting from the distal radius. Scaphoid is present. Screws are not backed out. There is some slight lucency around the midsection of the screws. There appears to be bridging bone on 1 section between the scaphoid and lunate but the rest is indeterminate. ASSESSMENT: 1. Post-operative state 2. Status post fusion of wrist CT Upper Extremity wo Contrast Right Patient has not had radiographic response to use of bone stimulator. We will double check with CAT scan but it is highly likely will then doubt need to discuss revision of the fusion. PLAN: Return after CAT scan Allegra Coleman MD documented in this encounter Plan of Treatment Upcoming Encounters Date Type Department Care Team (Late st Contact Info) Description 06/28/2024 2:30 PM EST Office Visit Orthopedic Surgery - [place] 175 [facility] [address] [place] [address] Allegra Coleman MD 175 [facility] [address] [place] [address] 06/30/2024 9:00 AM EST Appointment [facility] CT Scan [address] [place] [address] Scheduled Orders Name Type Priority Associated Diagnoses [...] 05/21/2024 added in this encounter Care Teams Gluer And Wedger Relationship Specialty Start Date End Date Ninoska Meeks MD [address] [place] [address] , [address] [facility] D/B/A: [facility] PCP - General Internal Medicine 04/26/24 documented as of this encounter
== END 2024-06-14 06:37 | disposition home or self-care (01) ==
LOC: CF 06:36
PROVIDERS: Visit Provider Anesthesiology
DX: M53.3 Sacrococcygeal disorders, not elsewhere classified (principal)
CPT/HCPCS: 27096; J2003; J2795; Q9967

== ENCOUNTER 2024-06-14 14:09 | Outpatient (AMB) | payer OTHER, SELFPAY ==
[2024-06-14 14:15] VITALS: BP 140/85; PULSE 97; RESP 16; O2SAT 97
--- NOTE | 2024-06-14 14:15 | MHC.OFFVIS ---
Vital Signs 06/14/24 14:15 06/14/24 14:48 BP 140/85 H 144/85 H Blood Pressure Location Lt brachial Lt brachial Position Sitting Sitting Respiration 16 16 Pulse 97 90 Pulse Source Pulse Oximeter Pulse Oximeter Pulse Oximetry (%) 97 98 Oxygen Delivery Method Room Air Room Air Intake Visit Reasons: BILATERAL DIAGNOSTIC SIJ INJECTIONS Granite Installer Required: Yes Granite Installer Services: Granite Installer Offered & Declined Granite Installer Name: Prefers girlfriend to translat Allergies Penicillins [PENICILLINS] Allergy (Intermediate, Verified 06/14/24 14:16) RASH metformin Adverse Reaction (Intermediate, Verified 06/14/24 14:16) Diarrhea Medication List - Last Reconciled 06/14/24 by Sinai Ponce LPN atorvastatin 20 mg PO BEDTIME 90 days azithromycin 250 mg PO DAILY 5 days blood sugar diagnostic (FreeStyle Lite Strips) Use daily As directed to check blood glucose blood-glucose meter (FreeStyle Lite Meter kit) Use daily As directed to check blood glucose blood-glucose sensor (GlokaliseStyle Jai 3 Sensor device) Apply every 14 days As directed dulaglutide (Trulicity) 3 mg (0.5 mL) subcut QWEEK folic acid 1 mg PO DAILY ibuprofen 800 mg PO TID lancets (FreeStyle Lancets) Use daily As directed to check blood glucose metoprolol tartrate 100 mg PO BID 90 days omeprazole 20 mg PO DAILY 90 days thiamine HCl (vitamin B1) 100 mg PO DAILY verapamil 120 mg PO BID 90 days [facility] Medical History Hypertrophic obstructive cardiomyopathy Sacroiliitis Diabetes mellitus, without long-term current use of insulin Diabetes mellitus without complication, with long-term current use of insulin Foot abscess, right Poorly controlled type 2 diabetes mellitus Diabetes Osteoarthritis of right knee Osteoarthritis of lumbar spine Hypertrophic obstructive cardiomyopathy MARA (obstructive sleep apnea) Hypertensive heart disease HTN (hypertension) Surgical History History of hand surgery History of elbow surgery History of ankle surgery Family History (Updated 05/25/24 @ 08:11 by Ninoska Meeks MD) Father PVD (peripheral vascular disease) Essential hypertension Diabetes mellitus Mother Liver transplant failure Social History Household Members: Family Housing: Apartment Do you presently have visiting nurse or other home services: No Alcohol intake: current Alcohol intake frequency: a few times a month Alcohol type: beer Patient Tobacco Use Status: Former Tobacco user Tobacco use type: Cigarette Cigarettes Per Day: 10 Years Smoked: 20 e-Cigarette/Vaping Use: Never Used Second Hand Smoke Exposure: No service: No Current occupational status: unemployed Current occupational exposures/hazards: No Cognitive needs: No Hearing needs: No Vision needs: Yes (Glasses) Physical Exam Vital Signs: Last Vital Signs Pulse 90 06/14/24 14:48 Resp 16 06/14/24 14:48 BP 144/85 H 06/14/24 14:48 Pulse Ox 98 06/14/24 14:48 Oxygen Delivery Method Room Air 06/14/24 14:48 Assessment & Plan Assessment & Plan (1) Sacroiliac joint pain: Code(s): M53.3 - Sacrococcygeal disorders, not elsewhere classified Category: Medical (2) Sacroiliac joint dysfunction of both sides: Code(s): M53.3 - Sacrococcygeal disorders, not elsewhere classified Category: Medical Plan Bilateral sacroiliac joint injection diagnostic. Informed consent was thoroughly explained to the patient before the procedure.? The patient came to the operating room.? She was positioned prone on operating table with a pillow under her abdomen.? Time-out was performed delineating correct site and side of the procedure, nature of the injection, name and date of of the patient. The lower back and upper buttocks of the patient was prepped with ChloraPrep and draped with sterile utility towels.? C-arm was brought over the operating field and picture of right sacroiliac joint was demonstrated on the screen. Tilting machine contralateral left 15 degrees from the midline the anterior portion of the silhouette of the joint was superimposed on posterior portion of the silhouette of the joint. The skin was anesthetized with mixture of ropivacaine 0.5% and lidocaine 2% one-to-one slightly medial to the silhouette of the sacroiliac joint. 22 gauge 3-1/2 inch spinal needle was inserted through the skin wheal and advanced to the sacroiliac joint. When tip of the needle entered the sacroiliac joint injection of the contrast performed delineating arthrogram. After that 4 cc of ropivacaine was injected into the joint. Upon completion of the injection needle was removed and the procedure was repeated on the left side in the mirroring fashion. After the injection the needle was removed and sterile Band-Aids were applied . Patient tolerated the procedure well. Orders: Orders FL guidance in treatment room Today M53.3 - Sacrococcygeal disorders, not elsewhere classified Coding Level of Care Code Procedure Only Diagnoses Sacroiliac joint pain M53.3 Sacroiliac joint dysfunction of both sides M53.3
[2024-06-14 14:48] VITALS: BP 144/85; PULSE 90; RESP 16; O2SAT 98
--- OUTSIDE RECORDS SUMMARY | 2024-06-14 15:07 | XMS_ITS | Encounter Summary ---
Author Organization [facility] Address [address] [place] [phone] Care Team Providers Care Clip Bolter And Wrapper Name Role Phone Ninoska Meeks MD Primary Care Provider [phone] Reason for Referral * Imaging (Routine) - Authorized Specialty Diagnoses / Procedures Referred By Contac t Referred To Contact Radiology Diagnoses Status post fusion of wrist Procedures CT Upper Extremity wo Contrast Right Allegra Coleman MD [address] [place] [phone] [address] Referral ID Status Reason Start Date Expiration Date V isits Requested Visits Authorized [id number] Authorized 06/07/2024 06/07/2025 1 1 Reason for Visit * Reason Comments Follow-up Surgery follow up fo r a fusion Encounter Details Date Type Department Care Team ([facility] st Contact Info) Description 06/07/2024 11:45 AM EST Office Visit Orthopedic Surgery - [place] [address] [address] Allegra Coleman MD [address] [address] Post-operative state (Primary Dx); Status [...] PM EST Office Visit Orthopedic Surgery - [place] 175 [facility] [address] [place] [address] Allegra Coleman MD 175 [facility] [address] [place] [address] 06/30/2024 9:00 AM EST Appointment [facility] CT Scan [address] [place] [address] Scheduled Orders Name Type Priority [...] 05/21/2024 added in this encounter Care Teams Clip Bolter And Wrapper Relationship Specialty Start Date End Date Ninoska Meeks MD [address] [place] [address] , [facility] [address] [facility] Physician Associ D/B/A: [facility] PCP - General Internal Medicine 04/26/24 documented as of this encounter
--- OUTSIDE RECORDS SUMMARY | 2024-06-14 15:07 | XMS_ITS | Clinical Summary ---
Author Organization [facility] Address [address] [place] [id number] Care Team Providers Care Sap Trainer Name Role Phone Kelly Verma MD Primary [...] age to complete this topic [place] Care Teams Sap Trainer Relationship Specialty Start Date End Date Kelly Verma MD [address] [place] [address] PCP - General Internal Medicine 10/19/20
--- OUTSIDE RECORDS SUMMARY | 2024-06-14 15:07 | XMS_ITS | Clinical Summary ---
Author Organization [address] [place] [address] [place] [phone] Phone Care Team Providers Care Teaching Dietitian Name Role Phone Ninoska Meeks MD Primary Care Provider [phone] Allergies Active Allergy Reactions Criticality Noted Date [...] 11:45 AM EST Office Visit Orthopedic Surgery [facility] [address] [address] Allegra Coleman MD Post-operative state (Primary Dx); Status post fusion of wrist 04/26/2024 10:30 AM EST Office Visit Orthopedic Surgery [facility] [address] [phone] Allegra Coleman MD Post-operative state (Primary Dx) [...] 2:30 PM EST Office Visit Orthopedic Surgery [facility] [address] [phone] Allegra Coleman MD [address] [phone] 06/30/2024 9:00 AM EST Appointment [facility] CT Scan [address] [place] [phone] Health Maintenance Due Date Last Done Comments [...] PROCEDURES from Last 3 Months Care Teams Teaching Dietitian Relationship Specialty Start Date End Date Ninoska Meeks MD 2 [facility] , [address] [facility] Physician Associ D/B/A: [facility] PCP - General Internal Medicine 04/26/24
== END 2024-06-14 14:49 | disposition home or self-care (01) ==
LOC: HO.PMCPRC 14:09
PROVIDERS: PCP Internal Medicine; Visit Provider Anesthesiology
DX: M53.3 Sacrococcygeal disorders, not elsewhere classified (principal)
CPT/HCPCS: 27096

== ENCOUNTER 2024-06-21 12:45 | Outpatient (AMB) | payer OTHER, SELFPAY ==
--- NOTE | 2024-06-21 13:02 | MHC.OFFVIS ---
Vital Signs 06/21/24 13:05 Height 6 ft Weight 251 lb 8 oz BMI 34.1 BP 146/87 H Blood Pressure Location Lt brachial Position Sitting Pulse 100 Pulse Source Pulse Oximeter Intake Visit Reasons: BILATERAL DIAGNOSTIC SIJ INJECTIONS Intake Note: Pain today 12/25 Bobbin Cleaning Machine Operator Required: Yes Bobbin Cleaning Machine Operator Language: Teacher Of The Visually Impaired Services: Bobbin Cleaning Machine Operator Present Bobbin Cleaning Machine Operator Name: Alex Information Interpreted: non-clinical & clinical Accompanied by: Self / Same As Patient Allergies Penicillins [PENICILLINS] Allergy (Intermediate, Verified 06/21/24 13:06) RASH metformin Adverse Reaction (Intermediate, Verified 06/21/24 13:06) Diarrhea HPI Comments Details: Patient presents today to assess response to Bilateral Diagnostic SIJ injections on 06/14/[address] Moseley. Patient reports 0% pain relief since procedure without improvement in his ADLs, mobility or sleep. Patient continues to endorse low back pain with radiation into buttocks and into lower extremity posteriorly and into calves and toes with associated weakness, numbness and tingling, worse on the left. Patient completed formal PT 05/04/24-05/30/24 without improvement in his functioning improvement or pain reduction. We will resubmit lumbar spine MRI to evaluate progression of spinal stenosis and spondylolisthesis. Patient denies any fever, chills, abdominal or groin pain, bowel/bladder incontinence or saddle anesthesia. Denies any recent cough, cold, infection, fever, bladder or bowel dysfunction, saddle anesthesia or any significant changes in his medical history, medications or recent hospitalizations. Past Procedures: 06/14/24: Bilateral Diagnostic SIJ injections-0% pain relief 08/12/23: Bilateral Diagnostic SIJ injections-50% pain relief for 5 hours 08/12/22: Left L5-S1 TFESI -0% pain relief, reports worsening of pain after injection 06/17/22: Diagnostic Bilateral L3-L4 DR L5 MBB-50% pain relief for 6 hours PRIOR: Patient is a pleasant 36 years old Chilean speaking male who presents for evaluation of worsening of chronic lower back pain with radiculopathy to left lower extremity and right knee pain. He is being treated at [facility] for right knee pain, had previously done cortisone injections, fluid aspiration, x rays and recently had obtained right knee MRI with pending results. He believes he might need surgery. His last imaging showed mild degenerative change at the lateral and patellofemoral compartments with small osteophytes present. Patient also follows [facility] [place] services for multiple arthralgias and has mildly elevated ESR. Patient reports his back pain originates in his lower back and spreads across his left side into his left thigh anteriorly and laterally and into left lower leg anteriorly and medially in the projection of L4/L5 dermatome with significant pain in his left big toe and numbness and tingling in the whole left foot. 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 Patient also noticed worsening of back pain about 1.5 years ago while he was standing bending forward to wash dishes and felt exacerbation of pain. Pain is described as constant aching, hot, burning, tingling, pins and needles and numbness sensations. He states the pain is interfering with sleep, daily activities, mood, quality of life and he cannot function normally. Patient denies any fever, chills, abdominal or groin pain, weakness, weight loss, bowel/bladder incontinence or saddle anesthesia. He has poorly controlled diabetes with recent random glucose 245 on 08/19/21, his recent A1C-8.2 on 05/07/21 and A1C-11.2 on 03/26/21. We rechecked his A1C today and it was 8.8 with average blood sugars 206. Patient reports he has not been checking his blood sugars at home for a few weeks due to traveling for a family emergency in [place]. Patient has previously tried chiropractic manipulation (Dr. Dodge, [facility]), TENS unit, ice and heat therapy and massages with no improvement in his symptoms. He is starting formal PT on 12/11/21. Patient has been taking Tylenol, gabapentin, meloxicam, and also tried Ibuprofen and Naproxen in the past without pain relief. We discussed the importance of getting his blood sugars under better control as high A1C levels will limit treatment modalities that we can offer him as well longterm complications from diabetes that can affects multiple systems of his body. We briefly discussed neuromodulation for his right knee pain after his clearance with [facility]. For his back pain, we will start with PT and will proceed with MRI if no improvement in his symptoms. [facility] Medical History Hypertrophic obstructive cardiomyopathy Sacroiliitis Diabetes mellitus, without long-term current use of insulin Diabetes mellitus without complication, with long-term current use of insulin Foot abscess, right Poorly controlled type 2 diabetes mellitus Diabetes Osteoarthritis of right knee Osteoarthritis of lumbar spine Hypertrophic obstructive cardiomyopathy MARA (obstructive sleep apnea) Hypertensive heart disease HTN (hypertension) Surgical History History of hand surgery History of elbow surgery History of ankle surgery Family History Father PVD (peripheral vascular disease) Essential hypertension Diabetes mellitus Mother Liver transplant failure Social History Household Members: Family Housing: Apartment Do you presently have visiting nurse or other home services: No Alcohol intake: current Alcohol intake frequency: a few times a month Alcohol type: beer Patient Tobacco Use Status: Former Tobacco user Tobacco use type: Cigarette Cigarettes Per Day: 10 Years Smoked: 20 e-Cigarette/Vaping Use: Never Used Second Hand Smoke Exposure: No service: No Current occupational status: unemployed Current occupational exposures/hazards: No Cognitive needs: No Hearing needs: No Vision needs: Yes (Glasses) Review of Systems Const All systems reviewed & are unremarkable except as noted in HPI and below Physical Exam General: Appears afebrile. Alert and oriented. Mood and affect appropriate. Follows and participates in conversation appropriately. Respiratory effort is unlabored. No cough. Able to transition from sit to stand unassisted. Ambulates with bilaterally normal heel strike and toe off, reports right heel pain. General: Yes no CVA tenderness Back/Spine/Pelvis Other: Limited lumbar ROM with flexion forward reproducing moderate pain. Lumbar extension reproduces mild-moderate pain. Demonstrates 5/5 right and 4/5 left strength of quadriceps bilaterally as well as flexion/dorsiflexion of bilateral feet against resistance. 2+ pedal pulses bilaterally. Straight leg rise with dorsiflexion positive bilaterally, left>right. +1 patellar and diminished left achilles reflexes. Facet loading test positive bilaterally. Yajaira sign, Luis?s and Stinchfield tests are positive bilaterally. Mild groin pain with I/E hip rotations. Minimal TTP to bilateral GTB. Valsalva maneuver is negative. Back: no CVA tenderness Cervical Spine: cervical ROM normal, cervical muscular tenderness and No Cervical spine tenderness Thoracic/Lumbar Spine: thoracic and lumbar spine normal to inspection, No Thoracic/lumbar spine scar(s), Lasegue's sign positive bilateral and diffuse, pain with thoraco-lumbar ROM, paraspinal muscle tenderness, thoraco-lumbar ROM limited, No thoracic spinal tenderness and lumbar spinal tenderness at L4 and at L5 Pelvis: buttock tenderness bilaterally and sciatic notch tenderness bilateral Sacroiliac joints: bilaterally tender to palpation Extrem General: Yes capillary refill normal, Yes no clubbing, cyanosis or edema and Yes no calf tenderness Results Reviewed Results Reviewed: MR LUMBAR SPINE WITHOUT CONTRAST 03/25/22 FINDINGS: VERTEBRAL BODIES AND PARASPINAL STRUCTURES: There is slight reversal of the normal lumbar lordosis. There is loss of signal from the discs at L2-L3 through L5-S1 consistent with disc desiccation. There is mild narrowing of intervertebral disc height at L3-L4. There are degenerative endplate contour changes at L4-L5 with Schmorl's nodes and fatty endplate signal changes. There are mild edematous endplate signal changes at L3-L4 and L5-S1. Vertebral body heights are maintained and no fractures are demonstrated. Overall, marrow signal is homogenous. The visualized retroperitoneal and pelvic structures are unremarkable. There are degenerative changes at the right sacroiliac joint with sclerosis. CONUS MEDULLARIS AND CAUDA EQUINA: Normal, terminating at the level of L1-L2. The lower thoracic spinal cord appears normal. The cauda equina nerve roots appear normal. There is a minimal amount of fat in the non-thickened filum terminale at the level of L4-L5. SPINAL LEVELS: L1-L2: The facet joints appear normal bilaterally. Disc contour is normal. There is no central stenosis or foraminal narrowing. L2-L3: There is mild bilateral facet arthropathy with ligamenta flava hypertrophy. There is a central and left-sided posterior disc protrusion with an annular fissure which mildly distorts the ventral thecal sac but there is no central stenosis. The neural foramina are patent bilaterally. L3-L4: There is mild bilateral facet arthropathy. There is a diffuse disc bulge with a small annular fissure posteriorly with minimal flattening of the ventral thecal sac. There is no central stenosis. The neural foramina are patent bilaterally. L4-L5: There is mild bilateral facet arthropathy. There is a posterior disc protrusion with an annular fissure which is most prominent just to the left of midline and there is distortion of the ventral thecal sac. There is no central stenosis, and the neural foramina are patent bilaterally. L5-S1: There is moderate bilateral facet arthropathy with facet joint effusions. There is a posterior disc protrusion which is most prominent in the midline with distortion of the ventral thecal sac but there is no central stenosis. There are bilateral foraminal disc protrusions with mild impingement on the exiting L5 nerve roots. IMPRESSION: 1. At L5-S1 there is a posterior disc protrusion, extending into the neural foramina bilaterally with impingement on the exiting L5 nerve roots. There is no central stenosis. 2. There is spondylosis with facet arthropathic changes at other levels as described above, without central stenosis or foraminal nerve root impingement. XR SACROILIAC JOINTS 02/02/23 CLINICAL INFORMATION: Interval vertebral disc degeneration lumbar region, pain COMPARISON: MR lumbar spine 03/25/2022, x-ray lumbar spine 11/28/2021 FINDINGS: Degenerative changes on limited views of the lower lumbar spine. Moderate degenerative changes in the bilateral sacroiliac joints with sclerosis and narrowing. IMPRESSION: Moderate degenerative changes in the bilateral sacroiliac joints. MR foot RT wo/w con 01/11/24 IMPRESSION: 1. Multiple soft tissue nodules with prominent postcontrast enhancement along the plantar aspect of the distal medial plantar fascial band as well as more distally along the plantar aspect of the flexor hallucis longus tendon. Findings are new when compared to the prior MRI and appear more prominent when compared to the prior CT. These findings likely represent fibromas. 2. No acute osseous abnormality. No metatarsal stress reaction or fracture. 3. Mild posterior tibialis tenosynovitis without a measurable tendon tear. Assessment & Plan Assessment & Plan (1) Low back pain with bilateral sciatica: Code(s): M54.42 - Lumbago with sciatica, left side; M54.41 - Lumbago with sciatica, right side Category: Medical (2) Lumbar spondylosis: Code(s): M47.816 - Spondylosis without myelopathy or radiculopathy, lumbar region Category: Medical (3) Lumbar radiculopathy: Code(s): M54.16 - Radiculopathy, lumbar region Category: Medical (4) Spondylolisthesis, lumbar region: Code(s): M43.16 - Spondylolisthesis, lumbar region Category: Medical (5) Lumbar degenerative disc disease: Code(s): M51.36 - Other intervertebral disc degeneration, lumbar region Category: Medical (6) Sacroiliac joint pain: Code(s): M53.3 - Sacrococcygeal disorders, not elsewhere classified Category: Medical (7) Vertebrogenic low back pain: Code(s): M54.51 - Vertebrogenic low back pain Category: Medical Plan Patient is one week status repeat bilateral diagnostic SIJ injections with no pain relief. We will re-submitted MRI of the lumbar spine to assess for neural integrity and compression, progression of spondylolisthesis and follow up on previous MRI findings. Patient completed formal PT and had to discontinue after 5 sessions due to worsening of sciatica pain. All questions were answered and the patient is in agreement of plan. Follow-up MRI results and sooner as needed. Coding Level of Care Code Est Pt Level 3 (77175) Complex EM visit Add On G2211 Diagnoses Low back pain with bilateral sciatica M54.42; M54.41 Lumbar spondylosis M47.816 Lumbar radiculopathy M54.16 Spondylolisthesis, lumbar region M43.16 Lumbar degenerative disc disease M51.36 Sacroiliac joint pain M53.3 Vertebrogenic low back pain M54.51
[2024-06-21 13:05] VITALS: BP 146/87; PULSE 100; BMI 34.1
--- OUTSIDE RECORDS SUMMARY | 2024-06-21 13:10 | XMS_ITS | Clinical Summary ---
Author Organization [address] [place] [address] [place] [phone] Phone Care Team Providers Care Survey Instrument Operator Name Role Phone Ninoska Meeks MD Primary Care Provider [phone] Allergies Active Allergy Reactions Criticality Noted Date [...] 11:45 AM EST Office Visit Orthopedic Surgery [facility] 175 [facility] [address] [place] [phone] Allegra Coleman MD Post-operative state (Primary Dx); Status post fusion of wrist 04/26/2024 10:30 AM EST Office Visit Orthopedic Surgery [facility] [address] [phone] Allegra Coleman MD Post-operative state (Primary Dx) [...] 2:30 PM EST Office Visit Orthopedic Surgery [facility] [address] [phone] Allegra Coleman MD [address] [phone] 06/30/2024 9:00 AM EST Appointment [facility] CT Scan [address] [place] [phone] Health Maintenance Due Date Last Done Comments [...] PROCEDURES from Last 3 Months Care Teams Survey Instrument Operator Relationship Specialty Start Date End Date Ninoska Meeks MD [address] [facility] , [address] [facility] Physician Associ D/B/A: [facility] PCP - General Internal Medicine 04/26/24
--- OUTSIDE RECORDS SUMMARY | 2024-06-21 13:10 | XMS_ITS | Clinical Summary ---
Author Organization [facility] Facility Address [address] [place] [id number] Care Team Providers Care Tipple Mechanic Name Role Phone Kelly Verma MD Primary [...] age to complete this topic Insurance [place] Care Teams Tipple Mechanic Relationship Specialty Start Date End Date Kelly Verma MD [address] [place] [address] PCP - General Internal Medicine 10/19/20
--- OUTSIDE RECORDS SUMMARY | 2024-06-21 13:10 | XMS_ITS | Encounter Summary ---
Author Organization [facility] Address [address] [place] [phone] Care Team Providers Care Convalescent Sitter Name Role Phone Ninoska Meeks MD Primary Care Provider [phone] Reason for Referral * Imaging (Routine) - Authorized Specialty Diagnoses / Procedures Referred By Contac t Referred To Contact Radiology Diagnoses Status post fusion of wrist Procedures CT Upper Extremity wo Contrast Right Allegra Coleman MD [address] [place] [phone] [phone] Referral ID Status Reason Start Date Expiration Date V isits Requested Visits Authorized [id number] Authorized 06/07/2024 06/07/2025 1 1 Reason for Visit * Reason Comments Follow-up Surgery follow up fo r a fusion Encounter Details Date Type Department Care Team ([facility] st Contact Info) Description 06/07/2024 11:45 AM EST Office Visit Orthopedic Surgery - [place] [address] [phone] Allegra Coleman MD [address] [phone] Post-operative state (Primary Dx); Status [...] PM EST Office Visit Orthopedic Surgery - [place] 175 [facility] [address] [place] [phone] Allegra Coleman MD 175 [facility] [address] [place] [phone] 06/30/2024 9:00 AM EST Appointment [facility] CT Scan [address] [place] [phone] Scheduled Orders Name Type Priority [...] 05/21/2024 added in this encounter Care Teams Convalescent Sitter Relationship Specialty Start Date End Date Ninoska Meeks MD [address] [place] [address] , [facility] [address] [facility] Physician Associ D/B/A: [facility] PCP - General Internal Medicine 04/26/24 documented as of this encounter
== END 2024-06-21 13:12 | disposition home or self-care (01) ==
PROVIDERS: PCP Internal Medicine; Visit Provider Nurse Practitioner Family
DX: M54.42 Lumbago with sciatica, left side (principal); M54.41 Lumbago with sciatica, right side; M47.816 Spondylosis without myelopathy or radiculopathy, lumbar region; M54.16 Radiculopathy, lumbar region; M43.16 Spondylolisthesis, lumbar region; M51.369 Other intervertebral disc degeneration, lumbar region without mention of lumbar back pain or lower extremity pain; M53.3 Sacrococcygeal disorders, not elsewhere classified; M54.51 Vertebrogenic low back pain
CPT/HCPCS: 99213; G2211

== ENCOUNTER → 2024-06-21 12:45 | Outpatient (BNVA) | payer OTHER, SELFPAY | PROVIDERS: PCP Internal Medicine; Visit Provider Nurse Practitioner Family | DX: M54.42 Lumbago with sciatica, left side (principal); M54.41 Lumbago with sciatica, right side; M47.816 Spondylosis without myelopathy or radiculopathy, lumbar region; M54.16 Radiculopathy, lumbar region; M43.16 Spondylolisthesis, lumbar region; M51.360 Other intervertebral disc degeneration, lumbar region with discogenic back pain only; M53.3 Sacrococcygeal disorders, not elsewhere classified | CPT/HCPCS: 99212 ==

== ENCOUNTER 2024-07-12 10:49 | Outpatient (AMB) | payer OTHER, SELFPAY ==
--- NOTE | 2024-07-12 11:12 | MHC.OFFVIS ---
Vital Signs 07/12/24 11:13 Height 6 ft Weight 250 lb BMI 33.9 BP 124/68 Blood Pressure Location Lt brachial Position Sitting Pulse 89 Pulse Source Monitor Intake Visit Reasons: r/s 12/14/23 3 mos followup dc s/p holter Insurance Counselor Required: Yes Insurance Counselor Name: KENNY [id number] Allergies Penicillins [PENICILLINS] Allergy (Intermediate, Verified 06/21/24 13:06) RASH metformin Adverse Reaction (Intermediate, Verified 06/21/24 13:06) Diarrhea Medication List - Last Reconciled 07/12/24 by Tip Crow MD atorvastatin 20 mg PO BEDTIME 90 days blood sugar diagnostic (FreeStyle Lite Strips) Use daily As directed to check blood glucose blood-glucose meter (FreeStyle Lite Meter kit) Use daily As directed to check blood glucose blood-glucose sensor (FreeStyle Jai 3 Sensor device) Apply every 14 days As directed dulaglutide (Trulicity) 3 mg (0.5 mL) subcut QWEEK folic acid 1 mg PO DAILY lancets (FreeStyle Lancets) Use daily As directed to check blood glucose omeprazole 20 mg PO DAILY 90 days thiamine HCl (vitamin B1) 100 mg PO DAILY HPI Comments Details: Tej comes for follow-up of his hypertrophic obstructive cardiomyopathy, accompanied by his . History was obtained with help of industrial pharmacist. Patient said for the last 3 months he has been off metoprolol and verapamil therapy. He is off metoprolol therapy as his says that this was not refilled through the pharmacy. He did not call any office physician's offices. Also he said he stopped taking his verapamil as after increased dose by his calendering machine operator he had intolerance said he stopped taking verapamil. He has been noticing increased symptoms of palpitation although palpitations are infrequent. He had a Holter monitor which did not show any significant arrhythmias although he said he did not have any significant symptoms at that time. He gets symptoms rapid heart rate both rapid fast heart rate as well as rapid irregular heart rate which last for few minutes. Patient was no associated symptoms. Denies any exertional chest pain, shortness of breath. Blood pressure is borderline elevated at this point time. He denies any lightheadedness, syncope. Denies any heart failure symptoms. [facility] Medical History Hypertrophic obstructive cardiomyopathy Sacroiliitis Diabetes mellitus, without long-term current use of insulin Diabetes mellitus without complication, with long-term current use of insulin Foot abscess, right Poorly controlled type 2 diabetes mellitus Diabetes Osteoarthritis of right knee Osteoarthritis of lumbar spine Hypertrophic obstructive cardiomyopathy MARA (obstructive sleep apnea) Hypertensive heart disease HTN (hypertension) Surgical History History of hand surgery History of elbow surgery History of ankle surgery Family History Father PVD (peripheral vascular disease) Essential hypertension Diabetes mellitus Mother Liver transplant failure Social History Household Members: Family Housing: Apartment Do you presently have visiting nurse or other home services: No Alcohol intake: current Alcohol intake frequency: a few times a month Alcohol type: beer Patient Tobacco Use Status: Former Tobacco user Tobacco use type: Cigarette Cigarettes Per Day: 10 Years Smoked: 20 e-Cigarette/Vaping Use: Never Used Second Hand Smoke Exposure: No service: No Current occupational status: unemployed Current occupational exposures/hazards: No Cognitive needs: No Hearing needs: No Vision needs: Yes (Glasses) Review of Systems Const Denies weakness ENT Denies dizziness Card Reports chest pain, Denies chest pain with activity, Denies syncope, Denies rapid heart rate, Denies pedal edema, Denies edema, Denies leg edema, Denies lightheadedness, Reports palpitations, Reports dyspnea, Denies dyspnea on exertion and Denies orthopnea Resp Denies cough, Reports dyspnea and Denies dyspnea on exertion GI Denies hematochezia and Denies change in stool character Musc Denies abnormal gait, Denies muscle cramps, Denies muscle weakness, Denies numbness, Denies radiating pain into limb and Denies tingling Neuro Denies abnormal gait, Denies dizziness, Denies syncope, Denies numbness, Denies tingling and Denies weakness Endo Reports palpitations Physical Exam Vital Signs: Last Vital Signs Pulse 89 07/12/24 11:13 BP 124/68 07/12/24 11:13 BMI result Body Mass Index 33.9 Const General: cooperative, healthy appearing, comfortable and no acute distress Orientation/consciousness: patient oriented x3 Neck Neck: Yes normal visual inspection and Yes no JVD Resp Effort & Inspection: normal respiratory effort Auscultation: clear to auscultation bilaterally, no rales, no rhonchi and no wheezes Cardio Jugular venous distension: no JVD Rate: regular rate Rhythm: regular rhythm Heart sounds: S1 normal heart sound present, S2 normal heart sound present, Murmur heart sound present systolic early and no rubs Neuro General: patient oriented x3 Extrem General: Yes normal to inspection, No no pedal edema and No calf tenderness Psych Appearance: grossly normal Mental Status: mental status grossly normal Speech and movement: Normal speech and movement present Office Procedures EKG Details: EKG shows normal sinus rhythm with LVH with repolarization abnormality diffuse ST T wave changes with lateral Q-waves consistent with hypertrophic cardiomyopathy [id number], Complete Assessment & Plan Assessment & Plan (1) Hypertrophic obstructive cardiomyopathy: Code(s): I42.1 - Obstructive hypertrophic cardiomyopathy Category: Medical Plan: Patient was hypertrophic obstructive cardiomyopathy with mild obstructive physiology without any significant exertional symptoms. He was no other symptoms of lightheadedness or syncope. Although needs further risk stratification with a cardiac MRI to evaluate for subendocardial scar burden that may guide therapy. He also has symptoms of palpitations, see below which requires further workup and treatment. He is currently off metoprolol therapy and advised to resume metoprolol at 50 mg b.i.d.. Importance of medical therapy was discussed. Advised to monitor blood pressure at home maintain a log. Given his hypertrophic cardiomyopathy will refer him to [facility] for further genetic workup that may help with further screening for his kids this well. Avoidance of stimulants especially alcohol was discussed. He was encouraged to maintain activity level and gradually increase activity level as tolerated. (2) Palpitations: Code(s): R00.2 - Palpitations Plan: Symptoms of palpitation this young man with hypertrophic obstructive cardiomyopathy. Multiple different etiology unlikely although most concerning would be presence of atrial fibrillation given the type of symptoms yes. His Holter monitor was unremarkable but he did not have any symptoms symptoms are sporadic. Would suggest an implantable loop recorder placement for further assessment. Risks, benefits, alternatives were discussed with him with help of industrial pharmacist. He understands agrees. Metoprolol therapy as above. Avoidance of stimulants was discussed. Will follow up in the clinic after loop recorder placement for wound check and follow up with me in 3 months time. Orders: Orders MR cardiac morph fnct w con 2 Weeks I42.1 - Obstructive hypertrophic cardiomyopathy CA echo transthoracic complete Today I42.1 - Obstructive hypertrophic cardiomyopathy Referrals Genetics Referral I42.1 - Obstructive hypertrophic cardiomyopathy Medications: New metoprolol tartrate 50 mg PO BID 60 tabs 5RF I42.1 - Obstructive hypertrophic cardiomyopathy Coding Level of Care Code Est Pt Level 5 (07604) Complex EM visit Add On G2211 Diagnoses Hypertrophic obstructive cardiomyopathy I42.1 Palpitations R00.2 CPT Codes EKG - CPT: 82273-[id number], Complete ([id number])
[2024-07-12 11:13] VITALS: BP 124/68; PULSE 89; BMI 33.9
--- OUTSIDE RECORDS SUMMARY | 2024-07-12 13:02 | XMS_ITS | Clinical Summary ---
Author Organization [address] [place] [address] Address [address] [place] [address] Phone Care Team Providers Care Assistant Plant Controller Name Role Phone Ninoska Meeks MD Primary Care Provider [phone] Allergies Active Allergy Reactions Criticality Noted Date Comments Metformin Diarrhea,Nausea And Vomiting Low 022 Penicillins Rash 10/19/2020 Medications atorvastatin (LIPITOR) 20 mg tablet 1 tablet (20 mg total). 04/01/2024 Active metoprolol succinate (TOPROL-XL) 100 mg 24 hr tablet TOME RON TABLETA TODOS LOS D 09/13/2020 Active calcium carbonate-vitam in D 500 mg-5 mcg (200 unit) per tablet Take 1 tablet by mouth 1 (one) time each day. 30 each 11 05/09/2024 Active Trulicity 3 mg/0.5 mL pen injector injection 0.5 mL (3 mg total). 05/21/2024 Active verapamiL (CALAN) 120 mg tablet Take 1 tablet (120 mg total) by mouth 2 (two) times a day. 05/02/2024 Active Encounters Date Type Department Care Team Description 06/30/2024 8:32 AM EST - 06/30/2024 11:59 PM EST Hospital Encounter [facility] CT Scan [address] [place] [address] Status post fusion of wrist Discharge Disposition: Home or Self Care 06/07/2024 11:45 AM EST Office Visit Orthopedic Surgery [facility] [address] [phone] Allegra Coleman MD Post-operative state (Primary Dx); Status post fusion of wrist 04/26/2024 10:30 AM EST Office Visit Orthopedic Surgery [facility] [address] [phone] Allegra Coleman MD Post-operative state (Primary Dx) [...] at Not on file Legal Sex Male 9:31 AM EST Gender Identity Not on file Sexual Orientation Not on file Obstetrics History Last Filed [...] Care Team (Late st Contact Info) Description 08/02/2024 4:00 PM EDT Office Visit Orthopedic Surgery [facility] [address] [phone] Allegra Coleman MD [address] [phone] Health Maintenance Due Date Last Done Comments Diabetes: Annual GFR (Glomerular Filtration Rate) 1983 Diabetes: Annual Foot Exam 10/15/1993 Diabetes: Annual Retina Eye Exam 10/15/1993 Hepatitis B Vaccines (1 of 3 - 19+ 3-dose series) 10/15/2002 Pneumococcal Vaccine: Pediatrics (0 to 5 Years) and At-Risk Patients (6 to 64 Years) (1 of 2 - PCV) 10/15/2002 Cholesterol Screening (Lipid Panel) 04/26/2022 Depression Screening 04/26/2022 HIV Screening 04/26/2022 Hepatitis C Screening 04/26/2022 Social Influencers of Health Screening 04/26/2022 Diabetes: Annual Urine Albumin-Creatinine Ratio (uACR) 04/30/2022 Diabetes: Blood Sugar Contro l Test (HGBA1C) 04/30/2022 COVID-19 Vaccine (3 - 2023-2 5 season) 2024 11/15/2020, 10/25/2020 [...] patient's age to complete this topic Meningococcal B Vacine Aged Out No lo nger eligible based on patient's age to complete this topic RSV Immunization Patients Under 20 months Aged Out No longer eligible b ased on patient's age to complete this topic Varicella Vaccines Aged Out No longer eligible based on patient's age to complete this topic Procedures Procedure Name Priority Date/Time Associated Diagnosis Comments CT UPPER EXTREMITY WO CONTRAST RIGHT Routine 06/30/2024 8:43 AM EST Status post fusion of wrist XR WRIST 3+ VIEWS RIGHT Routine 06/07/2024 11:56 AM EST Post-operative state XR WRIST 3+ VIEWS RIGHT Routine 04/26/2024 10:19 AM EST Post-operative state from Last 3 Months Results * CT Upper Extremity wo Contrast Right (06/30/2024 8:43 AM EST) Anatomical Region Laterality Modality Upper Extremities, Humerus Right Compu kelly Tomography 07/01/2024 3:22 PM EST Impressions 07/01/2024 3:41 PM EST Incomplete bony fusion. Previous instrumentation. There is some ankylosis between the lunate and triquetrum. Perhaps minimal fusion between the lunate and capitate. ?? 3-D postprocessing was performed. [facility] protocol was not utilized -------- FINAL REPORT -------- Dictated By: Kirk Dickson Dictated Date: 07/01/2024 15:22 ET Assigned Physician: Kirk Dickson Reviewed and Electronically Signed By: Kirk Dickson Signed Date: 07/01/2024 15:41 ET Workstation ID: [id number] Transcribed By: Self Edit Transcribed Date: 07/01/2024 15:22 ET Narrative 07/01/2024 3:41 PM EST EXAMINATION: CT UPPER EXTREMITY WITHOUT CONTRAST, RIGHT CLINICAL INFORMATION: Aseptic necrosis. ??Nonunion with partial fusion. Patient is post fusion right wrist 11/02/2023. COMPARISON: Radiographs of the right wrist 10/22/2023 ?? TECHNIQUE: Multidetector CT. Examination of the extremity. Examination of the extremity without IV contrast. Reformatting in the coronal and sagittal planes. 3-D postprocessing was performed. Metallic artifact reduction software was applied. DLP: 204 mGy-cm Dose optimization was performed including the use of low-dose iterative reconstruction technique with automatic exposure control based on patient size. Type of contrast: None Volume of IV contrast: None Volume of contrast discarded: 0 mL FINDINGS: Digital ticker wirer demonstrates 4 cannulated screws within the carpus. The span between the triquetrum, lunate, capitate and hamate. There are cannulated screws traversing through the lunate into the capitate. There is a cannulated screw traversing through the lunate into the hamate. There is a cannulated screw traversing through the triquetrum into the lunate. There is a cannulated screw traversing through the triquetrum, hamate and into the ulnar aspect of the capitate. ALIGNMENT: No subluxation or dislocation. ?? ACUTE FRACTURE: There is a smooth corticated ossification associated with the radial distal navicular. Small corticated ossification at the radial aspect of the first carpal metacarpal joint. There is no acute fracture of the navicular or multangulars. There is significant but incomplete bony fusion between the the articulation between the triquetrum and lunate. There may be minor bony fusion along the ulnar aspect of the articulation between the lunate and capitate. No significant solid bony fusion between the hamate and the triquetrum. The articulations around the hamate remain visualized. ?? FOCAL LESION: ??No suspicious focal lesion. Lucency of the distal radius perhaps a bone graft harvest site. PERIOSTEAL: ?? No aggressive periosteal reaction. No bone destruction. JOINTS: No evidence of definite septic arthritis. ?? SOFT TISSUES: No abscess or suspicious collection. ?? Procedure Note Kirk Dickson MD - 07/01/2024 EXAMINATION: CT UPPER EXTREMITY WITHOUT CONTRAST, RIGHT CLINICAL INFORMATION: Aseptic necrosis. Nonunion with partial fusion. Patient is post fusion right wrist 11/02/2023. COMPARISON: Radiographs of the right wrist 10/22/2023 TECHNIQUE: Multidetector CT. Examination of the extremity. Examination of the extremity without IV contrast. Reformatting in the coronal and sagittal planes. 3-D postprocessing was performed. Metallic artifact reduction software was applied. DLP: 204 mGy-cm Dose optimization was performed including the use of low-dose iterativereconstruction technique with automatic exposure control based on patientsize. Type of contrast: None Volume of IV contrast: None Volume of contrast discarded: 0 mL FINDINGS: Digital ticker wirer demonstrates 4 cannulated screws within the carpus. The spanbetween the triquetrum, lunate, capitate and hamate. There are cannulated screws traversing through the lunate into thecapitate. There is a cannulated screw traversing through the lunate into thehamate. There is a cannulated screw traversing through the triquetrum into thelunate. There is a cannulated screw traversing through the triquetrum,hamate and into the ulnar aspect of the capitate. ALIGNMENT: No subluxation or dislocation. ACUTE FRACTURE: There is a smooth corticated ossification associated withthe radial distal navicular. Small corticated ossification at the radialaspect of the first carpal metacarpal joint. There is no acute fracture ofthe navicular or multangulars. There is significant but incomplete bony fusion between the thearticulation between the triquetrum and lunate. There may be minor bony fusion along the ulnar aspect of the articulationbetween the lunate and capitate. No significant solid bony fusion between the hamate and the triquetrum. The articulations around the hamate remain visualized. FOCAL LESION: No suspicious focal lesion. Lucency of the distal radiusperhaps a bone graft harvest site. PERIOSTEAL: No aggressive periosteal reaction. No bone destruction. JOINTS: No evidence of definite septic arthritis. SOFT TISSUES: No abscess or suspicious collection. IMPRESSION: Incomplete bony fusion. Previous instrumentation. There is some ankylosis between the lunate and triquetrum. Perhaps minimal fusion between the lunate and capitate. 3-D postprocessing was performed. [facility] protocol was not utilized -------- FINAL REPORT -------- Dictated By: Kirk Dickson Dictated Date: 07/01/2024 15:22 ET Assigned Physician: Kirk Dickson Reviewed and Electronically Signed By: Kirk Dickson Signed Date: 07/01/2024 15:41 ET Workstation ID: [id number] Transcribed By: Self Edit Transcribed Date: 07/01/2024 15:22 ET Allegra Coleman MD IMG CT PROCEDURES Final Resul t * XR Wrist 3+ Views Right (06/07/2024 [...] indeterminate. Allegra Coleman MD IMG XR PROCEDURES Final Resul t from Last 3 Months Insurance [facility] getupp PLAN Care Teams Assistant Plant Controller Relationship Specialty Start Date End Date Ninoska Meeks MD [address] [facility] , [address] [facility] D/B/A: [facility] [place], [place] PCP - General Internal Medicine 04/26/24
--- OUTSIDE RECORDS SUMMARY | 2024-07-12 13:02 | XMS_ITS | Encounter Summary ---
Author Organization [facility] Address [id number] [place] [phone] Care Team Providers Care After School Caregiver Name Role Phone Ninoska Meeks MD Primary Care Provider [phone] Reason for Referral * Imaging (Routine) - Closed Specialty Diagnoses / Procedures Referred By Elin schulte Referred To Contact Radiology Diagnoses Status post fusion of wrist Procedures CT Upper Extremity wo Contrast Right Allegra Coleman MD [address] [phone] Phone: tel: fax: [address] [phone] Phone: tel: Referral ID Status Reason Start Date Expiration Date Visits Re quested Visits Authorized [id number] Closed 06/07/2024 06/07/2025 1 1 Reason for Visit * Imaging (Routine) - Closed Specialty Diagnoses / Procedures Referred By Elin schulte Referred To Contact Radiology Diagnoses Status post fusion of wrist Procedures CT Upper Extremity wo Contrast Right Allegra Coleman MD [address] [phone] Phone: tel: fax: [address] [phone] Phone: tel: Referral ID Status Reason Start Date Expiration Date Visits Re quested Visits Authorized [id number] Closed 06/07/2024 06/07/2025 1 1 Encounter Details Date Type Department Care Team (Latest Contact Info) Description 06/30/2024 8:32 AM EST - 06/30/2024 11:59 PM EST Hospital Encounter [facility] CT Scan [address] [place] [phone] Status post fusion of wrist Discharge Disposition: Home or Self Care Social History Tobacco Use Types Packs/Day Years Used Date Smoking Tobacco: Every Day Smokeless Tobacco: Never Alcohol Use Standard Drinks/Week Comments Yes 2 (1 standard drink = 0.6 oz pur e alcohol) Sex and Gender Information Value Date Recorded Sex Assigned at Not on file Legal Sex Male 9:31 AM EST Gender Identity Not on file Sexual Orientation Not on file documented as of this encounter Medications at Time of Discharge atorvastatin (LIPITOR) 20 mg tablet 1 tablet (20 mg total). 04/01/2024 calcium carbonate-vitamin D 500 mg-5 mcg (200 unit) per tablet Take 1 tablet by mouth 1 (one) time each day. 30 each 11 05/09/2024 05/09/2025 metoprolol succinate (TOPROL-XL) 100 mg 24 hr tablet TOME RON TABLETA TODOS LOS D 09/13/2020 Trulicity 3 mg/0.5 mL pen injector injection 0.5 mL (3 mg total). 05/21/2024 verapamiL (CALAN) 120 mg tablet Take 1 tablet (120 mg total) by mouth 2 (two) times a day. 05/02/2024 documented as of this encounter Discharge Disposition Disposition Code Departure Means Destination Home or Self Care documented in this encounter Plan of Treatment Upcoming Encounters Date Type Department Care Team (Late st Contact Info) Description 08/02/2024 4:00 PM EDT Office Visit Orthopedic Surgery - [place] [address] [phone] Allegra Coleman MD [address] [phone] documented as of this encounter Procedures Procedure Name Priority Date/Time Associated Diagnosis Comments CT UPPER EXTREMITY WO CONTRAST RIGHT Routine 06/30/2024 8:43 AM EST Status post fusion of wrist documented in this encounter Results * CT Upper Extremity wo Contrast Right (06/30/2024 8:43 AM EST) Anatomical Region Laterality Modality Upper Extremities, Humerus Right Compu kelly Tomography 07/01/2024 3:22 PM EST Impressions 07/01/2024 3:41 PM EST Incomplete bony fusion. Previous instrumentation. There is some ankylosis between the lunate and triquetrum. Perhaps minimal fusion between the lunate and capitate. ?? 3-D postprocessing was performed. Blueprint protocol was not utilized -------- FINAL REPORT -------- Dictated By: Kirk Dickson Dictated Date: 07/01/2024 15:22 ET Assigned Physician: Kirk Dickson Reviewed and Electronically Signed By: Kirk Dickson Signed Date: 07/01/2024 15:41 ET Workstation ID: [id number] Transcribed By: Self Edit Transcribed Date: 07/01/2024 [...] of contrast discarded: 0 mL FINDINGS: Digital piercing mill operator demonstrates 4 cannulated screws within the carpus. [...] of contrast discarded: 0 mL FINDINGS: Digital piercing mill operator demonstrates 4 cannulated screws within the carpus. [...] lunate and capitate. 3-D postprocessing was performed. Blueprint protocol was not utilized -------- FINAL REPORT -------- Dictated By: Kirk Dickson Dictated Date: 07/01/2024 15:22 ET Assigned Physician: Kirk Dickson Reviewed and Electronically Signed By: Kirk Dickson Signed Date: 07/01/2024 15:41 ET Workstation ID: [id number] Transcribed By: Self Edit Transcribed Date: 07/01/2024 15:22 ET Allegra Coleman MD IMG CT PROCEDURES Final Resul t documented in this encounter Visit Diagnoses Diagnosis Status post fusion of wrist documented in this encounter Care Teams After School Caregiver Relationship Specialty Start Date End Date Ninoska Meeks MD [address] [facility] , [address] [facility] D/B/A: [facility] [place] PCP - General Internal Medicine 04/26/24 documented as of this encounter
--- OUTSIDE RECORDS SUMMARY | 2024-07-12 13:02 | XMS_ITS | Clinical Summary ---
Author Organization [facility] Facility Address [address] [place] [id number] Care Team Providers Care Insulation Extruder Operator Name Role Phone Kelly Verma MD Primary [...] age to complete this topic [place] Care Teams Insulation Extruder Operator Relationship Specialty Start Date End Date Kelly Verma MD [address] [place] [address] PCP - General Internal Medicine 10/19/20
== END 2024-07-12 11:51 | disposition home or self-care (01) ==
PROVIDERS: PCP Internal Medicine; Visit Provider Internal Medicine Cardiovascular Disease
DX: I42.1 Obstructive hypertrophic cardiomyopathy (principal); R00.2 Palpitations
CPT/HCPCS: 93010; 99215; G2211

== ENCOUNTER → 2024-07-12 10:49 | Outpatient (BNVA) | payer OTHER, SELFPAY | PROVIDERS: PCP Internal Medicine; Visit Provider Internal Medicine Cardiovascular Disease | DX: I42.1 Obstructive hypertrophic cardiomyopathy (principal); R00.2 Palpitations | CPT/HCPCS: 93005; 99212 ==

== ENCOUNTER 2024-07-20 11:25 | Outpatient (REF) | payer OTHER, SELFPAY ==
[2024-07-20 11:27] VITALS: BP 153/87; PULSE 78; RESP 18; O2SAT 97; BMI 33.9
--- NOTE | 2024-07-20 12:04 | P.BOP_ITS ---
Brief Operative Note Date of Service: 07/20/24 Pre-op diagnosis: Palpitations, hypertrophic cardiomyopathy Post-op diagnosis: same Procedure: Placement of implantable loop recorder Implants: After obtaining full informed consent patient was brought to the minor surgery suite. Patient was then laid supine on the operating table. Patient was precordial area was then prepped and draped in a sterile fashion. Patient was then given 2% lidocaine with epinephrine intradermally and subcutaneously. A small incision was then made. A [employer] implantable loop recorder with serial number([id number]) was then implanted in the subcutaneous space using modified Seldinger technique. Incision was then closed with Steri-Strips. Pressure dressing was applied. Measured R-wave at 0.53 mV Surgeon: Tip Crow MD Anesthesia: local Was an Signals Collection Technician used for this Procedure?: No Estimated blood loss (mL): 3 Pathology: none sent Condition: stable Disposition: same day
--- OUTSIDE RECORDS SUMMARY | 2024-07-20 13:50 | XMS_ITS | Clinical Summary ---
Author Organization [facility] Facility Address [address] [place] [address] Care Team Providers Care Design Leader Name Role Phone Kelly Verma MD Primary [...] Active atorvastatin (LIPITOR) 40 MG tablet TOME RNO TABLETA TODOS LOS D 1 Active amLODIPine [...] age to complete this topic [place] Care Teams Design Leader Relationship Specialty Start Date End Date Kelly Verma MD [address] [place] [address] PCP - General Internal Medicine 10/19/20
--- OUTSIDE RECORDS SUMMARY | 2024-07-20 13:50 | XMS_ITS | Encounter Summary ---
Author Organization [facility] Address [address] [place] [address] Care Team Providers Care Mental Health Program Specialist Name Role Phone Ninoska Meeks MD Primary Care Provider [phone] Reason for Referral * Imaging (Routine) - Closed Specialty Diagnoses / Procedures Referred By Elin schulte Referred To Contact Radiology Diagnoses Status post fusion of wrist Procedures CT Upper Extremity wo Contrast Right Allegra Coleman MD [address] [address] Phone: tel: fax: [address] [phone] Phone: tel: Referral ID Status Reason Start Date Expiration Date Visits Re quested Visits Authorized [id number] Closed 06/07/2024 06/07/2025 1 1 Reason for Visit * Imaging (Routine) - Closed Specialty Diagnoses / Procedures Referred By Elin schulte Referred To Contact Radiology Diagnoses Status post fusion of wrist Procedures CT Upper Extremity wo Contrast Right Allegra Coleman MD [address] [address] Phone: tel: fax: [address] [phone] Phone: tel: Referral ID Status Reason Start Date Expiration Date Visits Re quested Visits Authorized [id number] Closed 06/07/2024 06/07/2025 1 1 Encounter Details Date Type Department Care Team (Latest Contact Info) Description 06/30/2024 8:32 AM EST - 06/30/2024 11:59 PM EST Hospital Encounter [facility] CT Scan [address] [place] [phone] Status post fusion of wrist Discharge Disposition: [...] 4:00 PM EDT Office Visit Orthopedic Surgery [facility] [address] [phone] Allegra Coleman MD [address] [phone] Scheduled Procedures Name Priority Associated Diagnoses Date/Ti me ARTHRODESIS WRIST Nonunion after arthrodesis documented as of this encounter Procedures Procedure [...] and capitate. ?? 3-D postprocessing was performed. [facility] protocol was not utilized -------- FINAL REPORT -------- Dictated By: Kirk Dickson Dictated Date: 07/01/2024 15:22 ET Assigned Physician: Kirk Dickson Reviewed and Electronically Signed By: Kirk Dickson Signed Date: 07/01/2024 15:41 ET Workstation ID: [id number] Transcribed By: Self Edit Transcribed Date: 07/01/2024 [...] of contrast discarded: 0 mL FINDINGS: Digital boardmarker demonstrates 4 cannulated screws within the carpus. [...] of contrast discarded: 0 mL FINDINGS: Digital boardmarker demonstrates 4 cannulated screws within the carpus. [...] Signed Date: 07/01/2024 15:41 ET Workstation ID: [id number] Transcribed By: Self Edit Transcribed Date: 07/01/2024 15:22 ET Allegra Coleman MD IMG CT PROCEDURES Final Resul t documented in this encounter Visit Diagnoses Diagnosis Status post fusion of wrist documented in this encounter Care Teams Mental Health Program Specialist Relationship Specialty Start Date End Date Ninoska Meeks MD 2 [facility] , [address] [facility] Physician Associ D/B/A: [facility] PCP - General Internal Medicine 04/26/24 documented as of this encounter
--- OUTSIDE RECORDS SUMMARY | 2024-07-20 13:51 | XMS_ITS | Clinical Summary ---
Author Organization [address] [place] [address] Address 175 [place] [address] Phone Care Team Providers Care Christian Science Nurse Name Role Phone Ninoska Meeks MD Primary Care Provider [phone] Allergies Active Allergy Reactions Criticality Noted Date [...] 2 (two) times a day. 05/02/2024 Active Active Problems Problem Noted Date Diagnosed Date Nonunion after arthrodesis 07/15/2024 Encounters Date Type Department Care Team Description 06/30/2024 8:32 AM EST - 06/30/2024 11:59 PM EST Hospital Encounter [facility] CT Scan [address] [place] [address] Status post fusion of wrist Discharge Disposition: Home or Self Care 06/07/2024 11:45 AM EST Office Visit Orthopedic Surgery [facility] [address] [phone] Allegra Coleman MD Post-operative state (Primary Dx); Status post fusion of wrist 04/26/2024 10:30 AM EST Office Visit Orthopedic Surgery [facility] [address] [phone] Allegra Coleman MD Post-operative state [...] 4:00 PM EDT Office Visit Orthopedic Surgery [facility] [address] [phone] Allegra Coleman MD [address] [phone] Scheduled Procedures Name Priority Associated Diagnoses Date/Ti me ARTHRODESIS WRIST Nonunion after arthrodesis Health Maintenance Due Date Last Done Comments [...] and capitate. ?? 3-D postprocessing was performed. [facility] protocol was not utilized -------- FINAL REPORT -------- Dictated By: Kirk Dickson Dictated Date: 07/01/2024 15:22 ET Assigned Physician: Kirk Dickson Reviewed and Electronically Signed By: Kirk Dickson Signed Date: 07/01/2024 15:41 ET Workstation ID: [id number] Transcribed By: Self Edit Transcribed Date: 07/01/2024 [...] of contrast discarded: 0 mL FINDINGS: Digital clinching machine operator demonstrates 4 cannulated screws within the [...] of contrast discarded: 0 mL FINDINGS: Digital clinching machine operator demonstrates 4 cannulated screws within the [...] 3-D postprocessing was performed. [facility] protocol was not utilized -------- FINAL REPORT -------- Dictated By: Kirk Dickson Dictated Date: 07/01/2024 15:22 ET Assigned Physician: Kirk Dickson Reviewed and Electronically Signed By: Kirk Dickson Signed Date: 07/01/2024 15:41 ET Workstation ID: [id number] Transcribed By: Self Edit Transcribed Date: 07/01/2024 [...] Resul t from Last 3 Months Insurance [facility] [employer] PLAN Care Teams Christian Science Nurse Relationship Specialty Start Date End Date Ninoska Meeks MD 2 [facility] , [address] [facility] Physician Associ D/B/A: [facility] PCP - General Internal Medicine 04/26/24
== END 2024-07-20 11:26 | disposition home or self-care (01) ==
LOC: HO.MS 11:25
PROVIDERS: PCP Internal Medicine; Visit Provider Internal Medicine Cardiovascular Disease
PROC: (CPT 33285; principal; 2024-07-20 11:30)
DX: I42.2 Other hypertrophic cardiomyopathy (principal); R00.2 Palpitations
CPT/HCPCS: 33285; C1764; J2004

== ENCOUNTER → 2024-07-20 11:25 | Outpatient (BNV) | payer OTHER, SELFPAY | PROVIDERS: PCP Internal Medicine; Visit Provider Internal Medicine Cardiovascular Disease | DX: I42.2 Other hypertrophic cardiomyopathy (principal); R00.2 Palpitations | CPT/HCPCS: 33285 ==

== ENCOUNTER → 2024-07-25 08:50 | Outpatient (REF) | payer OTHER, SELFPAY ==
--- NOTE | 2024-07-25 08:54 | CA_ITS ---
Transthoracic Echocardiogram Patient (Last, First, Middle): Tej Proctor, Gender: Male Date of : 1985 Age: 38 Procedure Date: 07/25/2024 Procedure Type: Transthoracic Echocardiogram Location: OP Height: 182.88 cm Weight: 114.31 kg BSA: 2.35 m2 Heart Rate: 75 bpm BP: 126 / 74 mmHg Implementation Services Analyst: YE Referring MD: Tip Crow MD Symptoms: I42.1 - Obstructive hypertrophic cardiomyopathy Study Quality: Adequate ECG Rhythm: Sinus Conclusions: - The left ventricular systolic function is hyperdynamic. The visually estimated ejection fraction is >70%. - Evidence suggests grade II (moderate) diastolic dysfunction. - Severe septal hypertrophy with thickness about 2.1 cm. Posterior wall thickness difficult to measure accurately. - No obvious valvular pathology seen on this study. Findings Procedure Information The study quality is limited by the presence of bandages. Left Ventricle Normal left ventricular cavity size. The left ventricular systolic function is hyperdynamic. The visually estimated ejection fraction is >70%. There is no evidence of regional wall motion abnormalities. There is no dynamic left ventricular outflow tract obstruction. E/E prime ratio is >15, consistent with elevated filling pressures. Evidence suggests grade II (moderate) diastolic dysfunction. Severe septal hypertrophy with thickness about 2.1 cm. Posterior wall thickness difficult to measure accurately. Gradients - Mid septum - rest/valsalva -7/21mmHg. Basal septum- rest/valsalva -16/17mmHg. LVOT valsalva 16mmHg. Right Ventricle Mildly increased right ventricular cavity size. There is mildly decreased right ventricular systolic function. Atria Both atria are normal in size. Aortic Valve The aortic valve was not well visualized. There is no aortic valve stenosis. There is no aortic valve regurgitation. Mitral Valve There is no mitral valve regurgitation. There is no mitral valve stenosis. No obvious MCKAY, but suboptimal images. Pulmonic Valve The pulmonic valve was not well visualized. Tricuspid Valve There is trace tricuspid valve regurgitation. There is no evidence of pulmonary hypertension. Great Vessels The aorta was not well visualized. Venous The inferior vena cava was not well visualized. The inferior vena cava is normal in size. Pericardium/Pleural There is no evidence of pericardial effusion. Prior Study Comparison No significant change compared to prior study dated: 03/03/2023. Differences in LVH measurement could be technical. Recommendations, Care & Conclusions No obvious valvular pathology seen on this study. Measurements 2D Linear Measurements IVSd: 1.85 0.6-0.9/0.6-1.0 cm LVIDd: 3.58 3.9-5.3/4.2-5.9 cm LVIDd Index: 1.52 2.4-3.2/2.2-3.1 cm/m2 LVIDs: 2.17 2.0-3.6 cm LVPWd: 1.26 0.7-1.1 cm LV Mass: 263.68 67-162/88-224 g LV Mass Index: 112.20 43-95/49-115 g/m2 LVOT Diam: 2.30 3.0+(-)1.3 cm 2D Systolic Function EF 4C: 66.40 >55% EF 2C: 58.50 >55% EF BiP: 61.70 >55% Mitral Valve MV VTI: 0.21 MV Pk Emerson: 0.97 MV Mn Emerson: 0.67 MV Pk Grad: 4.00 MV Mn Grad: 2.00 MV Pk E: 0.72 MV PK A: 0.62 MV Decel Time: 165.00 E/A: 1.20 E'Lateral: 3.81 E'Medial: 3.00 E/E' Med: 24.00 E/E' Lat: 18.90 PHT: 48.00 MVA PHT: 4.58 MVA Continuity: 5.85 Decel Apache: 4.35 Aortic Valve AoV Pk Emerson: 1.36 AoV Mn Emerson: 0.97 AoV VTI: 0.28 AoV Pk Grad: 7.00 Aov Mn Grad: 4.00 LEVI Cont.VTI: 4.34 LVOT LVOT Pk Emerson: 1.68 LVOT Mn Emerson: 1.19 LVOT VTI: 0.30 LVOT Pk Grad: 11.00 LVOT Mn Grad: 6.00 LVOT Diam: 2.30 LVOT Area: 4.15 Diastolic Function MV Pk E: 0.72 MV Pk A: 0.62 E/A: 1.20 E'Medial: 3.00 E/E' Med: 24.00 E' Laterial: 3.81 E/E' Lat: 18.90 Right Ventricle TAPSE (mm): 15.80 TVS' Emerson: 6.96 Tricuspid Valve RA Press: 3.00 Updated in Other Vendor System with Status of Final Garry Prajapati MD electronically signed on 07/25/2024 10:43:33 AM with status of Final
--- OUTSIDE RECORDS SUMMARY | 2024-07-25 09:11 | XMS_ITS | Clinical Summary ---
Author Organization [address] [place] [address] Address [address] [place] [address] Phone Care Team Providers Care Printing Machine Operator Name Role Phone Ninoska Meeks MD Primary Care Provider [phone] Allergies Active Allergy Reactions Criticality Noted Date [...] - 06/30/2024 11:59 PM EST Hospital Encounter [facility] CT Scan [address] [place] [address] Status post fusion of wrist Discharge Disposition: Home or Self Care 06/07/2024 11:45 AM EST Office Visit Orthopedic Surgery [facility] [address] [phone] Allegra Coleman MD Post-operative state (Primary Dx); Status post fusion of wrist 04/26/2024 10:30 AM EST Office Visit Orthopedic Surgery [facility] [address] [phone] Allegra Coleman MD Post-operative state [...] 4:00 PM EDT Office Visit Orthopedic Surgery [facility] [address] [phone] Allegra Coleman MD [address] [phone] Scheduled Procedures Name Priority Associated Diagnoses Date/Ti [...] and capitate. ?? 3-D postprocessing was performed. [facility] protocol was not utilized -------- FINAL REPORT -------- Dictated By: Kirk Dickson Dictated Date: 07/01/2024 15:22 ET Assigned Physician: Kirk Dickson Reviewed and Electronically Signed By: Kirk Dickson Signed Date: 07/01/2024 15:41 ET Workstation ID: [id number] Transcribed By: Self Edit Transcribed Date: 07/01/2024 [...] of contrast discarded: 0 mL FINDINGS: Digital mexican food machine tender demonstrates 4 cannulated screws within the carpus. [...] of contrast discarded: 0 mL FINDINGS: Digital mexican food machine tender demonstrates 4 cannulated screws within the carpus. [...] lunate and capitate. 3-D postprocessing was performed. [facility] protocol was not utilized -------- FINAL REPORT -------- Dictated By: Kirk Dickson Dictated Date: 07/01/2024 15:22 ET Assigned Physician: Kirk Dickson Reviewed and Electronically Signed By: Kirk Dickson Signed Date: 07/01/2024 15:41 ET Workstation ID: [id number] Transcribed By: Self Edit Transcribed Date: 07/01/2024 [...] Resul t from Last 3 Months Insurance [facility] [employer] PLAN Care Teams Printing Machine Operator Relationship Specialty Start Date End Date Ninoska Meeks MD 2 [facility] , [address] [facility] Physician Associ D/B/A: [facility] PCP - General Internal Medicine 04/26/24
--- OUTSIDE RECORDS SUMMARY | 2024-07-25 09:11 | XMS_ITS | Encounter Summary ---
Author Organization [facility] Address [address] [place] [address] Care Team Providers Care Soft Sugar Supervisor Name Role Phone Ninoska Meeks MD Primary Care Provider [phone] Reason for Referral * Imaging (Routine) - Closed Specialty Diagnoses / Procedures Referred By Elin schulte Referred To Contact Radiology Diagnoses Status post fusion of wrist Procedures CT Upper Extremity wo Contrast Right Allegra Coleman MD [address] [phone] Phone: tel: fax: [address] [phone] Phone: tel: Referral ID Status Reason Start Date Expiration Date Visits Re quested Visits Authorized [id number] Closed 06/07/2024 06/07/2025 1 1 Reason for Visit * Imaging (Routine) - Closed Specialty Diagnoses / Procedures Referred By Elin schulte Referred To Contact Radiology Diagnoses Status post fusion of wrist Procedures CT Upper Extremity wo Contrast Right Allegra Coleman MD [address] [phone] Phone: tel: fax: [address] [phone] Phone: tel: Referral ID Status Reason Start Date Expiration Date Visits Re quested Visits Authorized [id number] Closed 06/07/2024 06/07/2025 1 1 Encounter Details Date Type Department Care Team (Latest Contact Info) Description 06/30/2024 8:32 AM EST - 06/30/2024 11:59 PM EST Hospital Encounter [facility] CT Scan [address] [place] [phone] Status post fusion of wrist Discharge Disposition: [...] 4:00 PM EDT Office Visit Orthopedic Surgery [facility] [address] [phone] Allegra Coleman MD [address] [phone] Scheduled Procedures Name Priority Associated Diagnoses Date/Ti [...] and capitate. ?? 3-D postprocessing was performed. [facility] protocol was not utilized -------- FINAL REPORT -------- Dictated By: Kirk Dickson Dictated Date: 07/01/2024 15:22 ET Assigned Physician: Kirk Dickson Reviewed and Electronically Signed By: Kirk Dickson Signed Date: 07/01/2024 15:41 ET Workstation ID: [id number] Transcribed By: Self Edit Transcribed Date: 07/01/2024 [...] of contrast discarded: 0 mL FINDINGS: Digital order department supervisor demonstrates 4 cannulated screws within the carpus. [...] of contrast discarded: 0 mL FINDINGS: Digital order department supervisor demonstrates 4 cannulated screws within the carpus. [...] Signed Date: 07/01/2024 15:41 ET Workstation ID: [id number] Transcribed By: Self Edit Transcribed Date: 07/01/2024 15:22 ET Allegra Coleman MD IMG CT PROCEDURES Final Resul t documented in this encounter Visit Diagnoses Diagnosis Status post fusion of wrist documented in this encounter Care Teams Soft Sugar Supervisor Relationship Specialty Start Date End Date Ninoska Meeks MD 2 [facility] , [address] [facility] Physician Associ D/B/A: [facility] PCP - General Internal Medicine 04/26/24 documented as of this encounter
--- OUTSIDE RECORDS SUMMARY | 2024-07-25 09:11 | XMS_ITS | Clinical Summary ---
Author Organization [facility] Facility Address [address] [place] [address] Care Team Providers Care Marble Chip Terrazzo Worker Name Role Phone Kelly Verma MD Primary [...] age to complete this topic [place] Care Teams Marble Chip Terrazzo Worker Relationship Specialty Start Date End Date Kelly Verma MD [address] [place] [address] PCP - General Internal Medicine 10/19/20
== END ==
LOC: HO.CARD 08:50
PROVIDERS: PCP Internal Medicine; Visit Provider Internal Medicine Cardiovascular Disease
DX: I42.1 Obstructive hypertrophic cardiomyopathy (principal)
CPT/HCPCS: 93306

== ENCOUNTER → 2024-07-25 08:54 | Outpatient (BNV) | payer OTHER, SELFPAY | PROVIDERS: PCP Internal Medicine; Visit Provider Internal Medicine | DX: I42.1 Obstructive hypertrophic cardiomyopathy (principal) | CPT/HCPCS: 93306 ==

== ENCOUNTER 2024-07-27 12:38 | Outpatient (AMB) | payer OTHER, SELFPAY ==
--- NOTE | 2024-07-27 12:46 | A.OFFVIS_ITS ---
Vital Signs 07/27/24 12:47 Height 6 ft Weight 251 lb 12.286 oz BMI 34.1 BP 118/68 Blood Pressure Location Lt brachial Position Sitting Pulse 76 Pulse Source Pulse Oximeter Intake Visit Reasons: wound check ilr Accountant Certified Public Required: No Accountant Certified Public Services: Accountant Certified Public Offered & Declined Accountant Certified Public Name: will interpret Accompanied by: Spouse Allergies Penicillins [PENICILLINS] Allergy (Intermediate, Verified 06/21/24 13:06) RASH metformin Adverse Reaction (Intermediate, Verified 06/21/24 13:06) Diarrhea HPI Comments Details: This is a 38-year-old male patient presenting for a follow-up visit, accompanied by his who served as certified orthoptist throughout the visit. Patient has a history of hypertrophic obstructive cardiomyopathy, diabetes, hypertension, and sleep apnea. Patient was last seen for palpitations and an irregular heartbeat for which he underwent Holter monitoring. The results of the Holter monitor was unremarkable however given that patient's symptoms were sporadic they may not has been captured during the monitored period. There was also some issue with noncompliance with his medications as he was previously on metoprolol and verapamil but came off it at some time. Patient was restarted on metoprolol during his last visit and reports being consistent with his medication regimen. With concerns about atrial fibrillation the patient underwent implantation of a loop recorder with Dr. Crow on 07/20/2024. Apparently, patient call the office yesterday experiencing concerns about his dressing coming off which prompted an earlier visit for wound check. Currently, the patient denies any cardiac symptoms including exertional chest pain, shortness of breath, palpitations, dizziness, orthopnea, PND, leg edema, presyncope or syncope. [facility] Medical History Hypertrophic obstructive cardiomyopathy Sacroiliitis Diabetes mellitus, without long-term current use of insulin Diabetes mellitus without complication, with long-term current use of insulin Foot abscess, right Poorly controlled type 2 diabetes mellitus Diabetes Osteoarthritis of right knee Osteoarthritis of lumbar spine Hypertrophic obstructive cardiomyopathy MARA (obstructive sleep apnea) Hypertensive heart disease HTN (hypertension) Surgical History Status post placement of implantable loop recorder History of hand surgery History of elbow surgery History of ankle surgery Family History Father PVD (peripheral vascular disease) Essential hypertension Diabetes mellitus Mother Liver transplant failure Social History Household Members: Family Housing: Apartment Do you presently have visiting nurse or other home services: No Alcohol intake: current Alcohol intake frequency: a few times a month Alcohol type: beer Patient Tobacco Use Status: Former Tobacco user Tobacco use type: Cigarette Cigarettes Per Day: 10 Years Smoked: 20 e-Cigarette/Vaping Use: Never Used Second Hand Smoke Exposure: No service: No Current occupational status: unemployed Current occupational exposures/hazards: No Cognitive needs: No Hearing needs: No Vision needs: Yes (Glasses) Review of Systems Const Denies chills, Denies fatigue, Denies fever(s), Denies weight gain and Denies weight loss ENT Denies dizziness Card Reports chest pain, Denies leg edema, Denies lightheadedness, Denies palpitations, Denies dyspnea on exertion, Denies orthopnea and Denies other Resp Denies cough and Denies dyspnea on exertion GI Denies hematochezia and Denies change in stool character Musc Denies abnormal gait, Denies muscle weakness, Denies numbness, Denies radiating pain into limb and Denies tingling Neuro Denies abnormal gait, Denies dizziness, Denies numbness and Denies tingling Endo Denies fatigue and Denies palpitations Physical Exam Vital Signs: Last Vital Signs Pulse 76 07/27/24 12:47 BP 118/68 07/27/24 12:47 BMI result Body Mass Index 34.1 Const General: cooperative, healthy appearing, comfortable and no acute distress Orientation/consciousness: patient oriented x3 HEENT Head: Yes normal to inspection Neck Neck: Yes normal visual inspection, Yes trachea midline and Yes supple Chest Chest palpation & inspection: normal inspection of the chest Resp Effort & Inspection: normal respiratory effort Auscultation: clear to auscultation bilaterally, no crackles, no rales, no rhonchi and no wheezes Cardio Jugular venous distension: no JVD Palpation: normal PMI Rate: regular rate Rhythm: regular rhythm Heart sounds: S1 normal heart sound present, S2 normal heart sound present, no click, no gallops, no murmurs and no rubs Peripheral pulses: Peripheral pulses 2+ throughout GI Inspection: Yes normal to inspection Palpation (GI): Soft to palpation Auscultation: normal bowel sounds Skin Other: Incision site healing well with no erythema swelling or drainage General skin exam: no rashes or lesions noted Neuro General: patient oriented x3 Extrem General: Yes normal to inspection, No no pedal edema and No calf tenderness Psych Appearance: grossly normal Mental Status: mental status grossly normal Speech and movement: Normal speech and movement present Assessment & Plan Assessment & Plan (1) Hypertrophic obstructive cardiomyopathy: Code(s): I42.1 - Obstructive hypertrophic cardiomyopathy Category: Medical Plan: 07/25/2024-echo study showed hyperdynamic LV systolic function with ejection fraction greater than 70%, grade 2 diastolic dysfunction, severe septal hypertrophy. Patient was previously referred out to genetic at [facility] for further workup given his hypertrophic cardiomyopathy. Patient also has a pending cardiac MRI. Emphasized on avoiding stimulants. Continue with metoprolol therapy 100 mg b.i.d.. (2) Essential hypertension: Code(s): I10 - Essential (primary) hypertension Category: Medical Plan: Blood pressure today is well-controlled. Advised to continue monitoring at home. Ideally, blood pressure goal less than 130/80. (3) Implantable loop recorder present: Code(s): Z95.818 - Presence of other cardiac implants and grafts Category: Medical Plan: [employer] implantable loop recorder placed 07/20/[address] Crow. Remote monitoring system using his cell phone. Will follow this remotely. (4) Visit for wound check: Code(s): Z51.89 - Encounter for other specified aftercare Plan: Incision site well healed with no erythema, edema, or drainage noted. Discussed in detail signs and symptoms of infection and what to look for. Advised patient to avoid strenuous physical activity or heavy lifting for the next 1 week. Advised to continue with normal activity and increase exercise tolerance as tolerated. Patient has a follow-up visit with Dr. Crow in the next 3 months. Patient will call the office with any concerns or change in symptoms. Coding Level of Care Code Est Pt Level 4 (15866) Complex EM visit Add On G2211 Diagnoses Hypertrophic obstructive cardiomyopathy I42.1 Essential hypertension I10 Implantable loop recorder present Z95.818 Visit for wound check Z51.89 Time Spent (min) 32 Comment Time spent in reviewing the chart, test results, assessment, counseling and documentation.
[2024-07-27 12:47] VITALS: BP 118/68; PULSE 76; BMI 34.1
--- OUTSIDE RECORDS SUMMARY | 2024-07-27 14:42 | XMS_ITS | Clinical Summary ---
Author Organization [facility] Facility Address [address] [place] [id number] Care Team Providers Care Tire Installer Name Role Phone Kelly Verma MD Primary [...] age to complete this topic [place] Care Teams Tire Installer Relationship Specialty Start Date End Date Kelly Verma MD [address] [place] [address] PCP - General Internal Medicine 10/19/20
--- OUTSIDE RECORDS SUMMARY | 2024-07-27 14:42 | XMS_ITS | Clinical Summary ---
Author Organization [address] [place] [address] Address [address] [place] [address] Phone Care Team Providers Care Crane Crew Supervisor Name Role Phone Ninoska Meeks MD Primary Care Provider [phone] Allergies Active Allergy Reactions Criticality Noted Date [...] - 06/30/2024 11:59 PM EST Hospital Encounter [facility] CT Scan [address] [place] [address] Status post fusion of wrist Discharge Disposition: Home or Self Care 06/07/2024 11:45 AM EST Office Visit Orthopedic Surgery [facility] [address] [phone] Allegra Coleman MD Post-operative state (Primary Dx); Status post fusion of wrist from Last 3 Months Surgical History Surgery [...] 4:00 PM EDT Office Visit Orthopedic Surgery [facility] [address] [phone] Allegra Coleman MD [address] [phone] Scheduled Procedures Name Priority Associated Diagnoses Date/Ti [...] Routine 06/07/2024 11:56 AM EST Post-operative state from Last 3 [...] and capitate. ?? 3-D postprocessing was performed. [facility] protocol was not utilized -------- FINAL REPORT -------- Dictated By: Kirk Dickson Dictated Date: 07/01/2024 15:22 ET Assigned Physician: Kirk Dickson Reviewed and Electronically Signed By: Kirk Dickson Signed Date: 07/01/2024 15:41 ET Workstation ID: [id number] Transcribed By: Self Edit Transcribed Date: 07/01/2024 [...] of contrast discarded: 0 mL FINDINGS: Digital shake backboard notcher demonstrates 4 cannulated screws within the carpus. [...] abscess or suspicious collection. ?? Procedure Note Kikr Dickson MD - 07/01/2024 EXAMINATION: CT UPPER [...] of contrast discarded: 0 mL FINDINGS: Digital shake backboard notcher demonstrates 4 cannulated screws within the carpus. [...] Signed Date: 07/01/2024 15:41 ET Workstation ID: [id number] Transcribed By: Self Edit Transcribed Date: 07/01/2024 15:22 ET us Allegra Coleman MD [facility] CT PROCEDURES Final Resul t * XR Wrist 3+ Views Right (06/07/2024 11:56 AM EST) Anatomical Region Laterality Modality Upper [...] and lunate but the rest is indeterminate. us Allegra Coleman MD IMG XR PROCEDURES Final Resul t from Last 3 Months Insurance [facility] PLAN Care Teams Crane Crew Supervisor Relationship Specialty Start Date End Date Ninoska Meeks MD 2 [facility] , [address] Physician Associ D/B/A: [facility] [place] PCP - General Internal Medicine 04/26/24
--- OUTSIDE RECORDS SUMMARY | 2024-07-27 14:42 | XMS_ITS | Encounter Summary ---
Author Organization [facility] Address [address] [place] [id number] Care Team Providers Care Housekeeper Head Name Role Phone Ninoska Meeks MD Primary Care Provider [phone] Reason for Referral * Imaging (Routine) - Closed Specialty Diagnoses / Procedures Referred By Elni schulte Referred To Contact Radiology Diagnoses Status post fusion of wrist Procedures CT Upper Extremity wo Contrast Right Allegra Coleman MD [address] [phone] Phone: tel: fax: [address] [phone] Phone: tel: Referral ID Status Reason Start Date Expiration Date Visits Re quested Visits Authorized [id number] Closed 06/07/2024 06/07/2025 1 1 Reason for Visit * Imaging (Routine) - Closed Specialty Diagnoses / Procedures Referred By Elin schulte Referred To Contact Radiology Diagnoses Status post fusion of wrist Procedures CT Upper Extremity wo Contrast Right Allegra Coleman MD [address] [address] Phone: tel: fax: [address] [phone] Phone: tel: Referral ID Status Reason Start Date Expiration Date Visits Re quested Visits Authorized [id number] Closed 06/07/2024 06/07/2025 1 1 Encounter Details Date Type Department Care Team (Latest Contact Info) Description 06/30/2024 8:32 AM EST - 06/30/2024 11:59 PM EST Hospital Encounter [facility] CT Scan [address] [place] [phone] Status post fusion of wrist Discharge Disposition: [...] Visit Orthopedic Surgery [facility] [address] [phone] Allegra Coleman MD [address] [phone] Scheduled Procedures Name Priority Associated Diagnoses Date/Ti [...] and capitate. ?? 3-D postprocessing was performed. [facility] protocol was not utilized -------- FINAL REPORT -------- Dictated By: Kirk Dickson Dictated Date: 07/01/2024 15:22 ET Assigned Physician: Kirk Dickson Reviewed and Electronically Signed By: Kirk Dickson Signed Date: 07/01/2024 15:41 ET Workstation ID: [id number] Transcribed By: Self Edit Transcribed Date: 07/01/2024 [...] of contrast discarded: 0 mL FINDINGS: Digital defect cutter demonstrates 4 cannulated screws within the carpus. [...] of contrast discarded: 0 mL FINDINGS: Digital defect cutter demonstrates 4 cannulated screws within the carpus. [...] Signed Date: 07/01/2024 15:41 ET Workstation ID: [id number] Transcribed By: Self Edit Transcribed Date: 07/01/2024 15:22 ET Allegra Coleman MD IMG CT PROCEDURES Final Resul t documented in this encounter Visit Diagnoses Diagnosis Status post fusion of wrist documented in this encounter Care Teams Housekeeper Head Relationship Specialty Start Date End Date Ninoska Meeks MD 2 [facility] , [address] [facility] Physician Associ D/B/A: [facility] [place] [place] PCP - General Internal Medicine 04/26/24 documented as of this encounter
== END 2024-07-27 13:16 | disposition home or self-care (01) ==
LOC: HO.HCS 12:39
PROVIDERS: PCP Internal Medicine
DX: I42.1 Obstructive hypertrophic cardiomyopathy (principal); I10 Essential (primary) hypertension; Z95.818 Presence of other cardiac implants and grafts; Z51.89 Encounter for other specified aftercare
CPT/HCPCS: 99214; G2211

== ENCOUNTER → 2024-07-27 12:38 | Outpatient (BNVA) | payer OTHER, SELFPAY | PROVIDERS: PCP Internal Medicine | DX: Z51.89 Encounter for other specified aftercare (principal); I42.1 Obstructive hypertrophic cardiomyopathy; I10 Essential (primary) hypertension; Z95.818 Presence of other cardiac implants and grafts | CPT/HCPCS: 99212 ==

== ENCOUNTER 2024-07-29 07:34 | Outpatient (AMB) | payer OTHER, SELFPAY ==
--- OUTSIDE RECORDS SUMMARY | 2024-07-29 07:36 | XMS_ITS | Clinical Summary ---
Author Organization [address] [place] [address] Address [address] [place] [address] Phone Care Team Providers Care Service Advocate Contact Name Role Phone Ninoska Meeks MD Primary Care Provider [phone] Allergies Active Allergy Reactions Criticality Noted Date [...] - 06/30/2024 11:59 PM EST Hospital Encounter [facility] CT Scan [address] [place] [address] Status post fusion of wrist Discharge Disposition: Home or Self Care 06/07/2024 11:45 AM EST Office Visit Orthopedic Surgery [facility] [address] [phone] Allegra Coleman MD Post-operative state [...] 4:00 PM EDT Office Visit Orthopedic Surgery [facility] [address] [phone] Allegra Coleman MD [address] [phone] Scheduled Procedures Name Priority Associated Diagnoses Date/Ti [...] and capitate. ?? 3-D postprocessing was performed. [facility] protocol was not utilized -------- FINAL REPORT -------- Dictated By: Kirk Dickson Dictated Date: 07/01/2024 15:22 ET Assigned Physician: Kirk Dickson Reviewed and Electronically Signed By: Kirk Dickson Signed Date: 07/01/2024 15:41 ET Workstation ID: [id number] Transcribed By: Self Edit Transcribed Date: 07/01/2024 [...] of contrast discarded: 0 mL FINDINGS: Digital auditor appraiser demonstrates 4 cannulated screws within the carpus. [...] of contrast discarded: 0 mL FINDINGS: Digital auditor appraiser demonstrates 4 cannulated screws within the carpus. [...] utilized -------- FINAL REPORT -------- Dictated By: iKrk Dickson Dictated Date: 07/01/2024 15:22 ET Assigned Physician: Kirk Dickson Reviewed and Electronically Signed By: Kirk Dickson Signed Date: 07/01/2024 15:41 ET Workstation ID: [id number] Transcribed By: Self Edit Transcribed Date: 07/01/2024 15:22 ET us Allegra Coleman MD [facility] [place] PROCEDURES Final Resul t * XR [...] Resul t from Last 3 Months Insurance [facility] PLAN Care Teams Service Advocate Contact Relationship Specialty Start Date End Date Ninoska Meeks MD 2 [facility] , [address] Physician Associ D/B/A: [facility] [place] PCP - General Internal Medicine 04/26/24
--- OUTSIDE RECORDS SUMMARY | 2024-07-29 07:36 | XMS_ITS | Encounter Summary ---
Author Organization [facility] Address [address] [place] [address] Care Team Providers Care Channel Program Manager Name Role Phone Ninoska Meeks MD Primary Care Provider [phone] Reason for Referral * Imaging (Routine) - Closed Specialty Diagnoses / Procedures Referred By Elin schulte Referred To Contact Radiology Diagnoses Status post fusion of wrist Procedures CT Upper Extremity wo Contrast Right Allegra Coleman MD [address] [phone] Phone: tel: fax: [address] [phone] Phone: tel: Referral ID Status Reason Start Date Expiration Date Visits Re quested Visits Authorized [id number] Closed 06/07/2024 06/07/2025 1 1 Reason for Visit * Imaging (Routine) - Closed Specialty Diagnoses / Procedures Referred By Elin schulte Referred To Contact Radiology Diagnoses Status post fusion of wrist Procedures CT Upper Extremity wo Contrast Right Allegra Coleman MD [address] [phone] Phone: tel: fax: [address] [phone] Phone: tel: Referral ID Status Reason Start Date Expiration Date Visits Re quested Visits Authorized [id number] Closed 06/07/2024 06/07/2025 1 1 Encounter Details Date Type Department Care Team (Latest Contact Info) Description 06/30/2024 8:32 AM EST - 06/30/2024 11:59 PM EST Hospital Encounter [facility] CT Scan [address] [place] [phone] Status post fusion of wrist Discharge Disposition: [...] 4:00 PM EDT Office Visit Orthopedic Surgery [facility] [address] [phone] Allegra Coleman MD [address] [phone] Scheduled Procedures Name Priority Associated Diagnoses Date/Ti [...] and capitate. ?? 3-D postprocessing was performed. [facility] protocol was not utilized -------- FINAL REPORT -------- Dictated By: Kirk Dickson Dictated Date: 07/01/2024 15:22 ET Assigned Physician: Kirk Dickson Reviewed and Electronically Signed By: Kirk Dickson Signed Date: 07/01/2024 15:41 ET Workstation ID: [id number] Transcribed By: Self Edit Transcribed Date: 07/01/2024 [...] of contrast discarded: 0 mL FINDINGS: Digital appraiser irrigation tax demonstrates 4 cannulated screws within the carpus. [...] of contrast discarded: 0 mL FINDINGS: Digital appraiser irrigation tax demonstrates 4 cannulated screws within the carpus. [...] Signed Date: 07/01/2024 15:41 ET Workstation ID: [id number] Transcribed By: Self Edit Transcribed Date: 07/01/2024 15:22 ET Allegra Coleman MD IMG CT PROCEDURES Final Resul t documented in this encounter Visit Diagnoses Diagnosis Status post fusion of wrist documented in this encounter Care Teams Channel Program Manager Relationship Specialty Start Date End Date Ninoska Meeks MD 2 [facility] , [address] [facility] Physician Associ D/B/A: [facility] [place] PCP - General Internal Medicine 04/26/24 documented as of this encounter
--- OUTSIDE RECORDS SUMMARY | 2024-07-29 07:36 | XMS_ITS | Clinical Summary ---
Author Organization [facility] Facility Address [address] [place] [id number] Care Team Providers Care Senior Application Software Engineer Name Role Phone Kelly Verma MD Primary [...] age to complete this topic [place] Care Teams Senior Application Software Engineer Relationship Specialty Start Date End Date Kelly Verma MD [address] [place] [address] PCP - General Internal Medicine 10/19/20
--- NOTE | 2024-07-29 08:02 | A.OFFVIS_ITS ---
Vital Signs 07/29/24 08:07 Height 6 ft Weight 252 lb BMI 34.2 BP 122/80 Blood Pressure Location Rt brachial Position Sitting Pulse 79 Pulse Source Pulse Oximeter Pulse Oximetry (%) 94 Oxygen Delivery Method Room Air Intake Visit Reasons: 5 mnts f/u appt Intake Note: Patient presents follow up MARA Piano Case And Bench Assembler Required: No Accompanied by: Self / Same As Patient Allergies Penicillins [PENICILLINS] Allergy (Intermediate, Verified 07/29/24 08:06) RASH metformin Adverse Reaction (Intermediate, Verified 07/29/24 08:06) Diarrhea Medication List - Last Reconciled 07/29/24 by FAWN De La Vega atorvastatin 20 mg PO BEDTIME 90 days blood sugar diagnostic (FreeStyle Lite Strips) Use daily As directed to check blood glucose blood-glucose meter (FreeStyle Lite Meter kit) Use daily As directed to check blood glucose blood-glucose sensor (FreeStyle Jai 3 Sensor device) Apply every 14 days As directed dulaglutide (Trulicity) 3 mg (0.5 mL) subcut QWEEK folic acid 1 mg PO DAILY lancets (FreeStyle Lancets) Use daily As directed to check blood glucose metoprolol tartrate 100 mg PO BID omeprazole 20 mg PO DAILY 90 days thiamine HCl (vitamin B1) 100 mg PO DAILY HPI Comments Details: The patient is a 38-year-old male presenting with obstructive sleep apnea for follow-up. Patient was last seen by our former colleague Chapito Jane NP in August 2023. Patient was last previously seen by myself in 2020. He has a longstanding history of sleep apnea treated with CPAP therapy. The patient experiences difficulties due to inadequate mask fitting, resulting in CPAP non-compliance. A home sleep study recommended in August was not completed due to an unexecuted order. He reports ongoing nocturnal awakenings and breathl essness, excessive daytime sleepiness, snoring. Previous attempts at mask fitting adjustments were unsuccessful. Patient has gained at least 10 lb since his previous sleep study. His previous PAP settings were APAP 6-16 cm H2O. [facility] Medical History Hypertrophic obstructive cardiomyopathy Sacroiliitis Diabetes mellitus, without long-term current use of insulin Diabetes mellitus without complication, with long-term current use of insulin Foot abscess, right Poorly controlled type 2 diabetes mellitus Diabetes Osteoarthritis of right knee Osteoarthritis of lumbar spine Hypertrophic obstructive cardiomyopathy MARA (obstructive sleep apnea) Hypertensive heart disease HTN (hypertension) Surgical History Status post placement of implantable loop recorder History of hand surgery History of elbow surgery History of ankle surgery Family History Father PVD (peripheral vascular disease) Essential hypertension Diabetes mellitus Mother Liver transplant failure Social History Household Members: Family Housing: Apartment Do you presently have visiting nurse or other home services: No Alcohol intake: current Alcohol intake frequency: a few times a month Alcohol type: beer Patient Tobacco Use Status: Former Tobacco user Tobacco use type: Cigarette Cigarettes Per Day: 10 Years Smoked: 20 e-Cigarette/Vaping Use: Never Used Second Hand Smoke Exposure: No service: No Current occupational status: unemployed Current occupational exposures/hazards: No Cognitive needs: No Hearing needs: No Vision needs: Yes (Glasses) Physical Exam Vital Signs: Last Vital Signs Pulse 79 07/29/24 08:07 BP 122/80 07/29/24 08:07 Pulse Ox 94 07/29/24 08:07 Oxygen Delivery Method Room Air 07/29/24 08:07 BMI result Body Mass Index 34.2 Const General: no acute distress Orientation/consciousness: patient oriented x3 HEENT Other: Mallampati stage 4 Resp Effort & Inspection: normal respiratory effort and able to speak in complete sentences Neuro General: patient oriented x3 Psych Mental Status: mental status grossly normal Speech and movement: Clear speech present Attitude: cooperative Assessment & Plan Assessment & Plan (1) MARA (obstructive sleep apnea): Code(s): G47.33 - Obstructive sleep apnea (adult) (pediatric) Category: Medical (2) Excessive daytime sleepiness: Code(s): G47.19 - Other hypersomnia Category: Medical (3) Snoring: Code(s): R06.83 - Snoring Category: Medical Plan Discussion Notes During the consultation, we discussed the need for a new home sleep study to reassess the current severity of obstructive sleep apnea. We addressed the patient's challenges with CPAP mask fitting and the consequent non-compliance with the machine due to discomfort. It was noted that previous attempts at fitting adjustments did not yield improvements. In light of the previous missed sleep study order, I am placing a new order for the home sleep study. We discussed the possibility that updated CPAP equipment with better fitting masks might improve compliance. The patient was advised that if no follow-up call is received to book home sleep study or post-study completion, they should reach out to the clinic. Contact information, including the phone number for follow- up, was provided to ensure effective communication. Patient was informed and verbally consented to the use of an ambient scribe for clinic note documentation during this visit. Plan A new home sleep study is ordered. Upon review of results, we will determine if patient should resume CPAP or undergo further sleep Study investigations. If HST results do again show sleep apnea, improved masks may aid compliance. Follow-up contact details provided for result-retrieval assurance. Orders: Orders RT home sleep study Today G47.19 - Other hypersomnia, G47.33 - Obstructive sleep apnea (adult) (pediatric), R06.83 - Snoring Coding Level of Care Code Est Pt Level 3 (67289) Diagnoses MARA (obstructive sleep apnea) G47.33 Excessive daytime sleepiness G47.19 Snoring R06.83 Randolph Sleepiness Scale Questions Sitting and reading: moderate chance of dozing Watching TV: moderate chance of dozing Sitting inactive in a theater, movie etc.: moderate chance of dozing As a passenger in a car for an hour without break: would never doze Lying down in the afternoon when circumstances permit: moderate chance of dozing Sitting and talking to someone: would never doze Sitting quietly after lunch without alcohol: moderate chance of dozing In a car, while stopped for a few minutes in the traffic: would never doze ESS < 10: normal, ESS > 12: pathologic: 10
[2024-07-29 08:07] VITALS: BP 122/80; PULSE 79; O2SAT 94; BMI 34.2
== END 2024-07-29 08:35 | disposition home or self-care (01) ==
LOC: HO.HSMS 07:35
PROVIDERS: PCP Internal Medicine; Visit Provider Nurse Practitioner Family
DX: G47.33 Obstructive sleep apnea (adult) (pediatric) (principal); G47.19 Other hypersomnia; R06.83 Snoring
CPT/HCPCS: 99213

== ENCOUNTER → 2024-07-29 07:34 | Outpatient (BNVA) | payer OTHER, SELFPAY | PROVIDERS: PCP Internal Medicine; Visit Provider Nurse Practitioner Family | DX: G47.33 Obstructive sleep apnea (adult) (pediatric) (principal); G47.19 Other hypersomnia; R06.83 Snoring; Z91.199 Patient's noncompliance with other medical treatment and regimen due to unspecified reason; Z99.89 Dependence on other enabling machines and devices | CPT/HCPCS: 99212 ==

== ENCOUNTER 2024-08-01 11:35 | Outpatient (AMB) | payer OTHER, SELFPAY ==
--- NOTE | 2024-08-01 11:37 | A.OFFVIS_ITS ---
Vital Signs 08/01/24 11:38 Height 6 ft Weight 255 lb 11.779 oz BMI 34.7 BP 116/80 Blood Pressure Location Rt brachial Position Sitting Pulse 95 Pulse Source Pulse Oximeter Pulse Oximetry (%) 96 Oxygen Delivery Method Room Air Intake Visit Reasons: DM Intake Note: Patient presents today for a follow-up on Type 2 Diabetes Mellitus: Last Diabetic eye exam was on: 12/17/2023 Last Podiatry exam was on: Patient does not see a Waste Water Worker Most recent HbA1c: 8.8%, 08/01/2024 Random Glucose- 375 mg/dL, Today Waste Handling Technician Required: Yes Waste Handling Technician Language: Line Assembler Services: Waste Handling Technician Offered & Declined Accompanied by: Self / Same As Patient Allergies Penicillins [PENICILLINS] Allergy (Intermediate, Verified 08/01/24 11:46) RASH metformin Adverse Reaction (Intermediate, Verified 08/01/24 11:46) Diarrhea HPI HPI DM: Details: Patient is a 38-year-old male with a significant past medical history hypertension, hypertrophic cardiomyopathy, hyperlipidemia, type 2 diabetes, MARA and arthritis presenting today for a follow-up regarding his diabetes. Significant other is here today to help with translation. Endo: He was diagnosed with diabetes he thinks around 2019. He is confirmed type 2 diabetic. Has high C-peptide and negative antibody tests. His previous A1c was 6.7. His A1c today is He is currently on Trulicity 3 mg. His blood sugars have been elevated recently and he attributes this to lack of activity and increased eating. His states that she is constantly yelling at him to change his diet. He used to have to be on insulin and he really does not want to be on insulin. He did not tolerate metformin, Januvia or glipizide. He does not have any testing supplies at home, he never picked them up. He has had diabetic Education. does not wish to go back right now Not on an ANTONETTE-inhibitor. Cholesterol controlled with a statin. CV: Blood pressure is usually controlled with verapamil 80 mg, metoprolol 100 mg twice a day. Blood pressure today in the office is 116/80. Lipids controlled with atorvastatin 20 mg. No myalgias. LFTs stable elevated. GI: At our last visit I did do a liver ultrasound given the elevated LFTs and referred him to GI. We did discuss the fatty liver on importance cutting out alcohol, controlling blood sugars and weight. He has appointment booked 10/07/24. [facility] Medical History Hypertrophic obstructive cardiomyopathy Sacroiliitis Diabetes mellitus, without long-term current use of insulin Diabetes mellitus without complication, with long-term current use of insulin Foot abscess, right Poorly controlled type 2 diabetes mellitus Diabetes Osteoarthritis of right knee Osteoarthritis of lumbar spine Hypertrophic obstructive cardiomyopathy MARA (obstructive sleep apnea) Hypertensive heart disease HTN (hypertension) Surgical History Status post placement of implantable loop recorder History of hand surgery History of elbow surgery History of ankle surgery Family History Father PVD (peripheral vascular disease) Essential hypertension Diabetes mellitus Mother Liver transplant failure Social History Household Members: Family Housing: Apartment Do you presently have visiting nurse or other home services: No Alcohol intake: current Alcohol intake frequency: a few times a month Alcohol type: beer Patient Tobacco Use Status: Former Tobacco user Tobacco use type: Cigarette Cigarettes Per Day: 10 Years Smoked: 20 e-Cigarette/Vaping Use: Never Used Second Hand Smoke Exposure: No service: No Current occupational status: unemployed Current occupational exposures/hazards: No Cognitive needs: No Hearing needs: No Vision needs: Yes (Glasses) Physical Exam Vital Signs: Last Vital Signs Pulse 95 08/01/24 11:38 BP 116/80 08/01/24 11:38 Pulse Ox 96 08/01/24 11:38 Oxygen Delivery Method Room Air 08/01/24 11:38 BMI result Body Mass Index 34.7 Const Orientation/consciousness: patient oriented x3 Neck Neck: Yes no lymphadenopathy Thyroid: Thyroid normal Carotids: no bruits Resp Auscultation: clear to auscultation bilaterally Cardio Rate: regular rate Rhythm: regular rhythm Heart sounds: S1 normal heart sound present and S2 normal heart sound present Neuro General: patient oriented x3, gait normal and no focal motor deficits Extrem Other: No lower leg edema General: Yes normal to inspection Results AMB Hemoglobin A1c AMB Hemoglobin A1c 8.8 % Last Edit by MOOKIE Plascencia on 08/01/24 11:51 Results Reviewed Results Reviewed: Laboratory Tests 02/08/24 05/02/24 05/24/24 10:20 12:13 07:43 Sodium 140 Potassium 4.2 Chloride 108 Carbon Dioxide 23 Anion Gap 13 BUN 16 Creatinine 0.91 Estimated GFR > 60 Fasting Glucose 140 H Hgb A1c (Clinic) 7.0 H Hemoglobin A1c % 6.7 H C-Peptide 6.96 H AST 60 H ALT 136 H Alkaline Phosphatase 94 Triglycerides 144 Cholesterol 167 LDL Cholesterol, Calc 104 H Assessment & Plan Assessment & Plan (1) Type 2 diabetes, controlled, with peripheral neuropathy: Code(s): E11.42 - Type 2 diabetes mellitus with diabetic polyneuropathy Category: Medical Plan: Start Jardiance 10 mg daily. Discussed risks and benefits and adverse effects of this medication including risk of UTIs, yeast infections etc.. We will check labs in a couple of weeks after starting this. He will call me if he does not tolerate it. Increase Trulicity to 4.5 mg weekly Advised short term follow up in 3-4 weeks. Sooner if needed. (2) Essential hypertension: Code(s): I10 - Essential (primary) hypertension Category: Medical Plan: WNL. Continue current regimen (3) Dyslipidemia: Code(s): E78.5 - Hyperlipidemia, unspecified Category: Medical Plan: Continue atorvastatin. Orders: Orders Basic Metabolic Panel Today E11.42 - Type 2 diabetes mellitus with diabetic polyneuropathy, E78.5 - Hyperlipidemia, unspecified, I10 - Essential (primary) hypertension AMB Hemoglobin A1c Today E11.42 - Type 2 diabetes mellitus with diabetic polyneuropathy Microalbumin, Random (w Creat) Today E11.42 - Type 2 diabetes mellitus with diabetic polyneuropathy, E78.5 - Hyperlipidemia, unspecified, I10 - Essential (primary) hypertension Medications: New dulaglutide (Trulicity) 4.5 mg (0.5 mL) subcut QWEEK 2 mL 4RF empagliflozin (Jardiance) 10 mg PO QAM 100 tabs 2RF Discontinued dulaglutide (Trulicity) Discontinued Reason: Doctor's Order 3 mg (0.5 mL) subcut QWEEK 2 mL 5RF Coding Level of Care Code Est Pt Level 4 (76832) Complex EM visit Add On G2211 Diagnoses Type 2 diabetes, controlled, with peripheral neuropathy E11.42 Essential hypertension I10 Dyslipidemia E78.5
[2024-08-01 11:38] VITALS: BP 116/80; PULSE 95; O2SAT 96; BMI 34.7
[2024-08-01 11:47] LABS: Glucose, Whole Blood 375 mg/dL (60-115)
--- OUTSIDE RECORDS SUMMARY | 2024-08-01 13:45 | XMS_ITS | Clinical Summary ---
Author Organization [address] [place] [address] Address [address] [place] [address] Phone Care Team Providers Care Oncology Research Rn Name Role Phone Ninoska Meeks MD Primary Care Provider [phone] Allergies Active Allergy Reactions Criticality Noted Date [...] - 06/30/2024 11:59 PM EST Hospital Encounter [facility] CT Scan [address] [place] [address] Status post fusion of wrist Discharge Disposition: Home or Self Care 06/07/2024 11:45 AM EST Office Visit Orthopedic Surgery [facility] [address] [phone] Allegra Coleman MD Post-operative state [...] 4:00 PM EDT Office Visit Orthopedic Surgery [facility] [address] [phone] Allegra Coleman MD [address] [phone] Scheduled Procedures Name Priority Associated Diagnoses Date/Ti [...] and capitate. ?? 3-D postprocessing was performed. [facility] protocol was not utilized -------- FINAL REPORT -------- Dictated By: Kirk Dickson Dictated Date: 07/01/2024 15:22 ET Assigned Physician: Kirk Dickson Reviewed and Electronically Signed By: Kirk Dickson Signed Date: 07/01/2024 15:41 ET Workstation ID: [id number] Transcribed By: Self Edit Transcribed Date: 07/01/2024 [...] of contrast discarded: 0 mL FINDINGS: Digital rn tele demonstrates 4 cannulated screws within the carpus. [...] of contrast discarded: 0 mL FINDINGS: Digital rn tele demonstrates 4 cannulated screws within the carpus. [...] Signed Date: 07/01/2024 15:41 ET Workstation ID: [id number] Transcribed By: Self Edit Transcribed Date: 07/01/2024 15:22 ET us Allegra Coleman MD [facility] CT PROCEDURES Final Resul t [...] Resul t from Last 3 Months Insurance [facility] PLAN Care Teams Oncology Research Rn Relationship Specialty Start Date End Date Ninoska Meeks MD [address] [place] [address] Physician Associ D/B/A: [facility] [place], [place] PCP - General Internal Medicine 04/26/24
--- OUTSIDE RECORDS SUMMARY | 2024-08-01 13:45 | XMS_ITS | Clinical Summary ---
Author Organization [facility] Facility Address [address] [place] [address] Care Team Providers Care Supervisor Tumblers Name Role Phone Kelly Verma MD Primary [...] age to complete this topic [place] Care Teams Supervisor Tumblers Relationship Specialty Start Date End Date Kelly Verma MD [address] [place] [address] PCP - General Internal Medicine 10/19/20
== END 2024-08-01 12:05 | disposition home or self-care (01) ==
LOC: HO.ENCR 11:36
PROVIDERS: PCP Internal Medicine; Visit Provider Physician Assistant
DX: E11.42 Type 2 diabetes mellitus with diabetic polyneuropathy (principal); I10 Essential (primary) hypertension; E78.5 Hyperlipidemia, unspecified

== ENCOUNTER 2024-08-01 11:35 | Outpatient (REF) | payer OTHER, SELFPAY ==
[2024-08-01 12:43] LABS: Estimated Average Glucose 194 mg/dL; Hemoglobin A1c % 8.4 % (<6.0)
[2024-08-01 13:10] LABS: Anion Gap 12 (12-20); Blood Urea Nitrogen 13 mg/dL (9-16); Calcium 9.5 mg/dL (8.4-10.2); Carbon Dioxide 26 mmol/L (22-29); Chloride 106 mmol/L (96-108); Estimated Glomerular Filt Rate > 60; Glucose Random 340 mg/dL (60-115); Potassium 4.4 mmol/L (3.3-5.1); Sodium 140 mmol/L (135-145)
[2024-08-01 14:03] LABS: Creatinine Urine 61.81 mg/dL
== END 2024-08-01 11:36 | disposition home or self-care (01) ==
LOC: HO.LAB 11:35
PROVIDERS: Absent Provider Nurse Practitioner Family; PCP Internal Medicine; Visit Provider Physician Assistant
DX: E11.42 Type 2 diabetes mellitus with diabetic polyneuropathy (principal); I10 Essential (primary) hypertension; E78.5 Hyperlipidemia, unspecified; Z79.85 Long-term (current) use of injectable non-insulin antidiabetic drugs
CPT/HCPCS: 36415; 80048; 82043; 82570; 82947; 83036; 99212

== ENCOUNTER → 2024-09-20 23:59 | Outpatient (BNV) | payer OTHER, SELFPAY ==
--- NOTE | 2024-10-11 14:25 | MHC.OFFVIS ---
Intake Visit Reasons: Remote ILR check- [employer] Allergies Penicillins [PENICILLINS] Allergy (Intermediate, Verified 10/07/24 11:03) RASH metformin Adverse Reaction (Intermediate, Verified 10/07/24 11:03) Diarrhea [facility] Medical History (Updated 10/10/24 @ 20:11 by FAWN De La Vega) Osteoarthritis of lumbar spine Excessive daytime sleepiness Snoring HTN (hypertension) Pure hypercholesterolemia Puncture wound of foot Muscle spasm of back Foot abscess, right Hypertrophic obstructive cardiomyopathy Submandibular lymphadenopathy Right foot pain Vertebrogenic low back pain History of recent fall Chest pain Hypoglycemia Sacroiliac joint dysfunction of left side Sacroiliac joint pain Elevated LFTs Physical exam URI (upper respiratory infection) Sacroiliitis Diabetes mellitus, without long-term current use of insulin Diabetes mellitus without complication, with long-term current use of insulin Foot abscess, right Poorly controlled type 2 diabetes mellitus Diabetes Osteoarthritis of right knee MARA (obstructive sleep apnea) Hypertensive heart disease Surgical History Status post placement of implantable loop recorder History of hand surgery History of elbow surgery History of ankle surgery Family History Father PVD (peripheral vascular disease) Essential hypertension Diabetes mellitus Mother Liver transplant failure Social History Household Members: Family Housing: Apartment Do you presently have visiting nurse or other home services: No Alcohol intake: current Alcohol intake frequency: a few times a month Alcohol type: beer Patient Tobacco Use Status: Former Tobacco user Tobacco use type: Cigarette Cigarettes Per Day: 10 Years Smoked: 20 e-Cigarette/Vaping Use: Never Used Second Hand Smoke Exposure: No service: No Current occupational status: unemployed Current occupational exposures/hazards: No Cognitive needs: No Hearing needs: No Vision needs: Yes (Glasses) Office Procedures Cardiac Device Check Cardiac Device Check Details: Remote implantable loop recorder generated 09/20/2024. No atrial fibrillation or pauses noted. Total burden of PVCs 0.9% [id number] Cardiac Interrogation, subcut cardiac rhythm monitor Procedure code (CPT) selection complete Assessment & Plan Assessment & Plan (1) Implantable loop recorder present: Code(s): Z95.818 - Presence of other cardiac implants and grafts Category: Medical Plan: See above Coding Level of Care Code Procedure Only Diagnoses Implantable loop recorder present Z95.818 CPT Codes Cardiac Device Check - Cardiac Device 16: [id number] Cardiac Interrogation, subcut cardiac rhythm monitor ([id number])
== END ==
PROVIDERS: PCP Internal Medicine; Visit Provider Internal Medicine Cardiovascular Disease
DX: I49.3 Ventricular premature depolarization (principal); Z95.818 Presence of other cardiac implants and grafts
CPT/HCPCS: 93298

== ENCOUNTER → 2024-09-21 14:07 | Outpatient (REF) | payer OTHER, SELFPAY ==
--- OUTSIDE RECORDS SUMMARY | 2024-09-21 15:21 | XMS_ITS | Clinical Summary ---
Author Organization [address] [place] [address] Address [address] [place] [address] Phone Care Team Providers Care Culinary Artist Name Role Phone Ninoska Meeks MD Primary Care Provider [phone] Allergies Active Allergy Reactions Criticality Noted Date Comments Metformin Diarrhea,Nausea And Vomiting Low 022 Penicillins Rash 10/19/2020 Medications atorvastatin (LIPITOR) 20 mg tablet Take 1 tablet (20 mg total) by mouth at bedtime. 4 Active metoprolol succinate (TOPROL-XL) 100 mg 24 hr tablet 1 tablet (100 mg total) 2 (two) times a day. 1 Active Trulicity 3 mg/0.5 mL pen injector injection Inject 0.5 mL (3 mg total) under the skin 1 (one) time each day. Last dose 09/18/24 5 Active Jardiance 10 mg tablet Take 1 tablet (10 mg total) by mouth 1 (one) time each day in the morning. Instructed to stop med 3 days prior to sx 5 Active calcium carbonate-dyana min D 500 mg-5 mcg (200 unit) per tablet Take 1 tablet by mouth 1 (one) time each day. 30 each 4 09/22/19 25 Discontinu ed(Therapy completed) verapamiL (CALAN) 120 mg tablet Take 1 tablet (120 mg total) by mouth 2 (two) times a day. 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 Cubital tunnel syndrome on left 04/23/2023 Injury of triangular fibrocartilage complex of r ight wrist 08/05/2021 Complete tear of wrist ligament 02/26/2021 Essential (primary) hypertension 10/26/2020 Type 2 diabetes mellitus wit h diabetic neuropathy ([facility] V24, [facility] V28) 10/26/2020 Encounters Date Type Department Care Team Description 09/20/2024 Telephone Orthopedic Surgery [facility] 250 175 [facility] [address] [place] [phone] Allegra Coleman MD Provide Call back 08/02/2024 4:00 PM EDT Office Visit Orthopedic Surgery [facility] 175 [facility] [address] [place] [phone] Allegra Coleman MD 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) 06/30/2024 8:32 AM EST - 06/30/2024 11:59 PM EST Hospital Encounter [facility] CT Scan [address] [place] [phone] Status post fusion of wrist Discharge Disposition: Home or Self Care from Last 3 Months Surgical History Surgery Date Site/Laterality Comments ELBOW SURGERY Right CARPAL TUNNEL RELEASE Right WRIST FUSION 05/18/2023 - 05/17/2024 Right scaphoid excision, 4 corner fusion OTHER SURGICAL HISTORY ACHILLES TENDON SURGERY ligaments Medical History Medical History Date Comments Diabetes ([facility]24, [facility] V28) DX:Diabetes ([facility]) Essential (primary) hypertension DX:Essential (primary) hypertension Hyperlipidemia DX:Hyperlipidemi a Anxiety Chronic pain disorder Arthritis Joint pain Social History Tobacco Use Types Packs/Day Years [...] - Inhaled Oxygen Concentration - - Weight 116 kg (255 lb) 09/21/2024 11:00 AM EDT Height 182.9 cm (6') 09/21/2024 11:00 AM EDT Body Mass Index 34.58 09/21/2024 11:00 AM EDT Plan of Treatment Upcoming Encounters Date Type Department Care Team (Latest Contact Info) Description 09/23/2024 3:45 PM EDT Consult Orthopedic Surgery - [place] [address] [phone] Allegra Coleman MD [address] [phone] 09/29/2024 9:15 AM EDT Hospital Encounter [facility] Main OR [address] [place] [phone] Allegra Coleman MD [address] [phone] 09/29/2024 9:15 AM EDT - 09/29/2024 12:45 PM EDT Surgery [facility] Main OR [address] [place] [phone] Allegra Coleman MD [address] [phone] ARTHRODESIS WRIST-revision of 4 corner fusion right; scaphoid excision [[id number] (CPT??)] Scheduled Procedures Name Priority Associated Diagnoses Date/Ti me ARTHRODESIS WRIST Nonunion after arthrodesis 09/29/2024 9:15 AM EDT Health Maintenance Due Date Last Done Comments [...] - 2023-2 5 season) 2024 11/15/2020, 10/25/2020 Hypertension/CHF/CAD Annual BMP Blood Test 04/25/2024 Influenza Vaccine (Season Ended) 2025 DTaP,Tdap,and Td Vaccines (2 - Td or [...] age to complete this topic Meningococcal B Vaccine Aged Out No l onger eligible based on patient's age to complete [...] AM EST Status post fusion of wrist from Last 3 Months Results * CT [...] Signed Date: 07/01/2024 15:41 ET Workstation ID: [id number] Transcribed By: Self Edit Transcribed Date: 07/01/2024 [...] of contrast discarded: 0 mL FINDINGS: Digital delicate fabrics presser demonstrates 4 cannulated screws within the carpus. [...] of contrast discarded: 0 mL FINDINGS: Digital delicate fabrics presser demonstrates 4 cannulated screws within the carpus. [...] Signed Date: 07/01/2024 15:41 ET Workstation ID: [id number] Transcribed By: Self Edit Transcribed Date: 07/01/2024 15:22 ET Allegra Coleman MD IMG CT PROCEDURES Final Resul t from Last 3 Months Insurance [facility] [place] [address] Care Teams Culinary Artist Relationship Specialty Start Date End Date Ninoska Meeks MD [address] [place] [address] , [address] [facility] Physician Associ D/B/A: [facility] MAI Al[place] PCP - General Internal Medicine 04/26/24
--- OUTSIDE RECORDS SUMMARY | 2024-09-21 15:21 | XMS_ITS | Encounter Summary ---
Author Organization [facility] Address [address] [place] [phone] Care Team Providers Care Monotype Keyboard Operator Name Role Phone Ninoska Meeks MD Primary Care Provider [phone] Reason for Visit * Reason Onset Date Comments Provide Call back 09/20/2024 Encounter Details Date Type Department Care Team ([facility] st Contact Info) Description 09/20/2024 Telephone Orthopedic Surgery [facility] 250 175 [facility] 250 [place] [address] Allegra Coleman MD 175 [facility] 140 [place] [address] Provide Call back Social History Tobacco Use Types Packs/Day Years [...] on file documented as of this encounter Progress Notes * Samreen Banerjee - 09/20/2024 12:19 PM EDT Patient ts all set for 09/[address] Coleman for a Pre Op appt. * Clif Fabian MA - 09/20/2024 10:36 AM EDT Yea we should get them scheduled for a pre op prior to 09/29. Will look to do so myself but if you see its not done, please follow up * Samreen Banerjee - 09/20/2024 10:11 AM EDT Patient;'s spouse, Liz. Is calling on behalf of her spouse, he is having Surgery om 09/29 for a Right Wrist Fusion, and she has some questions about the surgery, as her did not understand everything that was explained @ his last OV. Please lissette Liz back @ [phone]. Thanks. documented in this encounter Plan of Treatment Upcoming Encounters Date Type Department Care Team (Latest Contact Info) Description 09/23/2024 3:45 PM EDT Consult Orthopedic Surgery - [address] [phone] Allegra Coleman MD [address] [place] [phone] 09/29/2024 9:15 AM EDT Hospital Encounter [facility] Main OR [address] [place] [phone] Allegra Coleman MD [address] [phone] 09/29/2024 9:15 AM EDT - 09/29/2024 12:45 PM EDT Surgery [facility] Main OR [address] [place] [phone] Allegra Coleman MD [address] [phone] ARTHRODESIS WRIST-revision of 4 corner fusion right; scaphoid excision [43655 (CPT??)] Scheduled Procedures Name Priority Associated Diagnoses Date/Ti me ARTHRODESIS WRIST Nonunion after arthrodesis 09/29/2024 9:15 AM EDT documented as of this encounter Visit Diagnoses Not on filedocumented in this encounter Care Teams Monotype Keyboard Operator Relationship Specialty Start Date End Date Ninoska Meeks MD [address] [facility] , [address] [facility] Physician Associ D/B/A: [facility] MAI [place] PCP - General Internal Medicine 04/26/24 documented as of this encounter
== END ==
LOC: HO.SL 14:07
PROVIDERS: PCP Internal Medicine; Visit Provider Nurse Practitioner Family
DX: G47.33 Obstructive sleep apnea (adult) (pediatric) (principal); G47.19 Other hypersomnia; R06.83 Snoring
CPT/HCPCS: 95806

== ENCOUNTER → 2024-09-21 14:43 | Outpatient (BNV) | payer OTHER, SELFPAY | PROVIDERS: PCP Internal Medicine; Visit Provider Psychiatry & Neurology Neurology | DX: G47.33 Obstructive sleep apnea (adult) (pediatric) (principal) | CPT/HCPCS: 95806 ==

== ENCOUNTER 2024-09-22 08:11 | Outpatient (AMB) | payer OTHER, SELFPAY ==
--- NOTE | 2024-09-22 08:14 | A.OFFPC_ITS ---
Vital Signs 09/22/24 08:16 Height 6 ft Weight 247 lb BMI 33.5 BP 136/82 Blood Pressure Location Lt brachial Position Sitting Intake Visit Reasons: dm Intake Note: Patient here for a follow up DM Floatlight Powder Mixer Required: No Accompanied by: Self / Same As Patient Allergies Penicillins [PENICILLINS] Allergy (Intermediate, Verified 09/22/24 08:40) RASH metformin Adverse Reaction (Intermediate, Verified 09/22/24 08:40) Diarrhea Medication List - Last Reconciled 09/22/24 by Ninoska Meeks MD atorvastatin 20 mg PO BEDTIME 90 days blood sugar diagnostic (FreeStyle Lite Strips) Use daily As directed to check blood glucose blood-glucose meter (FreeStyle Lite Meter kit) Use daily As directed to check blood glucose blood-glucose sensor (FreeStyle Jai 3 Sensor device) Apply every 14 days As directed dulaglutide (Trulicity) 4.5 mg (0.5 mL) subcut QWEEK empagliflozin (Jardiance) 10 mg PO QAM folic acid 1 mg PO DAILY lancets (FreeStyle Lancets) Use daily As directed to check blood glucose metoprolol tartrate 100 mg PO BID omeprazole 20 mg PO DAILY 90 days thiamine HCl (vitamin B1) 100 mg PO DAILY Tobacco use date assessed: 05/25/24 Dental Screening Dental Screen Date: 05/25/24 HPI HPI Comments History of Present Illness Details The patient is a 38-year-old male presenting for a follow-up concerning multiple chronic conditions, including diabetes mellitus, hypertension, hyperlipidemia, severe asymmetrical septal hypertrophy, gastroesophageal reflux disease, and chronic back pain. He initially managed his diabetes with Metformin but transitioned to Trulicity due to side effects, with current readings indicating suboptimal glucose control. He experiences controlled gastroesophageal symptoms with Omeprazole but has reported occasional discomfort triggered by dietary intake. His cardiac condition is managed with ongoing cardiology evaluations. Current hypertension management involves Metoprolol, though he reports needing prescriptions for some medications, such as folic acid and vitamin B1. Hyperlipidemia is under control through Atorvastatin with plans for future monitoring. Despite prior efforts, his chronic back pain remains unresolved, emphasizing the need for an MRI that has been delayed. His foot pain, involving the development of lumps, warrants evaluation by a orthopedic designer. [facility] Medical History (Updated 09/22/24 @ 09:57 by Ninoska Meeks MD) Hypertrophic obstructive cardiomyopathy Sacroiliitis Diabetes mellitus, without long-term current use of insulin Diabetes mellitus without complication, with long-term current use of insulin Foot abscess, right Poorly controlled type 2 diabetes mellitus Diabetes Osteoarthritis of right knee Osteoarthritis of lumbar spine Hypertrophic obstructive cardiomyopathy MARA (obstructive sleep apnea) Hypertensive heart disease HTN (hypertension) Surgical History Status post placement of implantable loop recorder History of hand surgery History of elbow surgery History of ankle surgery Family History Father PVD (peripheral vascular disease) Essential hypertension Diabetes mellitus Mother Liver transplant failure Social History Household Members: Family Housing: Apartment Do you presently have visiting nurse or other home services: No Alcohol intake: current Alcohol intake frequency: a few times a month Alcohol type: beer Patient Tobacco Use Status: Former Tobacco user Tobacco use type: Cigarette Cigarettes Per Day: 10 Years Smoked: 20 e-Cigarette/Vaping Use: Never Used Second Hand Smoke Exposure: No service: No Current occupational status: unemployed Current occupational exposures/hazards: No Cognitive needs: No Hearing needs: No Vision needs: Yes (Glasses) Questionnaire Thrive Questionnaire Date Thrive assessed: 05/25/24 I am a: Patient What is your living situation today?: I have a steady place to live Within the past 12 months, did the food you bought not last and you didn't have the money to get more?: I choose not to answer this question Within the past 12 months, did you worry whether your food would run out before you got money to buy more?: I choose not to answer this question Do you have trouble paying for medicines?: No Do you have trouble getting transportation to medical appointments?: No Do you have trouble paying your heating and electricity bill?: No Do you have trouble taking care of your child, family member or friend?: No Do you have trouble with day-to-day activities such as bathing, preparing meals, shopping, managing finances, etc.?: I choose not to answer this question Are you currently unemployed and looking for a job?: Yes Are you interested in more education?: No Please select the resources that you would like help with: None Currently or been in a relationship where the following occur: I choose not to answer THRIVE Score: 0 MARTIN-7 AMB Questionnaire MARTIN-7 Date MARTIN - 7 assessed: 05/25/24 Source: Developed by Drs. Sinan Ledesma, Ruth Ann Verdugo, Ej Hamilton and colleagues, with an educational amer[place] from [employer]. Review of Systems Const All systems reviewed & are unremarkable except as noted in HPI and below Card Denies chest pain at rest, Denies chest pain with activity, Denies edema, Denies irregular heart rhythm, Denies claudication, Denies dyspnea, Denies dyspnea on exertion, Denies orthopnea, Denies paroxysmal nocturnal dyspnea and Denies slow heart rate Resp Denies cough, Denies dyspnea and Denies dyspnea on exertion Physical exam (Primary Care) Vital Signs: Last Vital Signs BP 136/82 09/22/24 08:16 BMI result Body Mass Index 33.5 Tobacco/Smoking Status: Tobacco use Status Tobacco use date assessed 05/25/24 09/22/24 08:14 Patient Tobacco Use Status Former Tobacco user 09/22/24 08:14 Tobacco use type Cigarette 09/22/24 08:14 e-Cigarette/Vaping Use Never Used 09/22/24 08:14 Thrive Assessment: Date of Thrive Assessment Date Thrive assessed 05/25/24 09/22/24 08:14 Currently or been in a relationship where the following occur: I choose not to answer Resp Effort & Inspection: normal respiratory effort Auscultation: clear to auscultation bilaterally Cardio Jugular venous distension: no JVD Rate: regular rate Rhythm: regular rhythm Heart sounds: S1 normal heart sound present and S2 normal heart sound present Extrem General: Yes full ROM Coding Level of Care Code Est Pt Level 4 (71239) Complex EM visit Add On G2211 Diagnoses Type 2 diabetes, controlled, with peripheral neuropathy E11.42 Essential hypertension I10 Pure hypercholesterolemia E78.00 Hypertrophic obstructive cardiomyopathy I42.1 Chronic GERD K21.9 Asymmetric septal hypertrophy I51.7 Time Spent (min) 23 Assessment & Plan Assessment & Plan (1) Type 2 diabetes, controlled, with peripheral neuropathy: Code(s): E11.42 - Type 2 diabetes mellitus with diabetic polyneuropathy Category: Medical (2) Essential hypertension: Code(s): I10 - Essential (primary) hypertension Category: Medical (3) Pure hypercholesterolemia: Code(s): E78.00 - Pure hypercholesterolemia, unspecified Category: Medical (4) Hypertrophic obstructive cardiomyopathy: Code(s): I42.1 - Obstructive hypertrophic cardiomyopathy Category: Medical (5) Chronic GERD: Code(s): K21.9 - Gastro-esophageal reflux disease without esophagitis Category: Medical (6) Asymmetric septal hypertrophy: Code(s): I51.7 - Cardiomegaly Category: Medical Plan The current plan emphasizes a multifaceted approach addressing the patient's chronic medical conditions. This includes optimizing diabetes control with current medications, closely monitoring cardiac health due to severe asymmetrical septal hypertrophy, and maintaining hypertension under control with Metoprolol. A comprehensive review of hyperlipidemia management is advised, with lipid levels to be reassessed in four months. Gastrointestinal symptoms are generally well-controlled by Omeprazole, with patient education on mitigating dietary triggers. Chronic back pain management involves continued conservative measures, and evaluation of foot pain by a orthopedic designer is necessary. The patient's medications will be refilled as needed to ensure adequate supply. Patient was informed and verbally consented to the use of an ambient scribe for clinic note documentation during this visit. During this visit, I discussed the patient's diabetes management, including potential adjustments to current treatments such as Trulicity and Jardiance. We reviewed the patient's cardiology follow-up and the importance of continued monitoring for cardiac health. For hypertension and hyperlipidemia, I emphasized adherence to prescribed medications, with future follow-ups structured for cholesterol assessment. The patient's gastroesophageal reflux management with Omeprazole was also affirmed, with advice on dietary considerations provided. Chronic back pain management remains conservative at this stage, pending further diagnostic clarity from an MRI, with approval processes ongoing. Lastly, I advised consulting a orthopedic designer regarding the new lumps on the patient's feet. Instructions on medication refills were reaffirmed, covering folic acid and vitamin B1. Orders: Orders Microalbumin, Random (w Creat) 4 Months R80.9 - Proteinuria, unspecified Lipid Panel 4 Months E78.5 - Hyperlipidemia, unspecified Comprehensive [place]. Panel Fast 4 Months E11.42 - Type 2 diabetes mellitus with diabetic polyneuropathy Patient Instructions: - Continue current diabetes medications and monitor glucose levels. - Attend cardiology follow-up appointment as scheduled. - Keep taking prescribed hypertension and cholesterol medications. - Manage GERD symptoms with Omeprazole, avoid dietary triggers. - Avoid heavy lifting to manage back pain. - Consult with a orthopedic designer for foot pain and lumps. - Complete pending MRI after approval is granted. - Get medications refilled as needed.
[2024-09-22 08:16] VITALS: BP 136/82; BMI 33.5
== END 2024-09-22 08:52 | disposition home or self-care (01) ==
LOC: HO.HMCH 08:12
PROVIDERS: PCP Internal Medicine; Visit Provider Internal Medicine
DX: E11.42 Type 2 diabetes mellitus with diabetic polyneuropathy (principal); I10 Essential (primary) hypertension; E78.00 Pure hypercholesterolemia, unspecified; I42.1 Obstructive hypertrophic cardiomyopathy; K21.9 Gastro-esophageal reflux disease without esophagitis; I51.7 Cardiomegaly

== ENCOUNTER → 2024-09-22 08:11 | Outpatient (BNVA) | payer OTHER, SELFPAY | PROVIDERS: PCP Internal Medicine; Visit Provider Internal Medicine | DX: E11.42 Type 2 diabetes mellitus with diabetic polyneuropathy (principal); I10 Essential (primary) hypertension; E78.00 Pure hypercholesterolemia, unspecified; I42.1 Obstructive hypertrophic cardiomyopathy; K21.9 Gastro-esophageal reflux disease without esophagitis; I51.7 Cardiomegaly | CPT/HCPCS: 99212 ==

== ENCOUNTER 2024-10-07 10:14 | Outpatient (AMB) | payer OTHER, SELFPAY ==
--- OUTSIDE RECORDS SUMMARY | 2024-10-07 10:27 | XMS_ITS | Clinical Summary ---
Author Organization [facility] Facility Address [address] [place] [id number] Care Team Providers Care Electrical Installation Supervisor Name Role Phone Kelly Verma MD Primary [...] Diabetes: Visual Foot Exam 10/26/2020 Influenza Vaccine (Season Ended) 2025 Pneumococcal Vaccine: Peds ( 0 to 5 Years) and At-Risk Patients (6 to 49 Years) Aged Out No longer eligible b ased on patient's age to complete this topic Insurance Medicaid [place] Medicaid [place] Care Teams Electrical Installation Supervisor Relationship Specialty Start Date End Date Kelly Verma MD [address] [place] [address] PCP - General Internal Medicine 10/19/20
--- NOTE | 2024-10-07 10:35 | A.OFFVIS_ITS ---
Vital Signs 10/07/24 11:04 Height 6 ft Weight 250 lb 0.067 oz BMI 33.9 Blood Pressure Location Lt brachial Position Sitting Intake Visit Reasons: [place] screening & Alcohol use Intake Note: Patient referred by pcp Dr. Mark Meeks pre colonoscopy screening and high liver function tests. Patient cc: diarrhea. Thinks Jardiance causing the loose stools. Denies hemorrhoids, constipation. Nurse Administrator Required: Yes Accompanied by: spouse Liz Royal Allergies Penicillins [PENICILLINS] Allergy (Intermediate, Verified 10/07/24 11:03) RASH metformin Adverse Reaction (Intermediate, Verified 10/07/24 11:03) Diarrhea HPI HPI [place] screening & Alcohol use: Details: 38-year-old male here for preprocedural meeting to discuss a screening co lonoscopy. He is referred by Ninoska Cochran. PMX Obesity Asthma Smoker Diabetes Hypertension High cholesterol Hypertrophic cardiomyopathy Lumbar degenerative disc disease * SURGICAL HISTORY Hand surgery Elbow surgery Ankle surgery Loop recorder * ALLERGIES Penicillin Metformin * [facility] LABS: Laboratory Tests 05/24/24 08/01/24 07:43 12:23 WBC 11.2 H Hgb 15.5 Hct 45.6 Plt Count 249 D Estimated GFR > 60 Total Bilirubin 0.8 AST 60 H ALT 136 H Alkaline Phosphatase 94 Laboratory Tests 08/01/24 08/01/24 11:47 12:23 Hgb A1c (Clinic) 8.8 H Hemoglobin A1c % 8.4 H AST/AT 43/96 in 2019 with normal bili US OF ABD 05/24/24 FINDINGS: Liver: The liver is enlarged and demonstrates increased echotexture, consistent with steatosis. The liver contour is mildly nodular, which can be seen in the setting of cirrhosis. No focal mass or intrahepatic biliary ductal dilatation is identified. There is normal hepatopedal flow in the portal vein. Ultrasound elastography of the liver was performed with 10 separate measurements of the liver parenchyma with the patient in the supine position. Measurements were obtained approximately 2 cm below Lico's capsule and perpendicular to the capsule. Images are of satisfactory quality. The median shear wave velocity is 1.13 m/s. The interquartile range/median (IQR/median) is 0.18. Gallbladder and biliary tree: The gallbladder is unremarkable, without evidence of calculi, wall thickening, or pericholecystic fluid. There is no sonographic Valle sign. The common bile duct is normal in caliber measuring 2 mm. Kidneys: Right kidney measures 14.6 cm in length. Left kidney measures 14.0 cm in length. The kidneys are unremarkable, without evidence of masses, hydronephrosis, or calculi. Pancreas: The pancreatic head, neck, and body are unremarkable. The pancreatic tail is obscured by bowel gas. Spleen: The spleen is normal in size and contour, measuring 11.8 cm in length. Abdominal aorta and inferior vena cava: The visualized portions of the abdominal aorta and inferior vena cava are normal in caliber. There is no free fluid in the abdomen. US/US abdomen comp w elastography IMPRESSION: Hepatomegaly and hepatic steatosis. Nodular liver contour which can be seen in the setting of cirrhosis, although elastography findings are not suggestive of cirrhosis (see below). Liver biopsy may be helpful. The median shear wave velocity is 1.13 m/s, corresponding to a median liver stiffness of 3.9 kPa. The IQR/median value is 0.18. This is unreliable as the value is > 0.15 (15%). Findings are indicative of a normal elastography value with a low likelihood of severe fibrosis or cirrhosis. TODAY'S VISIT Sami #[place] He is here today with his who is supportive. He says he is NOT here for colonoscopy, which makes sense as he is too young. He tells me he is actually here for transaminitis. He used to drink about 12 beers a week, but only on one day a week mostly Fridays. Never every day. His mother had a liver transplant years ago, but he is unsure of the underlying pathology but she did NOT drink ETOH. She of another pathology. The patient has cut back by at least half how many beers he drinks 1 day a week now down to 5 or 6. He has had no major change in wt over the past 5 years or so. He does have a recent dx of NIDDM and started on Trulicity and Jardiance about a year ago. His A1C is still uncontrolled at around 8%. He has been having upper abd pain in the gastric area after eating and post prandial diarrhea. Will work this up as well. ? if r/t NIDDM meds (he previously did not tolerate metformin). He had some nausea with Jarience as well but this is improving. 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 Education was provided as to why people who inherent fatty liver in their genes usually can not tolerate any regular intake of alcohol. That does not mean that they are alcoholics, it just means that there liver will tend to decompensate quickly is given multiple stresses. There are also educated on diabetes control and slow steady weight loss. Looking at the labs to diabetes control is not yet effective and once this is addressed it will have a big impact on his liver enzymes as well. In the meantime we will do a workup to make sure there are no other confounding or reversible causes. He may need to consider an EGD for the best protection of his health going forward but I will save this for later date. This would be for the evaluation of varices. ROV 8 weeks. He has a mitral ? murmur that is being worked up by cardiology. [facility] Medical History (Updated 10/07/24 @ 17:02 by TAMMI Hernández) Osteoarthritis of lumbar spine Excessive daytime sleepiness Snoring HTN (hypertension) Pure hypercholesterolemia Puncture wound of foot Muscle spasm of back Foot abscess, right Hypertrophic obstructive cardiomyopathy Submandibular lymphadenopathy Right foot pain Vertebrogenic low back pain History of recent fall Chest pain Hypoglycemia Sacroiliac joint dysfunction of left side Sacroiliac joint pain Elevated LFTs Physical exam URI (upper respiratory infection) Sacroiliitis Diabetes mellitus, without long-term current use of insulin Diabetes mellitus without complication, with long-term current use of insulin Foot abscess, right Poorly controlled type 2 diabetes mellitus Diabetes Osteoarthritis of right knee MARA (obstructive sleep apnea) Hypertensive heart disease Surgical History Status post placement of implantable loop recorder History of hand surgery History of elbow surgery History of ankle surgery Family History Father PVD (peripheral vascular disease) Essential hypertension Diabetes mellitus Mother Liver transplant failure Social History Household Members: Family Housing: Apartment Do you presently have visiting nurse or other home services: No Alcohol intake: current Alcohol intake frequency: a few times a month Alcohol type: beer Patient Tobacco Use Status: Former Tobacco user Tobacco use type: Cigarette Cigarettes Per Day: 10 Years Smoked: 20 e-Cigarette/Vaping Use: Never Used Second Hand Smoke Exposure: No service: No Current occupational status: unemployed Current occupational exposures/hazards: No Cognitive needs: No Hearing needs: No Vision needs: Yes (Glasses) Review of Systems Const Denies fatigue, Denies fever(s), Denies night sweats, Denies poor appetite and Denies weight loss ENT Reports Normal hearing present, Denies dysphagia, Denies odynophagia, Denies throat swelling and Denies tongue swelling Card Reports no additional complaints Resp Reports no additional complaints GI Details: Denies abdominal pain, Denies melena, Denies bloating, Denies hematochezia, D enies constipation, Denies GI cramping, Denies dysphagia, Denies excessive flatus, Denies early satiety, Reports heartburn, Denies diarrhea, Denies nausea, Denies odynophagia, Denies vomiting and Denies hematemesis Musc Reports back pain and Reports radiating pain into limb Skin/Breast Denies pruritus, Denies lesions, Denies rash and Denies jaundice Neuro Reports Normal hearing present, Denies Abnormal speech present and Reports paresthesias Psych Reports anxiety Endo Denies fatigue Aller/Immun Denies throat swelling and Denies tongue swelling Physical Exam Vital Signs: BMI result Body Mass Index 33.9 Const General: cooperative, no acute distress, well developed and well groomed Nutritional Appearance: well nourished and obese Orientation/consciousness: oriented to person, oriented to place and oriented to time Limitations: language barrier HEENT Head: Yes normocephalic and Yes atraumatic Eyes General: appearance normal, both eyes and all related structures Pupils: Equal, round and reactive pupils present Neck Neck: Yes normal visual inspection and Yes no lymphadenopathy Thyroid: Thyroid normal Resp Effort & Inspection: normal respiratory effort and able to speak in complete sentences Auscultation: clear to auscultation bilaterally Cardio Rate: regular rate Rhythm: regular rhythm Heart sounds: Murmur heart sound present (mitral late swishing no radiation to axilla) systolic Peripheral pulses: radial pulses present and posterior tibial pulses present GI Inspection: No distended, Yes Abdominal panniculus present and Yes obesity Palpation (GI): Soft to palpation, nontender, no guarding, not rigid and No hepatosplenomegaly present Percussion: Yes normal to percussion Auscultation: normal bowel sounds Rectal Exam - Male: Yes deferred Skin General skin exam: no rashes or lesions noted, turgor normal, skin not dry, no jaundice, No spider nevi and no striae Rashes: no rashes Nails: normal Neuro General: oriented to person, oriented to place and oriented to time Cranial nerves: Yes Equal, round and reactive pupils present and Yes Normal hearing present Speech: No Abnormal speech present Extrem General: Yes normal to inspection, No clubbing, No cyanosis and No edema Psych Appearance: grossly normal and well kempt Mental Status: mental status grossly normal Speech and movement: Normal speech and movement present Affect: normal affect Attitude: cooperative Thought process: Normal thought process present and not confabulating Thought content: Normal thought content present Insight: Fair insight present (Psych) and Limited insight present (Psych) Judgement: Fair judgement present (Psych) and Limited judgement present (Psych) Assessment & Plan Assessment & Plan (1) Transaminitis: Code(s): R74.01 - Elevation of levels of liver transaminase levels Category: Medical (2) Epigastric pain: Code(s): R10.13 - Epigastric pain Category: Medical (3) Obesity, Class I, BMI 30-34.9: Code(s): E66.811 - Obesity, class 1 Category: Medical (4) Type 2 diabetes, controlled, with peripheral neuropathy: Code(s): E11.42 - Type 2 diabetes mellitus with diabetic polyneuropathy Category: Medical (5) Alcohol use: Code(s): F10.90 - Alcohol use, unspecified, uncomplicated Category: Medical Plan Sami #[place] He is here today with his who is supportive. He says he is NOT here for colonoscopy, which makes sense as he is too young. He tells me he is actually here for transaminitis. He used to drink about 12 beers a week, but only on one day a week mostly Fridays. Never every day. His mother had a liver transplant years ago, but he is unsure of the underlying pathology but she did NOT drink ETOH. She of another pathology. The patient has cut back by at least half how many beers he drinks 1 day a week now down to 5 or 6. He has had no major change in wt over the past 5 years or so. He does have a recent dx of NIDDM and started on Trulicity and Jardiance about a year ago. His A1C is still uncontrolled at around 8%. He has been having upper abd pain in the gastric area after eating and post prandial diarrhea. Will work this up as well. ? if r/t NIDDM meds (he previously did not tolerate metformin). He had some nausea with Jarience as well but this is improving. 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 Education was provided as to why people who inherent fatty liver in their genes usually can not tolerate any regular intake of alcohol. That does not mean that they are alcoholics, it just means that there liver will tend to decompensate quickly is given multiple stresses. There are also educated on diabetes control and slow steady weight loss. Looking at the labs to diabetes control is not yet effective and once this is addressed it will have a big impact on his liver enzymes as well. In the meantime we will do a workup to make sure there are no other confounding or reversible causes. He may need to consider an EGD for the best protection of his health going forward but I will save this for later date. This would be for the evaluation of varices. ROV 8 weeks. He has a mitral ? murmur that is being worked up by cardiology. Orders: Orders Alpha Fetoprotein Today R10.13 - Epigastric pain, R74.01 - Elevation of levels of liver transaminase levels NINOSKA Reflex Titer and Pattern Today R10.13 - Epigastric pain, R74.01 - Elevation of levels of liver transaminase levels Ferritin Today R10.13 - Epigastric pain, R74.01 - Elevation of levels of liver transaminase levels Mitochondrial Antibody Today R10.13 - Epigastric pain, R74.01 - Elevation of levels of liver transaminase levels Smooth Muscle Antibody Today R10.13 - Epigastric pain, R74.01 - Elevation of levels of liver transaminase levels HIV Ab/Ag Today R10.13 - Epigastric pain, R74.01 - Elevation of levels of liver transaminase levels Liver Fibrosis Pnl Today R10.13 - Epigastric pain, R74.01 - Elevation of levels of liver transaminase levels TSH reflex Free T4 Today R10.13 - Epigastric pain, R74.01 - Elevation of levels of liver transaminase levels Transglutaminase IgA Today R10.13 - Epigastric pain, R74.01 - Elevation of levels of liver transaminase levels Transglutaminase Ab IgG Today R10.13 - Epigastric pain, R74.01 - Elevation of levels of liver transaminase levels Phosphatidylethanol, Blood Today R10.13 - Epigastric pain, R74.01 - Elevation of levels of liver transaminase levels Amylase Today R10.13 - Epigastric pain, R74.01 - Elevation of levels of liver transaminase levels Liver Panel Today R10.13 - Epigastric pain, R74.01 - Elevation of levels of liver transaminase levels Hepatitis A,B,C Profile Today R10.13 - Epigastric pain, R74.01 - Elevation of levels of liver transaminase levels Hemoglobin A1c Today R10.13 - Epigastric pain, R74.01 - Elevation of levels of liver transaminase levels C Reactive Protein Today R10.13 - Epigastric pain, R74.01 - Elevation of levels of liver transaminase levels Rast Allergen Today R10.13 - Epigastric pain, R74.01 - Elevation of levels of liver transaminase levels H Pylori Breath Test Today R10.13 - Epigastric pain, R74.01 - Elevation of levels of liver transaminase levels Pancreatic Elastase-1 Today R10.13 - Epigastric pain, R74.01 - Elevation of levels of liver transaminase levels Lipase Today R10.13 - Epigastric pain, R74.01 - Elevation of levels of liver transaminase levels Coding Level of Care Code New Pt Level 3 (84787) Diagnoses Transaminitis R74.01 Epigastric pain R10.13 Obesity, Class I, BMI 30-34.9 E66.811 Type 2 diabetes, controlled, with peripheral neuropathy E11.42 Alcohol use F10.90
[2024-10-07 11:04] VITALS: BMI 33.9
== END 2024-10-07 12:04 | disposition home or self-care (01) ==
LOC: HO.HGI 10:15
PROVIDERS: PCP Internal Medicine; Visit Provider Nurse Practitioner
DX: R74.01 Elevation of levels of liver transaminase levels (principal); R10.13 Epigastric pain; E66.811 Obesity, class 1; E11.42 Type 2 diabetes mellitus with diabetic polyneuropathy; F10.90 Alcohol use, unspecified, uncomplicated
CPT/HCPCS: 99203

== ENCOUNTER 2024-10-07 10:14 | Outpatient (REF) | payer OTHER, SELFPAY | END 2024-10-07 10:15 | disposition home or self-care (01) | LOC: HO.LNP 10:14 | PROVIDERS: PCP Internal Medicine; Visit Provider Nurse Practitioner | DX: R74.01 Elevation of levels of liver transaminase levels (principal); R10.13 Epigastric pain; E66.811 Obesity, class 1; E11.42 Type 2 diabetes mellitus with diabetic polyneuropathy; F10.90 Alcohol use, unspecified, uncomplicated | CPT/HCPCS: 83013; 99202 ==

== ENCOUNTER 2024-10-13 14:33 | Outpatient (AMB) | payer OTHER, SELFPAY ==
--- OUTSIDE RECORDS SUMMARY | 2024-10-13 14:41 | XMS_ITS | Clinical Summary ---
Author Organization [facility] Facility Address [address] [place] [id number] Care Team Providers Care Order To Delivery Supervisor Name Role Phone Kelly eVrma MD Primary Care Provider Allergies Active Allergy [...] complete this topic Insurance Medicaid [place] Medicaid [place] Care Teams Order To Delivery Supervisor Relationship Specialty Start Date End Date Kelly Verma MD [address] [place] [address] PCP - General Internal Medicine 10/19/20
--- NOTE | 2024-10-13 14:45 | MHC.OFFVIS ---
Vital Signs 10/13/24 14:46 Height 6 ft Weight 249 lb 1.957 oz BMI 33.8 BP 140/80 H Blood Pressure Location Lt brachial Position Sitting Pulse 90 Intake Visit Reasons: 3 mth f/up Intake Note: 3 month follow-up c/o ILR bothering him burning Child Psychometrist Required: Yes Child Psychometrist Services: Child Psychometrist Offered & Declined Picture Hanger: Picture Hanger Present Accompanied by: Spouse Allergies Penicillins [PENICILLINS] Allergy (Intermediate, Verified 10/07/24 11:03) RASH metformin Adverse Reaction (Intermediate, Verified 10/07/24 11:03) Diarrhea Medication List - Last Reconciled 10/13/24 by Tip Crow MD atorvastatin 20 mg PO BEDTIME 90 days blood sugar diagnostic (FreeStyle Lite Strips) Use daily As directed to check blood glucose blood-glucose meter (FreeStyle Lite Meter kit) Use daily As directed to check blood glucose blood-glucose sensor (Authentixyle Jai 3 Sensor device) Apply every 14 days As directed dulaglutide (Trulicity) 4.5 mg (0.5 mL) subcut QWEEK empagliflozin (Jardiance) 10 mg PO QAM lancets (FreeStyle Lancets) Use daily As directed to check blood glucose metoprolol tartrate 100 mg PO BID omeprazole 20 mg PO DAILY 90 days HPI Comments Details: Tej comes for follow- Up He has no new cardiac symptoms. Denies any significant exertional chest pain or shortness of breath. office visit was then presence of certified child support investigator over the phone. Patient denies any symptoms of palpitation, lightheadedness, syncope. No exertional chest pain or shortness of breath. Event monitor shows occasional PVCs without any sustained arrhythmias. He is taking all his medications. He had underwent a cardiac MRI which shows significantly thickened interventricular septum at 32 mm with significant subendocardial scarring at 48% burden on gadolinium enhancement. [facility] Medical History Osteoarthritis of lumbar spine Excessive daytime sleepiness Snoring HTN (hypertension) Pure hypercholesterolemia Puncture wound of foot Muscle spasm of back Foot abscess, right Hypertrophic obstructive cardiomyopathy Submandibular lymphadenopathy Right foot pain Vertebrogenic low back pain History of recent fall Chest pain Hypoglycemia Sacroiliac joint dysfunction of left side Sacroiliac joint pain Elevated LFTs Physical exam URI (upper respiratory infection) Sacroiliitis Diabetes mellitus, without long-term current use of insulin Diabetes mellitus without complication, with long-term current use of insulin Foot abscess, right Poorly controlled type 2 diabetes mellitus Diabetes Osteoarthritis of right knee MARA (obstructive sleep apnea) Hypertensive heart disease Surgical History Status post placement of implantable loop recorder History of hand surgery History of elbow surgery History of ankle surgery Family History Father PVD (peripheral vascular disease) Essential hypertension Diabetes mellitus Mother Liver transplant failure Social History Household Members: Family Housing: Apartment Do you presently have visiting nurse or other home services: No Alcohol intake: current Alcohol intake frequency: a few times a month Alcohol type: beer Patient Tobacco Use Status: Former Tobacco user Tobacco use type: Cigarette Cigarettes Per Day: 10 Years Smoked: 20 e-Cigarette/Vaping Use: Never Used Second Hand Smoke Exposure: No service: No Current occupational status: unemployed Current occupational exposures/hazards: No Cognitive needs: No Hearing needs: No Vision needs: Yes (Glasses) Review of Systems Const Denies chills, Denies fatigue, Denies fever(s), Denies frequent falls, Denies weakness, Denies weight gain and Denies weight loss ENT Denies dizziness Card Denies chest pain, Denies leg edema, Denies lightheadedness, Denies palpitations, Denies dyspnea, Denies dyspnea on exertion, Denies orthopnea and Denies other (loss of consciousness) Resp Denies cough, Denies dyspnea and Denies dyspnea on exertion GI Denies hematochezia and Denies change in stool character Musc Denies abnormal gait, Denies muscle weakness, Denies numbness, Denies radiating pain into limb and Denies tingling Neuro Denies abnormal gait, Denies dizziness, Denies frequent falls, Denies numbness, Denies tingling and Denies weakness Endo Denies fatigue and Denies palpitations Physical Exam Vital Signs: Last Vital Signs Pulse 90 10/13/24 14:46 BP 140/80 H 10/13/24 14:46 BMI result Body Mass Index 33.8 Const General: cooperative, healthy appearing, comfortable and no acute distress Orientation/consciousness: patient oriented x3 Neck Neck: Yes normal visual inspection and Yes no JVD Resp Effort & Inspection: normal respiratory effort Auscultation: clear to auscultation bilaterally, no rales, no rhonchi and no wheezes Cardio Jugular venous distension: no JVD Rate: regular rate Rhythm: regular rhythm Heart sounds: S1 normal heart sound present, S2 normal heart sound present, Murmur heart sound present systolic early and no rubs Neuro General: patient oriented x3 Extrem General: Yes normal to inspection, No no pedal edema and No calf tenderness Psych Appearance: grossly normal Mental Status: mental status grossly normal Speech and movement: Normal speech and movement present Assessment & Plan Assessment & Plan (1) Hypertrophic cardiomyopathy: Code(s): I42.2 - Other hypertrophic cardiomyopathy Category: Medical Plan: hypertrophic cardiomyopathy with significant thickening of the septal at 3.2 cm along with significant subendocardial scarring noted on cardiac MRI on gadolinium enhancement. We discussed about risk for sudden cardiac that in details in presence of certified child support investigator in presence of his . Will refer him to electrophysiology for placement of ICD for primary prevention. He may be a candidate for subcutaneous ICD. Continue current metoprolol therapy. Continue aggressive blood pressure control. (2) Implantable loop recorder present: Code(s): Z95.818 - Presence of other cardiac implants and grafts Category: Medical Plan: Implantable loop recorder in place without any significant sustained ventricular arrhythmias. Has isolated occasional PVCs. No symptoms related to it. (3) Essential hypertension: Code(s): I10 - Essential (primary) hypertension Category: Medical Plan: Hypertension which is currently well optimized on current medications. Continue the same. Importance of good blood pressure control was discussed. Continue aggressive diabetes management. Continue CPAP therapy. Will follow up in the clinic in 2 months time, sooner p.r.n.. Thank you for allowing me to partake in his care (4) Preoperative cardiovascular examination: Code(s): Z01.810 - Encounter for preprocedural cardiovascular examination Plan: preoperative cardiovascular risk stratification for hand surgery which is considered low risk surgery under local anesthesia. Patient is optimized to undergo this procedure. Continue all cardiac medications in the perioperative time. Coding Level of Care Code Est Pt Level 4 (34533) Complex EM visit Add On G2211 Diagnoses Hypertrophic cardiomyopathy I42.2 Implantable loop recorder present Z95.818 Essential hypertension I10 Preoperative cardiovascular examination Z01.810
[2024-10-13 14:46] VITALS: BP 140/80; PULSE 90; BMI 33.8
== END 2024-10-13 15:10 | disposition home or self-care (01) ==
LOC: HO.HCS 14:34
PROVIDERS: PCP Internal Medicine; Visit Provider Internal Medicine Cardiovascular Disease
DX: I42.2 Other hypertrophic cardiomyopathy (principal); Z95.818 Presence of other cardiac implants and grafts; I10 Essential (primary) hypertension; Z01.810 Encounter for preprocedural cardiovascular examination
CPT/HCPCS: 99214; G2211

== ENCOUNTER 2024-10-13 14:33 | Outpatient (REF) | payer OTHER, SELFPAY ==
[2024-10-16 12:43] LABS: H Pylori Breath Test Negative (Negative)
== END 2024-10-13 14:34 | disposition home or self-care (01) ==
LOC: HO.LAB 14:33
PROVIDERS: Nurse Practitioner; PCP Internal Medicine; Visit Provider Internal Medicine Cardiovascular Disease
DX: Z01.810 Encounter for preprocedural cardiovascular examination (principal); I42.2 Other hypertrophic cardiomyopathy; I10 Essential (primary) hypertension; K21.9 Gastro-esophageal reflux disease without esophagitis; R10.13 Epigastric pain; Z95.818 Presence of other cardiac implants and grafts
CPT/HCPCS: 83013; 99212

== ENCOUNTER 2024-10-17 10:57 | Outpatient (AMB) | payer OTHER, SELFPAY ==
--- NOTE | 2024-10-17 11:02 | MHC.OFFVIS ---
Vital Signs 10/17/24 11:03 Height 6 ft Weight 249 lb BMI 33.8 BP 134/86 Blood Pressure Location Lt brachial Position Sitting Pulse 88 Pulse Source Pulse Oximeter Pulse Oximetry (%) 96 Oxygen Delivery Method Room Air Intake Visit Reasons: T2DM Intake Note: Patient present today for Type 2 Diabetes Mellitus Last Diabetic eye exam: 12/2023 Last Podiatry Visit: Doesn't have one Random Glucose: 159 mg/dl HgA1C: 8.4% 08/01/24 Business Process Consultant Required: Yes Business Process Consultant Language: Reel Slitter Services: Business Process Consultant Present Business Process Consultant Name: Jesenia Information Interpreted: non-clinical & clinical Accompanied by: Self / Same As Patient Allergies Penicillins [PENICILLINS] Allergy (Intermediate, Verified 10/17/24 11:08) RASH metformin Adverse Reaction (Intermediate, Verified 10/17/24 11:08) Diarrhea Medication List - Last Reconciled 10/17/24 by Manda Chino PA-C atorvastatin 20 mg PO BEDTIME 90 days blood sugar diagnostic (FreeStyle Lite Strips) Use daily As directed to check blood glucose blood-glucose meter (FreeStyle Lite Meter kit) Use daily As directed to check blood sugars blood-glucose sensor (FreeStyle Jai 3 Sensor device) Apply every 14 days As directed dulaglutide (Trulicity) 4.5 mg (0.5 mL) subcut QWEEK empagliflozin (Jardiance) 10 mg PO QAM lancets (FreeStyle Lancets) use daily as directed to check blood glucose metoprolol tartrate 100 mg PO BID omeprazole 20 mg PO DAILY 90 days HPI HPI T2DM: Details: Patient is a 39-year-old male with a significant past medical history hypertension, hypertrophic cardiomyopathy, hyperlipidemia, type 2 diabetes, MARA and arthritis presenting today for a follow-up regarding his diabetes. Negra here today to help with translation. Endo: He was diagnosed with diabetes he thinks around 2019. He is confirmed type 2 diabetic. Has high C-peptide and negative antibody tests. His previous A1c was 8.4. He is currently on Trulicity 4.5 mg/week and jardiance 10 mg daily. he does not have testing supplies at home and states that he has never checked his blood sugars. He did once feel that his blood sugar was a little low since starting Jardiance. He had a candy and it improved the feelings of feeling shaky. Denies any symptoms of hyperglycemia. He did not tolerate metformin, Januvia or glipizide. He does not have any testing supplies at home, he never picked them up. He has had diabetic Education. does not wish to go back right now I have referred him in the past who car clerk pullman but he never made the appointment. He requests the phone number today. Not on an ANTONETTE-inhibitor. Cholesterol controlled with a statin. CV: Blood pressure is usually controlled with metoprolol 100 mg twice a day. Lipids controlled with atorvastatin 20 mg. No myalgias. LFTs stable elevated. GI: At our last visit I did do a liver ultrasound given the elevated LFTs and referred him to GI. He is now following with GI. [facility] Medical History Osteoarthritis of lumbar spine Excessive daytime sleepiness Snoring HTN (hypertension) Pure hypercholesterolemia Puncture wound of foot Muscle spasm of back Foot abscess, right Hypertrophic obstructive cardiomyopathy Submandibular lymphadenopathy Right foot pain Vertebrogenic low back pain History of recent fall Chest pain Hypoglycemia Sacroiliac joint dysfunction of left side Sacroiliac joint pain Elevated LFTs Physical exam URI (upper respiratory infection) Sacroiliitis Diabetes mellitus, without long-term current use of insulin Diabetes mellitus without complication, with long-term current use of insulin Foot abscess, right Poorly controlled type 2 diabetes mellitus Diabetes Osteoarthritis of right knee MARA (obstructive sleep apnea) Hypertensive heart disease Surgical History Status post placement of implantable loop recorder History of hand surgery History of elbow surgery History of ankle surgery Family History Father PVD (peripheral vascular disease) Essential hypertension Diabetes mellitus Mother Liver transplant failure Social History Household Members: Family Housing: Apartment Do you presently have visiting nurse or other home services: No Alcohol intake: current Alcohol intake frequency: a few times a month Alcohol type: beer Patient Tobacco Use Status: Former Tobacco user Tobacco use type: Cigarette Cigarettes Per Day: 10 Years Smoked: 20 e-Cigarette/Vaping Use: Never Used Second Hand Smoke Exposure: No service: No Current occupational status: unemployed Current occupational exposures/hazards: No Cognitive needs: No Hearing needs: No Vision needs: Yes (Glasses) Physical Exam Vital Signs: Last Vital Signs Pulse 88 10/17/24 11:03 BP 134/86 10/17/24 11:03 Pulse Ox 96 10/17/24 11:03 Oxygen Delivery Method Room Air 10/17/24 11:03 BMI result Body Mass Index 33.8 Const Orientation/consciousness: patient oriented x3 Neck Neck: Yes no lymphadenopathy Thyroid: Thyroid normal Carotids: no bruits Resp Auscultation: clear to auscultation bilaterally Cardio Rate: regular rate Rhythm: regular rhythm Heart sounds: S1 normal heart sound present and S2 normal heart sound present Peripheral pulses: dorsalis pedis present Neuro General: patient oriented x3, gait normal and no focal motor deficits Extrem Other: Monofilament sensation intact bilaterally. Vibratory sensation intact bilaterally. Skin intact. There is a blister noted on the 3rd left toe today. General: Yes normal to inspection Results Reviewed Results Reviewed: Laboratory Tests 05/02/24 08/01/24 12:13 12:23 Creatinine 0.98 Estimated GFR > 60 Hemoglobin A1c % 8.4 H Islet Cell Ab Screen NEGATIVE MARTIN Antibody <5 Assessment & Plan Assessment & Plan (1) Type 2 diabetes, controlled, with peripheral neuropathy: Code(s): E11.42 - Type 2 diabetes mellitus with diabetic polyneuropathy Category: Medical Plan: We will continue current regimen as he does not have a glucometer and never checks his blood sugars. his blood sugar appears to be 159 today 30 minutes postprandial. Denies any symptoms of hyperglycemia. We will recheck labs today and follow up pending test results. encouraged him to continue working on diet follow up in 3 months. Sooner if needed (2) Essential hypertension: Code(s): I10 - Essential (primary) hypertension Category: Medical Plan: continue current regimen (3) Blister of foot, left: Code(s): S90.822A - Blister (nonthermal), left foot, initial encounter Category: Medical Plan: Advised to keep an eye on the blister. Encouraged him to follow up if any changes with this. the skin is currently intact. Advised him to monitor his feet frequently. I have provided him the phone number and address for Podiatry. Orders: Orders Microalbumin, Random (w Creat) Today E11.42 - Type 2 diabetes mellitus with diabetic polyneuropathy, I10 - Essential (primary) hypertension, S90.822A - Blister (nonthermal), left foot, initial encounter Basic Metabolic Panel Today E11.42 - Type 2 diabetes mellitus with diabetic polyneuropathy, I10 - Essential (primary) hypertension, S90.822A - Blister (nonthermal), left foot, initial encounter Hemoglobin A1c Today E11.42 - Type 2 diabetes mellitus with diabetic polyneuropathy, I10 - Essential (primary) hypertension, R73.01 - Impaired fasting glucose, S90.822A - Blister (nonthermal), left foot, initial encounter Medications: New blood-glucose meter (FreeStyle Lite Meter kit) Use daily As directed to check blood sugars 1 ea 0RF E11.22 - Type 2 diabetes mellitus with diabetic chronic kidney disease, E11.9 - Type 2 diabetes mellitus without complications, Z79.4 - terminologist (current) use of insulin lancets (FreeStyle Lancets) use daily as directed to check blood glucose 100 ea 3RF E11.65 - Type 2 diabetes mellitus with hyperglycemia blood sugar diagnostic (FreeStyle Lite Strips) Use daily As directed to check blood glucose 100 ea 3RF E11.9 - Type 2 diabetes mellitus without complications Coding Level of Care Code Est Pt Level 4 (37676) Complex EM visit Add On G2211 Diagnoses Type 2 diabetes, controlled, with peripheral neuropathy E11.42 Essential hypertension I10 Blister of foot, left S90.822A
[2024-10-17 11:03] VITALS: BP 134/86; PULSE 88; O2SAT 96; BMI 33.8
[2024-10-17 11:14] LABS: Glucose, Whole Blood 159 mg/dL (60-115)
--- OUTSIDE RECORDS SUMMARY | 2024-10-17 12:14 | XMS_ITS | Clinical Summary ---
Author Organization [facility] Facility Address [address] [place] [id number] Care Team Providers Care Cork Pressing Machine Operator Name Role Phone Kelly Verma MD [...] complete this topic Insurance Medicaid [place] Medicaid [place] Care Teams Cork Pressing Machine Operator Relationship Specialty Start Date End Date Kelly Verma MD [address] [place] [address] PCP - General Internal Medicine 10/19/20
== END 2024-10-17 11:31 | disposition home or self-care (01) ==
LOC: HO.ENCR 11:00
PROVIDERS: PCP Internal Medicine; Visit Provider Physician Assistant
DX: E11.42 Type 2 diabetes mellitus with diabetic polyneuropathy (principal); I10 Essential (primary) hypertension; S90.822A Blister (nonthermal), left foot, initial encounter

== ENCOUNTER → 2024-10-17 10:57 | Outpatient (BNVA) | payer OTHER, SELFPAY | PROVIDERS: PCP Internal Medicine; Visit Provider Physician Assistant | DX: E11.42 Type 2 diabetes mellitus with diabetic polyneuropathy (principal); I42.9 Cardiomyopathy, unspecified; E78.5 Hyperlipidemia, unspecified; G47.33 Obstructive sleep apnea (adult) (pediatric); E11.22 Type 2 diabetes mellitus with diabetic chronic kidney disease; I12.9 Hypertensive chronic kidney disease with stage 1 through stage 4 chronic kidney disease, or unspecified chronic kidney disease; N18.9 Chronic kidney disease, unspecified; S90.822A Blister (nonthermal), left foot, initial encounter; X58.XXXA Exposure to other specified factors, initial encounter; Y93.9 Activity, unspecified; Y92.9 Unspecified place or not applicable; Y99.9 Unspecified external cause status | CPT/HCPCS: 82947; 99212 ==

== ENCOUNTER → 2024-10-20 23:59 | Outpatient (BNV) | payer OTHER, SELFPAY ==
--- NOTE | 2024-10-24 15:39 | MHC.OFFVIS ---
Intake Visit Reasons: Remote ILR check- [employer] Allergies Penicillins [PENICILLINS] Allergy (Intermediate, Verified 10/17/24 11:08) RASH metformin Adverse Reaction (Intermediate, Verified 10/17/24 11:08) Diarrhea [facility] Medical History Osteoarthritis of lumbar spine Excessive daytime sleepiness Snoring HTN (hypertension) Pure hypercholesterolemia Puncture wound of foot Muscle spasm of back Foot abscess, right Hypertrophic obstructive cardiomyopathy Submandibular lymphadenopathy Right foot pain Vertebrogenic low back pain History of recent fall Chest pain Hypoglycemia Sacroiliac joint dysfunction of left side Sacroiliac joint pain Elevated LFTs Physical exam URI (upper respiratory infection) Sacroiliitis Diabetes mellitus, without long-term current use of insulin Diabetes mellitus without complication, with long-term current use of insulin Foot abscess, right Poorly controlled type 2 diabetes mellitus Diabetes Osteoarthritis of right knee MARA (obstructive sleep apnea) Hypertensive heart disease Surgical History Status post placement of implantable loop recorder History of hand surgery History of elbow surgery History of ankle surgery Family History Father PVD (peripheral vascular disease) Essential hypertension Diabetes mellitus Mother Liver transplant failure Social History Household Members: Family Housing: Apartment Do you presently have visiting nurse or other home services: No Alcohol intake: current Alcohol intake frequency: a few times a month Alcohol type: beer Patient Tobacco Use Status: Former Tobacco user Tobacco use type: Cigarette Cigarettes Per Day: 10 Years Smoked: 20 e-Cigarette/Vaping Use: Never Used Second Hand Smoke Exposure: No service: No Current occupational status: unemployed Current occupational exposures/hazards: No Cognitive needs: No Hearing needs: No Vision needs: Yes (Glasses) Office Procedures Cardiac Device Check Cardiac Device Check Details: Remote implantable loop recorder report generated 10/20/2024. No pauses or atrial fibrillation noted. Occasional PVCs noted with total burden of 1.1% [id number] Cardiac Interrogation, subcut cardiac rhythm monitor Procedure code (CPT) selection complete Assessment & Plan Assessment & Plan (1) Implantable loop recorder present: Code(s): Z95.818 - Presence of other cardiac implants and grafts Category: Medical Plan: See above Coding Level of Care Code Procedure Only Diagnoses Implantable loop recorder present Z95.818 CPT Codes Cardiac Device Check - Cardiac Device 16: [id number] Cardiac Interrogation, subcut cardiac rhythm monitor ([id number])
== END ==
PROVIDERS: PCP Internal Medicine; Visit Provider Internal Medicine Cardiovascular Disease
DX: I49.3 Ventricular premature depolarization (principal); Z95.818 Presence of other cardiac implants and grafts
CPT/HCPCS: 93298

== ENCOUNTER → 2024-11-07 20:30 | Outpatient (REF) | payer OTHER, SELFPAY ==
--- OUTSIDE RECORDS SUMMARY | 2024-11-07 21:36 | XMS_ITS | Clinical Summary ---
Author Organization [facility] Facility Address [address] [place] [id number] Care Team Providers Care Hebrew Professor Name Role Phone Kelly Verma MD Primary [...] complete this topic Insurance Medicaid [place] Medicaid [place] Care Teams Hebrew Professor Relationship Specialty Start Date End Date Kelly Verma MD [address] [place] [address] PCP - General Internal Medicine 10/19/20
== END ==
LOC: HO.SL 20:30
PROVIDERS: PCP Internal Medicine; Visit Provider Nurse Practitioner Family
DX: G47.33 Obstructive sleep apnea (adult) (pediatric) (principal); G47.34 Idiopathic sleep related nonobstructive alveolar hypoventilation
CPT/HCPCS: 95811

== ENCOUNTER → 2024-11-07 20:30 | Outpatient (BNV) | payer OTHER, SELFPAY | PROVIDERS: PCP Internal Medicine; Visit Provider Psychiatry & Neurology Neurology | DX: G47.33 Obstructive sleep apnea (adult) (pediatric) (principal) | CPT/HCPCS: 95811 ==

== ENCOUNTER → 2024-11-19 23:59 | Outpatient (BNV) | payer OTHER, SELFPAY ==
--- NOTE | 2024-11-24 13:21 | MHC.OFFVIS ---
Intake Visit Reasons: Remote ILR check- [employer] Allergies Penicillins (PENICILLINS) Allergy (Intermediate, Verified 10/17/24 11:08) RASH metformin Adverse Reaction (Intermediate, Verified 10/17/24 11:08) Diarrhea [facility] Medical History Osteoarthritis of lumbar spine Excessive daytime sleepiness Snoring HTN (hypertension) Pure hypercholesterolemia Puncture wound of foot Muscle spasm of back Foot abscess, right Hypertrophic obstructive cardiomyopathy Submandibular lymphadenopathy Right foot pain Vertebrogenic low back pain History of recent fall Chest pain Hypoglycemia Sacroiliac joint dysfunction of left side Sacroiliac joint pain Elevated LFTs Physical exam URI (upper respiratory infection) Sacroiliitis Diabetes mellitus, without long-term current use of insulin Diabetes mellitus without complication, with long-term current use of insulin Foot abscess, right Poorly controlled type 2 diabetes mellitus Diabetes Osteoarthritis of right knee MARA (obstructive sleep apnea) Hypertensive heart disease Surgical History Status post placement of implantable loop recorder History of hand surgery History of elbow surgery History of ankle surgery Family History Father PVD (peripheral vascular disease) Essential hypertension Diabetes mellitus Mother Liver transplant failure Social History Household Members: Family Housing: Apartment Do you presently have visiting nurse or other home services: No Alcohol intake: current Alcohol intake frequency: a few times a month Alcohol type: beer Patient Tobacco Use Status: Former Tobacco user Tobacco use type: Cigarette Cigarettes Per Day: 10 Years Smoked: 20 e-Cigarette/Vaping Use: Never Used Second Hand Smoke Exposure: No service: No Current occupational status: unemployed Current occupational exposures/hazards: No Cognitive needs: No Hearing needs: No Vision needs: Yes (Glasses) Office Procedures Cardiac Device Check Cardiac Device Check Details: Remote implantable loop recorder report generated 11/19/2024. No pauses or atrial fibrillation noted. Frequent isolated PVCs noted [id number] Cardiac Interrogation, subcut cardiac rhythm monitor Procedure code (CPT) selection complete Assessment & Plan Assessment & Plan (1) Implantable loop recorder present: Code(s): Z95.818 - Presence of other cardiac implants and grafts Category: Medical Plan: See above Coding Level of Care Code Procedure Only Diagnoses Implantable loop recorder present Z95.818 CPT Codes Cardiac Device Check - Cardiac Device 16: [id number] Cardiac Interrogation, subcut cardiac rhythm monitor ([id number])
== END ==
PROVIDERS: PCP Internal Medicine; Visit Provider Internal Medicine Cardiovascular Disease
DX: I49.3 Ventricular premature depolarization (principal); Z95.818 Presence of other cardiac implants and grafts
CPT/HCPCS: 93298

== ENCOUNTER 2024-11-28 09:43 | Outpatient (REF) | payer OTHER, SELFPAY ==
--- OUTSIDE RECORDS SUMMARY | 2024-11-28 10:13 | XMS_ITS | Clinical Summary ---
Author Organization [facility] Facility Address [address] [place] [id number] Care Team Providers Care Regional Coordinator Name Role Phone Kelly Verma MD Primary [...] Visual Foot Exam 10/26/2020 Influenza Vaccine (#1) 2025 Pneumococcal Vaccine: Peds ( 0 to 5 Years) and At-Risk Patients (6 to 49 Years) Aged Out No longer eligible b ased on patient's age to complete this topic Insurance Medicaid [place] Medicaid [place] Care Teams Regional Coordinator Relationship Specialty Start Date End Date Kelly Verma MD [address] [place] [address] PCP - General Internal Medicine 10/19/20
--- OUTSIDE RECORDS SUMMARY | 2024-11-28 10:13 | XMS_ITS | Encounter Summary ---
Author Organization [facility] Address [id number] [place] [phone] Care Team Providers Care Bioinformatics Analyst Name Role Phone Ninoska Meeks MD Primary Care Provider [phone] Reason for Visit * Reason Onset Date Comments Letter 11/02/2024 Encounter Details Date Type Department Care Team ([facility] st Contact Info) Description 11/02/[address] [facility] 250 175 [facility] 250 [place] [address] Allegra Coleman MD 175 [facility] 140 [place] [address] Letter Social History Tobacco Use Types Packs/Day Years Used Date Smoking Tobacco: Former Cigarettes Smokeless Tobacco: Never Alcohol Use Standard Drinks/Week Comments Yes 2 (1 standard drink = 0.6 oz pur e alcohol) ONCE WEEKLY Interpersonal Safety Answer Date Record ed Physical Abuse 09/29/2024 Verbal Abuse 09/29/2024 Sex and Gender Information Value Date Recorded Sex Assigned at Male 09/23/2024 8:59 AM EDT Legal Sex Male 9:31 AM EST Gender Identity Male 09/29/2024 7:50 AM EDT Sexual Orientation Straight 09/29/2024 7: 50 AM EDT documented as of this encounter Progress Notes * Samreen Banerjee - 11/02/2024 9:59 AM EDT Patient's spouse is calling requesting a Letter stating that her patient is unable to work until after he has Surgery, she states it was recently Cancelled , and still needs to be RS and he needs this in order to get some form of income. Please advise. Please call Liz olea @ [phone] . Thanks. documented in this encounter Plan of Treatment Upcoming Encounters Date Type Department Care Team ([facility] st Contact Info) Description 12/20/2024 1:45 PM EDT Office Visit Orthopedic Surgery - [place] [address] [phone] Allegra Coleman MD 175 [facility] 140 [place] [phone] documented as of this encounter Visit Diagnoses Not on filedocumented in this encounter Care Teams Bioinformatics Analyst Relationship Specialty Start Date End Date Ninoska Meeks MD [address] [place] [address] , [address] [facility] D/B/A: [facility] [place] PCP - General Internal Medicine 04/26/24 documented as of this encounter
[2024-11-28 11:06] LABS: Hemoglobin A1C 234.7585 umol/L; Total Hemoglobin (HGBA1C) 4355.9705 umol/L
[2024-11-28 12:02] LABS: Alanine Aminotransferase 148 U/L (0-40); Albumin Level 5.0 g/dL (3.5-5.0); Alkaline Phosphatase 88 U/L (39-117); Amylase 51 U/L (28-100); Anion Gap 11 (12-20); Aspartate Amino Transferase 59 U/L (5-37); Blood Urea Nitrogen 16 mg/dL (9-16); Calcium 9.5 mg/dL (8.4-10.2); Carbon Dioxide 24 mmol/L (22-29); Chloride 109 mmol/L (96-108); Estimated Glomerular Filt Rate > 60; Lipase 29 U/L (8-78); Potassium 4.1 mmol/L (3.3-5.1); Sodium 140 mmol/L (135-145); Total Protein 7.7 g/dL (6.5-8.0)
[2024-11-28 12:08] LABS: Ferritin 1382 ng/mL (20-250)
[2024-11-28 12:21] LABS: HBS Num1 16.90 mIU/mL (0-7.99); HBc Num1 0.06 S/CO (0.00-0.79); HBsAGNum1 0.34 S/CO (0.00-0.99); HIV Num 1 0.06 S/CO (0.00-0.99); Hepatitis A Antibody IgM 0.18 Index (0-0.79); Hepatitis B Surface Antigen Negative (Negative); ~HepC Num1 0.12 S/CO (0.00-0.79); ~Hepatitis A Antibody IgM Nonreactive (Nonreactive); ~Hepatitis B Surface Antibody REACTIVE (Nonreactive); ~Hepatitis C Antibody Nonreactive (Nonreactive)
[2024-11-28 12:26] LABS: Microalbum/Creatinine Ratio Ur 5.3 ug/mg cr (<30)
[2024-11-30 13:09] LABS: Transglutaminase Ab IgG <1.0 U/mL
[2024-12-04 20:59] LABS: Anti Nuclear Antibody Pattern Nuclear, Speckled; Anti Nuclear Antibody Screen POSITIVE (NEGATIVE); Anti Nuclear Antibody Titer 1:80 titer
[2024-12-08 11:14] LABS: Liver Fibrosis Score 0.26; Liver Fibrosis Stage F0-F1
[2024-12-08 11:15] LABS: FIB-Alpha-2-Macroglobulin 221; Liver Fibrosis Interpretation no fibrosis; Nec Inflam Act Grade A2-A3; Nec Inflam Act Interpretation significant activity; Nec Inflam Act Score 0.60
[2024-12-08 11:16] LABS: FIB-Apolipoprotein A1 161; FIB-Haptoglobin 132; FIB-Total Bilirubin 0.7
[2024-12-08 11:17] LABS: FIB-ALT 113 (H); FIB-GGT 46
[2024-12-08 11:18] LABS: Phosphatidylethanol 16:0-18:1 28; Phosphatidylethanol 16:0-18:2 33
== END 2024-11-28 09:44 | disposition home or self-care (01) ==
LOC: HO.LAB 09:43
PROVIDERS: Absent Provider Nurse Practitioner; PCP Internal Medicine; Visit Provider Physician Assistant
DX: R74.01 Elevation of levels of liver transaminase levels (principal); S90.822A Blister (nonthermal), left foot, initial encounter; R10.13 Epigastric pain; E11.42 Type 2 diabetes mellitus with diabetic polyneuropathy; I10 Essential (primary) hypertension; Z11.59 Encounter for screening for other viral diseases; Z11.4 Encounter for screening for human immunodeficiency virus [HIV]
CPT/HCPCS: 36415; 80048; 80076; 80321; 81596; 82043; 82105; 82150; 82570; 82728; 83036; 83690; 84443; 86015; 86038; 86039; 86140; 86364; 86381; 86704; 86706; 86709; 86803; 87340; 87389

== ENCOUNTER 2024-12-01 13:39 | Outpatient (AMB) | payer OTHER, SELFPAY ==
--- NOTE | 2024-12-01 13:42 | A.OFFVIS_ITS ---
Vital Signs 12/01/24 13:43 Height 6 ft Weight 249 lb 1.957 oz BMI 33.8 BP 109/66 Blood Pressure Location Lt brachial Pulse 86 Intake Visit Reasons: 2 mos FUV. Rediscuss colo. HP review. Intake Note: Tej presents in the office as a 2 month follow up to rediscuss colo and discuss HP review. CC: States that he is not having any concerns at this time. Bottom Brusher Required: Yes Bottom Brusher Name: [id number] Steve Allergies Penicillins (PENICILLINS) Allergy (Intermediate, Verified 12/01/24 13:46) RASH metformin Adverse Reaction (Intermediate, Verified 12/01/24 13:46) Diarrhea HPI HPI 2 mos FUV. Rediscuss colo. HP review.: Details: Assessment & Plan (1) Transaminitis: Code(s): R74.01 - Elevation of levels of liver transaminase levels Category: Medical (2) Epigastric pain: Code(s): R10.13 - Epigastric pain Category: Medical (3) Obesity, Class I, BMI 30-34.9: Code(s): E66.811 - Obesity, class 1 Category: Medical (4) Type 2 diabetes, controlled, with peripheral neuropathy: Code(s): E11.42 - Type 2 diabetes mellitus with diabetic polyneuropathy Category: Medical (5) Alcohol use: Code(s): F10.90 - Alcohol use, unspecified, uncomplicated Category: Medical Plan [place] #Cat Yan He is here today with his who is supportive. He says he is NOT here for colonoscopy, which makes sense as he is too young. He tells me he is actually here for transaminitis. He used to drink about 12 beers a week, but only on one day a week mostly Fridays. Never every day. His mother had a liver transplant years ago, but he is unsure of the underlying pathology but she did NOT drink ETOH. She of another pathology. The patient has cut back by at least half how many beers he drinks 1 day a week now down to 5 or 6. He has had no major change in wt over the past 5 years or so. He does have a recent dx of NIDDM and started on Trulicity and Jardiance about a year ago. His A1C is still uncontrolled at around 8%. He has been having upper abd pain in the gastric area after eating and post prandial diarrhea. Will work this up as well. ? if r/t NIDDM meds (he previously did not tolerate metformin). He had some nausea with Jarience as well but this is improving. 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 Education was provided as to why people who inherent fatty liver in their genes usually can not tolerate any regular intake of alcohol. That does not mean that they are alcoholics, it just means that there liver will tend to decompensate quickly is given multiple stresses. There are also educated on diabetes control and slow steady weight loss. Looking at the labs to diabetes control is not yet effective and once this is addressed it will have a big impact on his liver enzymes as well. In the meantime we will do a workup to make sure there are no other confounding or reversible causes. He may need to consider an EGD for the best protection of his health going forward but I will save this for later date. This would be for the evaluation of varices. ROV 8 weeks. He has a mitral ? murmur that is being worked up by cardiology. Orders: Orders Alpha Fetoprotein Today R10.13 - Epigastric pain, R74.01 - Elevation of levels of liver transaminase levels DALTON Reflex Titer and Pattern Today R10.13 - Epigastric pain, R74.01 - Elevation of levels of liver transaminase levels Ferritin Today R10.13 - Epigastric pain, R74.01 - Elevation of levels of liver transaminase levels Mitochondrial Antibody Today R10.13 - Epigastric pain, R74.01 - Elevation of levels of liver transaminase levels Smooth Muscle Antibody Today R10.13 - Epigastric pain, R74.01 - Elevation of levels of liver transaminase levels HIV Ab/Ag Today R10.13 - Epigastric pain, R74.01 - Elevation of levels of liver transaminase levels Liver Fibrosis Pnl Today R10.13 - Epigastric pain, R74.01 - Elevation of levels of liver transaminase levels TSH reflex Free T4 Today R10.13 - Epigastric pain, R74.01 - Elevation of levels of liver transaminase levels Transglutaminase IgA Today R10.13 - Epigastric pain, R74.01 - Elevation of levels of liver transaminase levels Transglutaminase Ab IgG Today R10.13 - Epigastric pain, R74.01 - Elevation of levels of liver transaminase levels Phosphatidylethanol, Blood Today R10.13 - Epigastric pain, R74.01 - Elevation of levels of liver transaminase levels Amylase Today R10.13 - Epigastric pain, R74.01 - Elevation of levels of liver transaminase levels Liver Panel Today R10.13 - Epigastric pain, R74.01 - Elevation of levels of liver transaminase levels Hepatitis A,B,C Profile Today R10.13 - Epigastric pain, R74.01 - Elevation of levels of liver transaminase levels Hemoglobin A1c Today R10.13 - Epigastric pain, R74.01 - Elevation of levels of liver transaminase levels C Reactive Protein Today R10.13 - Epigastric pain, R74.01 - Elevation of levels of liver transaminase levels Rast Allergen Today R10.13 - Epigastric pain, R74.01 - Elevation of levels of liver transaminase levels H Pylori Breath Test Today R10.13 - Epigastric pain, R74.01 - Elevation of levels of liver transaminase levels Pancreatic Elastase-1 Today R10.13 - Epigastric pain, R74.01 - Elevation of levels of liver transaminase levels Lipase Today R10.13 - Epigastric pain, R74.01 - Elevation of levels of liver transaminase levels LABS: Laboratory Tests 05/24/24 11/28/24 07:43 10:03 WBC 11.2 H Hgb 15.5 Hct 45.6 Plt Count 249 D Estimated GFR > 60 Hemoglobin A1c % 7.1 H Ferritin 1382 H Total Bilirubin 0.9 Direct Bilirubin 0.3 AST 59 H ALT 148 H Alkaline Phosphatase 88 C-Reactive Protein 0.36 Amylase 51 Lipase 29 Alpha Fetoprotein 3.5 TSH 3.10 Tiss Transglutamin IgG <1.0 Tiss Transglutamin IgA <1.0 Hepatitis A IgM Ab Nonreactive Hep Bs Antigen Negative Hep Bs Antibody REACTIVE Hep B Core Total Ab Nonreactive Hepatitis C Ab (EIA) Nonreactive HIV 1&2 Ab/P24 Ag 4thGn Nonreactive DALTON, MITOCHONDRIAL AND SMOOTH MUSCLE ANTIBODIES NOT YET RETURNED CAN NOT FIND RAST PANEL TODAY'S VISIT [place] #Yin Yan His diarrhea has improved. Uncertain why, could have been a passing infection or it could be that he is cutting back ETOH which is very irritating to the GI tract. So far, the only indication concerning is a raised ferritin over 1.000. This could be secondary to ETOH use, but also could be hemochromatosis. Will get genetic study, and the autoimmune and fiborsis/peth are still pending. I can't find the RAST panel. ROV 6 weeks. [facility] Medical History Osteoarthritis of lumbar spine Excessive daytime sleepiness Snoring HTN (hypertension) Pure hypercholesterolemia Puncture wound of foot Muscle spasm of back Foot abscess, right Hypertrophic obstructive cardiomyopathy Submandibular lymphadenopathy Right foot pain Vertebrogenic low back pain History of recent fall Chest pain Hypoglycemia Sacroiliac joint dysfunction of left side Sacroiliac joint pain Elevated LFTs Physical exam URI (upper respiratory infection) Sacroiliitis Diabetes mellitus, without long-term current use of insulin Diabetes mellitus without complication, with long-term current use of insulin Foot abscess, right Poorly controlled type 2 diabetes mellitus Diabetes Osteoarthritis of right knee MARA (obstructive sleep apnea) Hypertensive heart disease Surgical History Status post placement of implantable loop recorder History of hand surgery History of elbow surgery History of ankle surgery Family History Father PVD (peripheral vascular disease) Essential hypertension Diabetes mellitus Mother Liver transplant failure Social History Household Members: Family Housing: Apartment Do you presently have visiting nurse or other home services: No Alcohol intake: current Alcohol intake frequency: a few times a month Alcohol type: beer Patient Tobacco Use Status: Former Tobacco user Tobacco use type: Cigarette Cigarettes Per Day: 10 Years Smoked: 20 e-Cigarette/Vaping Use: Never Used Second Hand Smoke Exposure: No service: No Current occupational status: unemployed Current occupational exposures/hazards: No Cognitive needs: No Hearing needs: No Vision needs: Yes (Glasses) Review of Systems Const Denies fatigue, Denies fever(s), Denies night sweats, Denies poor appetite and Denies weight loss ENT Reports Normal hearing present, Denies dental pain, Denies dysphagia, Denies hearing loss, Denies mouth pain, Denies odynophagia, Denies throat swelling, Denies tongue swelling and Reports other (Dentition adequate) Card Reports no additional complaints Resp Reports no additional complaints GI Details: Denies abdominal pain, Denies melena, Denies bloating, Denies hematochezia, Denies constipation, Denies GI cramping, Denies dysphagia, Denies excessive flatus, Denies early satiety, Reports heartburn, Denies diarrhea, Denies nausea, Denies odynophagia, Denies vomiting and Denies hematemesis Musc Reports myalgias and Reports arthralgias Skin/Breast Denies pruritus, Denies lesions, Denies rash and Denies jaundice Neuro Reports Normal hearing present and Denies Abnormal speech present Endo Denies fatigue Aller/Immun Denies throat swelling and Denies tongue swelling Physical Exam Vital Signs: Last Vital Signs Pulse 86 12/01/24 13:43 BP 109/66 12/01/24 13:43 BMI result Body Mass Index 33.8 Const General: cooperative, no acute distress, well developed and well groomed Nutritional Appearance: well nourished and obese Orientation/consciousness: oriented to person, oriented to place and oriented to time Limitations: language barrier HEENT Head: Yes normocephalic and Yes atraumatic Eyes General: appearance normal, both eyes and all related structures Pupils: Equal, round and reactive pupils present Neck Neck: Yes normal visual inspection and Yes no lymphadenopathy Thyroid: Thyroid normal Resp Effort & Inspection: normal respiratory effort and able to speak in complete sentences Auscultation: clear to auscultation bilaterally Cardio Rate: regular rate Rhythm: regular rhythm Heart sounds: Normal, physiologic split S2 sound present Peripheral pulses: radial pulses present and posterior tibial pulses present GI Inspection: No distended, No Abdominal panniculus present and Yes obesity Palpation (GI): Soft to palpation, nontender, no guarding, not rigid and No hepatosplenomegaly present Percussion: Yes normal to percussion Auscultation: normal bowel sounds Rectal Exam - Male: Yes deferred Skin General skin exam: no rashes or lesions noted, turgor normal, skin not dry, no jaundice, No spider nevi and no striae Rashes: no rashes Nails: normal Neuro General: oriented to person, oriented to place and oriented to time Cranial nerves: Yes Equal, round and reactive pupils present and Yes Normal hear ing present Speech: No Abnormal speech present Extrem General: Yes normal to inspection, No clubbing, No cyanosis and No edema Psych Appearance: grossly normal and well kempt Mental Status: mental status grossly normal Speech and movement: Normal speech and movement present Affect: normal affect Attitude: cooperative Thought process: Normal thought process present and not confabulating Thought content: Normal thought content present Insight: Limited insight present (Psych) Judgement: Limited judgement present (Psych) Results Reviewed Results Reviewed: Laboratory Tests 05/24/24 11/28/24 07:43 10:03 WBC 11.2 H Hgb 15.5 Hct 45.6 Plt Count 249 D Estimated GFR > 60 Hemoglobin A1c % 7.1 H Ferritin 1382 H Total Bilirubin 0.9 Direct Bilirubin 0.3 AST 59 H ALT 148 H Alkaline Phosphatase 88 C-Reactive Protein 0.36 Amylase 51 Lipase 29 Alpha Fetoprotein 3.5 TSH 3.10 Tiss Transglutamin IgG <1.0 Tiss Transglutamin IgA <1.0 Hepatitis A IgM Ab Nonreactive Hep Bs Antigen Negative Hep Bs Antibody REACTIVE Hep B Core Total Ab Nonreactive Hepatitis C Ab (EIA) Nonreactive HIV 1&2 Ab/P24 Ag 4thGn Nonreactive DALTON, MITOCHONDRIAL AND SMOOTH MUSCLE ANTIBODIES NOT YET RETURNED CAN NOT FIND RAST PANEL Assessment & Plan Assessment & Plan (1) Elevated ferritin: Code(s): R79.89 - Other specified abnormal findings of blood chemistry Category: Medical (2) Transaminitis: Comment: BASELINE LABS Laboratory Tests 05/24/2506/14/25 07:4310:03 WBC 11.2 H Hgb 15.5 Hct 45.6 Plt Count 249 D Estimated GFR > 60 Hemoglobin A1c % 7.1 H Ferritin 1382 H Total Bilirubin 0.9 Direct Bilirubin 0.3 AST 59 H ALT 148 H Alkaline Phosphatase 88 C-Reactive Protein 0.36 Amylase 51 Lipase 29 Alpha Fetoprotein 3.5 TSH 3.10 Tiss Transglutamin IgG <1.0 Tiss Transglutamin IgA <1.0 Hepatitis A IgM Ab Nonreactive Hep Bs Antigen Negative Hep Bs Antibody REACTIVE Hep B Core Total Ab Nonreactive Hepatitis C Ab (EIA) Nonreactive HIV 1&2 Ab/P24 Ag 4thGn Nonreactive ULTRASOUND OF THE ABDOMEN WITH ELASTOGRAPHY (F0) 05/24/2024 CURRENT LABS ULTRASOUND OF THE ABDOMEN WITH ELASTOGRAPHY (F0) 05/24/2024 FINDINGS: Liver: The liver is enlarged and demonstrates increased echotexture, consistent with steatosis. The liver contour is mildly nodular, which can be seen in the setting of cirrhosis. No focal mass or intrahepatic biliary ductal dilatation is identified. There is normal hepatopedal flow in the portal vein. Ultrasound elastography of the liver was performed with 10 separate measurements of the liver parenchyma with the patient in the supine position. Measurements were obtained approximately 2 cm below Lico's capsule and perpendicular to the capsule. Images are of satisfactory quality. The median shear wave velocity is 1.13 m/s. The interquartile range/median (IQR/median) is 0.18. Gallbladder and biliary tree: The gallbladder is unremarkable, without evidence of calculi, wall thickening, or pericholecystic fluid. There is no sonographic Valle sign. The common bile duct is normal in caliber measuring 2 mm. Kidneys: Right kidney measures 14.6 cm in length. Left kidney measures 14.0 cm in length. The kidneys are unremarkable, without evidence of masses, hydronephrosis, or calculi. Pancreas: The pancreatic head, neck, and body are unremarkable. The pancreatic tail is obscured by bowel gas. Spleen: The spleen is normal in size and contour, measuring 11.8 cm in length. Abdominal aorta and inferior vena cava: The visualized portions of the abdominal aorta and inferior vena cava are normal in caliber. There is no free fluid in the abdomen. US/US abdomen comp w elastography IMPRESSION: Hepatomegaly and hepatic steatosis. Nodular liver contour which can be seen in the setting of cirrhosis, although elastography findings are not suggestive of cirrhosis (see below). Liver biopsy may be helpful. Code(s): R74.01 - Elevation of levels of liver transaminase levels Category: Medical (3) Elevated C-reactive protein: Code(s): R79.82 - Elevated C-reactive protein (CRP) Category: Medical (4) Hypertrophic cardiomyopathy: Code(s): I42.2 - Other hypertrophic cardiomyopathy Category: Medical (5) Type 2 diabetes, controlled, with peripheral neuropathy: Code(s): E11.42 - Type 2 diabetes mellitus with diabetic polyneuropathy Category: Medical (6) Obesity, Class I, BMI 30-34.9: Code(s): E66.811 - Obesity, class 1 Category: Medical (7) Arthralgia of multiple joints: Code(s): M25.50 - Pain in unspecified joint Category: Medical Plan [place] #Yin Live (He says he is NOT here for colonoscopy, which makes sense as he is too young. He tells me he is actually here for transaminitis. He used to drink about 12 beers a week, but only on one day a week mostly Fridays. Never every day. His mother had a liver transplant years ago, but he is unsure of the underlying pathology but she did NOT drink ETOH. She of another pathology. The patient has cut back by at least half how many beers he drinks 1 day a week now down to 5 or 6. ) His diarrhea has improved. Uncertain why, could have been a passing infection or it could be that he is cutting back ETOH which is very irritating to the GI tract. So far, the only indication concerning is a raised ferritin over 1.000. This could be secondary to ETOH use, but also could be hemochromatosis. Will get genetic study, and the autoimmune and fiborsis/peth are still pending. Hemochromatosis possibly could also fit with some of his other symptoms sets including his hypertrophic cardiomyopathy his elevated inflammatory markers and his multiple arthralgias. I can't find the RAST panel. ROV 6 weeks. Orders: Orders DNA Analysis Hemochromatosis Today R79.89 - Other specified abnormal findings of blood chemistry Coding Level of Care Code Est Pt Level 3 (71351) Diagnoses Elevated ferritin R79.89 Transaminitis R74.01 Elevated C-reactive protein R79.82 Hypertrophic cardiomyopathy I42.2 Type 2 diabetes, controlled, with peripheral neuropathy E11.42 Obesity, Class I, BMI 30-34.9 E66.811 Arthralgia of multiple joints M25.50
[2024-12-01 13:43] VITALS: BP 109/66; PULSE 86; BMI 33.8
--- OUTSIDE RECORDS SUMMARY | 2024-12-01 14:20 | XMS_ITS | Encounter Summary ---
Author Organization [facility] Address [address] [place] [phone] Care Team Providers Care Patient Service Technician Pst Name Role Phone Ninoska Meeks MD Primary Care Provider [phone] Reason for Visit * Reason Onset Date Comments Letter 11/02/2024 Encounter Details Date Type Department Care Team ([facility] st Contact Info) Description 11/02/2024 Telephone Orthopedic Surgery [facility] 250 175 [facility] 250 [place] [address] Allegra Coleman MD 175 [facility] 140 [place] [address] Letter Social History Tobacco Use [...] Please advise. Please call Liz olea @ [phone] . Thanks. documented in this encounter Plan of Treatment Upcoming Encounters Date Type Department Care Team ([facility] st Contact Info) Description 12/20/2024 1:45 PM EDT Office Visit Orthopedic Surgery - [place] [address] [phone] Allegra Coleman MD 175 [facility] 140 [place] [phone] documented as of this encounter Visit Diagnoses Not on filedocumented in this encounter Care Teams Patient Service Technician Pst Relationship Specialty Start Date End Date Ninoska Meeks MD [address] [place] [address] , [address] [facility] D/B/A: [facility] [employer] [place] PCP - General Internal Medicine 04/26/24 documented as of this encounter
--- OUTSIDE RECORDS SUMMARY | 2024-12-01 14:20 | XMS_ITS | Clinical Summary ---
Author Organization [facility] Facility Address [address] [place] [address] Care Team Providers Care Biological Lab Technician Name Role Phone Kelly Verma MD Primary [...] complete this topic Insurance Medicaid [place] Medicaid [place] Care Teams Biological Lab Technician Relationship Specialty Start Date End Date Kelly Verma MD [address] [place] [address] PCP - General Internal Medicine 10/19/20
== END 2024-12-01 14:10 | disposition home or self-care (01) ==
LOC: HO.HGI 13:40
PROVIDERS: PCP Internal Medicine; Visit Provider Nurse Practitioner
DX: R79.89 Other specified abnormal findings of blood chemistry (principal); R74.01 Elevation of levels of liver transaminase levels; R79.82 Elevated C-reactive protein (CRP); I42.2 Other hypertrophic cardiomyopathy; E11.42 Type 2 diabetes mellitus with diabetic polyneuropathy; E66.811 Obesity, class 1; M25.50 Pain in unspecified joint
CPT/HCPCS: 99213

== ENCOUNTER 2024-12-01 13:39 | Outpatient (REF) | payer OTHER, SELFPAY | END 2024-12-01 13:40 | disposition home or self-care (01) | LOC: HO.LAB 13:39 | PROVIDERS: PCP Internal Medicine; Visit Provider Nurse Practitioner | DX: E66.811 Obesity, class 1 (principal); E11.42 Type 2 diabetes mellitus with diabetic polyneuropathy; F10.90 Alcohol use, unspecified, uncomplicated; I42.2 Other hypertrophic cardiomyopathy; M25.50 Pain in unspecified joint; R79.89 Other specified abnormal findings of blood chemistry; R74.01 Elevation of levels of liver transaminase levels; R79.82 Elevated C-reactive protein (CRP); R10.13 Epigastric pain; Z68.33 Body mass index [BMI] 33.0-33.9, adult | CPT/HCPCS: 36415; 81256; 99212 ==

== ENCOUNTER 2024-12-19 14:10 | Outpatient (AMB) | payer OTHER, SELFPAY ==
--- NOTE | 2024-12-19 14:14 | A.OFFVIS_ITS ---
Vital Signs 12/19/24 14:17 Height 6 ft Weight 249 lb 1.957 oz BMI 33.8 Blood Pressure Location Lt brachial Position Sitting Intake Visit Reasons: 2m follow up Intake Note: 2 month follow-up with ekg and ILR c/o chest pain at times has upcoming defeb being implanted Three Knife Trimmer Required: Yes Three Knife Trimmer Name: eitan Keita Flight Operations Inspector: Flight Operations Inspector Present Accompanied by: Spouse Allergies Penicillins (PENICILLINS) Allergy (Intermediate, Verified 12/01/24 13:46) RASH metformin Adverse Reaction (Intermediate, Verified 12/01/24 13:46) Diarrhea Medication List - Last Reconciled 12/19/24 by Tip Crow MD alprazolam 0.5 mg PO DAILY 1 day atorvastatin 20 mg PO BEDTIME 90 days blood sugar diagnostic (FreeStyle Lite Strips) Use daily As directed to check blood glucose blood-glucose meter (FreeStyle Lite Meter kit) Use daily As directed to check blood sugars blood-glucose sensor (PressBabyStyle Jai 3 Sensor device) Apply every 14 days As directed dulaglutide (Trulicity) 4.5 mg (0.5 mL) subcut QWEEK empagliflozin (Jardiance) 10 mg PO QAM lancets (FreeStyle Lancets) use daily as directed to check blood glucose metoprolol tartrate 100 mg PO BID omeprazole 20 mg PO DAILY 90 days HPI Comments Details: Tej comes for follow-up, accompanied by his . History was obtained with help of interpreter for the deaf. Patient has been taking all his medications. He is scheduled to undergo defibrillator placement coming . Patient has no actual current active significant symptoms. Denies any shortness of breath, orthopnea, PND. No prolonged palpitation, irregular heartbeat, lightheadedness, syncope. No exertional chest pain. [facility] Medical History Osteoarthritis of lumbar spine Excessive daytime sleepiness Snoring HTN (hypertension) Pure hypercholesterolemia Puncture wound of foot Muscle spasm of back Foot abscess, right Hypertrophic obstructive cardiomyopathy Submandibular lymphadenopathy Right foot pain Vertebrogenic low back pain History of recent fall Chest pain Hypoglycemia Sacroiliac joint dysfunction of left side Sacroiliac joint pain Elevated LFTs Physical exam URI (upper respiratory infection) Sacroiliitis Diabetes mellitus, without long-term current use of insulin Diabetes mellitus without complication, with long-term current use of insulin Foot abscess, right Poorly controlled type 2 diabetes mellitus Diabetes Osteoarthritis of right knee MARA (obstructive sleep apnea) Hypertensive heart disease Surgical History Status post placement of implantable loop recorder History of hand surgery History of elbow surgery History of ankle surgery Family History Father PVD (peripheral vascular disease) Essential hypertension Diabetes mellitus Mother Liver transplant failure Social History Household Members: Family Housing: Apartment Do you presently have visiting nurse or other home services: No Alcohol intake: current Alcohol intake frequency: a few times a month Alcohol type: beer Patient Tobacco Use Status: Former Tobacco user Tobacco use type: Cigarette Cigarettes Per Day: 10 Years Smoked: 20 e-Cigarette/Vaping Use: Never Used Second Hand Smoke Exposure: No service: No Current occupational status: unemployed Current occupational exposures/hazards: No Cognitive needs: No Hearing needs: No Vision needs: Yes (Glasses) Review of Systems Const Denies chills, Denies fatigue, Denies fever(s), Denies frequent falls, Denies weakness, Denies weight gain and Denies weight loss ENT Denies dizziness Card Denies chest pain, Denies leg edema, Denies lightheadedness, Denies palpitations, Denies dyspnea, Denies dyspnea on exertion, Denies orthopnea and Denies other (loss of consciousness) Resp Denies cough, Denies dyspnea and Denies dyspnea on exertion GI Denies hematochezia and Denies change in stool character Musc Denies abnormal gait, Denies muscle weakness, Denies numbness, Denies radiating pain into limb and Denies tingling Neuro Denies abnormal gait, Denies dizziness, Denies frequent falls, Denies numbness, Denies tingling and Denies weakness Endo Denies fatigue and Denies palpitations Physical Exam Vital Signs: BMI result Body Mass Index 33.8 Const General: cooperative, healthy appearing, comfortable and no acute distress Orientation/consciousness: patient oriented x3 Neck Neck: Yes normal visual inspection and Yes no JVD Resp Effort & Inspection: normal respiratory effort Auscultation: clear to auscultation bilaterally, no rales, no rhonchi and no wheezes Cardio Jugular venous distension: no JVD Rate: regular rate Rhythm: regular rhythm Heart sounds: S1 normal heart sound present, S2 normal heart sound present, Murmur heart sound present systolic early and no rubs Neuro General: patient oriented x3 Extrem General: Yes normal to inspection, No no pedal edema and No calf tenderness Psych Appearance: grossly normal Mental Status: mental status grossly normal Speech and movement: Normal speech and movement present Office Procedures EKG Details: EKG shows normal sinus rhythm with LVH with repolarization abnormality 87483-[id number], Complete Assessment & Plan Assessment & Plan (1) Hypertrophic cardiomyopathy: Code(s): I42.2 - Other hypertrophic cardiomyopathy Category: Medical Plan: Hypertrophic cardiomyopathy in his young man with severe asymmetric septal hypertrophy with mild obstructive physiology with significant scar burden on cardiac MRI. Patient is scheduled to undergo a defibrillator placement for primary prevention which is inappropriate therapy. Patient is currently well blood pressure optimized on current therapy. Importance of good blood pressure control was discussed. Importance of continue participate in regular physical activity and we had a long discussion about defibrillator placement as well as potential complications. Will follow up in the clinic in 6 weeks time, sooner p.r.n.. Thank you for allowing me to partake in his care Coding Level of Care Code Est Pt Level 4 (63541) Complex EM visit Add On G2211 Diagnoses Hypertrophic cardiomyopathy I42.2 CPT Codes EKG - CPT: 76142-[id number], Complete ([id number])
[2024-12-19 14:17] VITALS: BMI 33.8
--- OUTSIDE RECORDS SUMMARY | 2024-12-19 14:19 | XMS_ITS | Clinical Summary ---
Author Organization [facility] Facility Address [address] [place] [address] Care Team Providers Care Rn Stars Name Role Phone Kelly Verma MD Primary [...] by mouth every night 30 tablet 1 Active Active Problems Problem Noted Date [...] age to complete this topic [place] Care Teams Rn Stars Relationship Specialty Start Date End Date Kelly Verma MD [address] [place] [address] PCP - General Internal Medicine 10/19/20
--- OUTSIDE RECORDS SUMMARY | 2024-12-19 14:19 | XMS_ITS | Clinical Summary ---
Author Organization [address] [place] [address] Address [address] [place] [address] Phone Care Team Providers Care Basket Hand Braider Name Role Phone Ninoska Meeks MD Primary Care Provider [phone] Allergies Active Allergy Reactions Criticality Noted Date [...] Type 2 diabetes mellitus wit h hyperglycemia ([facility] V24, [facility] V28) 04/22/2021 Complete tear of wrist ligament 02/26/2021 Essential (primary) hypertension 10/26/2020 Type 2 diabetes mellitus wit h diabetic neuropathy ([facility] V24, [facility] V28) 10/26/2020 Encounters Date Type Department Care Team Description 11/02/2024 Telephone Orthopedic Surgery [facility] 250 175 [facility] 250 [place] [address] Allegra Coleman MD Letter 09/29/2024 8:55 AM EDT Anesthesia Event [facility] Main OR [address] [place] [phone] Prashant Chauhan DO Claudio, Raymund, CRNA 09/29/2024 7:18 AM EDT - 09/29/2024 11:59 PM EDT Hospital Encounter [facility] Main OR [address] [place] [address] Allegra Coleman MD Discharge Disposition: Home or Self Care 09/23/2024 3:45 PM EDT Consult Orthopedic Surgery [facility] 175 [facility] 140 [place] [phone] Allegra Coleman MD 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) 09/20/2024 Telephone Orthopedic Surgery [facility] 250 175 [facility] 250 [place] [phone] Allegra Coleman MD Provide Call back from Last 3 Months Surgical History Surgery Date Site/Laterality Comments ELBOW SURGERY Right CARPAL TUNNEL RELEASE Right WRIST FUSION 05/18/2023 - 05/17/2024 Right scaphoid excision, 4 corner fusion OTHER SURGICAL HISTORY ACHILLES TENDON SURGERY Right ligaments Medical History Medical History Date Comments Diabetes ([facility] V24, [facility] V28) DX:Diabetes ([facility]) Essential (primary) hypertension DX:Essential (primary) hypertension Hyperlipidemia [...] 1:45 PM EDT Office Visit Orthopedic Surgery [facility] [address] [phone] Allegra Coleman MD 175 [facility] 140 [place] [phone] 02/07/2025 2:30 PM EDT Consult Orthopedic Surgery [facility] [address] [phone] Ramón Kowalski DPM [address] [address] Health Maintenance Due Date Last Done Comments [...] GEMUSE QTc 503 ms GEMUSE P Wave [place] 14 degrees GEMUSE R [place] 79 degrees GEMUSE T [place] -30 degrees GEMUSE ECG Interpretation Sinus rhythm with 1st degree A-V block Left ventricular hypertrophy with QRS widening and repolarization abnormality Abnormal ECG When compared with ECG of 08-JUL-2019 07:53, [place] interval has increased Confirmed by GENE DAVILA ([id number]) on 09/29/2024 11:20:23 AM GEMUSE 09/29/2024 8:24 AM EDT 09/29/2024 11:20 AM EDT us Prashant Chauhan DO ECG ORDERABLES Final Result GEMUSE * (ABNORMAL) POCT Glucose, blood (09/29/2024 7:59 AM EDT) [facility] Glucose POCT 174(H) 70 - 100 mg/dL 09/29/2024 8:00 AM EDT [facility] Blood Capillary blood specimen / Unknown 09/29/2024 7:59 AM EDT 09/29/2024 8:03 AM EDT Allegra Coleman MD LAB POINT OF CARE TE ST DOCKED DEVICE UNSOLICITED RESULTS Final Result [facility] [address] [place] [address], [place] [phone] from Last 3 Months Insurance [facility] [facility] Advance Directives * Full Code - Default [...] currently active code status orders. Care Teams Basket Hand Braider Relationship Specialty Start Date End Date Ninoska Meeks MD [address] [place] [address] , [address] [facility] D/B/A: [facility] [place], [place] PCP - General Internal Medicine 04/26/24
== END 2024-12-19 14:47 | disposition home or self-care (01) ==
LOC: HO.HCS 14:11
PROVIDERS: PCP Internal Medicine; Visit Provider Internal Medicine Cardiovascular Disease
DX: I42.2 Other hypertrophic cardiomyopathy (principal)
CPT/HCPCS: 93010; 99214

== ENCOUNTER → 2024-12-19 14:10 | Outpatient (BNVA) | payer OTHER, SELFPAY | PROVIDERS: PCP Internal Medicine; Visit Provider Internal Medicine Cardiovascular Disease | DX: I42.2 Other hypertrophic cardiomyopathy (principal) | CPT/HCPCS: 93005; 99212 ==

== ENCOUNTER 2024-12-22 14:24 | Day surgery (SDC) | payer OTHER, SELFPAY ==
--- OUTSIDE RECORDS SUMMARY | 2024-12-12 06:47 | XMS_ITS | Clinical Summary ---
Author Organization [facility] Facility Address [address] [place] [address] Care Team Providers Care Patient Care Technician Name Role Phone Kelly Verma MD Primary Care Provider [phone] Allergies Active Allergy Reactions Criticality Noted Date [...] complete this topic Insurance Medicaid [place] Medicaid [place] Care Teams Patient Care Technician Relationship Specialty Start Date End Date Kelly Verma MD [address] [place] [address] PCP - General Internal Medicine 10/19/20
--- OUTSIDE RECORDS SUMMARY | 2024-12-12 06:47 | XMS_ITS | Clinical Summary ---
Author Organization [address] [place] [address] Address [address] [place] [address] Phone Care Team Providers Care Automatic Dry Starch Operator Name Role Phone Ninoska Meeks MD Primary Care Provider [phone] Allergies Active Allergy Reactions Criticality Noted Date Comments Metformin Diarrhea,Nausea And Vomiting Low 022 Penicillins Rash 10/19/2020 Medications atorvastatin (LIPITOR) 20 mg tablet Take 1 tablet (20 mg total) by mouth at bedtime. 4 Active metoprolol succinate (TOPROL-XL) 100 mg 24 hr tablet 1 tablet (100 mg total) 2 (two) times a day. 1 Active Jardiance 10 mg tablet Take 1 tablet (10 mg total) by mouth 1 (one) time each day in the morning. Instructed to stop med 3 days prior to sx 5 Active Trulicity 4.5 mg/0.5 mL pen injector injection Inject 0.5 mL (4.5 mg total) under the skin 1 (one) time per week. 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 Cubital tunnel syndrome on left 04/23/2023 Injury of triangular fibrocartilage complex of r ight wrist 08/05/2021 Type 2 diabetes mellitus wit h hyperglycemia ([facility] V24, [facility] V28) 04/22/2021 Complete tear of wrist ligament 02/26/2021 Essential (primary) hypertension 10/26/2020 Type 2 diabetes mellitus wit h diabetic neuropathy ([facility] V24, [facility] V28) 10/26/2020 Encounters Date Type Department Care Team Description 11/02/2024 Telephone Orthopedic Surgery [facility] 250 175 [facility] [address] [place] [address] Allegra Coleman MD Letter 09/29/2024 8:55 AM EDT Anesthesia Event [facility] Main OR [address] [place] [phone] Prashant Chauhan DO Claudio, Raymund, CRNA 09/29/2024 7:18 AM EDT - 09/29/2024 11:59 PM EDT Hospital Encounter [facility] Main OR [address] [place] [address] Allegra Coleman MD Discharge Disposition: Home or Self Care 09/23/2024 3:45 PM EDT Consult Orthopedic Surgery [facility] 175 [facility] [address] [place] [phone] Allegra Coleman MD 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) 09/20/2024 Telephone Orthopedic Surgery [facility] 250 175 [facility] [address] [place] [phone] Allegra Coleman MD Provide Call back from Last 3 Months Surgical History Surgery Date Site/Laterality Comments ELBOW SURGERY Right CARPAL TUNNEL RELEASE Right WRIST FUSION 05/18/2023 - 05/17/2024 Right scaphoid excision, 4 corner fusion OTHER SURGICAL HISTORY ACHILLES TENDON SURGERY Right ligaments Medical History Medical History Date Comments Diabetes ([facility]24, [facility] V28) DX:Diabetes ([facility]) Essential (primary) hypertension DX:Essential (primary) hypertension Hyperlipidemia DX:Hyperlipidemi a Anxiety Chronic pain disorder Arthritis Joint pain Sleep apnea Asthma GERD (gastroesophageal reflux disease) Depression Social History Tobacco Use Types Packs/Day Years Used Date Smoking Tobacco: Former Cigarettes Smokeless Tobacco: Never Tobacco Cessation:Counseling Given: Not Answered Alcohol Use Standard Drinks/Week Comments Yes 2 [...] Orientation Straight 09/29/2024 7: 50 AM EDT Obstetrics History Last Filed Vital Signs Vital Sign Reading Time Taken Comments Blood Pressure 155/92 09/29/2024 7:58 AM EDT Pulse 70 09/29/2024 7:58 AM EDT Temperature 36.4 C (97.5 F) 09/29/2024 7:58 AM EDT Respiratory Rate 16 09/29/2024 7:58 AM EDT Oxygen Saturation 96% 09/29/2024 7:58 AM EDT Inhaled Oxygen Concentration - - Weight 114 kg (252 lb) 09/23/2024 4:00 PM EDT Height 182.9 cm (6') 09/23/2024 4:00 PM EDT Body Mass Index 34.18 09/23/2024 4:00 PM EDT Plan of Treatment Upcoming Encounters Date Type Department Care Team (Late st Contact Info) Description 12/20/2024 1:45 PM EDT Office Visit Orthopedic Surgery [facility] [address] [phone] Allegra Coleman MD 175 [facility] [address] [place] [phone] 02/07/2025 2:30 PM EDT Consult Orthopedic Surgery [facility] [address] [phone] Ramón Kowalski DPM [address] [address] Health Maintenance Due Date Last Done Comments Diabetes: Annual GFR (Glomerular Filtration Rate) 1983 Diabetes: Annual Foot Exam 10/15/1993 Diabetes: Annual Retina Eye Exam 10/15/1993 Hepatitis B Vaccines (1 of 3 - 19+ 3-dose series) 10/15/2002 Pneumococcal Vaccine: Pediatrics (0 to 5 Years) and At-Risk Patients (6 to 49 Years) (1 of 2 - PCV) 10/15/2002 Cholesterol Screening (Lipid Panel) 04/26/2022 HIV Screening 04/26/2022 Hepatitis C Screening 04/26/2022 Social Influencers of Health Screening 04/26/2022 Diabetes: Annual Urine Albumin-Creatinine Ratio (uACR) 04/30/2022 Diabetes: Blood Sugar Contro l Test (HGBA1C) 04/30/2022 COVID-19 Vaccine (3 - 2023-2 5 season) 2024 11/15/2020, 10/25/2020 Hypertension/CHF/CAD Annual BMP Blood Test 04/25/2024 Depression Screening 05/18/2024 Influenza Vaccine (#1) 2025 DTaP,Tdap,and Td Vaccines (2 - Td [...] Procedure Name Priority Date/Time Associated Diagnosis Comments PROCEDURAL ECG Routine 09/29/2024 8:24 AM EDT POCT GLUCOSE BLOOD Routine 09/29/2024 7: 59 AM EDT from Last 3 Months Results * ECG 12 lead - Procedural (No Charge) (09/29/2024 8:24 AM EDT) Ventricular Rate ECG 70 BPM GEMUSE Atrial Rate 70 BPM GEMUSE P-R Interval 236 ms GEMUSE QRS Duration 120 ms GEMUSE Q-T Interval 466 ms GEMUSE QTc 503 ms GEMUSE P Wave [place] 14 degrees GEMUSE R [place] 79 degrees GEMUSE T [place] -30 degrees GEMUSE ECG Interpretation Sinus rhythm with 1st degree A-V block Left ventricular hypertrophy with QRS widening and repolarization abnormality Abnormal ECG When compared with ECG of 08-JUL-2019 07:53, [place] interval has increased Confirmed by GENE DAVILA ([id number]) on 09/29/2024 11:20:23 AM GEMUSE 09/29/2024 8:24 AM EDT 09/29/2024 11:20 AM EDT us Prashant Chauhan DO ECG ORDERABLES Final Result GEMUSE * (ABNORMAL) POCT Glucose, blood (09/29/2024 7:59 AM EDT) [facility] Glucose POCT 174(H) 70 - 100 mg/dL 09/29/2024 8:00 AM EDT [facility] ([facility]) [facility] Blood Capillary blood specimen / Unknown 09/29/2024 7:59 AM EDT 09/29/2024 8:03 AM EDT Allegra Coleman MD LAB POINT OF CARE TE ST DOCKED DEVICE UNSOLICITED RESULTS Final Result [facility] [address] [place] [address], [place] [phone] from Last 3 Months Insurance [facility] [place] [address] Advance Directives * Full Code - Default (Latest Code Status on File) Date Activated Date Inactivated Comments 09/29/2024 7:51 AM 09/30/2024 4:45 AM This is orde r is used when code status has not been discussed with the patient, or code status is otherwise unknown/unconfirmed To update the patient's code status, place a code status order. Do not modify or discontinue any currently active code status orders. Care Teams Automatic Dry Starch Operator Relationship Specialty Start Date End Date Ninoska Meeks MD [address] [place] [address] , [address] [facility] D/B/A: [facility] [place], [place] PCP - General Internal Medicine 04/26/24
[2024-12-22] VITALS (31 sets, daily range): BP systolic 135–176; BP diastolic 80–101; PULSE 64–91; RESP 12–22; TEMP 36.2–36.7; O2SAT 91–96; BMI 33.8
--- NOTE | 2024-12-22 | ECG_ITS ---
Test Reason : s/p ICD Blood Pressure : */* mmHG Vent. Rate : 81 BPM Atrial Rate : 81 BPM P-R Int : 242 ms QRS Dur : 104 ms QT Int : 424 ms P-R-T Axes : 44 80 -27 degrees QTcB Int : 492 ms Sinus rhythm with 1st degree A-V block Possible Left atrial enlargement Inferior down sloping ST, lateral non specific changes Prolonged QT Abnormal ECG When compared with ECG of 29-Jun-2014 09:24, [place] interval has increased ST now depressed in Anterior leads T wave inversion more evident in Inferior leads T wave inversion now evident in Anterior leads Referred By: Theron Bell Electronically Signed By: NAHUM GAO
--- NOTE | ~2024-12-22 | XR_ITS ---
CLINICAL HISTORY: s p ICD placement. R o pneumothorax. Chest Radiograph Comparison: None available Findings: Prominent sized heart. Left chest wall cardiac pacemaker/AICD which is intact and in appropriate position. Loop recorder. Normal mediastinal contours. No pneumothorax. No opacity. No pleural effusion. Normal upper abdomen. No acute fracture. Impression: Left chest wall cardiac pacemaker/AICD. No pneumothorax. This document has been electronically signed by: Kassidy Peraza MD on 12/22/2024 19:28:36
[2024-12-22] MEDS: Lactated Ringers 1,000 ML 100 ML IVCONT (15:04)
[2024-12-22 15:07] LABS: Glucose, Whole Blood 118 mg/dL (60-115)
--- NOTE | 2024-12-22 15:09 | PC.NURSE ---
dr. bell aware that patient ate a sandwich at 0740 this a.m. and also took jardiance today and Trulicity on Thursday. Doctor stated okay to proceed. Written note from doctor on 24 hour report noting these items. Dr. Bell also aware of reaction to PCN and okay to proceed with cefazolin as ordered.
--- NOTE | 2024-12-22 15:41 | PC.NURSE ---
report given to bereket patternmaker apprentice wood at this time.
--- NOTE | 2024-12-22 16:28 | P.OP_ITS ---
Operative Note Operative Note Date of Service: 12/22/24 Narrative: Indication: 1. Hypertrophic cardiomyopathy with septal hypertrophy of 3.2 cm and extensive LGE (high risk features) 2. First degree AV block 3. Incomplete RBBB Summary: 1. Implantation of dual chamber [employer] ICD (CPT 59546) 2. Moderate sedation provided by or for 90 minutes (CPT 13638, +71758 x5) Narrative: Patient presented to the EP lab in a fasting, nonsedated state after written informed consent was verified. The procedure was performed under moderate sedation provided by or. 2g IV Ancef was administered prior to skin incision. The patient was prepped and draped in the usual sterile manner. A 1-inch incision was made in the left subclavicular region. An ICD pocket was created using a combination of electrocautery and blunt dissection. After a LUE venogram two separate subclavian accesses were obtained with a micropuncture needle and wire. An 8-Fr sheath was advanced over one of the guidewires. The RV ICD lead was advanced to the apical septal region. The helix was extended in the usual manner. Pacing parameters (injury, capture threshold, impedance, and sensing) were checked to be within the optimal range. Adequate slack was confirmed on the lead. The 8-Fr sheath was slit. The stylet was removed. The lead was secured to the underlying pectoralis muscle using two 0-Ethibond sutures. A 7-Fr sheath was advanced over the remaining guidewire. The atrial pacing lead was advanced to the KELSEY using a combination of straight and curved stylets. The helix was extended in the usual manner. Pacing parameters (injury, capture threshold, impedance, and sensing) were checked to be within the optimal range. Adequate slack was confirmed on the lead. The 7-Fr sheath was slit. The stylet was removed. The lead was secured to the underlying pectoralis muscle using two 0-Ethibond sutures. The ICD generator was brought to the field. The leads were inserted into the respective ports of the generator. The leads were secured in the header using the provided torque wrench. The pocket was flushed with an antibiotic irrigant. Any bleeders within the pocket were controlled with electrocautery. The leads were wrapped underneath the new generator and the pacemaker was placed back within the pocket. The pocket was closed in three layers using 2-0 followed by 4-0 V-Loc. Dermabond was applied over the incision site. Gauze and tegaderm dressing were then placed over the incision site followed by a pressure dressing. Patient was then transported back to recovery in a stable condition. Recommendations: 1. CXR and EKG now. 2. Device interrogation prior to discharge. 3. Wear left arm sling continuously for 24 hours. Then wear it only when sleeping for 2 weeks. 4. No raising left arm above shoulder level or reaching behind the back with left arm for 4 weeks. No driving for 2 weeks. 5. Keep chest incision site dry for 7 days. 6. Remove the gauze and Tegaderm dressing after 3 days. 7. Follow up in clinic in 1-2 weeks for incision site check. 8. Discharge home after 2 hours if patient remains stable. Procedure start: 4:48 PM Procedure end: 6:25 PM
== END 2024-12-22 20:30 | disposition home or self-care (01) ==
PROVIDERS: PCP Internal Medicine; Visit Provider Student in an Organized Health Care Education/Training Program
DX: I42.2 Other hypertrophic cardiomyopathy (principal); I44.0 Atrioventricular block, first degree; I45.10 Unspecified right bundle-branch block
CPT/HCPCS: 33249; 71045; 82947; 93005; 99152; 99153; C1721; C1777; C1892; C1894; C1898; J0690; J2003; J2250; J3010; J3374; Q9967

== ENCOUNTER → 2024-12-22 18:50 | Outpatient (BNV) | payer OTHER, SELFPAY | PROVIDERS: PCP Internal Medicine; Visit Provider Internal Medicine | DX: I44.0 Atrioventricular block, first degree (principal) | CPT/HCPCS: 93010 ==

== ENCOUNTER → 2024-12-22 19:00 | Outpatient (BNV) | payer OTHER, SELFPAY | PROVIDERS: PCP Internal Medicine; Visit Provider Radiology Diagnostic Radiology | DX: I42.9 Cardiomyopathy, unspecified (principal) | CPT/HCPCS: 71045 ==

== ENCOUNTER → 2024-12-22 23:59 | Outpatient (BNV) | payer OTHER, SELFPAY ==
--- NOTE | 2024-12-27 12:22 | A.OFFVIS_ITS ---
Intake Visit Reasons: Remote ILR check- [employer] Allergies Penicillins (PENICILLINS) Allergy (Intermediate, Verified 12/22/24 14:55) RASH metformin Adverse Reaction (Intermediate, Verified 12/22/24 14:55) Diarrhea PFSH Medical History Osteoarthritis of lumbar spine Excessive daytime sleepiness Snoring HTN (hypertension) Pure hypercholesterolemia Puncture wound of foot Muscle spasm of back Foot abscess, right Hypertrophic obstructive cardiomyopathy Submandibular lymphadenopathy Right foot pain Vertebrogenic low back pain History of recent fall Chest pain Hypoglycemia Sacroiliac joint dysfunction of left side Sacroiliac joint pain Elevated LFTs Physical exam URI (upper respiratory infection) Sacroiliitis Diabetes mellitus, without long-term current use of insulin Diabetes mellitus without complication, with long-term current use of insulin Foot abscess, right Poorly controlled type 2 diabetes mellitus Diabetes Osteoarthritis of right knee MARA (obstructive sleep apnea) Hypertensive heart disease Surgical History Status post placement of implantable loop recorder History of hand surgery History of elbow surgery History of ankle surgery Family History Father PVD (peripheral vascular disease) Essential hypertension Diabetes mellitus Mother Liver transplant failure Social History Household Members: Family Housing: Apartment Are you a primary animal care provider to a significant other at home: No Do you presently have visiting nurse or other home services: No Alcohol intake: current Alcohol intake frequency: a few times a month Alcohol type: beer Patient Tobacco Use Status: Former Tobacco user Tobacco use type: Cigarette Cigarettes Per Day: 10 Years Smoked: 20 e-Cigarette/Vaping Use: Currently Using Second Hand Smoke Exposure: No service: No Current occupational status: unemployed Current occupational exposures/hazards: No Cognitive needs: No Hearing needs: No Vision needs: Yes (Glasses) Office Procedures Cardiac Device Check Cardiac Device Check Details: Remote implantable loop recorder report generated 12/22/2024. Occasional PVCs noted. No significant tachyarrhythmias or pauses noted [id number] Cardiac Interrogation, subcut cardiac rhythm monitor Procedure code (CPT) selection complete Assessment & Plan Assessment & Plan (1) Implantable loop recorder present: Code(s): Z95.818 - Presence of other cardiac implants and grafts Category: Medical Plan: See above Coding Level of Care Code Procedure Only Diagnoses Implantable loop recorder present Z95.818 CPT Codes Cardiac Device Check - Cardiac Device 16: [id number] Cardiac Interrogation, subcut cardiac rhythm monitor ([id number])
== END ==
PROVIDERS: PCP Internal Medicine; Visit Provider Internal Medicine Cardiovascular Disease
DX: I49.3 Ventricular premature depolarization (principal); Z95.818 Presence of other cardiac implants and grafts
CPT/HCPCS: 93298

== ENCOUNTER → 2024-12-23 23:59 | Outpatient (BNV) | payer OTHER, SELFPAY ==
--- NOTE | 2024-12-27 12:28 | MHC.OFFVIS ---
Intake Visit Reasons: Remote ICD monitoring- [employer] Allergies Penicillins (PENICILLINS) Allergy (Intermediate, Verified 12/22/24 14:55) RASH metformin Adverse Reaction (Intermediate, Verified 12/22/24 14:55) Diarrhea PFS Medical History Osteoarthritis of lumbar spine Excessive daytime sleepiness Snoring HTN (hypertension) Pure hypercholesterolemia Puncture wound of foot Muscle spasm of back Foot abscess, right Hypertrophic obstructive cardiomyopathy Submandibular lymphadenopathy Right foot pain Vertebrogenic low back pain History of recent fall Chest pain Hypoglycemia Sacroiliac joint dysfunction of left side Sacroiliac joint pain Elevated LFTs Physical exam URI (upper respiratory infection) Sacroiliitis Diabetes mellitus, without long-term current use of insulin Diabetes mellitus without complication, with long-term current use of insulin Foot abscess, right Poorly controlled type 2 diabetes mellitus Diabetes Osteoarthritis of right knee MARA (obstructive sleep apnea) Hypertensive heart disease Surgical History Status post placement of implantable loop recorder History of hand surgery History of elbow surgery History of ankle surgery Family History Father PVD (peripheral vascular disease) Essential hypertension Diabetes mellitus Mother Liver transplant failure Social History Household Members: Family Housing: Apartment Are you a primary health care facility administrator to a significant other at home: No Do you presently have visiting nurse or other home services: No Alcohol intake: current Alcohol intake frequency: a few times a month Alcohol type: beer Patient Tobacco Use Status: Former Tobacco user Tobacco use type: Cigarette Cigarettes Per Day: 10 Years Smoked: 20 e-Cigarette/Vaping Use: Currently Using Second Hand Smoke Exposure: No service: No Current occupational status: unemployed Current occupational exposures/hazards: No Cognitive needs: No Hearing needs: No Vision needs: Yes (Glasses) Office Procedures Cardiac Device Check Cardiac Device Check Details: Remote ICD report generated 12/24/2024. ICD function is adequate [id number] Cardiac Interrogation, implant defibrillator w/interim Procedure code (CPT) selection complete Assessment & Plan Assessment & Plan (1) ICD (implantable cardioverter-defibrillator) in place: Code(s): Z95.810 - Presence of automatic (implantable) cardiac defibrillator Category: Medical Plan: See above Coding Level of Care Code Procedure Only Diagnoses ICD (implantable cardioverter-defibrillator) in place Z95.810 CPT Codes Cardiac Device Check - Cardiac Device 13: [id number] Cardiac Interrogation, implant defibrillator w/interim ([id number])
== END ==
PROVIDERS: PCP Internal Medicine; Visit Provider Internal Medicine Cardiovascular Disease
DX: Z45.02 Encounter for adjustment and management of automatic implantable cardiac defibrillator (principal)
CPT/HCPCS: 93295

== ENCOUNTER 2025-01-10 11:30 | Outpatient (AMB) | payer OTHER, SELFPAY ==
--- NOTE | 2025-01-10 11:34 | MHC.OFFVIS ---
Vital Signs 01/10/25 11:37 Height 5 ft 6 in Weight 246 lb 14.684 oz BMI 39.8 BP 124/72 Blood Pressure Location Lt brachial Position Sitting Pulse 97 Intake Visit Reasons: transaminitis Intake Note: Tej presents in the office as a follow up for transaminitis. CC: States that he is feeling okay and not having any concerns at this time. Here for results for his labs as well. Public Relations Senior Associate Required: Yes Public Relations Senior Associate Name: bhavani [id number] Allergies Penicillins (PENICILLINS) Allergy (Intermediate, Verified 01/10/25 11:37) RASH metformin Adverse Reaction (Intermediate, Verified 01/10/25 11:37) Diarrhea HPI HPI transaminitis: Details: Assessment & Plan (1) Elevated ferritin: Code(s): R79.89 - Other specified abnormal findings of blood chemistry Category: Medical (2) Transaminitis: Comment: BASELINE LABS Laboratory Tests 05/24/2506/14/25 07:4310:03 WBC 11.2 H Hgb 15.5 Hct 45.6 Plt Count 249 D Estimated GFR > 60 Hemoglobin A1c % 7.1 H Ferritin 1382 H Total Bilirubin 0.9 Direct Bilirubin 0.3 AST 59 H ALT 148 H Alkaline Phosphatase 88 C-Reactive Protein 0.36 Amylase 51 Lipase 29 Alpha Fetoprotein 3.5 TSH 3.10 Tiss Transglutamin IgG <1.0 Tiss Transglutamin IgA <1.0 Hepatitis A IgM Ab Nonreactive Hep Bs Antigen Negative Hep Bs Antibody REACTIVE Hep B Core Total Ab Nonreactive Hepatitis C Ab (EIA) Nonreactive HIV 1&2 Ab/P24 Ag 4thGn Nonreactive ULTRASOUND OF THE ABDOMEN WITH ELASTOGRAPHY (F0) 05/24/2024 CURRENT LABS ULTRASOUND OF THE ABDOMEN WITH ELASTOGRAPHY (F0) 05/24/2024 FINDINGS: Liver: The liver is enlarged and demonstrates increased echotexture, consistent with steatosis. The liver contour is mildly nodular, which can be seen in the setting of cirrhosis. No focal mass or intrahepatic biliary ductal dilatation is identified. There is normal hepatopedal flow in the portal vein. Ultrasound elastography of the liver was performed with 10 separate measurements of the liver parenchyma with the patient in the supine position. Measurements were obtained approximately 2 cm below Lico's capsule and perpendicular to the capsule. Images are of satisfactory quality. The median shear wave velocity is 1.13 m/s. The interquartile range/median (IQR/median) is 0.18. Gallbladder and biliary tree: The gallbladder is unremarkable, without evidence of calculi, wall thickening, or pericholecystic fluid. There is no sonographic Valle sign. The common bile duct is normal in caliber measuring 2 mm. Kidneys: Right kidney measures 14.6 cm in length. Left kidney measures 14.0 cm in length. The kidneys are unremarkable, without evidence of masses, hydronephrosis, or calculi. Pancreas: The pancreatic head, neck, and body are unremarkable. The pancreatic tail is obscured by bowel gas. Spleen: The spleen is normal in size and contour, measuring 11.8 cm in length. Abdominal aorta and inferior vena cava: The visualized portions of the abdominal aorta and inferior vena cava are normal in caliber. There is no free fluid in the abdomen. US/US abdomen comp w elastography IMPRESSION: Hepatomegaly and hepatic steatosis. Nodular liver contour which can be seen in the setting of cirrhosis, although elastography findings are not suggestive of cirrhosis (see below). Liver biopsy may be helpful. Code(s): R74.01 - Elevation of levels of liver transaminase levels Category: Medical (3) Elevated C-reactive protein: Code(s): R79.82 - Elevated C-reactive protein (CRP) Category: Medical (4) Hypertrophic cardiomyopathy: Code(s): I42.2 - Other hypertrophic cardiomyopathy Category: Medical (5) Type 2 diabetes, controlled, with peripheral neuropathy: Code(s): E11.42 - Type 2 diabetes mellitus with diabetic polyneuropathy Category: Medical (6) Obesity, Class I, BMI 30-34.9: Code(s): E66.811 - Obesity, class 1 Category: Medical (7) Arthralgia of multiple joints: Code(s): M25.50 - Pain in unspecified joint Category: Medical Plan Lithuanian #Yin Yuriy (He says he is NOT here for colonoscopy, which makes sense as he is too young. He tells me he is actually here for transaminitis. He used to drink about 12 beers a week, but only on one day a week mostly Fridays. Never every day. His mother had a liver transplant years ago, but he is unsure of the underlying pathology but she did NOT drink ETOH. She of another pathology. The patient has cut back by at least half how many beers he drinks 1 day a week now down to 5 or 6. ) His diarrhea has improved. Uncertain why, could have been a passing infection or it could be that he is cutting back ETOH which is very irritating to the GI tract. So far, the only indication concerning is a raised ferritin over 1.000. This could be secondary to ETOH use, but also could be hemochromatosis. Will get genetic study, and the autoimmune and fiborsis/peth are still pending. Hemochromatosis possibly could also fit with some of his other symptoms sets including his hypertrophic cardiomyopathy his elevated inflammatory markers and his multiple arthralgias. I can't find the RAST panel. ROV 6 weeks. Orders: Orders DNA Analysis Hemochromatosis Today R79.89 - Other specified abnormal findings of blood chemistry LABS: Hematoma necrosis genetic screen was negative TODAY'S VISIT Andorran # Ninoska Live [facility] Medical History Osteoarthritis of lumbar spine Excessive daytime sleepiness Snoring HTN (hypertension) Pure hypercholesterolemia Puncture wound of foot Muscle spasm of back Foot abscess, right Hypertrophic obstructive cardiomyopathy Submandibular lymphadenopathy Right foot pain Vertebrogenic low back pain History of recent fall Chest pain Hypoglycemia Sacroiliac joint dysfunction of left side Sacroiliac joint pain Elevated LFTs Physical exam URI (upper respiratory infection) Sacroiliitis Diabetes mellitus, without long-term current use of insulin Diabetes mellitus without complication, with long-term current use of insulin Foot abscess, right Poorly controlled type 2 diabetes mellitus Diabetes Osteoarthritis of right knee MARA (obstructive sleep apnea) Hypertensive heart disease Surgical History Status post placement of implantable loop recorder History of hand surgery History of elbow surgery History of ankle surgery Family History Father PVD (peripheral vascular disease) Essential hypertension Diabetes mellitus Mother Liver transplant failure Social History Household Members: Family Housing: Apartment Are you a primary career resource technician to a significant other at home: No Do you presently have visiting nurse or other home services: No Alcohol intake: current Alcohol intake frequency: a few times a month Alcohol type: beer Patient Tobacco Use Status: Former Tobacco user Tobacco use type: Cigarette Cigarettes Per Day: 10 Years Smoked: 20 e-Cigarette/Vaping Use: Currently Using Second Hand Smoke Exposure: No service: No Current occupational status: unemployed Current occupational exposures/hazards: No Cognitive needs: No Hearing needs: No Vision needs: Yes (Glasses) Review of Systems Const Denies fatigue, Denies fever(s), Denies night sweats, Denies poor appetite and Denies weight loss ENT Reports Normal hearing present, Denies dental pain, Denies dysphagia, Denies hearing loss, Denies mouth pain, Denies odynophagia, Denies throat swelling, Denies tongue swelling and Reports other (Dentition adequate) Card Reports no additional complaints Resp Reports no additional complaints GI Details: Denies abdominal pain, Denies melena, Denies bloating, Denies hematochezia, Denies constipation, Denies GI cramping, Denies dysphagia, Denies excessive flatus, Denies early satiety, Reports heartburn, Denies diarrhea, Denies nausea, Denies odynophagia, Denies vomiting and Denies hematemesis Skin/Breast Denies pruritus, Denies lesions, Denies rash and Denies jaundice Neuro Reports Normal hearing present and Denies Abnormal speech present Endo Denies fatigue Aller/Immun Denies throat swelling and Denies tongue swelling Physical Exam Vital Signs: Last Vital Signs Pulse 97 01/10/25 11:37 BP 124/72 01/10/25 11:37 BMI result Body Mass Index 39.8 Const General: cooperative, no acute distress, well developed and well groomed Nutritional Appearance: well nourished and overweight Orientation/consciousness: oriented to person, oriented to place and oriented to time Limitations: language barrier HEENT Head: Yes normocephalic and Yes atraumatic Eyes General: appearance normal, both eyes and all related structures Pupils: Equal, round and reactive pupils present Neck Neck: Yes normal visual inspection and Yes no lymphadenopathy Thyroid: Thyroid normal Resp Effort & Inspection: normal respiratory effort and able to speak in complete sentences Auscultation: clear to auscultation bilaterally Cardio Rate: regular rate Rhythm: regular rhythm Heart sounds: Normal, physiologic split S2 sound present Peripheral pulses: radial pulses present and posterior tibial pulses present GI Inspection: No distended, No Abdominal panniculus present and Yes obesity Palpation (GI): Soft to palpation, nontender, no guarding, not rigid and No hepatosplenomegaly present Percussion: Yes normal to percussion Auscultation: normal bowel sounds Rectal Exam - Male: Yes deferred Skin General skin exam: no rashes or lesions noted, turgor normal, skin not dry, no jaundice, No spider nevi and no striae Rashes: no rashes Nails: normal Neuro General: oriented to person, oriented to place and oriented to time Cranial nerves: Yes Equal, round and reactive pupils present and Yes Normal hearing present Speech: No Abnormal speech present Extrem General: Yes normal to inspection, No clubbing, No cyanosis and No edema Psych Appearance: grossly normal and well kempt Mental Status: mental status grossly normal Speech and movement: Normal speech and movement present Affect: normal affect Attitude: cooperative Thought process: Normal thought process present and not confabulating Thought content: Normal thought content present Insight: Limited insight present (Psych) Judgement: Limited judgement present (Psych) Assessment & Plan Assessment & Plan (1) Transaminitis: Comment: BASELINE LABS Laboratory Tests 05/24/2506/14/25 07:4310:03 WBC 11.2 H Hgb 15.5 Hct 45.6 Plt Count 249 D Estimated GFR > 60 Hemoglobin A1c % 7.1 H Ferritin 1382 H Total Bilirubin 0.9 Direct Bilirubin 0.3 AST 59 H ALT 148 H Alkaline Phosphatase 88 C-Reactive Protein 0.36 Amylase 51 Lipase 29 Alpha Fetoprotein 3.5 TSH 3.10 Tiss Transglutamin IgG <1.0 Tiss Transglutamin IgA <1.0 Hepatitis A IgM Ab Nonreactive Hep Bs Antigen Negative Hep Bs Antibody REACTIVE Hep B Core Total Ab Nonreactive Hepatitis C Ab (EIA) Nonreactive HIV 1&2 Ab/P24 Ag 4thGn Nonreactive ULTRASOUND OF THE ABDOMEN WITH ELASTOGRAPHY (F0) 05/24/2024 CURRENT LABS ULTRASOUND OF THE ABDOMEN WITH ELASTOGRAPHY (F0) 05/24/2024 FINDINGS: Liver: The liver is enlarged and demonstrates increased echotexture, consistent with steatosis. The liver contour is mildly nodular, which can be seen in the setting of cirrhosis. No focal mass or intrahepatic biliary ductal dilatation is identified. There is normal hepatopedal flow in the portal vein. Ultrasound elastography of the liver was performed with 10 separate measurements of the liver parenchyma with the patient in the supine position. Measurements were obtained approximately 2 cm below Lico's capsule and perpendicular to the capsule. Images are of satisfactory quality. The median shear wave velocity is 1.13 m/s. The interquartile range/median (IQR/median) is 0.18. Gallbladder and biliary tree: The gallbladder is unremarkable, without evidence of calculi, wall thickening, or pericholecystic fluid. There is no sonographic Valle sign. The common bile duct is normal in caliber measuring 2 mm. Kidneys: Right kidney measures 14.6 cm in length. Left kidney measures 14.0 cm in length. The kidneys are unremarkable, without evidence of masses, hydronephrosis, or calculi. Pancreas: The pancreatic head, neck, and body are unremarkable. The pancreatic tail is obscured by bowel gas. Spleen: The spleen is normal in size and contour, measuring 11.8 cm in length. Abdominal aorta and inferior vena cava: The visualized portions of the abdominal aorta and inferior vena cava are normal in caliber. There is no free fluid in the abdomen. US/US abdomen comp w elastography IMPRESSION: Hepatomegaly and hepatic steatosis. Nodular liver contour which can be seen in the setting of cirrhosis, although elastography findings are not suggestive of cirrhosis (see below). Liver biopsy may be helpful. Code(s): R74.01 - Elevation of levels of liver transaminase levels Category: Medical (2) Type 2 diabetes, controlled, with peripheral neuropathy: Code(s): E11.42 - Type 2 diabetes mellitus with diabetic polyneuropathy Category: Medical (3) Obesity, Class I, BMI 30-34.9: Code(s): E66.811 - Obesity, class 1 Category: Medical (4) Diarrhea: Code(s): R19.7 - Diarrhea, unspecified Category: Medical (5) Chronic GERD: Code(s): K21.9 - Gastro-esophageal reflux disease without esophagitis Category: Medical Plan Andorran # Ninoska Live - The patient is a 39-year-old male presenting with follow-up for liver disease management. 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 His ferritin was quite elevated at 1300. It appears that this is the result of alcoholic imposed upon metabolic liver disease. - Genetic predisposition for fatty liver identified, advising against alcohol intake for liver health maintenance. - Ceased alcohol consumption two months prior after regular drinking patterns. - Actively managing Diabetes Mellitus Type 2. - Improvement in diarrhea noted, possibly linked to reduced alcohol intake or as an adverse effect of Tricity, used for diabetes management. He continues on omeprazole for his GERD. He is aware that he needs to follow the rule of threes controlling his weight or slow steady weight loss along with diabetes control and avoidance of alcohol to best protect his future liver health. He is aware that we will monitor his liver at six-month intervals. Coding Level of Care Code Est Pt Level 3 (65875) Diagnoses Transaminitis R74.01 Type 2 diabetes, controlled, with peripheral neuropathy E11.42 Obesity, Class I, BMI 30-34.9 E66.811 Diarrhea R19.7 Chronic GERD K21.9
[2025-01-10 11:37] VITALS: BP 124/72; PULSE 97; BMI 39.8
--- OUTSIDE RECORDS SUMMARY | 2025-01-10 12:30 | XMS_ITS | Clinical Summary ---
Author Organization [address] [place] [address] Address [address] [place] [address] Phone Care Team Providers Care Forestry Foreman Name Role Phone Ninoska Meeks MD Primary Care Provider [phone] Allergies Active Allergy Reactions Criticality Noted Date [...] Type 2 diabetes mellitus wit h hyperglycemia ([facility] V24, [facility] V28) 04/22/2021 Complete tear of wrist ligament 02/26/2021 Essential (primary) hypertension 10/26/2020 Type 2 diabetes mellitus wit h diabetic neuropathy ([facility] V24, [facility] V28) 10/26/2020 Encounters Date Type Department Care Team Description 12/20/2024 1:45 PM EDT Office Visit Orthopedic Surgery [facility] [address] [facility] [address] [place] [address] Allegra Coleman MD 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) 11/02/2024 Telephone Orthopedic Surgery [facility] [address] [facility] [address] [place] [phone] Allegra Coleman MD from Last 3 Months Surgical History Surgery Date Site/Laterality Comments ELBOW SURGERY Right CARPAL TUNNEL RELEASE Right WRIST FUSION 05/18/2023 - 05/17/2024 Right scaphoid excision, 4 corner fusion OTHER SURGICAL HISTORY ACHILLES TENDON SURGERY Right ligaments Medical History Medical History Date Comments Diabetes (CMS/HCC V24, [facility] V28) DX:Diabetes (HCC) Essential (primary) hypertension DX:Essential (primary) hypertension Hyperlipidemia [...] EDT Inhaled Oxygen Concentration - - Weight 113 kg (250 lb) 12/20/2024 1:57 PM EDT Height 182.9 cm (6') 12/20/2024 1:57 PM EDT Body Mass Index 33.91 12/20/2024 1:57 PM EDT Plan of Treatment Upcoming Encounters Date Type Department Care Team (Late st Contact Info) Description 02/07/2025 2:30 PM EDT Consult Orthopedic Surgery - [facility] [address] [facility] [address] [place] [phone] Ramón Kowalski DPM [address] [place] [address] 02/20/2025 9:30 AM EDT Office Visit Orthopedic Surgery - [place] [address] [facility] [address] [place] [phone] Allegra Coleman MD [address] [place] [address] Health Maintenance Due Date Last Done Comments [...] patient's age to complete this topic Insurance [facility] Advance Directives * Full Code - [...] currently active code status orders. Care Teams Forestry Foreman Relationship Specialty Start Date End Date Ninoska Meeks MD [address] [place] [address] , [address] Physician Associ D/B/A: [facility] PCP - General Internal Medicine 04/26/24
--- OUTSIDE RECORDS SUMMARY | 2025-01-10 12:30 | XMS_ITS | Clinical Summary ---
Author Organization [facility]ly [facility] Facility Address [address] [place] [address] Care Team Providers Care Powder Expert Name Role Phone Kelly Verma MD Primary Care Provider [phone] Allergies Active Allergy Reactions Criticality Noted Date [...] age to complete this topic [place] Care Teams Powder Expert Relationship Specialty Start Date End Date Kelly Verma MD [address] [place] [address] PCP - General Internal Medicine 10/19/20
== END 2025-01-10 12:10 | disposition home or self-care (01) ==
LOC: HO.HGI 11:31
PROVIDERS: PCP Internal Medicine; Visit Provider Nurse Practitioner
DX: R74.01 Elevation of levels of liver transaminase levels (principal); E11.42 Type 2 diabetes mellitus with diabetic polyneuropathy; E66.811 Obesity, class 1; R19.7 Diarrhea, unspecified; K21.9 Gastro-esophageal reflux disease without esophagitis
CPT/HCPCS: 99213

== ENCOUNTER → 2025-01-10 11:30 | Outpatient (BNVA) | payer OTHER, SELFPAY | PROVIDERS: PCP Internal Medicine; Visit Provider Nurse Practitioner | DX: R74.01 Elevation of levels of liver transaminase levels (principal); E11.42 Type 2 diabetes mellitus with diabetic polyneuropathy; E66.811 Obesity, class 1; R19.7 Diarrhea, unspecified; K21.9 Gastro-esophageal reflux disease without esophagitis; R79.89 Other specified abnormal findings of blood chemistry; F10.20 Alcohol dependence, uncomplicated | CPT/HCPCS: 99212 ==

== ENCOUNTER 2025-01-12 13:57 | Outpatient (AMB) | payer OTHER, SELFPAY ==
--- NOTE | 2025-01-12 14:07 | MHC.OFFVISPS ---
Intake Intake Visit Reasons: consultation Intake Note: PHQ-9 8 MARTIN-7 7 Personal Financial Planner Required: Yes Allergies Penicillins (PENICILLINS) Allergy (Intermediate, Verified 01/30/25 12:51) RASH metformin Adverse Reaction (Intermediate, Verified 01/30/25 12:51) Diarrhea Medication List - Last Reconciled 01/12/25 by Loraine Andrews APRN atorvastatin 20 mg PO BEDTIME 90 days blood sugar diagnostic (FreeStyle Lite Strips) Use daily As directed to check blood glucose blood-glucose meter (FreeStyle Lite Meter kit) Use daily As directed to check blood sugars blood-glucose sensor (FreeStyle Jai 3 Sensor device) Apply every 14 days As directed dulaglutide (Trulicity) 4.5 mg (0.5 mL) subcut QWEEK empagliflozin (Jardiance) 10 mg PO QAM lancets (FreeStyle Lancets) use daily as directed to check blood glucose metoprolol tartrate 100 mg PO BID omeprazole 20 mg PO DAILY 90 days HPI- Psychiatric Chief Complaint: consultation HPI Narrative: Pt seen with professor of english team. Reports anxiety/ depression. Sx began ~ 3 years ago after mother's and as time as progressed more triggers seem to prompt anxiety. Reports poor sleep with latency sx, MENDEZ, MAGI, not feeling rested. Appetite is variable. Identifies triggers as finances, health, family, daily stressors, pain, parenting (daughters 16 and 9). Pt is interested in grief work after loss of his mom, to improve his coping with health issues. Fears leaving his family alone, being unable to manage pain. I want to be better for my family. Past Psychiatric History: IP: Denies OP: Saw a therapist when young Meds: Denies, and not sure he wants medications. Dana: possibly, sees shadows when anxious-sees lost cat in the car Suicide attempts: Denies Suicidal thoughts: History- thought it would be better off not to be here, however, knows he needs to be here for his children. Subjective Subjective Subjective Medication Compliance: Yes Side effects from medications: No Review of Systems Medical Review of Systems: unchanged Review of Systems Review of Systems denies Mental Status Exam Mental Status Exam Patient Appearance: Appropriate Patient Orientation: Person, Place, Time and Situation Level of Consciousness: Alert Patient Behavior: Cooperative and Anxious Mood Description: Anxious Affect Description: Anxious Patient Cognition Impaired: No Ability to Follow Directions: Good Speech Pattern: Spontaneous Speech Memory Description: Intact Hallucinations: Visual (shadows when anxious) Delusions: Not Present Thought Process: Intact and Rumination Thought Content: positive for Intact and positive for Suicidal Ideation (denies) Judgement: Good Assessment and Plan Assessment & Plan (1) MARTIN (generalized anxiety disorder): Status: Acute Code(s): F41.1 - Generalized anxiety disorder (2) Recurrent major depression: Status: Acute Code(s): F33.9 - Major depressive disorder, recurrent, unspecified Plan 39 yo with reports of anxiety, depression, increasing since the of his mother ~3 years ago. Plan: Sertraline 25 mg daily, for 14 days, then increase to 50 mg. Follow up in 4-6 weeks. Interpreters present during meeting today. Medications: New sertraline 25 mg daily for 14 days, then 50 mg daily 25 mg PO DAILY 60 tabs 0RF Counseling and coordination of Care Medication management counseling: Effectiveness, Side effects, Dosing range, Duration, Drug interaction and Adherence Details: I spent [] minutes reviewing the record, seeing the patient and documenting in the medical record. Counseling provided to the patient/caregiver as outlined below. Addressed patient/caregiver concerns regarding current medication regime including effective adherence. Addressed patient/caregiver concerns regarding diagnosis and prognosis including accuracy of diagnosis, prognosis over time, impact of diagnosis. Addressed patient/caregiver concerns regarding impact of recent stressors. [facility] Medical History (Updated 01/30/25 @ 16:21 by Loraine Andrews APRN) Recurrent major depression Osteoarthritis of lumbar spine Excessive daytime sleepiness Snoring HTN (hypertension) Pure hypercholesterolemia Puncture wound of foot Muscle spasm of back Foot abscess, right Hypertrophic obstructive cardiomyopathy Submandibular lymphadenopathy Right foot pain Vertebrogenic low back pain History of recent fall Chest pain Hypoglycemia Sacroiliac joint dysfunction of left side Sacroiliac joint pain Elevated LFTs Physical exam URI (upper respiratory infection) Sacroiliitis Diabetes mellitus, without long-term current use of insulin Diabetes mellitus without complication, with long-term current use of insulin Foot abscess, right Poorly controlled type 2 diabetes mellitus Diabetes Osteoarthritis of right knee MARA (obstructive sleep apnea) Hypertensive heart disease Surgical History Status post placement of implantable loop recorder History of hand surgery History of elbow surgery History of ankle surgery Family History Father PVD (peripheral vascular disease) Essential hypertension Diabetes mellitus Mother Liver transplant failure Social History Household Members: Family Housing: Apartment Are you a primary caretaker grounds to a significant other at home: No Do you presently have visiting nurse or other home services: No Alcohol intake: current Alcohol intake frequency: a few times a month Alcohol type: beer Patient Tobacco Use Status: Former Tobacco user Tobacco use type: Cigarette Cigarettes Per Day: 10 Years Smoked: 20 e-Cigarette/Vaping Use: Currently Using Second Hand Smoke Exposure: No service: No Current occupational status: unemployed Current occupational exposures/hazards: No Cognitive needs: No Hearing needs: No Vision needs: Yes (Glasses) Social History: Born in [place], three sisters, raised by both parents. Mother has passed, father and sisters are living. 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 Pt has a partner, 2 children, one child expected 02/18/25. Enjoys fishing and cars Substance History: alcohol q 3 weeks~6 beers. denies other substance use Trauma History: denies Coding Level of Care Code Psych Diag Eval w/Med (96653) Diagnoses MARTIN (generalized anxiety disorder) F41.1 Recurrent major depression F33.9
--- OUTSIDE RECORDS SUMMARY | 2025-01-12 14:47 | XMS_ITS | Clinical Summary ---
Author Organization [address] [place] [address] Address [address] [place] [address] Phone Care Team Providers Care Clinical Safety Manager Name Role Phone Ninoska Meeks MD Primary Care Provider [phone] Allergies Active Allergy Reactions Criticality Noted Date [...] Type 2 diabetes mellitus wit h hyperglycemia ([facility] V24, [facility] V28) 04/22/2021 Complete tear of wrist ligament 02/26/2021 Essential (primary) hypertension 10/26/2020 Type 2 diabetes mellitus wit h diabetic neuropathy ([facility] V24, [facility] V28) 10/26/2020 Encounters Date Type Department Care Team Description 12/20/2024 1:45 PM EDT Office Visit Orthopedic Surgery [facility] 175 [facility] [address] [place] [address] Allegra Coleman MD 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) 11/02/2024 Telephone Orthopedic Surgery [facility] 250 175 [facility] [address] [place] [phone] Allegra Coleman MD from Last 3 Months Surgical History Surgery Date Site/Laterality Comments ELBOW SURGERY Right CARPAL TUNNEL RELEASE Right WRIST FUSION 05/18/2023 - 05/17/2024 Right scaphoid excision, 4 corner fusion OTHER SURGICAL HISTORY ACHILLES TENDON SURGERY Right ligaments Medical History Medical History Date Comments Diabetes (CMS/HCC V24, [facility] V28) DX:Diabetes (HCC) Essential (primary) hypertension DX:Essential [...] 2:30 PM EDT Consult Orthopedic Surgery [facility] 250 175 [facility] [address] [place] [phone] Ramón Kowalski DPM [address] [place] [address] 02/20/2025 9:30 AM EDT Office Visit Orthopedic Surgery [facility] [place] 175 [facility] [address] [place] [phone] Allegra Coleman MD [address] [place] [address] Health Maintenance Due Date Last Done Comments [...] patient's age to complete this topic Insurance [employer] Advance Directives * Full Code - [...] currently active code status orders. Care Teams Clinical Safety Manager Relationship Specialty Start Date End Date Ninoska Meeks MD [address] [place] [address] , [address] Physician Associ D/B/A: [facility] PCP - General Internal Medicine 04/26/24
--- OUTSIDE RECORDS SUMMARY | 2025-01-12 14:47 | XMS_ITS | Clinical Summary ---
Author Organization [facility] Facility Address [address] [place] [address] Care Team Providers Care Analytical Statistician Name Role Phone Kelly Verma MD Primary Care Provider [phone] Allergies Active Allergy Reactions Criticality Noted Date [...] age to complete this topic Insurance Medicaid [place] Care Teams Analytical Statistician Relationship Specialty Start Date End Date Kelly Verma MD [address] [place] [address] PCP - General Internal Medicine 10/19/20
== END 2025-01-12 16:28 | disposition home or self-care (01) ==
LOC: HO.HOP 13:57
PROVIDERS: PCP Internal Medicine; Visit Provider Clinical Nurse Specialist Psychiatric/Mental Health, Adult
DX: F41.1 Generalized anxiety disorder (principal); F33.9 Major depressive disorder, recurrent, unspecified
CPT/HCPCS: 90792

== ENCOUNTER → 2025-01-12 13:57 | Outpatient (BNVA) | payer OTHER, SELFPAY | PROVIDERS: PCP Internal Medicine; Visit Provider Clinical Nurse Specialist Psychiatric/Mental Health, Adult | DX: F41.1 Generalized anxiety disorder (principal); F33.9 Major depressive disorder, recurrent, unspecified | CPT/HCPCS: 90792 ==

== ENCOUNTER → 2025-01-18 23:59 | Outpatient (BNV) | payer OTHER, SELFPAY ==
--- NOTE | 2025-01-31 14:31 | A.OFFVIS_ITS ---
Intake Visit Reasons: Remote ILR check- Medtr[employer] Allergies Penicillins (PENICILLINS) Allergy (Intermediate, Verified 01/30/25 12:51) RASH metformin Adverse Reaction (Intermediate, Verified 01/30/25 12:51) Diarrhea PFSH Medical History (Updated 01/30/25 @ 16:21 by Loraine Andrews APRN) Recurrent major depression Osteoarthritis of lumbar spine Excessive daytime sleepiness Snoring HTN (hypertension) Pure hypercholesterolemia Puncture wound of foot Muscle spasm of back Foot abscess, right Hypertrophic obstructive cardiomyopathy Submandibular lymphadenopathy Right foot pain Vertebrogenic low back pain History of recent fall Chest pain Hypoglycemia Sacroiliac joint dysfunction of left side Sacroiliac joint pain Elevated LFTs Physical exam URI (upper respiratory infection) Sacroiliitis Diabetes mellitus, without long-term current use of insulin Diabetes mellitus without complication, with long-term current use of insulin Foot abscess, right Poorly controlled type 2 diabetes mellitus Diabetes Osteoarthritis of right knee MARA (obstructive sleep apnea) Hypertensive heart disease Surgical History Status post placement of implantable loop recorder History of hand surgery History of elbow surgery History of ankle surgery Family History Father PVD (peripheral vascular disease) Essential hypertension Diabetes mellitus Mother Liver transplant failure Social History Household Members: Family Housing: Apartment Are you a primary acute care assistant to a significant other at home: No Do you presently have visiting nurse or other home services: No Alcohol intake: current Alcohol intake frequency: a few times a month Alcohol type: beer Patient Tobacco Use Status: Former Tobacco user Tobacco use type: Cigarette Cigarettes Per Day: 10 Years Smoked: 20 e-Cigarette/Vaping Use: Currently Using Second Hand Smoke Exposure: No service: No Current occupational status: unemployed Current occupational exposures/hazards: No Cognitive needs: No Hearing needs: No Vision needs: Yes (Glasses) Office Procedures Cardiac Device Check Cardiac Device Check Details: Remote implantable loop recorder report generated 01/18/2025. Rare PVCs noted. No significant pauses or atrial fibrillation noted Procedure code (CPT) selection complete Assessment & Plan Assessment & Plan (1) Implantable loop recorder present: Code(s): Z95.818 - Presence of other cardiac implants and grafts Category: Medical Plan: See above Coding Level of Care Code Procedure Only Diagnoses Implantable loop recorder present Z95.818
== END ==
PROVIDERS: PCP Internal Medicine; Visit Provider Internal Medicine Cardiovascular Disease
DX: I49.3 Ventricular premature depolarization (principal); Z95.818 Presence of other cardiac implants and grafts
CPT/HCPCS: 93298

== ENCOUNTER 2025-01-23 10:58 | Outpatient (AMB) | payer OTHER, SELFPAY ==
--- NOTE | 2025-01-23 11:11 | MHC.OFFVIS ---
Vital Signs 01/23/25 11:12 Height 5 ft 6 in Weight 252 lb 13.923 oz BMI 40.8 BP 118/82 Blood Pressure Location Lt brachial Position Sitting Pulse 90 Pulse Source Pulse Oximeter Pulse Oximetry (%) 95 Oxygen Delivery Method Room Air Intake Visit Reasons: T2DM Intake Note: Patient present today for Type 2 Diabetes Mellitus Last Diabetic eye exam: Last exam was 2 weeks ago Last Podiatry Visit: Has upcoming appt this month. Random Glucose: 190 mg/dl HgA1C: 7.1% 11/28/24 Candy Attendant Required: Yes Candy Attendant Language: Cardiovascular Physician Assistant Services: Candy Attendant Present Information Interpreted: non-clinical & clinical Accompanied by: Self / Same As Patient Allergies Penicillins (PENICILLINS) Allergy (Intermediate, Verified 01/23/25 11:16) RASH metformin Adverse Reaction (Intermediate, Verified 01/23/25 11:16) Diarrhea Medication List - Last Reconciled 01/23/25 by Manda Chino PA-C atorvastatin 20 mg PO BEDTIME 90 days blood sugar diagnostic (FreeStyle Lite Strips) Use daily As directed to check blood glucose blood-glucose meter (FreeStyle Lite Meter kit) Use daily As directed to check blood sugars blood-glucose sensor (FreeStyle Jai 3 Sensor device) Apply every 14 days As directed dulaglutide (Trulicity) 4.5 mg (0.5 mL) subcut QWEEK lancets (FreeStyle Lancets) use daily as directed to check blood glucose metoprolol tartrate 100 mg PO BID omeprazole 20 mg PO DAILY 90 days sertraline 25 mg PO DAILY HPI HPI T2DM: Details: Patient is a 39-year-old male with a significant past medical history hypertension, hypertrophic cardiomyopathy, hyperlipidemia, type 2 diabetes, MARA and arthritis presenting today for a follow-up regarding his diabetes. 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 He is confirmed type 2 diabetic. Has high C-peptide and negative antibody tests. His previous A1c was 7.1. He is currently on Trulicity 4.5 mg/week and jardiance 10 mg daily. He did not tolerate metformin, Januvia or glipizide. He is checking his bs regualrly. States they are around 140 and the highest was 205. He has had diabetic Education. Not on an ANTONETTE-inhibitor. Cholesterol controlled with a statin. CV: Blood pressure is usually controlled with metoprolol 100 mg twice a day. Lipids controlled with atorvastatin 20 mg. No myalgias. LFTs stable elevated. . PFSH Medical History Osteoarthritis of lumbar spine Excessive daytime sleepiness Snoring HTN (hypertension) Pure hypercholesterolemia Puncture wound of foot Muscle spasm of back Foot abscess, right Hypertrophic obstructive cardiomyopathy Submandibular lymphadenopathy Right foot pain Vertebrogenic low back pain History of recent fall Chest pain Hypoglycemia Sacroiliac joint dysfunction of left side Sacroiliac joint pain Elevated LFTs Physical exam URI (upper respiratory infection) Sacroiliitis Diabetes mellitus, without long-term current use of insulin Diabetes mellitus without complication, with long-term current use of insulin Foot abscess, right Poorly controlled type 2 diabetes mellitus Diabetes Osteoarthritis of right knee MARA (obstructive sleep apnea) Hypertensive heart disease Surgical History Status post placement of implantable loop recorder History of hand surgery History of elbow surgery History of ankle surgery Family History Father PVD (peripheral vascular disease) Essential hypertension Diabetes mellitus Mother Liver transplant failure Social History Household Members: Family Housing: Apartment Are you a primary healthcare network pricing consultant to a significant other at home: No Do you presently have visiting nurse or other home services: No Alcohol intake: current Alcohol intake frequency: a few times a month Alcohol type: beer Patient Tobacco Use Status: Former Tobacco user Tobacco use type: Cigarette Cigarettes Per Day: 10 Years Smoked: 20 e-Cigarette/Vaping Use: Currently Using Second Hand Smoke Exposure: No service: No Current occupational status: unemployed Current occupational exposures/hazards: No Cognitive needs: No Hearing needs: No Vision needs: Yes (Glasses) Physical Exam Vital Signs: Last Vital Signs Pulse 90 01/23/25 11:12 BP 118/82 01/23/25 11:12 Pulse Ox 95 01/23/25 11:12 Oxygen Delivery Method Room Air 01/23/25 11:12 BMI result Body Mass Index 40.8 Const Orientation/consciousness: patient oriented x3 HEENT Ears: hearing grossly normal bilaterally Neck Thyroid: Thyroid normal Lymphatic: no lymphadenopathy noted Resp Auscultation: clear to auscultation bilaterally Cardio Rate: regular rate Rhythm: regular rhythm Heart sounds: S1 normal heart sound present and S2 normal heart sound present Skin General skin exam: no rashes or lesions noted Neuro General: patient oriented x3, gait normal and no focal motor deficits Results Reviewed Results Reviewed: Laboratory Last Values Glucose (Clinic) 190 mg/dL (60-115) H 01/23/25 11:18 Laboratory Tests 11/28/24 12/22/24 10:03 15:03 Creatinine 0.80 Estimated GFR > 60 POC Glucose 118 H Hemoglobin A1c % 7.1 H Assessment & Plan Assessment & Plan (1) Type 2 diabetes, controlled, with peripheral neuropathy: Code(s): E11.42 - Type 2 diabetes mellitus with diabetic polyneuropathy Category: Medical Plan: Increase Jardiance to 25 mg Continue Trulicity 4.5 mg weekly Repeat labs in 3 months (2) Hypertensive heart disease: Code(s): I11.9 - Hypertensive heart disease without heart failure Category: Medical Qualifiers: Heart failure presence: without heart failure Qualified Code(s): I11.9 - Hypertensive heart disease without heart failure Plan: WNL. Continue current regimen Orders: Orders Hemoglobin A1c Today E11.42 - Type 2 diabetes mellitus with diabetic polyneuropathy, I11.9 - Hypertensive heart disease without heart failure, R73.01 - Impaired fasting glucose Basic Metabolic Panel Today E11.42 - Type 2 diabetes mellitus with diabetic polyneuropathy, I11.9 - Hypertensive heart disease without heart failure Microalbumin, Random (w Creat) 3 Months E11.42 - Type 2 diabetes mellitus with diabetic polyneuropathy, I11.9 - Hypertensive heart disease without heart failure Medications: New empagliflozin (Jardiance) 25 mg PO QAM 90 tabs 3RF Refilled blood-glucose sensor (FreeStyle Jai 3 Sensor device) Apply every 14 days As directed 2 ea 11RF E11.9 - Type 2 diabetes mellitus without complications, G62.9 - Polyneuropathy, unspecified Coding Level of Care Code Est Pt Level 4 (15304) Complex EM visit Add On G2211 Diagnoses Type 2 diabetes, controlled, with peripheral neuropathy E11.42 Hypertensive heart disease without heart failure I11.9 Heart failure presence: without heart failure
[2025-01-23 11:12] VITALS: BP 118/82; PULSE 90; O2SAT 95; BMI 40.8
[2025-01-23 11:23] LABS: Glucose, Whole Blood 190 mg/dL (60-115)
--- OUTSIDE RECORDS SUMMARY | 2025-01-23 13:25 | XMS_ITS | Clinical Summary ---
Author Organization [address] [place] [address] Address [address] [place] [address] Phone Care Team Providers Care Circuit Recorder Name Role Phone Ninoska Meeks MD Primary Care Provider [phone] Allergies Active Allergy Reactions Criticality Noted Date [...] Type 2 diabetes mellitus wit h hyperglycemia ([facility] V24, [facility] V28) 04/22/2021 Complete tear of wrist ligament 02/26/2021 Essential (primary) hypertension 10/26/2020 Type 2 diabetes mellitus wit h diabetic neuropathy ([facility] V24, [facility] V28) 10/26/2020 Encounters Date Type Department Care Team Description 01/23/[address] [facility] 250 175 [facility] 250 [place] [address] MichellePat arnold 12/20/2024 1:45 PM EDT Office Visit Orthopedic Surgery 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 250 175 [facility] [address] [place] [address] Allegra Coleman MD from Last 3 Months Surgical History Surgery Date Site/Laterality Comments ELBOW SURGERY Right CARPAL TUNNEL RELEASE Right WRIST FUSION 05/18/2023 - 05/17/2024 Right scaphoid excision, 4 corner fusion OTHER SURGICAL HISTORY ACHILLES TENDON SURGERY Right ligaments Medical History Medical History Date Comments Diabetes ([facility] V24, [facility] V28) DX:Diabetes ([facility]) Essential (primary) hypertension DX:Essential (primary) [...] 02/07/2025 2:30 PM EDT Consult Orthopedic Surgery [facility] 250 175 [facility] [address] [place] [address] Ramón Kowalski, DPM 175 [facility] [address] [place] [address] 02/20/2025 9:30 AM EDT Office Visit Orthopedic Surgery [facility] 175 [facility] [address] [place] [phone] Allegra Coleman MD 175 [facility] [address] [place] [address] Health Maintenance Due Date Last Done [...] Blood Sugar Contro l Test (HGBA1C) 04/30/2022 Hypertension/CHF/CAD Annual BMP Blood Test 04/25/2024 Depression Screening 05/18/2024 COVID-19 Vaccine (3 - 2024-2 6 season) 2025 11/15/2020, 10/25/2020 Influenza Vaccine (#1) 2025 DTaP,Tdap,and Td Vaccines [...] patient's age to complete this topic Insurance [facility] [place] [address] Advance Directives * Full Code - Default [...] currently active code status orders. Care Teams Circuit Recorder Relationship Specialty Start Date End Date Ninoska Meeks MD [address] [place] [address] , [address] Physician Associ D/B/A: [facility] PCP - General Internal Medicine 04/26/24
--- OUTSIDE RECORDS SUMMARY | 2025-01-23 13:25 | XMS_ITS | Encounter Summary ---
Author Organization [facility] Address [address] [place] [address] Care Team Providers Care Half Section Ironer Name Role Phone Ninoska Meeks MD Primary Care Provider [phone] Encounter Details Date Type Department Care Team (Late Contact Info) Description 01/23/2025 Telephone Orthopedic Surgery [facility] [address] [address] Pat Martinez Social History Tobacco Use Types Packs/Day Years [...] as of this encounter Progress Notes * Pat Martinez - 01/23/2025 12:52 PM EDT Good afternoon, Patient called the office to check on the status of the DTA paperwork that was dropped off to the office on Thursday the the . The patient can be reached at [phone]. -Pat documented in this encounter Plan of Treatment Upcoming Encounters Date Type Department Care Team (Late Contact Info) Description 02/07/2025 2:30 PM EDT Consult Orthopedic Surgery - [place] 250 175 [facility] 250 [place] [address] Ramón Kowalski DPRajesh 175 [facility] [address] [place] [address] 02/20/2025 9:30 AM EDT Office Visit Orthopedic Surgery [facility] 175 [facility] 140 [place] [address] Allegra Coleman MD 175 [facility] 140 [place] [address] documented as of this encounter Visit Diagnoses Not on filedocumented in this encounter Care Teams Half Section Ironer Relationship Specialty Start Date End Date Ninoska Meeks MD 2 [facility] , [address] Physician Associ D/B/A: [facility] [place] PCP - General Internal Medicine 04/26/24 documented as of this encounter
== END 2025-01-23 11:52 | disposition home or self-care (01) ==
LOC: HO.ENCR 10:59
PROVIDERS: PCP Internal Medicine; Visit Provider Physician Assistant
DX: E11.42 Type 2 diabetes mellitus with diabetic polyneuropathy (principal); I11.9 Hypertensive heart disease without heart failure

== ENCOUNTER → 2025-01-23 10:58 | Outpatient (BNVA) | payer OTHER, SELFPAY | PROVIDERS: PCP Internal Medicine; Visit Provider Physician Assistant | DX: E11.42 Type 2 diabetes mellitus with diabetic polyneuropathy (principal); E78.5 Hyperlipidemia, unspecified; I11.9 Hypertensive heart disease without heart failure; Z79.899 Other long term (current) drug therapy | CPT/HCPCS: 82947; 99212 ==

== ENCOUNTER 2025-01-27 07:50 | Outpatient (AMB) | payer OTHER, SELFPAY ==
--- OUTSIDE RECORDS SUMMARY | 2025-01-27 07:53 | XMS_ITS | Clinical Summary ---
Author Organization [facility] Facility Address [address] [place] [address] Care Team Providers Care Deputy Felony Clerk Name Role Phone Kelly Verma MD Primary [...] TOME RON TABLETA POR V A ORAL ODNALD VECES AL D A CUANDO SEA NECESARIO [...] age to complete this topic Insurance Medicaid [place] Medicaid [place] Care Teams Deputy Felony Clerk Relationship Specialty Start Date End Date Kelly Verma MD [address] [place] [address] PCP - General Internal Medicine 10/19/20
--- OUTSIDE RECORDS SUMMARY | 2025-01-27 07:53 | XMS_ITS | Clinical Summary ---
Author Organization [address] [place] [address] Address 175 [place] [address] Phone Care Team Providers Care Textile Screen Printer Name Role Phone Ninoska Meeks MD Primary Care Provider [phone] Allergies Active Allergy Reactions Criticality Noted Date [...] Type 2 diabetes mellitus wit h hyperglycemia ([facility] V24, [facility] V28) 04/22/2021 Complete tear of wrist ligament 02/26/2021 Essential (primary) hypertension 10/26/2020 Type 2 diabetes mellitus wit h diabetic neuropathy ([facility] V24, [facility] V28) 10/26/2020 Encounters Date Type Department Care Team Description 01/23/2025 Telephone Orthopedic Surgery [facility] 250 175 [facility] 250 [place] [address] MichellePat arnold 12/20/2024 1:45 PM EDT Office Visit Orthopedic Surgery [facility] 175 [facility] 140 [place] [address] Allegra Coleman MD 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) 11/02/2024 Telephone Orthopedic Surgery [facility] 250 175 [facility] 250 [place] [address] Allegra Coleman MD from Last 3 Months Surgical History Surgery Date Site/Laterality Comments ELBOW SURGERY Right CARPAL TUNNEL RELEASE Right WRIST FUSION 05/18/2023 - 05/17/2024 Right scaphoid excision, 4 corner fusion OTHER SURGICAL HISTORY ACHILLES TENDON SURGERY Right ligaments Medical History Medical History Date Comments Diabetes ([facility] V24, [facility] V28) DX:Diabetes ([facility]) Essential (primary) hypertension DX:Essential (primary) hypertension [...] 02/07/2025 2:30 PM EDT Consult Orthopedic Surgery [facility] 250 175 [facility] 250 [place] [address] Ramón Kowalski, DPM 175 [facility] 250 [place] [address] 02/20/2025 9:30 AM EDT Office Visit Orthopedic [facility] 175 [facility] 140 [place] [address] Allegra Coleman MD [address] [place] [phone] Health Maintenance Due Date Last Done Comments [...] patient's age to complete this topic Insurance [facility] Advance Directives * Full Code - [...] currently active code status orders. Care Teams Textile Screen Printer Relationship Specialty Start Date End Date Ninoska Meeks MD [address] [place] [address] , [address] [facility]ician Associ D/B/A: [facility] [place] PCP - General Internal Medicine 04/26/24
--- OUTSIDE RECORDS SUMMARY | 2025-01-27 07:53 | XMS_ITS | Encounter Summary ---
Author Organization [facility] Address [address] [place] [address] Care Team Providers Care Electromechanical Technologist Name Role Phone Ninoska Meeks MD Primary Care Provider [phone] Encounter Details Date Type Department Care Team (Late Contact Info) Description 01/23/2025 Telephone Orthopedic Surgery [facility] [address] [address] Pat Martinez Social History Tobacco [...] . The patient can be reached at [phone]. -Pat documented in this encounter Plan of Treatment Upcoming Encounters Date Type Department Care Team (Late Contact Info) Description 02/07/2025 2:30 PM EDT Consult Orthopedic Surgery - [place] 250 175 [facility] [address] [place] [address] Ramón Kowalski, DPM 175 [facility] 250 [place] [phone] 02/20/2025 9:30 AM EDT Office Visit Orthopedic Surgery [facility] 175 [facility] [address] [place] [address] Allegra Coleman MD [address] [place] [phone] documented as of this encounter Visit Diagnoses Not on filedocumented in this encounter Care Teams Electromechanical Technologist Relationship Specialty Start Date End Date Ninoska Meeks MD [address] [place], [place] [address]Jenn, [address] Physician Associ D/B/A: [facility] [place] PCP - General Internal Medicine 04/26/24 documented as of this encounter
--- NOTE | 2025-01-27 08:03 | A.OFFVIS_ITS ---
Vital Signs 01/27/25 08:04 Height 5 ft 6 in Weight 250 lb 6 oz BMI 40.4 BP 110/80 Blood Pressure Location Lt brachial Position Sitting Pulse 86 Pulse Source Pulse Oximeter Pulse Oximetry (%) 95 Oxygen Delivery Method Room Air Intake Visit Reasons: 6 mnts f/u Intake Note: Patient presents 6 month follow up for Excessive daytime sleepiness/MARA- compliance in chart. Substation Technician Required: Yes Substation Technician Language: Head Of Academic Technology Services: Substation Technician Present Substation Technician Name: [id number] Information Interpreted: non-clinical only Accompanied by: Self / Same As Patient Allergies Penicillins (PENICILLINS) Allergy (Intermediate, Verified 01/27/25 08:08) RASH metformin Adverse Reaction (Intermediate, Verified 01/27/25 08:08) Diarrhea HPI Comments Details: 39-year-old male presents for follow-up of interval sleep study results and for further management of severe MARA. 09/21/2024, home sleep study results were consistent with severe obstructive sleep apnea with nocturnal hypoxemia 480 minutes of sleep recorded, demonstrating: AHI 32 per hour, O2 tera 82%, SpO2 under 90% times 77 minutes, SpO2 under 88% times 17 minutes, and average SpO2 91% 11/07/2024, in-lab PAP titration PSG, showed resolution of obstructive sleep apnea and marked nocturnal hypoxemia on CPAP, 4-11 cm H2O. The recommendation was to start the patient on CPAP 11 cm H2O. Patient started CPAP 11 cm H2O with EPR 2 proximally 1 month ago. He states he has struggled to use the CPAP as consistently as he would like, as he feels the pressure is too strong on inhalation. However, he would like to be able to use the CPAP more regularly, as he understands that he has a severe degree of obstructive sleep apnea. 07/29/2024, previous HPI: The patient is a 38-year-old male presenting with obstructive sleep apnea for follow-up. Patient was last seen by our former colleague Chapito Jane NP in August 2023. Patient was last previously seen by myself in 2020. He has a longstanding history of sleep apnea treated with CPAP therapy. The patient experiences difficulties due to inadequate mask fitting, resulting in CPAP non-compliance. A home sleep study recommended in August was not completed due to an unexecuted order. He reports ongoing nocturnal awakenings and breathlessness, excessive daytime sleepiness, snoring. Previous attempts at mask fitting adjustments were unsuccessful. Patient has gained at least 10 lb since his previous sleep study. His previous PAP settings were APAP 6-16 cm H2O. [facility] Medical History Osteoarthritis of lumbar spine Excessive daytime sleepiness Snoring HTN (hypertension) Pure hypercholesterolemia Puncture wound of foot Muscle spasm of back Foot abscess, right Hypertrophic obstructive cardiomyopathy Submandibular lymphadenopathy Right foot pain Vertebrogenic low back pain History of recent fall Chest pain Hypoglycemia Sacroiliac joint dysfunction of left side Sacroiliac joint pain Elevated LFTs Physical exam URI (upper respiratory infection) Sacroiliitis Diabetes mellitus, without long-term current use of insulin Diabetes mellitus without complication, with long-term current use of insulin Foot abscess, right Poorly controlled type 2 diabetes mellitus Diabetes Osteoarthritis of right knee MARA (obstructive sleep apnea) Hypertensive heart disease Surgical History Status post placement of implantable loop recorder History of hand surgery History of elbow surgery History of ankle surgery Family History Father PVD (peripheral vascular disease) Essential hypertension Diabetes mellitus Mother Liver transplant failure Social History Household Members: Family Housing: Apartment Are you a primary caretaker grounds to a significant other at home: No Do you presently have visiting nurse or other home services: No Alcohol intake: current Alcohol intake frequency: a few times a month Alcohol type: beer Patient Tobacco Use Status: Former Tobacco user Tobacco use type: Cigarette Cigarettes Per Day: 10 Years Smoked: 20 e-Cigarette/Vaping Use: Currently Using Second Hand Smoke Exposure: No service: No Current occupational status: unemployed Current occupational exposures/hazards: No Cognitive needs: No Hearing needs: No Vision needs: Yes (Glasses) Physical Exam Vital Signs: Last Vital Signs Pulse 86 01/27/25 08:04 BP 110/80 01/27/25 08:04 Pulse Ox 95 01/27/25 08:04 Oxygen Delivery Method Room Air 01/27/25 08:04 BMI result Body Mass Index 40.4 Const General: no acute distress Orientation/consciousness: patient oriented x3 HEENT Other: Mallampati stage 4 Resp Effort & Inspection: normal respiratory effort and able to speak in complete sentences Neuro General: patient oriented x3 Psych Mental Status: mental status grossly normal Speech and movement: Clear speech present Attitude: cooperative Assessment & Plan Assessment & Plan (1) MARA (obstructive sleep apnea): Code(s): G47.33 - Obstructive sleep apnea (adult) (pediatric) Category: Medical (2) Excessive daytime sleepiness: Code(s): G47.19 - Other hypersomnia Category: Medical (3) Snoring: Code(s): R06.83 - Snoring Category: Medical Plan Discussion notes Reviewed the interval home sleep study and follow-up Pap titration PSG results with the patient. Acknowledge that the patient is currently having difficulties tolerating his current CPAP pressure of 11 cm H2O with EPR 2 and ramp time 5 minutes. Thus, discussed adjusting his CPAP pressure settings and REM time, in hopes that the patient would tolerate this better. CPAP 8 cm H2O chosen as new setting, as in the PAP titration study, there was no residual sleep apnea and O2 tera was greater than 90%. Plan For severe MARA with nocturnal hypoxemia: * Discontinue CPAP 11 cm H2O with EPR 2. * Start CPAP 8 cm H2O with EPR 3 and ramp time 20 minutes * Settings changed via ResMed Air View, patient advised that these changes will take effect the next time he turns on his machine. Continue CPAP maintenance and care to optimize PAP therapy effects: * Clean CPAP machine and supplies routinely. * Change CPAP supplies routinely. * Use distilled water in CPAP water reservoir. * Pt to contact us or respiratory company with any questions or concerns. Pt to follow-up in 3 months or sooner prn. Coding Level of Care Code Est Pt Level 3 (10870) Diagnoses MARA (obstructive sleep apnea) G47.33 Excessive daytime sleepiness G47.19 Snoring R06.83
[2025-01-27 08:04] VITALS: BP 110/80; PULSE 86; O2SAT 95; BMI 40.4
== END 2025-01-27 08:54 | disposition home or self-care (01) ==
LOC: HO.HSMS 07:52
PROVIDERS: PCP Internal Medicine; Visit Provider Nurse Practitioner Family
DX: G47.33 Obstructive sleep apnea (adult) (pediatric) (principal); G47.19 Other hypersomnia; R06.83 Snoring
CPT/HCPCS: 99213

== ENCOUNTER → 2025-01-27 07:50 | Outpatient (BNVA) | payer OTHER, SELFPAY | PROVIDERS: PCP Internal Medicine; Visit Provider Nurse Practitioner Family | DX: G47.33 Obstructive sleep apnea (adult) (pediatric) (principal); G47.19 Other hypersomnia; R06.83 Snoring; Z99.89 Dependence on other enabling machines and devices | CPT/HCPCS: 99212 ==

== ENCOUNTER 2025-01-30 12:31 | Outpatient (AMB) | payer OTHER, SELFPAY ==
--- NOTE | 2025-01-30 12:38 | MHC.OFFVIS ---
Vital Signs 01/30/25 12:48 Height 5 ft 6 in Weight 252 lb BMI 40.7 Intake Visit Reasons: New Pt- Diabetic foot exam, polyneuropothy Intake Note: Tej is a 49 year old male who presents today as a new patient for an evaluation of his diabetic foot exam and neuropathy. Patient mentions he has not checked his glucose for 2 months. He reports feeling numbness and tingling in his right foot. Patient notices a bump on the plantar aspect of his right foot and it has a pin and needles sensation with and with out pressure Cooling Pan Tender Required: Yes Cooling Pan Tender Services: Cooling Pan Tender Present Cooling Pan Tender Name: [id number] Allergies Penicillins (PENICILLINS) Allergy (Intermediate, Verified 01/30/25 12:51) RASH metformin Adverse Reaction (Intermediate, Verified 01/30/25 12:51) Diarrhea Medication List - Last Reconciled 01/30/25 by Aamir Clement DPM atorvastatin 20 mg PO BEDTIME 90 days blood sugar diagnostic (FreeStyle Lite Strips) Use daily As directed to check blood glucose blood-glucose meter (FreeStyle Lite Meter kit) Use daily As directed to check blood sugars blood-glucose sensor (FreeStyle Jai 3 Sensor device) Apply every 14 days As directed dulaglutide (Trulicity) 4.5 mg (0.5 mL) subcut QWEEK empagliflozin (Jardiance) 25 mg PO QAM lancets (FreeStyle Lancets) use daily as directed to check blood glucose metoprolol tartrate 100 mg PO BID omeprazole 20 mg PO DAILY 90 days sertraline 25 mg PO DAILY HPI HPI New Pt- Diabetic foot exam, polyneuropothy: Details: The patient is a 39-year-old male past medical history of diabetes mellitus type 2 presents for initial evaluation of soft tissue mass to his right foot. The patient reports the presence of the bump on his foot for approximately one year. Pain is present when standing, wearing shoes, and when ambulating. He has not tried any treatment so far. He states he might have started after stepping on a screw/nail approximately 1 year ago that led to an infection that required surgical debridement, a little further away in his foot from the current bump. The patient has a history of diabetes mellitus, with a recent hemoglobin A1c level of 7.1%. Patient notes a recent spinal steroid injection approximately 8-10 months ago. [facility] Medical History Osteoarthritis of lumbar spine Excessive daytime sleepiness Snoring HTN (hypertension) Pure hypercholesterolemia Puncture wound of foot Muscle spasm of back Foot abscess, right Hypertrophic obstructive cardiomyopathy Submandibular lymphadenopathy Right foot pain Vertebrogenic low back pain History of recent fall Chest pain Hypoglycemia Sacroiliac joint dysfunction of left side Sacroiliac joint pain Elevated LFTs Physical exam URI (upper respiratory infection) Sacroiliitis Diabetes mellitus, without long-term current use of insulin Diabetes mellitus without complication, with long-term current use of insulin Foot abscess, right Poorly controlled type 2 diabetes mellitus Diabetes Osteoarthritis of right knee MARA (obstructive sleep apnea) Hypertensive heart disease Surgical History Status post placement of implantable loop recorder History of hand surgery History of elbow surgery History of ankle surgery Family History Father PVD (peripheral vascular disease) Essential hypertension Diabetes mellitus Mother Liver transplant failure Social History Household Members: Family Housing: Apartment Are you a primary day care teacher to a significant other at home: No Do you presently have visiting nurse or other home services: No Alcohol intake: current Alcohol intake frequency: a few times a month Alcohol type: beer Patient Tobacco Use Status: Former Tobacco user Tobacco use type: Cigarette Cigarettes Per Day: 10 Years Smoked: 20 e-Cigarette/Vaping Use: Currently Using Second Hand Smoke Exposure: No service: No Current occupational status: unemployed Current occupational exposures/hazards: No Cognitive needs: No Hearing needs: No Vision needs: Yes (Glasses) Review of Systems Const All systems reviewed & are unremarkable except as noted in HPI and below Physical Exam Vital Signs: BMI result Body Mass Index 40.7 Extrem Other: *Bilateral Lower Extremity Focused Exam Vascular: DP/PT 2/4, CFT<3s to digits, TG warm to cool, no pedal edema Derm: Palpable, firm, well-circumscribed nodular mess embedded within the medial band of the plantar fascia ligament just distal to the medial arch. No fluctuance, no clinical signs of infection. Healed scar along the plantar aspect of the 1st metatarsal head. Neuro: Protective sensation grossly intact to her bilateral lower extremities. MSK: No pain or tenderness on palpation of the plantar mass. No pain on palpation of the medial calcaneal tubercle. No pain on windlass mechanism. Office Procedures [facility] Pod[facility] Dressing 61632 Strapping of foot/toe (Fabricated and dispensed offloading doughnut pad. Applied to the plantar aspect of the right foot soft tissue mass.) Procedure code (CPT) selection complete Results Reviewed Results Reviewed: No A1c documented. Assessment & Plan Assessment & Plan (1) Plantar fascial fibromatosis of right foot: Code(s): M72.2 - Plantar fascial fibromatosis Category: Medical Plan: Discussed differential diagnosis of right foot mass which includes plantar fibroma, versus other soft tissue masses. Rx x-ray right foot. Rx MRI right foot without contrast to evaluate soft tissue mass. Discussed treatment options which include cortisone injection and surgical excision. Discussed low likelihood of resolution from steroid injections however they are recommended prior to planning for surgery. Discussed risks of surgical excision which include recurrence, scar formation, wound dehiscence, and infection, given his history of diabetes and previous local foot infection. (2) Type 2 diabetes, controlled, with peripheral neuropathy: Code(s): E11.42 - Type 2 diabetes mellitus with diabetic polyneuropathy Category: Medical Plan: Risk Stratification: No current ulceration, infection, or pre-ulcerative lesion. No loss of protective sensation or peripheral arterial disease. No plans for further testing/referrals for non-invasive vascular studies. Patient is at low risk for diabetic foot complications at this time. Recommendations: Continue routine foot care and daily self-inspection. Recommend moisturizing daily. Recommend supportive proper fitting shoe-wear. The patient may require diabetic shoes in the future. Reinforced diabetic foot education and risks from peripheral neuropathy. Orders: Orders XR foot RT min 3V Today M72.2 - Plantar fascial fibromatosis MR foot RT wo con Today M72.2 - Plantar fascial fibromatosis [facility] Pod[facility] Dressing Today M72.2 - Plantar fascial fibromatosis Coding Level of Care Code New Pt Level 4 (47183) Diagnoses Plantar fascial fibromatosis of right foot M72.2 Type 2 diabetes, controlled, with peripheral neuropathy E11.42 CPT Codes Podiatry Dressing - CPT: 28704 Strapping of foot/toe ([id number]) Time Spent (min) 30
[2025-01-30 12:48] VITALS: BMI 40.7
--- OUTSIDE RECORDS SUMMARY | 2025-01-30 17:12 | XMS_ITS | Clinical Summary ---
Author Organization [facility] Facility Address [address] [place] [address] Care Team Providers Care Replanter Name Role Phone Kelly Verma MD Primary Care Provider [phone] Allergies Active Allergy Reactions Criticality Noted Date [...] age to complete this topic [place] Care Teams Replanter Relationship Specialty Start Date End Date Kelly Verma MD [address] [place] [address] PCP - General Internal Medicine 10/19/20
--- OUTSIDE RECORDS SUMMARY | 2025-01-30 17:12 | XMS_ITS | Encounter Summary ---
Author Organization [facility] Address [address] [place] [address] Care Team Providers Care Special Education Instructor Name Role Phone Ninoska Meeks MD Primary Care Provider [phone] Encounter Details Date Type Department Care Team (Late Contact Info) Description 01/23/2025 Telephone Orthopedic Surgery [facility] [address] [address] Pat Martinez Social History Tobacco [...] . The patient can be reached at [phone]. -Pat documented in this encounter Plan of Treatment Upcoming Encounters Date Type Department Care Team (Late Contact Info) Description 02/07/2025 2:30 PM EDT Consult Orthopedic Surgery - [place] 250 175 [facility] [address] [place] [address] Ramón Kowalski, DPM 175 [facility] 250 [place] [phone] 02/20/2025 9:30 AM EDT Office Visit Orthopedic Surgery [facility] 175 [facility] [address] [place] [address] Allegra Coleman MD [address] [place] [phone] documented as of this encounter Visit Diagnoses Not on filedocumented in this encounter Care Teams Special Education Instructor Relationship Specialty Start Date End Date Ninoska Meeks MD [address] [place], [place] [address]Jenn, [address] Physician Associ D/B/A: [facility] [place] PCP - General Internal Medicine 04/26/24 documented as of this encounter
--- OUTSIDE RECORDS SUMMARY | 2025-01-30 17:12 | XMS_ITS | Clinical Summary ---
Author Organization [address] [place] [address] Address [address] [place] [address] Phone Care Team Providers Care Library Clerk Talking Books Name Role Phone Ninoska Meeks MD Primary Care Provider [phone] Allergies Active Allergy Reactions Criticality Noted Date [...] Type 2 diabetes mellitus wit h hyperglycemia ([facility] V24, [facility] V28) 04/22/2021 Complete tear of wrist ligament 02/26/2021 Essential (primary) hypertension 10/26/2020 Type 2 diabetes mellitus wit h diabetic neuropathy ([facility] V24, [facility] V28) 10/26/2020 Encounters Date Type Department Care Team Description 01/23/2025 Telephone Orthopedic Surgery [facility] 250 175 [facility] 250 [place] [address] MichellePat arnold 12/20/2024 1:45 PM EDT Office Visit Orthopedic Surgery [facility] 175 [facility] [address] [place] [address] Allegra Coleman MD 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) 11/02/2024 Telephone Orthopedic Surgery [facility] 250 [address] [facility] [address] [place] [address] Allegra Coleman MD from Last 3 Months Surgical History Surgery Date Site/Laterality Comments ELBOW SURGERY Right CARPAL TUNNEL RELEASE Right WRIST FUSION 05/18/2023 - 05/17/2024 Right scaphoid excision, 4 corner fusion OTHER SURGICAL HISTORY ACHILLES TENDON SURGERY Right ligaments Medical History Medical History Date Comments Diabetes ([facility] V24, [facility] V28) DX:Diabetes ([facility]) Essential (primary) hypertension DX:Essential (primary) hypertension [...] 02/07/2025 2:30 PM EDT Consult Orthopedic Surgery [facility] [address] [facility] [address] [place] [address] Ramón Kowalski, DPM 175 [facility] [address] [place] [address] 02/20/2025 9:30 AM EDT Office Visit Orthopedic Surgery [facility] 175 [facility] [address] [place] [address] Allegra Coleman MD [address] [place] [phone] Health Maintenance Due Date Last Done [...] patient's age to complete this topic Insurance [facility] PLAN Advance Directives * Full Code - [...] currently active code status orders. Care Teams Library Clerk Talking Books Relationship Specialty Start Date End Date Ninoska Meeks MD [address] [place] [address] , [address] [facility] Physician Associ D/B/A: [facility] [place] [place] PCP - General Internal Medicine 04/26/24
== END 2025-01-30 13:22 | disposition home or self-care (01) ==
LOC: HO.HPODS 12:31
PROVIDERS: PCP Internal Medicine; Visit Provider Student in an Organized Health Care Education/Training Program
DX: M72.2 Plantar fascial fibromatosis (principal); E11.42 Type 2 diabetes mellitus with diabetic polyneuropathy
CPT/HCPCS: 29550; 99204

== ENCOUNTER → 2025-01-30 12:31 | Outpatient (BNVA) | payer OTHER, SELFPAY | PROVIDERS: PCP Internal Medicine; Visit Provider Student in an Organized Health Care Education/Training Program | DX: E11.42 Type 2 diabetes mellitus with diabetic polyneuropathy (principal); M72.2 Plantar fascial fibromatosis; M79.89 Other specified soft tissue disorders | CPT/HCPCS: 29540; 29550; 99202 ==

== ENCOUNTER 2025-02-02 13:46 | Outpatient (AMB) | payer OTHER, SELFPAY ==
[2025-02-02 14:04] VITALS: BP 110/60; PULSE 88; BMI 40.3
--- NOTE | 2025-02-02 14:04 | A.OFFVIS_ITS ---
Vital Signs 02/02/25 14:04 Height 5 ft 6 in Weight 249 lb 9.012 oz BMI 40.3 BP 110/60 Blood Pressure Location Lt brachial Position Sitting Pulse 88 Pulse Source Pulse Oximeter Intake Visit Reasons: 6 wk wound ck ? device at this time NS Cake Froster Services: Cake Froster Offered & Declined Accompanied by: Spouse Allergies Penicillins (PENICILLINS) Allergy (Intermediate, Verified 02/02/25 14:07) RASH metformin Adverse Reaction (Intermediate, Verified 02/02/25 14:07) Diarrhea HPI Comments Details: This is a 39-year-old male patient coming in for a wound check status post ICD placement. Patient is accompanied by his who served as an elephant tamer throughout the visit. Patient with a history of hypertrophic obstructive cardiomyopathy status post ICD, diabetes, hypertension, and sleep apnea. There was concerns about possible arrhythmias and therefore, patient had an ILR placed in. Patient later underwent a cardiac MRI that showed significantly thickened interventricular septum at 32 mm with significant subendocardial scarring on gadolinium enhancement. Due to risk for sudden cardiac , patient underwent subcutaneous ICD implantation with Dr. Bell on 12/22/2024. Patient has followed up with a his office in [facility] where patient had a device check and everything was functioning well. Today patient is reporting feeling well overall without any cardiac symptoms of exertional chest pain, shortness of breath, palpitations, dizziness, orthopnea, PND, leg edema, presyncope, or syncope. Patient is reporting compliance with all his medications. [facility] Medical History Recurrent major depression Osteoarthritis of lumbar spine Excessive daytime sleepiness Snoring HTN (hypertension) Pure hypercholesterolemia Puncture wound of foot Muscle spasm of back Foot abscess, right Hypertrophic obstructive cardiomyopathy Submandibular lymphadenopathy Right foot pain Vertebrogenic low back pain History of recent fall Chest pain Hypoglycemia Sacroiliac joint dysfunction of left side Sacroiliac joint pain Elevated LFTs Physical exam URI (upper respiratory infection) Sacroiliitis Diabetes mellitus, without long-term current use of insulin Diabetes mellitus without complication, with long-term current use of insulin Foot abscess, right Poorly controlled type 2 diabetes mellitus Diabetes Osteoarthritis of right knee MARA (obstructive sleep apnea) Hypertensive heart disease Surgical History Status post placement of implantable loop recorder History of hand surgery History of elbow surgery History of ankle surgery Family History Father PVD (peripheral vascular disease) Essential hypertension Diabetes mellitus Mother Liver transplant failure Social History Household Members: Family Housing: Apartment Are you a primary healthcare representative to a significant other at home: No Do you presently have visiting nurse or other home services: No Alcohol intake: current Alcohol intake frequency: a few times a month Alcohol type: beer Patient Tobacco Use Status: Former Tobacco user Tobacco use type: Cigarette Cigarettes Per Day: 10 Years Smoked: 20 e-Cigarette/Vaping Use: Currently Using Second Hand Smoke Exposure: No service: No Current occupational status: unemployed Current occupational exposures/hazards: No Cognitive needs: No Hearing needs: No Vision needs: Yes (Glasses) Review of Systems Const Denies daytime sleepiness, Denies difficulty sleeping, Denies snoring, Denies stops breathing during sleep and Denies weakness Card Denies chest pain, Denies rapid heart rate, Denies irregular heart rhythm, Denies claudication, Denies leg edema, Denies lightheadedness, Denies palpitations, Reports dyspnea, Denies dyspnea on exertion, Denies orthopnea, Denies paroxysmal nocturnal dyspnea and Denies slow heart rate Resp Denies cough, Reports dyspnea, Denies dyspnea on exertion and Denies snoring GI Reports no additional complaints, Denies hematochezia, Denies change in stool character and Denies dyspepsia Musc Denies abnormal gait, Denies muscle weakness and Denies numbness Neuro Denies abnormal gait, Denies numbness and Denies weakness Endo Denies palpitations Physical Exam Vital Signs: Last Vital Signs Pulse 88 02/02/25 14:04 BP 110/60 02/02/25 14:04 BMI result Body Mass Index 40.3 Const General: cooperative, healthy appearing, comfortable and no acute distress Orientation/consciousness: patient oriented x3 HEENT Head: Yes normal to inspection Neck Neck: Yes normal visual inspection, Yes trachea midline and Yes supple Chest Chest palpation & inspection: normal inspection of the chest Resp Effort & Inspection: normal respiratory effort Auscultation: clear to auscultation bilaterally, no crackles, no rales, no rhonchi and no wheezes Cardio Jugular venous distension: no JVD Palpation: normal PMI Rate: regular rate Rhythm: regular rhythm Heart sounds: S1 normal heart sound present, S2 normal heart sound present, no click, no gallops, no murmurs and no rubs Peripheral pulses: Peripheral pulses 2+ throughout GI Inspection: Yes normal to inspection Palpation (GI): Soft to palpation Auscultation: normal bowel sounds Skin Other: Incision site well healed and approximated without any erythema, swelling or drainage. General skin exam: no rashes or lesions noted Neuro General: patient oriented x3 Extrem General: Yes normal to inspection, No no pedal edema and No calf tenderness Psych Appearance: grossly normal Mental Status: mental status grossly normal Speech and movement: Normal speech and movement present Assessment & Plan Assessment & Plan (1) Hypertrophic obstructive cardiomyopathy: Code(s): I42.1 - Obstructive hypertrophic cardiomyopathy Category: Medical Plan: 07/25/2024-echo study showed hyperdynamic LV systolic function with ejection fraction greater than 70%, grade 2 diastolic dysfunction, severe septal hypertrophy. 08/29/2024-patient underwent cardiac MRI at [facility] that showed severe asymmetric septal hypertrophy at 32 mm with significant subendocardial scarring on gadolinium and has been. Given above finding, patient was referred out to EP for ICD placement for primary prevention. Patient underwent ICD placement with Dr. Bell on 12/22/2024. Patient has followed up with their office in [place] for a device check and is functioning well. Incision site on the right upper chest is well healed and well approximated with no erythema, edema, or drainage noted. Discussed in details about the signs and symptoms of infection and what to look for. Advised to continue with normal activity and increased exercise tolerance as tolerated. (2) ICD (implantable cardioverter-defibrillator) in place: Code(s): Z95.810 - Presence of automatic (implantable) cardiac defibrillator Category: Medical Plan: Patient has a [employer] ICD. Patient's connected to remote monitoring and we will follow this closely. Patient will return in 3 months for a device check with the rep. (3) Essential hypertension: Code(s): I10 - Essential (primary) hypertension Category: Medical Plan: Blood pressure today is well-controlled. Continue current regimen. Advised to continue monitoring at home. Ideally, blood pressure goal less than 130/80. (4) Implantable loop recorder present: Code(s): Z95.818 - Presence of other cardiac implants and grafts Category: Medical Plan: Medtronic implantable loop recorder placed 07/20/[address] Crow. Now that we have the ICD in place, patient will need the removal for this. We will schedule this with Dr. Crow in the next 2 weeks. (5) Visit for wound check: Code(s): Z51.89 - Encounter for other specified aftercare Plan: As above. Patient will follow up in 3 months. In the interim, patient will call the office with any concerns or change in symptoms. This note was generated using voice recognition software. While every effort has been made to ensure accuracy and proper site manager, there may be occasional errors that could affect the content or meaning of the described symptoms. Coding Level of Care Code Est Pt Level 4 (26061) Complex EM visit Add On G2211 Diagnoses Hypertrophic obstructive cardiomyopathy I42.1 ICD (implantable cardioverter-defibrillator) in place Z95.810 Essential hypertension I10 Implantable loop recorder present Z95.818 Visit for wound check Z51.89 Time Spent (min) 33 Comment Time spent in reviewing the chart, test results, assessment, counseling and documentation.
--- OUTSIDE RECORDS SUMMARY | 2025-02-02 15:50 | XMS_ITS | Encounter Summary ---
Author Organization [facility] Address [address] [place] [address] Care Team Providers Care Plant Cytologist Name Role Phone Ninoska Meeks MD Primary Care Provider Encounter Details Date Type Department Care Team (Late Contact Info) Description 01/23/2025 Telephone Orthopedic Surgery [facility] [address] [address] Pat Martinez Social History Tobacco [...] . The patient can be reached at [phone]. -Pat documented in this encounter Plan of Treatment Upcoming Encounters Date Type Department Care Team (Late Contact Info) Description 02/07/2025 2:30 PM EDT Consult Orthopedic Surgery - [place] 250 175 [facility] [address] [place] [address] Ramón Kowalski, DPM 175 [facility] 250 [place] [phone] 02/20/2025 9:30 AM EDT Office Visit Orthopedic Surgery [facility] 175 [facility] [address] [place] [address] Allegra Coleman MD [address] [place] [phone] documented as of this encounter Visit Diagnoses Not on filedocumented in this encounter Care Teams Plant Cytologist Relationship Specialty Start Date End Date Ninoska Meeks MD [address] [place], [place] [address]J[place], [address] Physician Associ D/B/A: [facility] [place] PCP - General Internal Medicine 04/26/24 documented as of this encounter
--- OUTSIDE RECORDS SUMMARY | 2025-02-02 15:50 | XMS_ITS | Clinical Summary ---
Author Organization [address] [place] [address] Address 175 [place] [address] Phone Care Team Providers Care Operations Support Professionals Name Role Phone Ninoska Meeks MD Primary Care Provider [phone] Allergies Active Allergy Reactions Criticality Noted Date [...] Type 2 diabetes mellitus wit h hyperglycemia ([facility] V24, [facility] V28) 04/22/2021 Complete tear of wrist ligament 02/26/2021 Essential (primary) hypertension 10/26/2020 Type 2 diabetes mellitus wit h diabetic neuropathy ([facility] V24, [facility] V28) 10/26/2020 Encounters Date Type Department Care Team Description 01/23/2025 Telephone Orthopedic Surgery [facility] 250 175 [facility] 250 [place] [address] MichellePat arnold 12/20/2024 1:45 PM EDT Office Visit Orthopedic Surgery [facility] 175 [facility] 140 [place] [address] Allegra Coleman MD 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) 11/02/2024 Telephone Orthopedic Surgery [facility] 250 175 [facility] 250 [place] [address] Allegra Coleman MD from Last 3 Months Surgical History Surgery Date Site/Laterality Comments ELBOW SURGERY Right CARPAL TUNNEL RELEASE Right WRIST FUSION 05/18/2023 - 05/17/2024 Right scaphoid excision, 4 corner fusion OTHER SURGICAL HISTORY ACHILLES TENDON SURGERY Right ligaments Medical History Medical History Date Comments Diabetes ([facility] V24, [facility] V28) DX:Diabetes ([facility]) Essential (primary) hypertension DX:Essential (primary) [...] 02/07/2025 2:30 PM EDT Consult Orthopedic Surgery [facility] 250 175 [facility] 250 [place] [address] Ramón Kowalski, DPM 175 [facility] 250 [place] [address] 02/20/2025 9:30 AM EDT Office Visit Orthopedic Surgery [facility] 175 [facility] 140 [place] [address] Allegra Coleman MD [address] [place] [phone] Health Maintenance Due Date Last Done [...] patient's age to complete this topic Insurance [facility] Advance Directives * Full Code [...] currently active code status orders. Care Teams Operations Support Professionals Relationship Specialty Start Date End Date Ninoska Meeks MD [address] [place] [address] , [address] Physician Associ D/B/A: [facility] [place] PCP - General Internal Medicine 04/26/24
--- OUTSIDE RECORDS SUMMARY | 2025-02-02 15:50 | XMS_ITS | Clinical Summary ---
Author Organization [facility] Address [address] [place] [address] Care Team Providers Care Newsstand Vendor Name Role Phone Kelly Verma MD Primary [...] age to complete this topic Insurance [place] Care Teams Newsstand Vendor Relationship Specialty Start Date End Date Kelly Verma MD [address] [place] [address] PCP - General Internal Medicine 10/19/20
== END 2025-02-02 14:41 | disposition home or self-care (01) ==
LOC: HO.HCS 13:47
PROVIDERS: PCP Internal Medicine
DX: I42.1 Obstructive hypertrophic cardiomyopathy (principal); Z95.810 Presence of automatic (implantable) cardiac defibrillator; I10 Essential (primary) hypertension; Z95.818 Presence of other cardiac implants and grafts; Z51.89 Encounter for other specified aftercare
CPT/HCPCS: 99214

== ENCOUNTER → 2025-02-02 13:46 | Outpatient (BNVA) | payer OTHER, SELFPAY | PROVIDERS: PCP Internal Medicine | DX: I42.1 Obstructive hypertrophic cardiomyopathy (principal); I10 Essential (primary) hypertension; Z95.810 Presence of automatic (implantable) cardiac defibrillator; Z95.818 Presence of other cardiac implants and grafts; Z51.89 Encounter for other specified aftercare | CPT/HCPCS: 99212 ==

== ENCOUNTER 2025-02-08 07:43 | Outpatient (AMB) | payer OTHER, SELFPAY ==
--- OUTSIDE RECORDS SUMMARY | 2025-02-07 14:30 | XMS_ITS | Encounter Summary ---
Author Organization [facility] Address [address] [place] [address] Care Team Providers Care Vessel Slag Worker Name Role Phone Ninoska Meeks MD Primary Care Provider [phone] Reason for Visit * Reason Comments DM Foot Care * Consultation (Routine) - Authorized Specialty Diagnoses / Procedures Referred By Contact Referred To Contact Podiatry / Orthopaedic Surgery Diagnoses Type 2 diabetes mellitus with diabetic polyneuropathy (CMS/[facility] V24, [facility] V28) Manda Chino PA [address] [place] [address] Phone: tel:[phone] Ramón Kowalski DPM [address] [address] Phone: tel: fax: Referral ID Status Reason Start Date Expiration Date Visits Requested Visits Authorized [id number] Authorized Specialty Services Required 11/16/2024 11/16/2025 1 1 Encounter Details Date Type Department Care Team ([facility] st Contact Info) Description 02/07/2025 2:30 PM EDT Consult Orthopedic Surgery - [place] [address] [address] Ramón Kowalski DPM [address] [address] Plantar fibromatosis (Primary Dx); Type 2 diabetes mellitus with diabetic polyneuropathy (CMS/HCC V24, CMS/[facility] V28) Social History Tobacco Use Types Packs/Day Years [...] AM EDT documented as of this encounter Ordered Prescriptions Prescription Sig Dispense Quantity Refills Last Filled Start Date End Date diclofenac (Voltaren Arthritis Pain) 1 % topical gel Apply 4 g topically 2 (two) times a day. 240 g 1 02/07/2025 documented in this encounter Progress Notes * Ramón Kowalski, DPM - 02/07/2025 2:30 PM EDT Last PCP visit:Referring MD: Manda Chino PA IDENTIFIER: Phillip Back is a 39 y.o. year old male who presents for consultation. CC: Foot pain HPI: Phillip Back is a 39 y.o. year old male presents complaining of numbness burning tingling to the ball of the foot states he is a type II diabetic gets worsening pain in his right foot he states he has a lump there is been very painful aching mixed deformed walk pain discomfort he states is a 7 out of 10 on a visual analog scale and affects him daily physical past medical history of surgery with Dr. Teo Diez for right ankle ligament repair ROS: GENERAL: Pt denies nausea, fever, vomiting, chills, or shortness of breath. Pt in NAD. CARDIOLOGY: pt denies chest pain, palpitations LUNGS: pt denies shortness of breath MUSCULOSKELETAL: See HPI, otherwise no joint pain or swelling, back pain, or muscle pain. SKIN: see HPI, otherwise no lesions, rash or itching NEURO: No persistent headache, weakness or numbness The remainder of the review of systems is noncontributory PAST MEDICAL HISTORY: Patient Active Problem List Diagnosis Nonunion after arthrodesis Complete tear of wrist ligament Cubital tunnel syndrome on left Essential (primary) hypertension Injury of triangular fibrocartilage complex of right wrist Type 2 diabetes mellitus with diabetic neuropathy (CMS/HCC V24, CMS/HCC V28) Type 2 diabetes mellitus with hyperglycemia ([facility] V24, [facility] V28) SOCIAL HISTORY: Social History Tobacco Use Smoking status: Former Types: Cigarettes Smokeless tobacco: Never Substance Use Topics Alcohol use: Yes Alcohol/week: 2.0 - 3.0 standard drinks of alcohol Types: 2 - 3 Standard drinks or equivalent per week Comment: ONCE WEEKLY ACTIVE MEDICATIONS: No outpatient medications have been marked as taking for the 02/07/25 encounter (Consult) with Ramón Kowalski DPM. ALLERGIES: Allergies Allergen Reactions Penicillins Rash Metformin Diarrhea and Nausea And Vomiting PHYSICAL EXAM: Visit Vitals Smoking Status Former PODIATRIC EXAMINATION: GENERAL: Patient appears well nourished, with NAD. VASCULAR: Dorsalis pedis pulses are 2/4 bilaterally and Posterior tibial pulses are 2/4 bilaterally. Capillary filling time within normal limits the digits. No pallor on elevation or rubor on dependency. No varicosities. Denies rest pain or claudication pain. NEUROLOGICAL: Sharp/dull sensation altered , protective sensation intact 10/10 with Ipswitch touch test bilaterally, vibratory sensation intact to the tibial tuberosity. ORTHOPEDIC: Good muscle strength 5/5 of all flexors and extensors. Dorsi flexion of ankle ,10 degrees, plantar flexion WNL. No muscle atrophy. Palpable fibroid medial plantar fascial band extending centrally well-defined 3 cm x 3 cm extending another 2 cm into the ball of the foot total of 5 cm x 3cm DERMATOLOGICAL:.No masses or skin lesions noted. Normal skin temperature, normal skin turgor. BIOMECHANICS: Ankle ROM WNL, STJ ROM wnl, MTJ ROM wnl, 1st MPJ ROM wnl. IMAGING: IMPRESSION: 1. Plantar fibromatosis 2. Type 2 diabetes mellitus with diabetic polyneuropathy ([facility] V24, [facility] V28) PLAN: Pt was seen and examined, history reviewed. X-ray ordered right foot 3 views Fibroma discussed and reviewed discussed possible treatment options specifically discussed major surgery of removal of fibroma of his right foot surgical excision has a risk of reoccurrence dehiscence infection and scar tissue formation discussed patient my concern for scar tissue formation on plantar aspect of foot which can leave a very painful intractable scar tissue after surgery recovery from surgery would be 3 weeks of strict nonweightbearing to right lower extremity there is an added risk of nerve damage and numbness to his foot Discussed possible benefits from further work including MRI patient reports he cannot have an MRI secondary to metal in his body Voltaren gel prescribed Discussed steroid injections patient states he cannot have steroid shots did discuss possible benefits of nketo Keralac injections Follow-up in 1 month Ramón Kowalski DPM documented in this encounter Plan of Treatment Upcoming Encounters Date Type Department Care Team (Late st Contact Info) Description 02/20/2025 9:30 AM EDT Office Visit Orthopedic Surgery [facility] 175 [facility] 140 [place] [phone] Allegra Coleman MD [address] [place] [phone] 03/21/2025 2:15 PM EST Office Visit Orthopedic [facility] 250 175 [facility] 250 [place] [phone] Ramón Kowalski DPM 175 [facility] 250 [place] [phone] documented as of this encounter Visit Diagnoses Diagnosis Plantar fibromatosis- Primary Plantar fascial fibromatosis Type 2 diabetes mellitus with diabetic polyneuropathy ([facility] V24, [facility] V28) documented in this encounter Orders Outpatient Referral Count Last Ordered Date [facility] st Ordered Date AMB REFERRAL TO PODIATRY 1 02/07/2025 documented in this encounter Care Teams Vessel Slag Worker Relationship Specialty Start Date End Date Ninoska Meeks MD [address] [place] [address] , [facility] 101 [facility] Physician Associ D/B/A: [facility] [place], [place] PCP - General Internal Medicine 04/26/24 documented as of this encounter
--- OUTSIDE RECORDS SUMMARY | 2025-02-08 07:46 | XMS_ITS | Clinical Summary ---
Author Organization [facility] Facility Address [address] [place] [address] Care Team Providers Care Natural Gas Trader Name Role Phone Kelly Verma MD Primary Care Provider [phone] Allergies Active Allergy Reactions Criticality Noted Date [...] age to complete this topic Insurance [place] Care Teams Natural Gas Trader Relationship Specialty Start Date End Date Kelly Verma MD [address] [place] [address] PCP - General Internal Medicine 10/19/20
--- OUTSIDE RECORDS SUMMARY | 2025-02-08 07:46 | XMS_ITS | Clinical Summary ---
Author Organization [address] [place] [address] Address [address] [place] [address] Phone Care Team Providers Care Floor Space Allocator Name Role Phone Ninoska Meeks MD Primary Care Provider Allergies Active Allergy [...] 1 (one) time per week. 5 Active diclofenac (Voltaren Arthritis Pain) 1 % topical gel Apply 4 g topically 2 (two) times a day. 240 g 1 5 04/08/20 2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 Cubital tunnel syndrome on left 04/23/2023 Injury of triangular fibrocartilage complex of r ight wrist 08/05/2021 Type 2 diabetes mellitus wit h hyperglycemia (CMS/HCC V24, CMS/HCC V28) 04/22/2021 Complete tear of wrist ligament 02/26/2021 Essential (primary) hypertension 10/26/2020 Type 2 diabetes mellitus wit h diabetic neuropathy ([facility]24, [facility] V28) 10/26/2020 Encounters Date Type Department Care Team Description 02/07/2025 2:30 PM EDT Consult Orthopedic Surgery [facility] [address] [facility] [address] [place] [address] Ramón Kowalski, DPM Plantar fibromatosis (Primary Dx); Type 2 diabetes mellitus with diabetic polyneuropathy ([facility] V24, [facility] V28) 01/23/2025 Telephone Orthopedic Surgery [facility] 250 [address] [facility] [address] [place] [address] Pat Martinez 12/20/2024 1:45 PM EDT Office Visit Orthopedic [facility] 175 [facility] [address] [place] [phone] Allegra Coleman MD 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) from Last 3 Months Surgical History Surgery Date Site/Laterality Comments ELBOW SURGERY Right CARPAL TUNNEL RELEASE Right WRIST FUSION 05/18/2023 - 05/17/2024 Right scaphoid excision, 4 corner fusion OTHER SURGICAL HISTORY ACHILLES TENDON SURGERY Right ligaments Medical History Medical History Date Comments Diabetes ([facility], [facility] V28) DX:Diabetes ([facility]) Essential (primary) hypertension DX:Essential (primary) [...] 02/20/2025 9:30 AM EDT Office Visit Orthopedic [facility] 175 [facility] [address] [place] [phone] Allegra Coleman MD [address] [place] [phone] 03/21/2025 2:15 PM EST Office Visit [facility] [address] [facility] [address] [place] [address] Ramón Kowalski DPM 175 [facility] [address] [place] [phone] Health Maintenance Due Date Last Done Comments [...] (2 - Td or Tdap) 08/09/2031 08/08/2021 RSV Immunization Adult Patients (1 - 1-dose 75+ series) 10/15/2058 HIB Vaccines Aged Out No longer eligi [...] patient's age to complete this topic Insurance [facility] [place] [id number] Advance Directives * Full Code - Default [...] currently active code status orders. Care Teams Floor Space Allocator Relationship Specialty Start Date End Date Ninoska Meeks MD [address] [place] [address] , [address] [facility] Associ D/B/A: [facility] PCP - General Internal Medicine 04/26/24
[2025-02-08 08:18] VITALS: BP 124/78; PULSE 81; O2SAT 98; BMI 33.9
--- NOTE | 2025-02-08 08:18 | MHC.PC.OV ---
Vital Signs 02/08/25 08:18 Height 6 ft Weight 250 lb BMI 33.9 BP 124/78 Blood Pressure Location Lt brachial Position Sitting Pulse 81 Pulse Source Pulse Oximeter Pulse Oximetry (%) 98 Oxygen Delivery Method Room Air Intake Visit Reasons: 4mth f/u Director Of Quality Improvement Required: No Accompanied by: Self / Same As Patient Allergies Penicillins (PENICILLINS) Allergy (Intermediate, Verified 02/08/25 08:27) RASH metformin Adverse Reaction (Intermediate, Verified 02/08/25 08:27) Diarrhea Medication List - Last Reconciled 02/08/25 by Ninoska Meeks MD atorvastatin 20 mg PO BEDTIME 90 days blood sugar diagnostic (FreeStyle Lite Strips) Use daily As directed to check blood glucose blood-glucose meter (FreeStyle Lite Meter kit) Use daily As directed to check blood sugars blood-glucose sensor (FreeStyle Jai 3 Sensor device) Apply every 14 days As directed dulaglutide (Trulicity) 4.5 mg (0.5 mL) subcut QWEEK empagliflozin (Jardiance) 25 mg PO QAM lancets (FreeStyle Lancets) use daily as directed to check blood glucose metoprolol tartrate 100 mg PO BID omeprazole 20 mg PO DAILY 90 days sertraline 25 mg PO DAILY Tobacco use date assessed: 05/25/24 Dental Screening Dental Screen Date: 05/25/24 HPI HPI Comments History of Present Illness Details The patient is a 39-year-old male presenting for management of chronic conditions including diabetes, hyperlipidemia, and hypertrophic cardiomyopathy. The patient's Type 2 Diabetes Mellitus was recently evaluated with an A1c test conducted two weeks ago, showing a result of 7.1%. He is currently on a regimen including Trulicity and Jardiance for diabetes management. Microalbuminuria was noted, which may be related to his diabetes, and further testing was recommended. For hyperlipidemia, the patient is taking atorvastatin and a lipid panel is planned to ensure LDL levels are below 70 mg/dL. The patient is also advised to lose weight as his BMI is 33.9, indicating class 1 obesity. The patient has a history of hypertrophic cardiomyopathy with severe septal hypertrophy and an ejection fraction over 70%. His last echocardiogram was performed in July of this year. The patient is being treated for depression with anxiety, with a PHQ-9 score of 5 indicating mild depression. He is on sertraline and has a psychiatrist for counseling. PFSH Medical History (Updated 02/08/25 @ 08:35 by Ninoska Meeks MD) Recurrent major depression Osteoarthritis of lumbar spine Excessive daytime sleepiness Snoring HTN (hypertension) Pure hypercholesterolemia Puncture wound of foot Muscle spasm of back Foot abscess, right Hypertrophic obstructive cardiomyopathy Submandibular lymphadenopathy Right foot pain Vertebrogenic low back pain History of recent fall Chest pain Hypoglycemia Sacroiliac joint dysfunction of left side Sacroiliac joint pain Elevated LFTs Physical exam URI (upper respiratory infection) Sacroiliitis Diabetes mellitus, without long-term current use of insulin Diabetes mellitus without complication, with long-term current use of insulin Foot abscess, right Poorly controlled type 2 diabetes mellitus Diabetes Osteoarthritis of right knee MARA (obstructive sleep apnea) Hypertensive heart disease Surgical History Status post placement of implantable loop recorder History of hand surgery History of elbow surgery History of ankle surgery Family History Father PVD (peripheral vascular disease) Essential hypertension Diabetes mellitus Mother Liver transplant failure Social History Household Members: Family Housing: Apartment Are you a primary child care coordinator to a significant other at home: No Do you presently have visiting nurse or other home services: No Alcohol intake: current Alcohol intake frequency: a few times a month Alcohol type: beer Patient Tobacco Use Status: Former Tobacco user Tobacco use type: Cigarette Cigarettes Per Day: 10 Years Smoked: 20 e-Cigarette/Vaping Use: Currently Using Second Hand Smoke Exposure: No service: No Current occupational status: unemployed Current occupational exposures/hazards: No Cognitive needs: No Hearing needs: No Vision needs: Yes (Glasses) Questionnaire PHQ-9 Over the last 2 weeks, how often have you been bothered by any of the following problems? 1. Little interest or pleasure in doing things: several days 2. Feeling down, depressed, or hopeless: several days 3. Trouble falling or staying asleep, or sleeping too much: several days 4. Feeling tired or having little energy: several days 5. Poor appetite or overeating: several days 6. Feeling bad about yourself - or that you are a failure or have let yourself or your family down: not at all 7. Trouble concentrating on things, such as reading the newspaper or watching television: not at all 8. Moving or speaking so slowly that other people could have noticed. Or the opposite - being so fidgety or restless that you have been moving around a lot more than usual: not at all 9. Thoughts that you would be better off or of hurting yourself in some way: not at all Total score: 5 Depression Screening Interpretation: Positive Depression Screening Follow-up: Existing condition, In treatment, Community Mental Health Worker F/U and Follow-up Visit Requested Depression Screening Done: Yes 96860 - PHQ-9 Billing: Yes Source: Developed by Drs. Sinan Ledesma, Ruth Ann Verdugo, Ej Hamilton and colleagues, with an educational america from [employer]. Thrive Questionnaire Date Thrive assessed: 05/25/24 I am a: Patient What is your living situation today?: I have a steady place to live Within the past 12 months, did the food you bought not last and you didn't have the money to get more?: I choose not to answer this question Within the past 12 months, did you worry whether your food would run out before you got money to buy more?: I choose not to answer this question Do you have trouble paying for medicines?: No Do you have trouble getting transportation to medical appointments?: No Do you have trouble paying your heating and electricity bill?: No Do you have trouble taking care of your child, family member or friend?: No Do you have trouble with day-to-day activities such as bathing, preparing meals, shopping, managing finances, etc.?: I choose not to answer this question Are you currently unemployed and looking for a job?: Yes Are you interested in more education?: No Please select the resources that you would like help with: None Currently or been in a relationship where the following occur: I choose not to answer THRIVE Score: 0 AUDIT C Alcohol Use Questionnaire (AUDIT-C) 1. How often do you have a drink containing alcohol?: 2-4 times a month 2. How many drinks containing alcohol do you have on a typical day when you are drinking?: 7 to 9 3. How often do you have six or more drinks on one occasion?: Weekly Total Score: 8 Score Reviewed/Action Taken: Yes MARTIN-7 AMB Questionnaire MARTIN-7 Date MARTIN - 7 assessed: 05/25/24 Source: Developed by Drs. Sinan Ledesma, Ruth Ann Verdugo, Ej Hamilton and colleagues, with an educational america from [employer]. Review of Systems Const All systems reviewed & are unremarkable except as noted in HPI and below Card Denies chest pain at rest, Denies chest pain with activity, Denies edema, Denies irregular heart rhythm, Denies claudication, Denies dyspnea, Denies dyspnea on exertion, Denies orthopnea, Denies paroxysmal nocturnal dyspnea and Denies slow heart rate Resp Denies cough, Denies dyspnea and Denies dyspnea on exertion Physical exam (Primary Care) Vital Signs: Last Vital Signs Pulse 81 02/08/25 08:18 BP 124/78 02/08/25 08:18 Pulse Ox 98 02/08/25 08:18 Oxygen Delivery Method Room Air 02/08/25 08:18 BMI result Body Mass Index 40.3 BMI Assessment/Plan discussion: High BMI High, discussed plan: lifestyle, weight reduction, dietary and physical activity Tobacco/Smoking Status: Tobacco use Status Tobacco use date assessed 05/25/24 02/08/25 08:22 Patient Tobacco Use Status Former Tobacco user 02/08/25 08:22 Tobacco use type Cigarette 02/08/25 08:22 e-Cigarette/Vaping Use Currently Using 02/08/25 08:22 PHQ-9: PHQ-9 Score PHQ-9: Total score 5 02/08/25 08:22 Depression Screening Interpretation: Positive Depression Screening Follow-up: Existing condition, In treatment, Community Mental Health Worker F/U and Follow-up Visit Requested Thrive Assessment: Date of Thrive Assessment Date Thrive assessed 05/25/24 02/08/25 08:22 Currently or been in a relationship where the following occur: I choose not to answer Resp Effort & Inspection: normal respiratory effort Auscultation: clear to auscultation bilaterally Cardio Jugular venous distension: no JVD Rate: regular rate Rhythm: regular rhythm Heart sounds: S1 normal heart sound present and S2 normal heart sound present Extrem General: Yes full ROM Coding Level of Care Code Est Pt Level 4 (14341) Complex EM visit Add On G2211 Diagnoses Mild recurrent major depression F33.0 Essential hypertension I10 Hypertrophic cardiomyopathy I42.2 Dyslipidemia E78.5 Type 2 diabetes, controlled, with peripheral neuropathy E11.42 Right ankle pain M25.571 Additional Codes PHQ-9 - 25560 - PHQ-9 Billing: Yes ([id number]) Time Spent (min) 22 Assessment & Plan Assessment & Plan (1) Mild recurrent major depression: Code(s): F33.0 - Major depressive disorder, recurrent, mild Category: Medical (2) Essential hypertension: Code(s): I10 - Essential (primary) hypertension Category: Medical (3) Hypertrophic cardiomyopathy: Code(s): I42.2 - Other hypertrophic cardiomyopathy Category: Medical (4) Dyslipidemia: Code(s): E78.5 - Hyperlipidemia, unspecified Category: Medical (5) Type 2 diabetes, controlled, with peripheral neuropathy: Code(s): E11.42 - Type 2 diabetes mellitus with diabetic polyneuropathy Category: Medical (6) Right ankle pain: Code(s): M25.571 - Pain in right ankle and joints of right foot Category: Medical Plan Plan Patient was informed and verbally consented to the use of an ambient scribe for clinic note documentation during this visit. 1. Type 2 Diabetes Mellitus The patient's diabetes management includes Trulicity and Jardiance, with a recent A1c of 7.1%. Microalbuminuria was noted, and further testing is recommended to monitor kidney function. 2. Hyperlipidemia The patient is on atorvastatin, and a lipid panel is planned to ensure LDL levels are below 70 mg/dL. 3. Obesity The patient is advised to lose weight as his BMI is 33.9, indicating class 1 obesity. 4. Depression With Anxiety The patient is being treated with sertraline and is under the care of a psychiatrist for counseling. 5. Hypertrophic Cardiomyopathy The patient has severe septal hypertrophy with an ejection fraction over 70%, and his last echocardiogram was in July. Orders: Orders XR ankle RT 2V Today M25.571 - Pain in right ankle and joints of right foot Lipid Panel Today E78.5 - Hyperlipidemia, unspecified Vitamin D 25-OH Total Today E55.9 - Vitamin D deficiency, unspecified Comprehensive [place]. Panel Fast Today E11.42 - Type 2 diabetes mellitus with diabetic polyneuropathy Microalbumin, Random (w Creat) Today R80.9 - Proteinuria, unspecified
== END 2025-02-08 08:40 | disposition home or self-care (01) ==
LOC: HO.HMCH 07:44
PROVIDERS: PCP Internal Medicine; Visit Provider Internal Medicine
DX: E11.42 Type 2 diabetes mellitus with diabetic polyneuropathy (principal); I42.2 Other hypertrophic cardiomyopathy; F33.0 Major depressive disorder, recurrent, mild; I10 Essential (primary) hypertension; E78.5 Hyperlipidemia, unspecified; M25.571 Pain in right ankle and joints of right foot

== ENCOUNTER 2025-02-08 07:43 | Outpatient (REF) | payer OTHER, SELFPAY ==
--- NOTE | ~2025-02-08 | XR_ITS ---
EXAMINATION: XR ANKLE, right CLINICAL INFORMATION: M25.571 - Pain in right ankle and joints of right foot COMPARISON: December 22, 2019 TECHNIQUE: AP, lateral, and mortise views lower extremity joint, ankle. FINDINGS: Ankle mortise is congruent. There is no widening of the syndesmosis. 3. Anchors are again seen in the distal fibula. There is persistent lucency across the inferior fibular tip that was present on the prior. Talar dome is intact. There are marginal osteophytes involving the tibial plafond There are small calcaneal enthesophyte(s). XR/XR ankle RT 2V IMPRESSION: Anchors are present in the distal fibula likely from ligament reconstruction. 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 Calcaneal spurs. Tibial plafond and osteophytes. Electronically signed by: Wilson Brantley MD 02/08/2025 12:18 PM EDT
--- NOTE | ~2025-02-08 | XR_ITS ---
EXAMINATION: XR FOOT, RIGHT CLINICAL INFORMATION: M72.2 - Plantar fascial fibromatosis COMPARISON: None available. TECHNIQUE: AP, lateral, and oblique views of the right foot. FINDINGS: There is nonspecific small focal ossification at the lateral base of the first proximal phalanx. There is a prominent bony spur or exostosis projecting posteriorly from the talar neck. There is a small ossification at the medial malleolar tip. Calcaneal spurs are present small. XR/XR foot RT min 3V IMPRESSION: There is a bony spur along the dorsal medial aspect of the navicular bone. Correlate for signs symptoms of impingement. There calcaneal spurs which is a nonspecific finding. Electronically signed by: Wilson Brantley MD 02/08/2025 12:20 PM EDT
[2025-02-08 09:42] LABS: Alanine Aminotransferase 117 U/L (0-40); Albumin Level 5.1 g/dL (3.5-5.0); Alkaline Phosphatase 101 U/L (39-117); Anion Gap 12 (12-20); Aspartate Amino Transferase 52 U/L (5-37); Blood Urea Nitrogen 17 mg/dL (9-16); Calcium 9.4 mg/dL (8.4-10.2); Carbon Dioxide 26 mmol/L (22-29); Chloride 106 mmol/L (96-108); Cholesterol 172 mg/dL (<200); Estimated Glomerular Filt Rate > 60; HDL Cholesterol 40 mg/dL (>40); Potassium 4.3 mmol/L (3.3-5.1); Sodium 140 mmol/L (135-145); Total Protein 7.8 g/dL (6.5-8.0); Triglycerides 127 mg/dL (<150)
== END 2025-02-08 07:44 | disposition home or self-care (01) ==
LOC: HO.XRAY 07:43
PROVIDERS: PCP Internal Medicine; Visit Provider Internal Medicine
DX: E55.9 Vitamin D deficiency, unspecified (principal); E78.5 Hyperlipidemia, unspecified; E11.42 Type 2 diabetes mellitus with diabetic polyneuropathy; R80.9 Proteinuria, unspecified; M72.2 Plantar fascial fibromatosis; M25.571 Pain in right ankle and joints of right foot; F33.0 Major depressive disorder, recurrent, mild; I10 Essential (primary) hypertension; I42.2 Other hypertrophic cardiomyopathy; Z79.85 Long-term (current) use of injectable non-insulin antidiabetic drugs; Z79.84 Long term (current) use of oral hypoglycemic drugs; Z79.899 Other long term (current) drug therapy
CPT/HCPCS: 36415; 73600; 73630; 80053; 80061; 82043; 82306; 82570; 96127; 99212

== ENCOUNTER → 2025-02-08 09:01 | Outpatient (BNV) | payer OTHER, SELFPAY | PROVIDERS: PCP Internal Medicine; Visit Provider Radiology Diagnostic Radiology | DX: M72.2 Plantar fascial fibromatosis (principal); M25.771 Osteophyte, right ankle; M77.31 Calcaneal spur, right foot | CPT/HCPCS: 73600; 73630 ==

== ENCOUNTER → 2025-02-17 23:59 | Outpatient (BNV) | payer OTHER, SELFPAY ==
--- NOTE | 2025-02-22 12:17 | MHC.OFFVIS ---
Intake Visit Reasons: Remote ILR check- [employer] Allergies Penicillins (PENICILLINS) Allergy (Intermediate, Verified 02/08/25 08:27) RASH metformin Adverse Reaction (Intermediate, Verified 02/08/25 08:27) Diarrhea PFSH Medical History Recurrent major depression Osteoarthritis of lumbar spine Excessive daytime sleepiness Snoring HTN (hypertension) Pure hypercholesterolemia Puncture wound of foot Muscle spasm of back Foot abscess, right Hypertrophic obstructive cardiomyopathy Submandibular lymphadenopathy Right foot pain Vertebrogenic low back pain History of recent fall Chest pain Hypoglycemia Sacroiliac joint dysfunction of left side Sacroiliac joint pain Elevated LFTs Physical exam URI (upper respiratory infection) Sacroiliitis Diabetes mellitus, without long-term current use of insulin Diabetes mellitus without complication, with long-term current use of insulin Foot abscess, right Poorly controlled type 2 diabetes mellitus Diabetes Osteoarthritis of right knee MARA (obstructive sleep apnea) Hypertensive heart disease Surgical History Status post placement of implantable loop recorder History of hand surgery History of elbow surgery History of ankle surgery Family History Father PVD (peripheral vascular disease) Essential hypertension Diabetes mellitus Mother Liver transplant failure Social History Household Members: Family Housing: Apartment Are you a primary after school caregiver to a significant other at home: No Do you presently have visiting nurse or other home services: No Alcohol intake: current Alcohol intake frequency: a few times a month Alcohol type: beer Patient Tobacco Use Status: Former Tobacco user Tobacco use type: Cigarette Cigarettes Per Day: 10 Years Smoked: 20 Packs per year/per ci.00 e-Cigarette/Vaping Use: Currently Using Second Hand Smoke Exposure: No service: No Current occupational status: unemployed Current occupational exposures/hazards: No Cognitive needs: No Hearing needs: No Vision needs: Yes (Glasses) Office Procedures Cardiac Device Check Cardiac Device Check Details: Remote implantable loop recorder report generated 02/18/2025. No atrial fibrillation or pauses noted. Rare PVCs noted. [id number] Cardiac Interrogation, subcut cardiac rhythm monitor Procedure code (CPT) selection complete Assessment & Plan Assessment & Plan (1) Implantable loop recorder present: Code(s): Z95.818 - Presence of other cardiac implants and grafts Category: Medical Plan: See above Coding Level of Care Code Procedure Only Diagnoses Implantable loop recorder present Z95.818 CPT Codes Cardiac Device Check - Cardiac Device 16: [id number] Cardiac Interrogation, subcut cardiac rhythm monitor ([id number])
== END ==
PROVIDERS: PCP Internal Medicine; Visit Provider Internal Medicine Cardiovascular Disease
DX: I49.3 Ventricular premature depolarization (principal); Z95.818 Presence of other cardiac implants and grafts
CPT/HCPCS: 93298

== ENCOUNTER 2025-03-08 09:59 | Outpatient (REF) | payer OTHER, SELFPAY ==
[2025-03-08 10:04] VITALS: BP 144/83; PULSE 78; RESP 17; O2SAT 97; BMI 34.2
--- NOTE | 2025-03-08 10:42 | P.BOP_ITS ---
Brief Operative Note Date of Service: 03/08/25 Pre-op diagnosis: Implantable loop recorder in place Post-op diagnosis: same Procedure: Removal of implantable loop recorder Implants: After obtaining informed consent patient was brought to the minor surgery suite. Patient was laid on the operating table in supine position. His precordial area was then shaved. It was then prepped and draped in a sterile fashion. Patient was then given 2% lidocaine with epinephrine intradermally and subcutaneously around the head of the device. A small incision was then made around the head of the device. After blunt dissection, the device was then removed with help of a Padma forcep. The wound was then closed with Steri- Strips and pressure dressing applied in sterile fashion. Surgeon: Tip Crow MD Anesthesia: local Was an Senior Assistant Manager used for this Procedure?: No Estimated blood loss (mL): 5 Pathology: none sent Condition: stable Disposition: same day
--- OUTSIDE RECORDS SUMMARY | 2025-03-08 12:03 | XMS_ITS | Clinical Summary ---
Author Organization [address] [place] [address] Address [address] [place] [address] Phone Care Team Providers Care Pilot Boat Operator Name Role Phone Ninoska Meeks MD Primary Care Provider [phone] Allergies Active Allergy Reactions Criticality Noted Date [...] 2 diabetes mellitus wit h diabetic neuropathy ([facility] V24, [facility] V28) 10/26/2020 Encounters Date Type Department Care Team Description 02/07/2025 2:30 PM EDT Consult Orthopedic Surgery [facility] 250 175 [facility] [address] [place] [address] Ramón Kowalski, DPM Plantar fibromatosis (Primary Dx); Type 2 diabetes mellitus with diabetic polyneuropathy ([facility] V24, [facility] V28) 01/23/2025 Telephone Orthopedic Surgery [facility] [address] [facility] [address] [place] [address] Pat Martinez 12/20/2024 1:45 PM EDT Office Visit Orthopedic [facility] 175 [facility] [address] [place] [phone] Allegra Coleman MD 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) from Last 3 Months Surgical History Surgery Date Site/Laterality Comments ELBOW SURGERY Right CARPAL TUNNEL RELEASE Right WRIST FUSION 05/18/2023 - 05/17/2024 Right scaphoid excision, 4 corner fusion OTHER SURGICAL HISTORY ACHILLES TENDON SURGERY Right ligaments Medical History Medical History Date Comments Diabetes ([facility] V24, [facility] V28) DX:Diabetes ([facility]) Essential (primary) hypertension DX:Essential (primary) hypertension Hyperlipidemia [...] Safety Answer Date Record ed Physical Abuse Unrecognized value 09/29/2024 Verbal Abuse Unrecognized value 09/29/2024 Sex and Gender Information Value Date [...] Care Team (Late st Contact Info) Description 03/21/2025 2:15 PM EST Office Visit Orthopedic Surgery - [place] [address] [address] Ramón Kowalski, DPM [address] [address] Health Maintenance Due Date Last Done Comments Diabetes: Annual GFR (Glomerular Filtration Rate) 1983 Diabetes: Annual Foot Exam 10/15/1993 Diabetes: Annual Retina Eye Exam 10/15/1993 Hepatitis B Vaccines (1 of 3 - 19+ 3-dose series) 10/15/2002 Pneumococcal Vaccine: Pediatrics (0 to 5 Years) and At-Risk Patients (6 to 49 Years) (1 of 2 - PCV) 10/15/2002 HPV Vaccines (1 - 3-dose SCD M series) 10/15/2010 Cholesterol Screening (Lipid Panel) 04/26/2022 HIV Screening [...] patient's age to complete this topic Insurance [facility] Advance Directives * Full Code - Default [...] currently active code status orders. Care Teams Pilot Boat Operator Relationship Specialty Start Date End Date Ninoska Meeks MD [address] [place] [address] , [address] [facility] D/B/A: [facility] PCP - General Internal Medicine 04/26/24
== END 2025-03-08 10:00 | disposition home or self-care (01) ==
LOC: HO.MS 09:59
PROVIDERS: PCP Internal Medicine; Visit Provider Internal Medicine Cardiovascular Disease
PROC: (CPT 33286; principal; 2025-03-08 10:00)
DX: Z45.09 Encounter for adjustment and management of other cardiac device (principal)
CPT/HCPCS: 33286; J2004

== ENCOUNTER → 2025-03-08 09:59 | Outpatient (BNV) | payer OTHER, SELFPAY | PROVIDERS: PCP Internal Medicine; Visit Provider Internal Medicine Cardiovascular Disease | DX: Z45.09 Encounter for adjustment and management of other cardiac device (principal) | CPT/HCPCS: 33286 ==

== ENCOUNTER 2025-03-09 13:01 | Outpatient (AMB) | payer OTHER, SELFPAY ==
--- NOTE | 2025-03-09 13:28 | A.OFFPSYCH_ITS ---
Intake Intake Visit Reasons: follow up Manager Social Media Required: Yes Allergies Penicillins (PENICILLINS) Allergy (Intermediate, Verified 03/23/25 10:19) RASH bupropion Adverse Reaction (Intermediate, Verified 04/05/25 13:20) Sedation metformin Adverse Reaction (Intermediate, Verified 03/23/25 10:19) Diarrhea Medication List - Last Reconciled 03/09/25 by Loraine Andrews APRN atorvastatin 20 mg PO BEDTIME 90 days blood sugar diagnostic (FreeStyle Lite Strips) Use daily As directed to check blood glucose blood-glucose meter (FreeStyle Lite Meter kit) Use daily As directed to check blood sugars blood-glucose sensor (FreeStyle Jai 3 Sensor device) Apply every 14 days As directed dulaglutide (Trulicity) 4.5 mg (0.5 mL) subcut QWEEK empagliflozin (Jardiance) 25 mg PO QAM lancets (FreeStyle Lancets) use daily as directed to check blood glucose metoprolol tartrate 100 mg PO BID omeprazole 20 mg PO DAILY 90 days sertraline 25 mg PO DAILY HPI- Psychiatric Chief Complaint: follow up Intake Note: PHQ-9 4 MARTIN-7 5 HPI Narrative: Tej reports he is not tolerating Sertraline as he reports he feels too sleepy. As a result he has stopped this. He continues with issues of grief (loss of mother), depression. The family is expecting a new baby, a girl in 25 days which he reports all are excited for. We discussed Wellbutrin and its lack of sedative effect. He is agreeable. Discussed with [facility] cardiology who approves of this trial for him. Past Psychiatric History: IP: Denies OP: Saw a therapist when young Meds: Denies, and not sure he wants medications. Dana: possibly, sees shadows when anxious-sees lost cat in the car Suicide attempts: Denies Suicidal thoughts: History- thought it would be better off not to be here, however, knows he needs to be here for his children. Subjective Subjective Subjective Medication Compliance: Yes Side effects from medications: Yes (sedation) Review of Systems Medical Review of Systems: unchanged Review of Systems Review of Systems denies Cardiology approves of Wellbutrin trial Mental Status Exam Mental Status Exam Patient Appearance: Appropriate Patient Orientation: Person, Place, Time and Situation Level of Consciousness: Alert Patient Behavior: Appropriate, Talkative and Good Eye Contact Mood Description: Depressed Affect Description: Flat Patient Cognition Impaired: No Ability to Follow Directions: Good Speech Pattern: Spontaneous Speech Memory Description: Intact Hallucinations: None Delusions: Not Present Thought Process: Intact Thought Content: positive for Intact and positive for Suicidal Ideation (denies) Depressive Symptoms: Thoughts of /Suicide (denies) Judgement: Good Assessment and Plan Assessment & Plan (1) Recurrent major depression: Status: Acute Code(s): F33.9 - Major depressive disorder, recurrent, unspecified Medications: New bupropion HCl XL (Wellbutrin XL) 150 mg PO DAILY 30 tabs 0RF Discontinued sertraline 25 mg daily for 14 days, then 50 mg daily Discontinued Reason: Doctor's Order 25 mg PO DAILY 60 tabs 0RF Counseling and coordination of Care Medication management counseling: Effectiveness, Side effects, Dosing range, Duration, Drug interaction and Adherence Details-Med Mgmt counseling: Pt's cardiology team approves of this trial. Details: I spent [] minutes reviewing the record, seeing the patient and documenting in the medical record. Counseling provided to the patient/caregiver as outlined below. Addressed patient/caregiver concerns regarding current medication regime including effective adherence. Addressed patient/caregiver concerns regarding diagnosis and prognosis including accuracy of diagnosis, prognosis over time, impact of diagnosis. Addressed patient/caregiver concerns regarding impact of recent stressors. [facility] Medical History Chest pain Recurrent major depression Osteoarthritis of lumbar spine Excessive daytime sleepiness Snoring HTN (hypertension) Pure hypercholesterolemia Puncture wound of foot Muscle spasm of back Foot abscess, right Hypertrophic obstructive cardiomyopathy Submandibular lymphadenopathy Right foot pain Vertebrogenic low back pain History of recent fall Hypoglycemia Sacroiliac joint dysfunction of left side Sacroiliac joint pain Elevated LFTs Physical exam URI (upper respiratory infection) Sacroiliitis Diabetes mellitus, without long-term current use of insulin Diabetes mellitus without complication, with long-term current use of insulin Foot abscess, right Poorly controlled type 2 diabetes mellitus Diabetes Osteoarthritis of right knee MARA (obstructive sleep apnea) Hypertensive heart disease Surgical History Status post placement of implantable loop recorder History of hand surgery History of elbow surgery History of ankle surgery Family History Father PVD (peripheral vascular disease) Essential hypertension Diabetes mellitus Mother Liver transplant failure Social History Household Members: Family Housing: Apartment Are you a primary nonfarm animal caretaker to a significant other at home: No Do you presently have visiting nurse or other home services: No Alcohol intake: current Alcohol intake frequency: a few times a month Alcohol type: beer Patient Tobacco Use Status: Former Tobacco user Tobacco use type: Cigarette Cigarettes Per Day: 10 Years Smoked: 20 e-Cigarette/Vaping Use: Currently Using Second Hand Smoke Exposure: No service: No Current occupational status: unemployed Current occupational exposures/hazards: No Cognitive needs: No Hearing needs: No Vision needs: Yes (Glasses) Social History: Born in [place], three sisters, raised by both parents. Mother has passed, father and sisters are living. 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 Pt has a partner, 2 children, one child expected 02/18/25. Enjoys fishing and cars Substance History: alcohol q 3 weeks~6 beers. denies other substance use Trauma History: denies Coding Level of Care Code Est Pt Level 3 (78600) Diagnoses Recurrent major depression F33.9
--- OUTSIDE RECORDS SUMMARY | 2025-03-09 16:13 | XMS_ITS | Clinical Summary ---
Author Organization [facility] Facility Address [address] [place] [address] Care Team Providers Care Hazardous Material Technician Name Role Phone Kelly Verma MD [...] age to complete this topic Insurance Medicaid [place] Care Teams Hazardous Material Technician Relationship Specialty Start Date End Date Kelly Verma MD [address] [place] [address] PCP - General Internal Medicine 10/19/20
--- OUTSIDE RECORDS SUMMARY | 2025-03-09 16:13 | XMS_ITS | Clinical Summary ---
Author Organization [address] [place] [address] Address [address] [place] [address] Phone Care Team Providers Care Insulation Applicator Name Role Phone Ninoska Meeks MD Primary Care Provider [phone] Allergies Active Allergy Reactions Criticality Noted Date [...] 2 diabetes mellitus wit h diabetic neuropathy ([facility] V24, [facility] V28) 10/26/2020 Encounters Date Type Department Care Team Description 02/07/2025 2:30 PM EDT Consult Orthopedic Surgery [facility] [address] [facility] [address] [place] [address] Ramón Kowalski, DPM Plantar fibromatosis (Primary Dx); Type 2 diabetes mellitus with diabetic polyneuropathy ([facility] V24, [facility] V28) 01/23/2025 Telephone Orthopedic Surgery [facility] [address] [facility] [address] [place] [address] Pat Martinez 12/20/2024 1:45 PM EDT Office Visit Orthopedic [facility] 175 [facility] [address] [place] [phone] Allegra Coleman MD 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) from Last 3 Months Surgical History Surgery Date Site/Laterality Comments ELBOW SURGERY Right CARPAL TUNNEL RELEASE Right WRIST FUSION 05/18/2023 - 05/17/2024 Right scaphoid excision, 4 corner fusion OTHER SURGICAL HISTORY ACHILLES TENDON SURGERY Right ligaments Medical History Medical History Date Comments Diabetes ([facility] V24, [facility] V28) DX:Diabetes ([facility]) Essential (primary) hypertension DX:Essential (primary) [...] PM EST Office Visit Orthopedic Surgery - [place] [address] [address] Ramón Kowalski, DPM [address] [address] Health Maintenance Due Date Last [...] patient's age to complete this topic Insurance [facility] Advance Directives * Full Code - Default [...] currently active code status orders. Care Teams Insulation Applicator Relationship Specialty Start Date End Date Ninoska Meeks MD [address] [place] [address] , [address] [facility] Physician Associ D/B/A: [facility] [place] PCP - General Internal Medicine 04/26/24
== END 2025-03-09 13:28 | disposition home or self-care (01) ==
LOC: HO.HOP 13:01
PROVIDERS: PCP Internal Medicine; Visit Provider Clinical Nurse Specialist Psychiatric/Mental Health, Adult
DX: F33.9 Major depressive disorder, recurrent, unspecified (principal)
CPT/HCPCS: 99213

== ENCOUNTER → 2025-03-09 13:01 | Outpatient (BNVA) | payer OTHER, SELFPAY | PROVIDERS: PCP Internal Medicine; Visit Provider Clinical Nurse Specialist Psychiatric/Mental Health, Adult | DX: F33.9 Major depressive disorder, recurrent, unspecified (principal); Z79.899 Other long term (current) drug therapy | CPT/HCPCS: 99212 ==

== ENCOUNTER 2025-03-23 09:53 | Outpatient (AMB) | payer OTHER, SELFPAY ==
--- OUTSIDE RECORDS SUMMARY | 2025-03-21 14:15 | XMS_ITS | Encounter Summary ---
Author Organization [facility] Address [address] [place] [phone] Care Team Providers Care Property Underwriter Name Role Phone Ninoska Meeks MD Primary Care Provider [phone] Reason for Visit * Reason Comments DM Foot Care * Consultation (Routine) - Closed Specialty Diagnoses / Procedures Referred By Contact Referred To Contact Podiatry / Orthopaedic Surgery Diagnoses Type 2 diabetes mellitus with diabetic polyneuropathy (CMS/HCC V24, CMS/HCC V28) Manda Chino PA [address] [place] [id number] Phone: tel:[phone] Ramón Kowalski DPM [address] [address] Phone: tel: fax: Referral ID Status Reason Start Date Expiration Date V isits Requested Visits Authorized [id number] Closed Specialty Services Required 11/16/2024 11/16/2025 1 1 Encounter Details Date Type Department Care Team (Late st Contact Info) Description 03/21/2025 2:15 PM EST Office Visit Orthopedic Surgery - [place] [address] [address] Ramón Kowalski DPM [address] [address] Plantar fibromatosis (Primary Dx); Follow-up exam Social History Tobacco Use Types Packs/Day Years [...] as of this encounter Progress Notes * Ramón Kowalski DPM - 03/21/2025 2:15 PM EST S Phillip Back is a 39 y.o. year old male presents complaining of numbness burning tingling to the ball of the foot states he is a type II diabetic gets worsening pain in his right foot he states he has a lump has been improving states that has been doing well without medication does note historyof there is been very painful aching mixed deformed walk pain discomfort he states is a 7 out of 10on a visual analog scale and affects him [...] Type 2 diabetes mellitus with diabetic neuropathy ([facility] V24, [facility] V28) Type 2 diabetes mellitus with hyperglycemia ([facility] V24, [facility] V28) SOCIAL HISTORY: Social History Tobacco Use Smoking status: Former Types: Cigarettes Smokeless tobacco: Never Substance Use Topics Alcohol use: Yes Alcohol/week: 2.0 - 3.0 standard drinks of alcohol Types: 2 - 3 Standard drinks or equivalent per week Comment: ONCE WEEKLY ACTIVE MEDICATIONS: Outpatient Medications Marked as Taking for the 03/21/25 encounter (Office Visit) with Ramón Ashton DPM Medication Sig Dispense Refill atorvastatin (LIPITOR) 20 mg tablet Take 1 tablet (20 mg total) by mouth at bedtime. diclofenac (Voltaren Arthritis Pain) 1 % topical gel Apply 4 g topically 2 (two) times a day. 240 g1 Jardiance 10 mg tablet Take 1 tablet (10 mg total) by mouth 1 (one) time each day in the morning. Instructed to stop med 3 days prior to sx metoprolol succinate (TOPROL-XL) 100 mg 24 hr tablet 1 tablet (100 mg total) 2 (two) times a day. Trulicity 4.5 mg/0.5 mL pen injector injection Inject 0.5 mL (4.5 mg total) under the skin 1 (one) time per week. ALLERGIES: Allergies Allergen Reactions Penicillins Rash Metformin [...] wnl. IMAGING: IMPRESSION: 1. Plantar fibromatosis 2. Follow-up exam PLAN: Pt was seen and examined, history [...] to metal in his body Voltaren gel continue with Discussed steroid injections patient states he cannot have steroid shots did discuss possible benefits of nketo Keralac injections Follow-up in 1 to 2 months Ramón Kowalski DPM documented in this encounter Plan of Treatment Upcoming Encounters Date Type Department Care Team (Late st Contact Info) Description 06/21/2025 9:45 AM EST Office Visit Orthopedic Surgery - [place] [address] [address] Ramón Kowalski DPM [address] [phone] documented as of this encounter Visit Diagnoses Diagnosis Plantar fibromatosis- Primary Plantar fascial fibromatosis Follow-up exam Unspecified follow-up examination documented in this encounter Care Teams Property Underwriter Relationship Specialty Start Date End Date Ninoska Meeks MD [address] [place] [address] , [address] Physician Associ D/B/A: [facility] [place] PCP - General Internal Medicine 04/26/24 documented as of this encounter
[2025-03-23 10:15] VITALS: BP 124/82; PULSE 91; BMI 34.0
--- NOTE | 2025-03-23 10:15 | A.OFFVIS_ITS ---
Vital Signs 03/23/25 10:15 Height 6 ft Weight 250 lb 14.177 oz BMI 34.0 BP 124/82 Blood Pressure Location Lt brachial Position Sitting Pulse 91 Pulse Source Pulse Oximeter Intake Visit Reasons: wound ck per NS Director Of Accreditation Required: Yes Director Of Accreditation Language: Dry End Tester Services: Director Of Accreditation Present Director Of Accreditation Name: eitan [id number] Allergies Penicillins (PENICILLINS) Allergy (Intermediate, Verified 03/23/25 10:19) RASH metformin Adverse Reaction (Intermediate, Verified 03/23/25 10:19) Diarrhea Medication List - Last Reconciled 03/23/25 by Dory Breaux, SENIOR JAVA ARCHITECT-C atorvastatin 20 mg PO BEDTIME 90 days blood sugar diagnostic (FreeStyle Lite Strips) Use daily As directed to check blood glucose blood-glucose meter (FreeStyle Lite Meter kit) Use daily As directed to check blood sugars blood-glucose sensor (WorkCastStyle Jai 3 Sensor device) Apply every 14 days As directed dulaglutide (Trulicity) 4.5 mg (0.5 mL) subcut QWEEK empagliflozin (Jardiance) 25 mg PO QAM lancets (FreeStyle Lancets) use daily as directed to check blood glucose metoprolol tartrate 100 mg PO BID omeprazole 20 mg PO DAILY 90 days HPI HPI wound ck per NS: Details: Tej is a 39-year-old male with past medical history of obesity, diabetes,obstructive sleep apnea, hypertension, hypertensive heart disease, HOCM, [place] scientific ICD placement 12/2024 who recently underwent implanted loop recorder removal and now presents for follow-up. Today he reports that he has been noticing some shortness of breath where he is running out of air. He has an intermittent cough with no recent illness. He also gets random pains in his chest. His symptoms are clearly brought on by exertional activities. He has been mostly sedentary as he is out of work with a right wrist injury. He does care for his young child. He has not had any ICD shocks. His ILR removal site is feeling good. Taking meds as directed. [facility] Medical History (Updated 03/23/25 @ 11:15 by Dory Breaux, SENIOR JAVA ARCHITECT-C) Chest pain Recurrent major depression Osteoarthritis of lumbar spine Excessive daytime sleepiness Snoring HTN (hypertension) Pure hypercholesterolemia Puncture wound of foot Muscle spasm of back Foot abscess, right Hypertrophic obstructive cardiomyopathy Submandibular lymphadenopathy Right foot pain Vertebrogenic low back pain History of recent fall Hypoglycemia Sacroiliac joint dysfunction of left side Sacroiliac joint pain Elevated LFTs Physical exam URI (upper respiratory infection) Sacroiliitis Diabetes mellitus, without long-term current use of insulin Diabetes mellitus without complication, with long-term current use of insulin Foot abscess, right Poorly controlled type 2 diabetes mellitus Diabetes Osteoarthritis of right knee MARA (obstructive sleep apnea) Hypertensive heart disease Surgical History Status post placement of implantable loop recorder History of hand surgery History of elbow surgery History of ankle surgery Family History Father PVD (peripheral vascular disease) Essential hypertension Diabetes mellitus Mother Liver transplant failure Social History Household Members: Family Housing: Apartment Are you a primary child day care center worker to a significant other at home: No Do you presently have visiting nurse or other home services: No Alcohol intake: current Alcohol intake frequency: a few times a month Alcohol type: beer Patient Tobacco Use Status: Former Tobacco user Tobacco use type: Cigarette Cigarettes Per Day: 10 Years Smoked: 20 e-Cigarette/Vaping Use: Currently Using Second Hand Smoke Exposure: No service: No Current occupational status: unemployed Current occupational exposures/hazards: No Cognitive needs: No Hearing needs: No Vision needs: Yes (Glasses) Review of Systems Const All systems reviewed & are unremarkable except as noted in HPI and below ENT Denies dizziness Card Details: ILR removal site feeling good Denies chest pain, Denies chest pain at rest, Denies chest pain with activity, Denies rapid heart rate, Denies pedal edema, Denies edema, Denies leg edema, Denies lightheadedness, Denies palpitations, Reports dyspnea, Denies dyspnea on exertion and Denies orthopnea Resp Details: running out of air Denies cough, Reports dyspnea and Denies dyspnea on exertion GI Denies hematochezia and Denies change in stool character Musc Denies abnormal gait, Denies limited range of motion, Denies muscle cramps, Denies muscle weakness, Denies numbness, Denies radiating pain into limb, Denies stiffness and Denies tingling Neuro Denies abnormal gait, Denies dizziness, Denies numbness and Denies tingling Endo Denies palpitations Physical Exam Vital Signs: Last Vital Signs Pulse 91 03/23/25 10:15 BP 124/82 03/23/25 10:15 BMI result Body Mass Index 34.0 Const General: cooperative, healthy appearing, comfortable and no acute distress Orientation/consciousness: patient oriented x3 Neck Neck: Yes normal visual inspection Chest Other: ILR removal site well healed, small scab in place, no signs of infection, no redness or drainage. ICD site left upper chest with keloid type scar, nontender Resp Effort & Inspection: normal respiratory effort Auscultation: clear to auscultation bilaterally, no rales, no rhonchi and no wheezes Cardio Rate: regular rate Rhythm: regular rhythm Heart sounds: S1 normal heart sound present, S2 normal heart sound present, no gallops, no murmurs and no rubs Neuro General: patient oriented x3 Extrem General: Yes normal to inspection Psych Appearance: grossly normal Mental Status: mental status grossly normal Speech and movement: Normal speech and movement present Assessment & Plan Assessment & Plan (1) Visit for wound check: Code(s): Z51.89 - Encounter for other specified aftercare Category: Medical Plan: ILR removal on 03/08/2025. Site is well healed with small scab in place, no signs of infection. Site care reviewed. (2) Hypertrophic cardiomyopathy: Code(s): I42.2 - Other hypertrophic cardiomyopathy Category: Medical Plan: History of HOCM with cardiac MRI 08/29/2024 showing severe asymmetrical septal hypertrophy, 32 mm with significant sub endocardial scarring on gadolinium. He underwent ICD placement with Dr. Bell on 12/22/2024, for primary prevention. Blood pressure well controlled. No med changes made. (3) ICD (implantable cardioverter-defibrillator) in place: Code(s): Z95.810 - Presence of automatic (implantable) cardiac defibrillator Category: Medical Plan: [place] scientific ICD in place. ICD site with keloid type scarring otherwise benign. Remote monitoring in use. Office interrogation next visit. (4) Essential hypertension: Code(s): I10 - Essential (primary) hypertension Category: Medical Plan: Blood pressure goal less than 130/80. Well controlled at present. Continue metoprolol. (5) Chest pain: Code(s): R07.9 - Chest pain, unspecified Category: Medical Plan: Reports of random, atypical sounding chest discomfort and feeling like he is losing air . He is not fluid overloaded on examination. CTA of the coronary arteries 09/03/2021 showed no hemodynamically significant coronary artery disease. Last echo 07/25/2024 showing EF greater than 70%, grade 2 diastolic dysfunction, severe septal hypertrophy. No further testing needed at this time. Instructed to call if symptoms changing and ER care if needed. Plan I discussed with the patient the symptoms of chest pain and dyspnea on exertion, emphasizing the importance of monitoring these symptoms closely. I advised the p atient to notify us if symptoms worsen and to consider visiting the ER if necessary. Medications: Refilled metoprolol tartrate 100 mg PO BID 180 tabs 3RF Patient Instructions: - Monitor chest pain and shortness of breath closely. - Notify the clinic if symptoms worsen or visit the ER if necessary. - Follow up with cardiology as scheduled. - Continue taking prescribed medications and refill metoprolol as needed. Patient was informed and verbally consented to the use of an ambient scribe for clinic note documentation during this visit. Visit time spent on chart review, interview, assessment, orders, documentation. Coding Level of Care Code Est Pt Level 3 (90574) Complex EM visit Add On G2211 Diagnoses Visit for wound check Z51.89 Hypertrophic cardiomyopathy I42.2 ICD (implantable cardioverter-defibrillator) in place Z95.810 Essential hypertension I10 Chest pain R07.9 Time Spent (min) 24
--- OUTSIDE RECORDS SUMMARY | 2025-03-23 11:19 | XMS_ITS | Clinical Summary ---
Author Organization [address] [place] [address] Address [address] [place] [address] Phone Care Team Providers Care Electrical Instrument Technician Name Role Phone Ninoska Meeks MD Primary Care Provider [phone] Allergies Active Allergy Reactions Criticality Noted Date [...] 2 diabetes mellitus wit h diabetic neuropathy ([facility] V24, [facility] V28) 10/26/2020 Encounters Date Type Department Care Team Description 03/21/2025 2:15 PM EST Office Visit Orthopedic Surgery [facility] [address] [address] Ramón Kowalski, KAUSHIK Plantar fibromatosis (Primary Dx); Follow-up exam 02/07/2025 2:30 PM EDT Consult Orthopedic Surgery [facility] [address] [address] Ramón Kowalski, KAUSHIK Plantar fibromatosis (Primary Dx); Type 2 diabetes mellitus with diabetic polyneuropathy ([facility] V24, [facility] V28) 01/23/2025 Telephone Orthopedic [facility] [address] [address] Pat Martinez from Last 3 Months Surgical History Surgery Date Site/Laterality Comments ELBOW SURGERY Right CARPAL TUNNEL RELEASE Right WRIST FUSION 05/18/2023 - 05/17/2024 Right scaphoid excision, 4 corner fusion OTHER SURGICAL HISTORY ACHILLES TENDON SURGERY Right ligaments Medical History Medical History Date Comments Diabetes ([facility] V24, [facility] V28) DX:Diabetes (HCC) Essential (primary) hypertension DX:Essential [...] AM EST Office Visit Orthopedic Surgery - [place] [address] [address] Ramón Kowalski, DPM [address] [address] Health Maintenance Due Date Last [...] Name Priority Date/Time Associated Diagnosis Comments XR FOOT 3+ VIEWS RIGHT Routine 03/21/2025 2:39 PM EST Follow-up exam from Last 3 Months Results * XR Foot 3+ Views Right (03/21/2025 2:39 PM EST) Anatomical Region Laterality Modality Lower Extremities, Foot Right Computed Radiography Narrative 03/21/2025 5:20 PM EST Right foot 3 views No fracture. No radiopaque foreign joint spaces normal Foot position Pes Cavus with Talus navicular decreased kites angle increased calcaneal inclination posterior displaced symes line talus navicular joint to calcaneal cuboid joint Ramón Kowalski DPM IMG XR PROCEDURES Final R esult from Last 3 Months Insurance [facility] Advance Directives * Full Code - Default [...] currently active code status orders. Care Teams Electrical Instrument Technician Relationship Specialty Start Date End Date Ninoska Meeks MD [address] [place], [place] [address]Jenn, [address] [facility] D/B/A: [facility] MAI Alva PCP - General Internal Medicine 04/26/24
== END 2025-03-23 10:54 | disposition home or self-care (01) ==
LOC: HO.HCS 09:53
PROVIDERS: PCP Internal Medicine; Visit Provider Nurse Practitioner Family
DX: Z51.89 Encounter for other specified aftercare (principal); I42.2 Other hypertrophic cardiomyopathy; Z95.810 Presence of automatic (implantable) cardiac defibrillator; I10 Essential (primary) hypertension; R07.9 Chest pain, unspecified
CPT/HCPCS: 99213

== ENCOUNTER → 2025-03-23 09:53 | Outpatient (BNVA) | payer OTHER, SELFPAY | PROVIDERS: PCP Internal Medicine; Visit Provider Nurse Practitioner Family | DX: Z51.89 Encounter for other specified aftercare (principal); I42.2 Other hypertrophic cardiomyopathy; Z95.810 Presence of automatic (implantable) cardiac defibrillator; I10 Essential (primary) hypertension; R07.9 Chest pain, unspecified | CPT/HCPCS: 99212 ==

== ENCOUNTER 2025-04-05 13:06 | Outpatient (AMB) | payer OTHER, SELFPAY ==
--- NOTE | 2025-04-05 13:19 | A.OFFPSYCH_ITS ---
<Statement entered by Marybel Campos APRN - 05/08/25 14:51> This patient waas under the care of Loraine Evans APRN at date of sercvice: the first time I saw this patient is 05/08/25. I have reviewed his records. See note dated 05/08/25 for my asessment Intake Intake Visit Reasons: f/u consultation Intake Note: 04/05/25: PHQ-9 5 MARTIN-7 5 Fleet Service Clerk Required: No Allergies Penicillins (PENICILLINS) Allergy (Intermediate, Verified 03/23/25 10:19) RASH bupropion Adverse Reaction (Intermediate, Verified 04/05/25 13:20) Sedation metformin Adverse Reaction (Intermediate, Verified 03/23/25 10:19) Diarrhea Medication List - Last Reconciled 04/05/25 by Loraine Andrews APRN atorvastatin 20 mg PO BEDTIME 90 days blood sugar diagnostic (FreeStyle Lite Strips) Use daily As directed to check blood glucose blood-glucose meter (ScaleGridStyle Lite Meter kit) Use daily As directed to check blood sugars blood-glucose sensor (ScaleGridStyle Jai 3 Sensor device) Apply every 14 days As directed dulaglutide (Trulicity) 4.5 mg (0.5 mL) subcut QWEEK empagliflozin (Jardiance) 25 mg PO QAM lancets (FreeStyle Lancets) use daily as directed to check blood glucose metoprolol tartrate 100 mg PO BID omeprazole 20 mg PO DAILY 90 days HPI- Psychiatric Chief Complaint: f/u consultation Intake Note: PHQ-9 4 MARTIN-7 5 HPI Narrative: Tej reports he is not tolerating Sertraline as he reports he feels too sleepy. As a result he has stopped this. He continues with issues of grief (loss of mother), depression. The family is expecting a new baby, a girl in 25 days which he reports all are excited for. We discussed Wellbutrin and its lack of sedative effect. He is agreeable. Discussed with [facility] cardiology who approves of this trial for him. 04/05/25: Reports feeling sleepy on Wellbutrin as well. Will trial Mirtazapine 3.75 mg daily. Past Psychiatric History: IP: Denies OP: Saw a therapist when young Meds: Denies, and not sure he wants medications. Dana: possibly, sees shadows when anxious-sees lost cat in the car Suicide attempts: Denies Suicidal thoughts: History- thought it would be better off not to be here, however, knows he needs to be here for his children. Assessment and Plan Assessment & Plan Medications: New mirtazapine 3.75 mg (1/2 x 7.5 mg) PO BEDTIME 15 tabs 0RF Counseling and coordination of Care Details: I spent [] minutes reviewing the record, seeing the patient and documenting in the medical record. Counseling provided to the patient/caregiver as outlined below. Addressed patient/caregiver concerns regarding current medication regime including effective adherence. Addressed patient/caregiver concerns regarding diagnosis and prognosis including accuracy of diagnosis, prognosis over time, impact of diagnosis. Addressed patient/caregiver concerns regarding impact of recent stressors. [facility] Medical History Chest pain Recurrent major depression Osteoarthritis of lumbar spine Excessive daytime sleepiness Snoring HTN (hypertension) Pure hypercholesterolemia Puncture wound of foot Muscle spasm of back Foot abscess, right Hypertrophic obstructive cardiomyopathy Submandibular lymphadenopathy Right foot pain Vertebrogenic low back pain History of recent fall Hypoglycemia Sacroiliac joint dysfunction of left side Sacroiliac joint pain Elevated LFTs Physical exam URI (upper respiratory infection) Sacroiliitis Diabetes mellitus, without long-term current use of insulin Diabetes mellitus without complication, with long-term current use of insulin Foot abscess, right Poorly controlled type 2 diabetes mellitus Diabetes Osteoarthritis of right knee MARA (obstructive sleep apnea) Hypertensive heart disease Surgical History Status post placement of implantable loop recorder History of hand surgery History of elbow surgery History of ankle surgery Family History Father PVD (peripheral vascular disease) Essential hypertension Diabetes mellitus Mother Liver transplant failure Social History Household Members: Family Housing: Apartment Are you a primary senior resident care director to a significant other at home: No Do you presently have visiting nurse or other home services: No Alcohol intake: current Alcohol intake frequency: a few times a month Alcohol type: beer Patient Tobacco Use Status: Former Tobacco user Tobacco use type: Cigarette Cigarettes Per Day: 10 Years Smoked: 20 e-Cigarette/Vaping Use: Currently Using Second Hand Smoke Exposure: No service: No Current occupational status: unemployed Current occupational exposures/hazards: No Cognitive needs: No Hearing needs: No Vision needs: Yes (Glasses) Social History: Born in [place], three sisters, raised by both parents. Mother has passed, father and sisters are living. 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 Pt has a partner, 2 children, one child expected 02/18/25. Enjoys fishing and cars Substance History: alcohol q 3 weeks~6 beers. denies other substance use Trauma History: denies Coding Level of Care Code Est Pt Level 2 (68405)
--- OUTSIDE RECORDS SUMMARY | 2025-04-06 01:01 | XMS_ITS | Clinical Summary ---
Author Organization [facility] Facility Address [address] [place] [address] Care Team Providers Care Ibm Websphere Portal Developer Name Role Phone Kelly Verma MD Primary [...] Insurance Medicaid [place] Care Teams Ibm Websphere Portal Developer Relationship Specialty Start Date End Date Kelly Verma MD [address] [place] [address] PCP - General Internal Medicine 10/19/20
== END 2025-04-05 14:36 | disposition home or self-care (01) ==
LOC: HO.HOP 13:06
PROVIDERS: PCP Internal Medicine; Visit Provider Clinical Nurse Specialist Psychiatric/Mental Health, Adult
DX: R40.0 Somnolence (principal); Z71.89 Other specified counseling
CPT/HCPCS: 99212

== ENCOUNTER → 2025-04-05 13:06 | Outpatient (BNVA) | payer OTHER, SELFPAY | PROVIDERS: PCP Internal Medicine; Visit Provider Clinical Nurse Specialist Psychiatric/Mental Health, Adult | DX: F43.21 Adjustment disorder with depressed mood (principal); F32.A Depression, unspecified | CPT/HCPCS: 99212 ==

== ENCOUNTER → 2025-05-03 15:17 | Outpatient (BNV) | payer OTHER, SELFPAY | PROVIDERS: PCP Internal Medicine; Visit Provider Internal Medicine Cardiovascular Disease | DX: I50.9 Heart failure, unspecified (principal); Z95.810 Presence of automatic (implantable) cardiac defibrillator | CPT/HCPCS: 93297 ==

== ENCOUNTER 2025-05-08 11:13 | Outpatient (AMB) | payer OTHER, SELFPAY ==
--- NOTE | 2025-05-08 12:23 | A.OFFPSYCH_ITS ---
Intake Intake Visit Reasons: f/u consultation Double Needle Operator Lockstitch Required: Yes Provided:: Language: (Croatian) and Double Needle Operator Lockstitch (hospital approved employee) Type:: Employee Allergies Penicillins (PENICILLINS) Allergy (Intermediate, Verified 03/23/25 10:19) RASH bupropion Adverse Reaction (Intermediate, Verified 04/05/25 13:20) Sedation metformin Adverse Reaction (Intermediate, Verified 03/23/25 10:19) Diarrhea Medication List - Last Reconciled 05/08/25 by Marybel Campos APRN atorvastatin 20 mg PO BEDTIME 90 days blood sugar diagnostic (FreeStyle Lite Strips) Use daily As directed to check blood glucose blood-glucose meter (FreeStyle Lite Meter kit) Use daily As directed to check blood sugars blood-glucose sensor (Trader SamStyle Jai 3 Sensor device) Apply every 14 days As directed dulaglutide (Trulicity) 4.5 mg (0.5 mL) subcut QWEEK empagliflozin (Jardiance) 25 mg PO QAM lancets (FreeStyle Lancets) use daily as directed to check blood glucose metoprolol tartrate 100 mg PO BID mirtazapine 3.75 mg (1/2 x 7.5 mg) PO BEDTIME omeprazole 20 mg PO DAILY 90 days HPI- Psychiatric Chief Complaint: f/u consultation Intake Note: PHQ-9 =7 MARTIN-7= HPI Narrative: Tej reports he is tolerating mirtazepine. he is taking 7.5mg at night instead of recommended 1/2 tab. He reports good sleep. no side effects. He is agreeable to try higher dose given continuing symptoms. He denies SI ro HI Past Psychiatric History: IP: Denies OP: Saw a therapist when young Meds: Denies, and not sure he wants medications. Dana: possibly, sees shadows when anxious-sees lost cat in the car Suicide attempts: Denies Suicidal thoughts: History- thought it would be better off not to be here, however, knows he needs to be here for his children. Subjective Subjective Medication Compliance: Yes Side effects from medications: No Review of Systems Medical Review of Systems: unchanged Mental Status Exam Mental Status Exam Patient Appearance: Appropriate Patient Orientation: Person, Place, Time and Situation Level of Consciousness: Alert Patient Behavior: Appropriate and Good Eye Contact Mood Description: Depressed Affect Description: Flat Patient Cognition Impaired: No Ability to Follow Directions: Good Speech Pattern: Impoverished, Spontaneous Speech and Soft-Spoken Memory Description: Intact Hallucinations: None Delusions: Not Present Thought Process: Intact and Goal Oriented Thought Content: positive for Intact and positive for Goal Oriented Judgement: Good Assessment and Plan Assessment & Plan (1) MARTIN (generalized anxiety disorder): Status: Acute Code(s): F41.1 - Generalized anxiety disorder (2) Recurrent major depression: Status: Acute Qualifiers: Major depression episode severity: moderate Code(s): F33.9 - Major depressive disorder, recurrent, unspecified Plan increase remeron to 15mg at bedtime discussed pt returning to care of PCP at next visist if stable Medications: New mirtazapine 15 mg PO BEDTIME 30 tabs 3RF Discontinued mirtazapine Discontinued Reason: Patient Completed Course 3.75 mg (1/2 x 7.5 mg) PO BEDTIME 15 tabs 0RF Counseling and coordination of Care Pt. Self Management counseling: Maintenance-social rhythm, Mod caffeine/ETOH intake, Sleep hygiene and General coping skills Medication management counseling: Effectiveness, Side effects, Dosing range, Duration, Drug interaction and Adherence Diagnosis and Prognosis Counseling: Accuracy of diagnosis, Impact of diagnosis on life functions and Adequacy of current interventions Details: I spent 30 minutes reviewing the record, seeing the patient and documenting in the medical record. Counseling provided to the patient/caregiver as outlined below. Addressed patient/caregiver concerns regarding current medication regime including effective adherence. Addressed patient/caregiver concerns regarding diagnosis and prognosis including accuracy of diagnosis, prognosis over time, impact of diagnosis. Addressed patient/caregiver concerns regarding impact of recent stressors. [facility] Medical History Chest pain Recurrent major depression Osteoarthritis of lumbar spine Excessive daytime sleepiness Snoring HTN (hypertension) Pure hypercholesterolemia Puncture wound of foot Muscle spasm of back Foot abscess, right Hypertrophic obstructive cardiomyopathy Submandibular lymphadenopathy Right foot pain Vertebrogenic low back pain History of recent fall Hypoglycemia Sacroiliac joint dysfunction of left side Sacroiliac joint pain Elevated LFTs Physical exam URI (upper respiratory infection) Sacroiliitis Diabetes mellitus, without long-term current use of insulin Diabetes mellitus without complication, with long-term current use of insulin Foot abscess, right Poorly controlled type 2 diabetes mellitus Diabetes Osteoarthritis of right knee MARA (obstructive sleep apnea) Hypertensive heart disease Surgical History Status post placement of implantable loop recorder History of hand surgery History of elbow surgery History of ankle surgery Family History Father PVD (peripheral vascular disease) Essential hypertension Diabetes mellitus Mother Liver transplant failure Social History Household Members: Family Housing: Apartment Are you a primary client care coordinator to a significant other at home: No Do you presently have visiting nurse or other home services: No Alcohol intake: current Alcohol intake frequency: a few times a month Alcohol type: beer Patient Tobacco Use Status: Former Tobacco user Tobacco use type: Cigarette Cigarettes Per Day: 10 Years Smoked: 20 e-Cigarette/Vaping Use: Currently Using Second Hand Smoke Exposure: No service: No Current occupational status: unemployed Current occupational exposures/hazards: No Cognitive needs: No Hearing needs: No Vision needs: Yes (Glasses) Social History: Born in [place], three sisters, raised by both parents. Mother has passed, father and sisters are living. 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 Pt has a partner, 2 children, one child expected 02/18/25. Enjoys fishing and cars Substance History: alcohol q 3 weeks~6 beers. denies other substance use Trauma History: denies Coding Level of Care Code Est Pt Level 4 (15692) Diagnoses MARTIN (generalized anxiety disorder) F41.1 Recurrent major depression F33.9 Major depression episode severity: moderate
--- OUTSIDE RECORDS SUMMARY | 2025-05-08 14:18 | XMS_ITS | Clinical Summary ---
Author Organization [facility] Facility Address [address] [place] [address] Care Team Providers Care Ultrasonic Welding Machine Operator Name Role Phone Kelly Verma MD Primary Care Provider [phone] Allergies Active Allergy Reactions Criticality Noted Date [...] age to complete this topic [place] Care Teams Ultrasonic Welding Machine Operator Relationship Specialty Start Date End Date Kelly Verma MD [address] [place] [address] PCP - General Internal Medicine 10/19/20
--- OUTSIDE RECORDS SUMMARY | 2025-05-08 14:18 | XMS_ITS | Clinical Summary ---
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 Cubital tunnel syndrome on left 04/23/2023 Injury of triangular fibrocartilage complex of r ight wrist 08/05/2021 Type 2 diabetes mellitus with hyperglycemia 10/2020 Complete tear of wrist ligament 02/26/2021 Essential (primary) hypertension 10/26/2020 Type 2 diabetes mellitus with diabetic neuropath y 10/26/2020 Encounters Date Type Department Care Team Description 03/21/2025 2:15 PM EST Office Visit Orthopedic Surgery [facility] 250 175 [facility] [address] [place] [address] Ramón Kowalski DPM Plantar fibromatosis (Primary Dx); Follow-up exam 02/07/2025 2:30 PM EDT Consult Orthopedic Surgery [facility] 250 175 [facility] [address] [place] [address] Ramón Kowalski DPM Plantar fibromatosis (Primary Dx); Type 2 diabetes mellitus with diabetic polyneuropathy ([facility] V24, [facility] V28) from Last 3 Months Surgical History Surgery Date Site/Laterality Comments ELBOW SURGERY Right CARPAL TUNNEL RELEASE Right WRIST FUSION 05/18/2023 - 05/17/2024 Right scaphoid excision, 4 corner fusion OTHER SURGICAL HISTORY ACHILLES TENDON SURGERY Right ligaments Medical History Medical History Date Comments Diabetes ([facility] V24, [facility] V28) DX:Diabetes ([facility]) Essential (primary) hypertension DX:Essential (primary) hypertension Hyperlipidemia [...] Orientation Straight 09/29/2024 7: 50 AM EDT Last Filed Vital Signs Vital Sign Reading [...] AM EST Office Visit Orthopedic Surgery - [place] [address] [address] Ramón Kowalski, DPM [address] [address] Health Maintenance Due Date Last [...] joint to calcaneal cuboid joint Ramón Kowalski DPRajesh IMG XR PROCEDURES Final R esult from Last 3 Months Insurance [facility] Advance Directives * Full Code [...] currently active code status orders. Care Teams Flexographic Press Set Up Operator Relationship Specialty Start Date End Date Ninoska Meeks MD [address] [facility] , [address] [facility] Physician Associ D/B/A: [facility] MAI Alva PCP - General Internal Medicine 04/26/24
== END 2025-05-08 11:25 | disposition home or self-care (01) ==
LOC: HO.HOP 11:13
PROVIDERS: PCP Internal Medicine; Visit Provider Clinical Nurse Specialist Psychiatric/Mental Health
DX: F41.1 Generalized anxiety disorder (principal); F33.9 Major depressive disorder, recurrent, unspecified
CPT/HCPCS: 99214

== ENCOUNTER → 2025-05-08 11:13 | Outpatient (BNVA) | payer OTHER, SELFPAY | PROVIDERS: PCP Internal Medicine; Visit Provider Clinical Nurse Specialist Psychiatric/Mental Health | DX: F41.1 Generalized anxiety disorder (principal); F33.9 Major depressive disorder, recurrent, unspecified; Z79.899 Other long term (current) drug therapy | CPT/HCPCS: 99212 ==